=== PATIENT | female | born 1990 | race Caucasian/White ===

== ENCOUNTER 2024-05-21 13:49 | Emergency (ER) | payer BC, SELFPAY ==
--- OUTSIDE RECORDS SUMMARY | 2024-05-21 13:52 | XMS_ITS | Clinical Summary ---
Author Organization [facility] Address [place], [place] [address] Care Team Providers Care Business Analytics Faculty Member Name Role Phone Provider, Non-[facility] Primary Care Provider Un available Allergies Active Allergy Reactions Criticality Noted Date Comments Sulfa (Sulfonamide Antibiotics) Rash 03/12 Medications dextroamphetami ne-amphetamine (ADDERALL) 10 mg tablet Take 1 tablet by mouth once daily 0 7 Active traZODone (DESYREL) 100 mg tablet Take 1 tablet by mouth at bedtime. 0 7 Active citalopram (CELEXA) 20 mg tablet Take 1 tablet by mouth once daily. 0 7 Active desogestrel-eth inyl estradiol 0.15-30 mg-mcg (ENSKYCE) tablet Take 1 tablet by mouth once daily. 1 Package 7 Active albuterol (PROVENTIL) 0.083 % neb solutionIndicat ions:Shortness of breath Inhale 3 mL (2.5 mg) via a nebulizer every 4 hours if needed for Shortness Of Breath or Wheezing. 90 mL 2 Active Active Problems Estimated Date of Delivery Comme nts Yes 11/28/2021 No known active problems Social History Tobacco Use Types Packs/Day Years Used Date Smoking Tobacco: Every Day Cigarettes Smokeless Tobacco: Never Estimated Date of Delivery Comme nts Yes 11/28/2021 Sex and Gender Information Value Date Recorded Sex Assigned at Not on file Legal Sex Female 7:12 AM RN OFFICE Gender Identity Not on file Sexual Orientation Not on file Obstetrics History Para Term AB IAB SAB Ectopic Multiple Livin g Live Births 1 Date Outcome GA Total Labor Labor/2nd/3rd Weight Sex Type Anes PTL Sailaja A1 A5 Name Clin Current Last Filed Vital Signs Vital Sign Reading Time Taken Comments Blood Pressure 140/80 09/28/2021 12:29 PM CDT Pulse 97 09/28/2021 12:29 PM CDT Temperature 36.7 C (98 F) 09/28/2021 9:10 AM CDT Respiratory Rate 18 09/28/2021 12:29 PM CDT Oxygen Saturation 96% 09/28/2021 12:29 PM CDT Inhaled Oxygen Concentration - - Weight 88 kg (194 lb) 09/28/2021 9:10 AM CDT Height 162.6 cm (5' 4) 09/28/2021 9:10 AM CDT Body Mass Index 33.3 09/28/2021 9:10 AM CDT Plan of Treatment Health Maintenance Due Date Last Done Comments Tdap 07/03/1999 Depression screening for age 12+ 2000 HIV for age 15-65 07/03/2003 Hepatitis C screening for ag e 18-79 2006 Tetanus booster 2008 Pap test for age 21-65 2009 BMI (ht and wt on same day) for age 18+ 04/03/2018 04/03/2017 COVID-19 vaccine series (2023- season) 2023 Influenza for age 9-49 12/11/2023 RSV vaccine for adults or (1 - 1-dose 75+ series) 07/03/2063 Pneumococcal series for age 6-49 Aged Out No longer eligible based on patient's age to complete this topic Insurance BLUE CROSS OF NON-MI-ITS MEDICAID Care Teams Business Analytics Faculty Member Relationship Specialty Start Date End Date Provider, Non-[facility] . PCP - General 04/03/17
[2024-05-21 14:23] VITALS: BP 118/78; PULSE 115; RESP 20; TEMP 36.5; O2SAT 96; BMI 31.8
--- NOTE | 2024-05-21 15:23 | ED.CHESTPAIN ---
HPI - Chest Pain General Chief Complaint: Chest Pain Stated Complaint: Chest pain Time Seen by Provider: 05/21/24 14:13 History of Present Illness HPI narrative: This 33-year-old female comes in with her father reporting some left upper anterior chest pain that is occurring on and off over the past couple weeks. She states that it is not related to exertion or activity. She also states that it is not reproducible with deep breathing or pressing in this area. She denies having any nausea, vomiting, lightheadedness, shortness of breath, or associated diaphoresis. She does not report any exercise intolerance but states that she does feel tired most the time. She does not report any recent injury event. She states that she has 2 young children and she is very busy as a single mother along with her work and studies. Related Data Home Medications ?Medication ?Instructions ?Recorded ?Confirmed bupropion HCl 300 mg 24 hr tablet, 300 mg PO DAILY 05/21/24 05/21/24 extended release dextroamphetamine-amphetamine ER 1 cap PO DAILY 05/21/24 05/21/24 20 mg 24hr capsule,extend release lorazepam 0.5 mg tablet 0.5 - 1 mg PO Q6H PRN anxiety 05/21/24 05/21/24 losartan 100 mg tablet 100 mg PO DAILY 05/21/24 05/21/24 sumatriptan succinate 100 mg tablet mg PO 05/21/24 trazodone 50 mg tablet 50 - 100 mg PO QPM PRN 05/21/24 05/21/24 Previous Rx's ?Medication ?Instructions ?Recorded ketorolac 10 mg tablet 10 mg PO Q8H 5 days #15 tabs 05/21/24 Allergies Allergy/AdvReac Type Severity Reaction Status Date / Time Sulfa (Sulfonamide Allergy Unknown Verified 05/21/24 14:29 Antibiotics) Review of Systems Status of ROS Reports: 10 or more systems reviewed and unremarkable except as noted in History and below Narrative Constitutional: No fevers, no weight gain or loss. Eyes: No discharge. No vision changes. HENT: No congestion, no sore throat, no ear pain. Cardiovascular: No palpitations. Respiratory: No shortness of breath, no wheezes, no cough. Gastrointestinal: No abdominal pain, no vomiting, no diarrhea. Genitourinary: No dysuria, no hematuria. Musculoskeletal: Normal range of motion. Skin: No rashes, no pruritis. Neurological: No dizziness, weakness, sensory change, speech change. Endo/Heme/Allergies: No bruising or bleeding. No polydipsia. Pysch: no suicidality, no insomnia. All other systems reviewed and are negative. Exam Narrative Exam Narrative: Constitutional: Well-developed, well-nourished, no acute distress. HEENT: Normocephalic, atraumatic. Neck: Normal range of motion. Nontender. Supple. Heart: Regular. No murmurs. Normal rate. Intact distal pulses. Lungs: Clear to auscultation. No wheezes, rhonchi, or rales. Chest discomfort is in the left upper chest and is not reproducible with palpation, deep breath, or certain movements. She states that she feels like it it is in her chest wall. Abdomen: Normal bowel sounds. Nontender. No rebound tenderness. Genitalia: Deferred. Back: No midline tenderness. Normal range of motion. Extremities: Normal range of motion. No injury. Skin: Intact. No rash. Warm. No erythema or pallor. Neurologic: No altered sensation. No weakness. Alert and oriented. Psychiatric: No suicidality. No anxiety or depression. No insomnia. Nursing notes and vitals signs are reviewed. Const Vital Signs, click to edit/add: Vital Signs - 24 hr 05/21/24 14:23 Temperature 97.7 F Pulse Rate [Pulse Oximeter] 115 H Respiratory Rate 20 Blood Pressure [Right Upper Arm] 118/78 Pulse Oximetry 96 Oxygen Delivery Method Room Air Course Vital Signs Vital signs: Initial Vital Signs Temperature 97.7 F 05/21/24 14:23 Temperature Source Temporal Artery Scan 05/21/24 14:23 Pulse Rate 115 H 05/21/24 14:23 Respiratory Rate 20 05/21/24 14:23 Blood Pressure 118/78 05/21/24 14:23 Blood Pressure Mean 91 05/21/24 14:23 Blood Pressure Position Sitting 05/21/24 14:23 Pulse Oximetry 96 05/21/24 14:23 Oxygen Delivery Method Room Air 05/21/24 14:23 Vital Signs Temperature 97.7 F 05/21/24 14:23 Pulse Rate 115 H 05/21/24 14:23 Respiratory Rate 20 05/21/24 14:23 Blood Pressure 118/78 05/21/24 14:23 Pulse Oximetry 96 05/21/24 14:23 Oxygen Delivery Method Room Air 05/21/24 14:23 Temperature 97.7 F 05/21/24 14:23 Pulse Rate 115 H 05/21/24 14:23 Respiratory Rate 20 05/21/24 14:23 Blood Pressure 118/78 05/21/24 14:23 Pulse Oximetry 96 05/21/24 14:23 Oxygen Delivery Method Room Air 05/21/24 14:23 MDM - Chest Pain MDM Narrative Medical decision making narrative: This patient comes in with pain along the border of her left sternum. Sometimes the pain is reproducible when taking a deep breath and with certain movements. Bedside ultrasound done by me shows normal heart, lungs, and ribs. Additionally lab results and EKG are also reassuring. The patient received an oral dose of dexamethasone 10 mg and a prescription for Toradol. She is reassured with these negative results. Lab Data Labs: Lab Results 05/21/24 05/21/24 Range/Units 15:23 15:32 WBC 6.06 (4.50-11.00) K/uL RBC 4.07 (4.00-5.20) m/uL Hgb 13.5 (12.0-16.0) gm/dL Hct 41.1 (33.0-51.0) % MCV 101 H (80-100) fL MCH 33 (26-34) pg MCHC 33 (32-36) gm/dL RDW Coeff of Rosamaria 12.5 (11.5-15.5) % Plt Count 188 (140-440) K/uL Neut % (Auto) 59.8 (42.0-72.0) % Lymph % (Auto) 29.9 (20-44) % Jones % (Auto) 7.8 (0.0-11.0) % Eos % (Auto) 1.5 (0.0-7.0) % Baso % (Auto) 0.8 (0.0-3.0) % Neut # (Auto) 3.63 (1.7-7.0) K/uL Lymph # (Auto) 1.81 (0.90-2.90) K/uL Jones # (Auto) 0.50 (0.00-0.90) K/UL Eos # (Auto) 0.09 (0.00-0.50) K/uL Baso # (Auto) 0.05 (0.00-0.30) K/uL Abs Immat Gran (auto) 0.01 (0.00-0.30) K/uL Imm/Tot Granulo (auto) 0.2 % POC Troponin I 0.00 L (0.01-0.04) ng/ml ECG Data Attestation: I personally reviewed and interpreted this ECG as follows: Interpretation: Normal sinus rhythm. Rate is 103 beats per minute. There are no ST or T-wave abnormalities. Discharge Plan Discharge Clinical Impression: Chest wall pain Patient Disposition: Home, Self-Care Condition: Stable Additional Instructions: Take medication as needed and directed. Increase activity as tolerated. Follow up with MD return if worsening. Prescriptions: New ketorolac 10 mg tablet 10 mg PO Q8H 5 Days Qty: 15 0RF No Action trazodone 50 mg tablet 50 - 100 mg PO QPM PRN sumatriptan succinate 100 mg tablet PO Patient Comments: PLEASE SEE ATTACHED FOR DETAILED DIRECTIONS lorazepam 0.5 mg tablet 0.5 - 1 mg PO Q6H PRN (Reason: anxiety) dextroamphetamine-amphetamine 20 mg capsule,extended release 24hr 1 cap PO DAILY losartan 100 mg tablet 100 mg PO DAILY bupropion HCl 300 mg tablet extended release 24 hr 300 mg PO DAILY Follow Up/Referrals: Provider,Not a Local [Primary Care Provider] - Stand Alone Forms: [facility] Info Instructions Procedures Ultrasound Other exam #1: Anatomical areas examined: Heart, lungs, and ribs. Indications: Left chest pain along the sternal border. Description/findings: Normal heart, lungs, and musculoskeletal findings. Impression: Negative exam.
--- OUTSIDE RECORDS SUMMARY | 2024-05-21 15:34 | XMS_ITS | Encounter Summary ---
Author Organization [facility] Address [address] [place] [address] Care Team Providers Care Currency Exchange Specialist Name Role Phone Alexandru Ly MD Primary Car e Provider Paola Martell CRAFT CENTER DIRECTOR Primary Care Provider [phone] Paola Martell CRAFT CENTER DIRECTOR Primary Care Provider [phone] Janna Ball DO Primary Care Provider [phone] Davy Proctor PA-C Unavailable [phone] Paola Martell CRAFT CENTER DIRECTOR Unavailable [phone] Paola Martell CRAFT CENTER DIRECTOR Unavailable [phone] Paola Martell CRAFT CENTER DIRECTOR Unavailable [phone] Davy Proctor PA-C Unavailable [phone] Ana Herrera MD Unavailable Ana Herrera MD Primary Care Provider [phone] Lencho York MD Unavailable [phone] Ana Herrera MD Unavailable Tamara Ly Unavailable Unavailable Tamara Ly Unavailable Unavailable Vince Orourke MD Unavailable [phone] Jessica Goldberg MD Unavailable Jessica Goldberg MD Unavailable [phone] Vince Orourke MD Unavailable Hali Gabriel MD Unavailable [phone] Ana Herrera MD Unavailable Stephanie Porras PA-C Unavailable [phone] System, Provider Not In Primary Care Provider Un available Clinic - [facility] Unavail able Reason for Visit * Reason Onset Date Comments Pt. Information/instruction 10/22/2011 Encounter Details Date Type Department Care Team (Late st Contact Info) Description 10/22/2011 MyC Medical Advice [address], [address] [place] [address] Alexandru Ly MD [facility] [employer] [address] [place], [place] [id number] Pt. Information/instruc tion Social History Tobacco Use Types Packs/Day Years Used Date Smoking Tobacco: Every Day Cigarettes Smokeless Tobacco: Never Comments:1/2 ppd, tried quit ting Alcohol Use Standard Drinks/Week Comments Yes 0 (1 standard drink = 0.6 oz pur e alcohol) occ. Comments No Sex and Gender Information Value Date Recorded Sex Assigned at Female 01/03/2021 12:47 PM CDT Legal Sex Female 4:24 AM KAIAKO KOHANGA REO Gender Identity Female 01/03/2021 12:47 PM CDT Sexual Orientation Straight 01/03/2021 12 :47 PM CDT documented as of this encounter Plan of Treatment Not on file documented as of this encounter Visit Diagnoses Not on filedocumented in this encounter Additional Health Concerns Infection Onset Date Last Indicated Resolved Time Rule Out COVID-19 03/05/2020 03/05/2020 03/06/2020 5:31 PM KAIAKO KOHANGA REO Rule Out COVID-19 01/04/2021 01/04/2021 01/04/2021 4:13 AM CDT Rule Out COVID-19 09/28/2021 09/28/2021 09/28/2021 11:00 PM CDT Rule Out COVID-19 07/20/2023 07/20/2023 07/20/2023 12:33 PM CDT documented as of this encounter Care Teams Currency Exchange Specialist Relationship Specialty Start Date End Date Alexandru Ly MD PCP - General 08/09/02 11/22/16 Paola Martell, CRAFT CENTER DIRECTOR PCP - General Nurse Practitioner - Family 11/23/16 11/09/17 Paola Martell, CRAFT CENTER DIRECTOR PCP - General Nurse Practitioner - Family 11/14/17 02/08/18 Janna Ball DO PCP - General arborist climber 03/20/18 08/02/19 Davy Proctor PA-C [address] [place] [id number] PCP - Assigned PCP 03/12/18 04/08/18 Paola Martell, CRAFT CENTER DIRECTOR [address] [place] [address] PCP - Assigned PCP 11/28/16 03/11/18 Paola Martell, CRAFT CENTER DIRECTOR [address] [place] [address] PCP - Assigned PCP 04/09/18 06/13/18 [place] [address] [place], [place] [id number] PCP - General Family Practice 08/03/19 05/22/23 System, Provider Not In PCP - General Clinic 06/27/23 Paola Martell CRAFT CENTER DIRECTOR [address] [place] [address] Assigned PCP 04/09/18 06/24/18 Davy Proctor PA-C [address] [place] [address] Assigned PCP 02/26/18 02/17/19 [place] [address] [place] [address] Assigned PCP 02/18/19 08/02/20 [place] [address] [place] [address] Assigned PCP 08/03/20 09/13/20 [place] [address] [place], [place] [phone] Assigned PCP 09/14/20 05/07/22 Tamara Ly Personal Advocate & Liaison (PAL) Family Medicine 09/24/20 Tamara Ly Personal Advocate & Liaison (PAL) Family Medicine 12/04/20 Vince Orourke MD [address] [place], [place] [id number] Assigned OBGYN Provider 07/05/21 08/29/21 Jessica Goldberg MD [address] [place] [address] Assigned OBGYN Provider 08/30/21 10/30/21 Jessica Goldberg MD [address] [place] [address] Assigned OBGYN Provider 11/07/21 02/18/23 Vince Orourke MD [address] [place] [address] Assigned OBGYN Provider 10/31/21 11/06/21 [place] [address] [place] [address] Assigned PCP 05/08/22 06/04/22 [place] [address] [place] [address] Assigned PCP 06/05/22 07/09/22 Stephanie Porras PAWillC [address] [facility] [address] [place] [address] Assigned PCP 07/10/22 03/02/24 [facility] [address] [place] [address] Assigned PCP 03/03/24 documented as of this encounter
--- OUTSIDE RECORDS SUMMARY | 2024-05-21 15:34 | XMS_ITS | Encounter Summary ---
Author Organization [facility] Address [address] [place] [address] Care Team Providers Care Service Secretary Name Role Phone Alexandru Ly MD Primary Car e Provider Paola Martell FISHERIES INSPECTOR Primary Care Provider [phone] Paola Martell FISHERIES INSPECTOR Primary Care Provider [phone] Janna Ball DO Primary Care Provider [phone] Davy Proctor PA-C Unavailable [phone] Paola Martell FISHERIES INSPECTOR Unavailable [phone] Paola Martell FISHERIES INSPECTOR Unavailable [phone] Paola Martell FISHERIES INSPECTOR Unavailable [phone] Davy Proctor PA-C Unavailable [phone] Ana Herrera MD Unavailable Ana Herrera MD Primary Care Provider [phone] Lencho York MD Unavailable [phone] Ana Herrera MD Unavailable Tamara Ly Unavailable Unavailable Tamara Ly Unavailable Unavailable Vince Orourke MD Unavailable [phone] Jessica Goldberg MD Unavailable [phone] Jessica Goldberg MD Unavailable [phone] Vince Orourke MD Unavailable [phone] Hali Gabriel MD Unavailable [phone] Ana Herrera MD Unavailable Stephanie Porras PA-C Unavailable System, Provider Not In Primary Care Provider Un available Clinic - [facility] Unavail able Encounter Details Date Type Department Care Team (Late st Contact Info) Description 09/07/2012 MyC Medical Advice [facility] [address] [facility], [address] [place] [address] Alexandru Ly MD [facility] [employer] [facility] [address] [place] [address] Social History Tobacco Use Types Packs/Day Years Used Date Smoking Tobacco: Every Day Cigarettes Smokeless Tobacco: Never Comments:1/2 ppd, tried quit ting Alcohol Use Standard Drinks/Week Comments Yes 0 (1 standard drink = 0.6 oz pur e alcohol) occ. Comments No Sex and Gender Information Value Date Recorded Sex Assigned at Female 01/03/2021 12:47 PM CDT Legal Sex Female 4:24 AM DIRECTOR IT Gender Identity Female 01/03/2021 12:47 PM CDT Sexual Orientation Straight 01/03/2021 12 :47 PM CDT documented as of this encounter Plan of Treatment Not on file documented as of this encounter Visit Diagnoses Not on filedocumented in this encounter Additional Health Concerns Infection Onset Date Last Indicated Resolved Time Rule Out COVID-19 03/05/2020 03/05/2020 03/06/2020 5:31 PM DIRECTOR IT Rule Out COVID-19 01/04/2021 01/04/2021 01/04/2021 4:13 AM CDT Rule Out COVID-19 09/28/2021 09/28/2021 09/28/2021 11:00 PM CDT Rule Out COVID-19 07/20/2023 07/20/2023 07/20/2023 12:33 PM CDT documented as of this encounter Care Teams Service Secretary Relationship Specialty Start Date End Date Alexandru Ly MD PCP - General 08/09/02 11/22/16 Paola Martell, FISHERIES INSPECTOR PCP - General Nurse Practitioner - Family 11/23/16 11/09/17 Paola Martell, FISHERIES INSPECTOR PCP - General Nurse Practitioner - Family 11/14/17 02/08/18 Janna Ball DO PCP - General vmware engineer 03/20/18 08/02/19 Davy Proctor PA-C [address] [place] [address] PCP - Assigned PCP 03/12/18 04/08/18 Paola Martell, FISHERIES INSPECTOR [address] [place] [address] PCP - Assigned PCP 11/28/16 03/11/18 Paola Martell, FISHERIES INSPECTOR [address] [place] [address] PCP - Assigned PCP 04/09/18 06/13/18 [place] [address] [place] [address] PCP - General Family Practice 08/03/19 05/22/23 System, Provider Not In PCP - General Clinic 06/27/23 Paola Martell FISHERIES INSPECTOR [facility] & [address] [place] [address] Assigned PCP 04/09/18 06/24/18 Davy Proctor PA-C [address] [place] [id number] Assigned PCP 02/26/18 02/17/19 [place] [address] [place], [place] [id number] Assigned PCP 02/18/19 08/02/20 [place] [address] [place], [place] [id number] Assigned PCP 08/03/20 09/13/20 [place] [address] [place], [place] [phone] Assigned PCP 09/14/20 05/07/22 Tamara Ly Personal Advocate & Liaison (PAL) Family Medicine 09/24/20 Tamara Ly Personal Advocate & Liaison (PAL) Family Medicine 12/04/20 Vince Orourke MD [address] [place] [address] Assigned OBGYN Provider 07/05/21 08/29/21 Jessica Goldberg MD [address] [place] [address] Assigned OBGYN Provider 08/30/21 10/30/21 Jessica Goldberg MD [address] [place], [place] [address] Assigned OBGYN Provider 11/07/21 02/18/23 Vince Orourke MD [address] [place], [place] [address] Assigned OBGYN Provider 10/31/21 11/06/21 [place] [address] [place], [place] [id number] Assigned PCP 05/08/22 06/04/22 [place] [address] [place], [place] [id number] Assigned PCP 06/05/22 07/09/22 Stephanie Porras PA-C [address] [facility] [address] [place] [address] Assigned PCP 07/10/22 03/02/24 [facility] [address] [place], [place] [id number] Assigned PCP 03/03/24 documented as of this encounter
--- OUTSIDE RECORDS SUMMARY | 2024-05-21 15:34 | XMS_ITS | Encounter Summary ---
Author Organization [facility] Address [address] [place] [address] Care Team Providers Care Video Control Operator Name Role Phone Ana Herrera MD Primary Care Provider Ana Herrera MD Unavailable Tamara Ly Unavailable Unavailable Tamara Ly Unavailable Unavailable Vince Orourke MD Unavailable Jessica Goldberg MD Unavailable [phone] Jessica Goldberg MD Unavailable [phone] Vince Orourke MD Unavailable [phone] Coming Hali Theodore MD Unavailable [phone] Ana Herrera MD Unavailable Stephanie Porras PA-C Unavailable [phone] System, Provider Not In Primary Care Provider Un available Clinic - [facility] Unavail able Encounter Details Date Type Department Care Team (Late st Contact Info) Description 03/23/2021 MyC Medical Advice [address] [address] Lindsay Willis, INSURANCE LOSS CONTROL SURVEYOR Social History Tobacco Use Types Packs/Day Years Used Date Smoking Tobacco: Every Day Cigarettes Smokeless Tobacco: Never Comments:1/2 ppd, tried quit ting Alcohol Use Standard Drinks/Week Comments Yes 0 (1 standard drink = 0.6 oz pur e alcohol) 5-6x day PHQ-2 Answer Date Recorded PHQ-2 Score 4 01/06/2021 Comments No Sex and Gender Information Value Date Recorded Sex Assigned at Female 01/03/2021 12:47 PM CDT Legal Sex Female 4:24 AM STOCK BROKER SUPERVISOR Gender Identity Female 01/03/2021 12:47 PM CDT Sexual Orientation Straight 01/03/2021 12 :47 PM CDT documented as of this encounter Plan of Treatment Not on file documented as of this encounter Visit Diagnoses Not on filedocumented in this encounter Additional Health Concerns Infection Onset Date Last Indicated Resolved Time Rule Out COVID-19 09/28/2021 09/28/2021 09/28/2021 11:00 PM CDT Rule Out COVID-19 07/20/2023 07/20/2023 07/20/2023 12:33 PM CDT Assessment Noted Time PHQ-9 Depression Total Score: 8 01/08/20 21 7:01 AM CDT documented as of this encounter Care Teams Video Control Operator Relationship Specialty [place] [address] [place] [address] PCP - General Family Practice 08/03/19 05/22/23 System, Provider Not In PCP - General Clinic 06/27/23 [place] [address] [place] [address] Assigned PCP 09/14/20 05/07/22 Tamara Ly Personal Advocate & Liaison (PAL) Family Medicine 09/24/20 Tamara Ly Personal Advocate & Liaison (PAL) Family Medicine 12/04/20 Vince Orourke MD [address] [address] Assigned OBGYN Provider 07/05/21 Jessica Goldberg MD [address] [place] [address] Assigned OBGYN Provider 08/30/21 Jessica Goldberg MD [address] [place] [address] Assigned OBGYN Provider 11/07/2102/18 Vince Orourke MD [address] [place], [place] [address] Assigned OBGYN Provider 10/31/21 [place] [address] [place], [place] [id number] Assigned PCP 05/08/22 06/04/22 [place] [address] [place] [address] Assigned PCP 06/05/22 07/09/22 Stephanie Porras PA-C [address] [facility] [address] [place] [address] Assigned PCP 07/10/22 03/02/24 [facility] [address] [place], [place] [id number] Assigned PCP 03/03/24 documented as of this encounter
--- OUTSIDE RECORDS SUMMARY | 2024-05-21 15:34 | XMS_ITS | Encounter Summary ---
Author Organization [facility] Address [address] [place] [address] Care Team Providers Care Global Sourcing Manager Name Role Phone Alexandru Ly MD Primary Car e Provider Paola aMrtell TRANSPORTATION OPERATIONS MANAGER Primary Care Provider [phone] Paola Martell TRANSPORTATION OPERATIONS MANAGER Primary Care Provider [phone] Janna Ball DO Primary Care Provider [phone] Davy Proctor PA-C Unavailable [phone] Paola Martell TRANSPORTATION OPERATIONS MANAGER Unavailable [phone] Paola Martell TRANSPORTATION OPERATIONS MANAGER Unavailable Paola Martell TRANSPORTATION OPERATIONS MANAGER Unavailable [phone] Davy Proctor PA-C Unavailable [phone] Ana Herrera MD Unavailable Ana Herrera MD Primary Care Provider [phone] Lencho York MD Unavailable [phone] Ana Herrera MD Unavailable Tamara Ly Unavailable Unavailable Tamara Ly Unavailable Unavailable Vince Orourke MD Unavailable [phone] Jessica Goldberg MD Unavailable [phone] Jessica Goldberg MD Unavailable [phone] Vince Orourke MD Unavailable Hali Gabriel MD Unavailable [phone] Ana Herrera MD Unavailable Stephanie Porras PA-C Unavailable System, Provider Not In Primary Care Provider Un available Clinic - [facility] Unavail able Reason for Visit * Reason Onset Date Comments MyChart Communication 03/22/2012 MRSA Encounter Details Date Type Department Care Team (Late st Contact Info) Description 03/22/2012 MyC Medical Advice [address], [address] [place] [address] Alexandru Ly MD [facility] [employer] [address] [place], [place] [address] MyChart Communication (MRSA) Social History Tobacco Use Types Packs/Day Years Used Date Smoking Tobacco: Every Day Cigarettes Smokeless Tobacco: Never Comments:1/2 ppd, tried quit ting Alcohol Use Standard Drinks/Week Comments Yes 0 (1 standard drink = 0.6 oz pur e alcohol) occ. Comments No Sex and Gender Information Value Date Recorded Sex Assigned at Female 01/03/2021 12:47 PM CDT Legal Sex Female 4:24 AM PACKER INSULATION Gender Identity Female 01/03/2021 12:47 PM CDT Sexual Orientation Straight 01/03/2021 12 :47 PM CDT documented as of this encounter Plan of Treatment Not on file documented as of this encounter Visit Diagnoses Not on filedocumented in this encounter Additional Health Concerns Infection Onset Date Last Indicated Resolved Time Rule Out COVID-19 03/05/2020 03/05/2020 03/06/2020 5:31 PM PACKER INSULATION Rule Out COVID-19 01/04/2021 01/04/2021 01/04/2021 4:13 AM CDT Rule Out COVID-19 09/28/2021 09/28/2021 09/28/2021 11:00 PM CDT Rule Out COVID-19 07/20/2023 07/20/2023 07/20/2023 12:33 PM CDT documented as of this encounter Care Teams Global Sourcing Manager Relationship Specialty Start Date End Date Alexandru Ly MD PCP - General 08/09/02 11/22/16 Paola Martell, TRANSPORTATION OPERATIONS MANAGER PCP - General Nurse Practitioner - Family 11/23/16 11/09/17 Paola Martell, TRANSPORTATION OPERATIONS MANAGER PCP - General Nurse Practitioner - Family 11/14/17 02/08/18 Janna Ball DO PCP - General vascular technician 03/20/18 08/02/19 Davy Proctor PA-C [address] [place] [address] [id number] PCP - Assigned PCP 03/12/18 04/08/18 Paola Martell, TRANSPORTATION OPERATIONS MANAGER [address] [place] [address] PCP - Assigned PCP 11/28/16 03/11/18 Paola Martell, TRANSPORTATION OPERATIONS MANAGER [address] [place] [address] PCP - Assigned PCP 04/09/18 06/13/18 [place] [address] [place] [address] PCP - General Family Practice 08/03/19 05/22/23 System, Provider Not In PCP - General Clinic 06/27/23 Paola Martell TRANSPORTATION OPERATIONS MANAGER [address] [address] Assigned PCP 04/09/18 06/24/18 Davy Proctor PA-C [address] [place] [address] Assigned PCP 02/26/18 02/17/19 [place] [address] [place] [address] Assigned PCP 02/18/19 08/02/20 [place] [address] [place] [address] Assigned PCP 08/03/20 09/13/20 [place] [address] [place], [place] [id number] Assigned PCP 09/14/20 05/07/22 Tamara Ly Personal Advocate & Liaison (PAL) Family Medicine 09/24/20 Tamara Ly Personal Advocate & Liaison (PAL) Family Medicine 12/04/20 Vince Orourke MD [address] [place] [address] Assigned OBGYN Provider 07/05/21 08/29/21 Jessica Goldberg MD [address] [place] [address] Assigned OBGYN Provider 08/30/21 10/30/21 Jessica Goldberg MD [address] [place] [address] Assigned OBGYN Provider 11/07/21 02/18/23 Vince Orourke MD [address] [place] [address] Assigned OBGYN Provider 10/31/21 11/06/21 [place] [address] [place] [address] Assigned PCP 05/08/22 06/04/22 [place] [address] [place] [address] Assigned PCP 06/05/22 07/09/22 Stephanie Porras PAWillC [address] [facility] 200 [place] [address] Assigned PCP 07/10/22 03/02/24 [facility] [address] [place] [address] Assigned PCP 03/03/24 documented as of this encounter
--- OUTSIDE RECORDS SUMMARY | 2024-05-21 15:34 | XMS_ITS | Encounter Summary ---
Author Organization [place] Address [address] [place] [address] Care Team Providers Care Electric Razor Mechanic Name Role Phone Paola Martell NP Primary Care Provider Janna Ball DO Primary Care Provider [phone] Davy Proctor PA-C Unavailable [phone] Paola Martell NP Unavailable [phone] Paola Martell NP Unavailable [phone] Paola Martell NP Unavailable [phone] Davy Proctor PA-C Unavailable [phone] Ana Herrera MD Unavailable Ana Herrera MD Primary Care Provider Lencho York MD Unavailable Ana Herrera MD Unavailable Malachi Tamara L Unavailable Unavailable Arianna Lye Kole Unavailable Unavailable Vince Orourke MD Unavailable [phone] Jessica Goldberg MD Unavailable [phone] Jessica Goldberg MD Unavailable [phone] Vince Orourke MD Unavailable [phone] Hali Gabriel MD Unavailable [phone] Javier, Amer MD Unavailable Stephanie Porras PA-C Unavailable [phone] System, Provider Not In Primary Care Provider Un available Clinic - [facility] Unavail able Encounter Details Date Type Department Care Team (Late st Contact Info) Description 11/30/2017 MyC Medical Advice [facility] [place] [address] [place] [address] Janna Ball, DO [address] [place] [address] Social History Tobacco Use Types Packs/Day Years Used Date Smoking Tobacco: Every Day Cigarettes Smokeless Tobacco: Never Comments:1/2 ppd, tried quit ting Alcohol Use Standard Drinks/Week Comments Yes 0 (1 standard drink = 0.6 oz pure alcohol) every night about 2 glasses of wine Comments No Sex and Gender Information Value Date Recorded Sex Assigned at Female 01/03/2021 12:47 PM CDT Legal Sex Female 4:24 AM CAUSTIC PREPARER Gender Identity Female 01/03/2021 12:47 PM CDT Sexual Orientation Straight 01/03/2021 12 :47 PM CDT documented as of this encounter Miscellaneous Notes * Telephone Encounter - Shanti Toney RN - 12/13/2017 3:02 PM CDT See pt response. Shanti Coon R.N. [facility] * Telephone Encounter - Esther Greenfield RN - 11/30/2017 12:33 PM CDT Do you want her to leave a urine? Please advise. Esther Greenfield RN documented in this encounter Plan of Treatment Not on file documented as of this encounter Visit Diagnoses Not on filedocumented in this encounter Additional Health Concerns Infection Onset Date Last Indicated Resolved Time Rule Out COVID-19 03/05/2020 03/05/2020 03/06/2020 5:31 PM CAUSTIC PREPARER Rule Out COVID-19 01/04/2021 01/04/2021 01/04/2021 4:13 AM CDT Rule Out COVID-19 09/28/2021 09/28/2021 09/28/2021 11:00 PM CDT Rule Out COVID-19 07/20/2023 07/20/2023 07/20/2023 12:33 PM CDT documented as of this encounter Care Teams Electric Razor Mechanic Relationship Specialty Start Date End Date Paola Martell SITE MANAGER PCP - General Nurse Practitioner - Family 11/14/17 02/08/18 Janna Ball DO PCP - General collision center manager 03/20/18 08/02/19 Davy Proctor PA-C [address] [place] [address] PCP - Assigned PCP 03/12/18 04/08/18 Paola Martell SITE MANAGER [address] [place] [address] PCP - Assigned PCP 11/28/16 03/11/18 Paola Martell, SITE MANAGER [place] [address] [address] [address] PCP - Assigned PCP 04/09/18 06/13/18 [place] [address] [place] [address] PCP - General Family Practice 08/03/19 05/22/23 System, Provider Not In PCP - General Clinic 06/27/23 Paola Martell SITE MANAGER [address] [place] [address] Assigned PCP 04/09/18 06/24/18 Davy Proctor PA-C [address] [place] [address] Assigned PCP 02/26/18 02/17/19 [place] [address] [place], [place] [id number] Assigned PCP 02/18/19 08/02/20 [place] [address] [place] [address] Assigned PCP 08/03/20 09/13/20 [place] [address] [place], [place] [address] Assigned PCP 09/14/20 05/07/22 Tamara Ly Personal Advocate & Liaison (PAL) Family Medicine 09/24/20 Tamara Ly Personal Advocate & Liaison (PAL) Family Medicine 12/04/20 Vince Orourke MD [address] [place] [address] Assigned OBGYN Provider 07/05/21 Jessica Goldberg MD [address] [place] [address] Assigned OBGYN Provider 08/30/21 Jessica Goldberg MD [address] [facility] [address] [place] [address] Assigned OBGYN Provider 11/07/2102/18 Vince Orourke MD [address] [facility] [address] [place] [address] Assigned OBGYN Provider 10/31/21 [place] [address] [place] [address] Assigned PCP 05/08/22 06/04/22 [place] [address] [place] [address] Assigned PCP 06/05/22 07/09/22 Stephanie Porras PA-C [address] [facility] 200 [place] [address] Assigned PCP 07/10/22 03/02/24 [facility] [address] [place] [address] Assigned PCP 03/03/24 documented as of this encounter
--- OUTSIDE RECORDS SUMMARY | 2024-05-21 15:34 | XMS_ITS | Encounter Summary ---
Author Organization [facility] Address [address] [place] [address] Care Team Providers Care Carry Out Clerk Name Role Phone Paola Martell NURSERY WORKER Primary Care Provider [phone] Paola Martell NURSERY WORKER Primary Care Provider [phone] Janna Ball DO Primary Care Provider [phone] Davy Proctor PA-C Unavailable [phone] Paola Martell NURSERY WORKER Unavailable [phone] Paola Martell NURSERY WORKER Unavailable [phone] Paola Martell NURSERY WORKER Unavailable [phone] Davy Proctor PA-C Unavailable [phone] Ana Herrera MD Unavailable Ana Herrera MD Primary Care Provider Lencho York MD Unavailable [phone] Ana Herrera MD Unavailable Tamara Ly Unavailable Unavailable Tamara Ly Unavailable Unavailable Vince Orourke MD Unavailable + Jessica Goldberg MD Unavailable + [phone] Jessica Goldberg MD Unavailable + [phone] Vince Orourke MD Unavailable + Coming Hali Theodore MD Unavailable [phone] Ana Herrera MD Unavailable Stephanie Porras PA-C Unavailable System, Provider Not In Primary Care Provider Un available Clinic - [facility] Unavail able Encounter Details Date Type Department Care Team (Late st Contact Info) Description 11/09/2017 MyC Medical Advice [facility] [address] [place] [address] Brigette Erickson APRN COTTON ACREAGE MEASURER [address] [place], [place] [id number] Social History Tobacco Use Types Packs/Day Years [...] PM CDT Legal Sex Female 4:24 AM BRAKE OPERATOR HEAVY DUTY Gender Identity Female 01/03/2021 12:47 PM CDT Sexual Orientation Straight 01/03/2021 12 :47 PM CDT documented as of this encounter Plan of Treatment Not on file documented as of this encounter Visit Diagnoses Not on filedocumented in this encounter Additional Health Concerns Infection Onset Date Last Indicated Resolved Time Rule Out COVID-19 03/05/2020 03/05/2020 03/06/2020 5:31 PM BRAKE OPERATOR HEAVY DUTY Rule Out COVID-19 01/04/2021 01/04/2021 01/04/2021 4:13 AM CDT Rule Out COVID-19 09/28/2021 09/28/2021 09/28/2021 11:00 PM CDT Rule Out COVID-19 07/20/2023 07/20/2023 07/20/2023 12:33 PM CDT documented as of this encounter Care Teams Carry Out Clerk Relationship Specialty Start Date End Date Paola Martell, NURSERY WORKER PCP - General Nurse Practitioner - Family 11/23/16 11/09/17 Paola Martell, NURSERY WORKER PCP - General Nurse Practitioner - Family 11/14/17 02/08/18 Janna Ball DO PCP - General supervisor vat house 03/20/18 08/02/19 Davy Proctor PA-C [address] [place] [address] PCP - Assigned PCP 03/12/18 04/08/18 Paola Martell, NURSERY WORKER [address] [address] PCP - Assigned PCP 11/28/16 03/11/18 Paola Martell, NURSERY WORKER [address] [address] PCP - Assigned PCP 04/09/18 06/13/18 [place] [address] [place] [address] PCP - General Family Practice 08/03/19 05/22/23 System, Provider Not In PCP - General Clinic 06/27/23 Paola Martell, NURSERY WORKER [address] [place] [address] Assigned PCP 04/09/18 06/24/18 Davy Proctor PA-C [address] [place] [address] [id number] Assigned PCP 02/26/18 02/17/19 [place] [address] [place] [address] Assigned PCP 02/18/19 08/02/20 [place] [address] [place] [address] Assigned PCP 08/03/20 09/13/20 [place] [address] [place], [place] [id number] Assigned PCP 09/14/20 05/07/22 Tamara Ly Personal Advocate & Liaison (PAL) Family Medicine 09/24/20 Tamara Ly Personal Advocate & Liaison (PAL) Family Medicine 12/04/20 Vince Orourke MD [address] [place], [place] [address] Assigned OBGYN Provider 07/05/21 Jessica Goldberg MD [address] [place], [place] [address] Assigned OBGYN Provider 08/30/21 Jessica Goldberg MD [address] [place], [place] [address] Assigned OBGYN Provider 11/07/2102/18 Vince Orourke MD [address] [place], [place] [address] Assigned OBGYN Provider 10/31/21 [place] [address] [place] [address] Assigned PCP 05/08/22 06/04/22 [place] [address] [place] [address] Assigned PCP 06/05/22 07/09/22 Stephanie Porras PA-C [address] [facility] [address] [place] [address] Assigned PCP 07/10/22 03/02/24 [facility] [address] [place] [address] Assigned PCP 03/03/24 documented as of this encounter
--- OUTSIDE RECORDS SUMMARY | 2024-05-21 15:34 | XMS_ITS | Encounter Summary ---
Author Organization [place] Address [address] [place] [address] Care Team Providers Care Roll Edge Stitcher Hand Name Role Phone Paola Martell NP Primary Care Provider Janna Ball DO Primary Care Provider [phone] Davy Proctor PA-C Unavailable [phone] Paola Martell NP Unavailable [phone] Paola Martell NP Unavailable [phone] Paola Martell NP Unavailable [phone] Davy Proctor PA-C Unavailable [phone] Ana Herrera MD Unavailable Ana Herrera MD Primary Care Provider Lencho York MD Unavailable [phone] Ana Herrera MD Unavailable Malachi Tamara L Unavailable Unavailable Arianna Lye Kole Unavailable Unavailable Vince Orourke MD Unavailable [phone] Jessica Goldberg MD Unavailable +[phone] Jessica Goldberg MD Unavailable [phone] Vince Orourke MD Unavailable +[phone] Hali Gabriel MD Unavailable [phone] Javier, Amer MD Unavailable Stephanie Porras PA-C Unavailable System, Provider Not In Primary Care Provider Un available Clinic - [facility] Unavail able Encounter Details Date Type Department Care Team (Late st Contact Info) Description 11/11/2017 MyC Medical Advice [facility] [address] [place] [address] Brigette Erickson APRN PACKAGE REINSPECTOR [address] [place], [place] [address] Social History Tobacco Use Types Packs/Day Years [...] PM CDT Legal Sex Female 4:24 AM PAPER AND PULP MILL WORKER Gender Identity Female 01/03/2021 12:47 PM CDT Sexual Orientation Straight 01/03/2021 12 :47 PM CDT documented as of this encounter Plan of Treatment Not on file documented as of this encounter Visit Diagnoses Not on filedocumented in this encounter Additional Health Concerns Infection Onset Date Last Indicated Resolved Time Rule Out COVID-19 03/05/2020 03/05/2020 03/06/2020 5:31 PM PAPER AND PULP MILL WORKER Rule Out COVID-19 01/04/2021 01/04/2021 01/04/2021 4:13 AM CDT Rule Out COVID-19 09/28/2021 09/28/2021 09/28/2021 11:00 PM CDT Rule Out COVID-19 07/20/2023 07/20/2023 07/20/2023 12:33 PM CDT documented as of this encounter Care Teams Roll Edge Stitcher Hand Relationship Specialty Start Date End Date Paola Martell NP PCP - General Nurse Practitioner - Family 11/14/17 02/08/18 Janna Ball DO PCP - General diamond die polisher 03/20/18 08/02/19 Davy Proctor PA-C [address] [place] [address] PCP - Assigned PCP 03/12/18 04/08/18 Paola Martell, SR. LOGISTICS ANALYST [address] [place] [address] PCP - Assigned PCP 11/28/16 03/11/18 Paola Martell NP [address] [place] [address] PCP - Assigned PCP 04/09/18 06/13/18 [place] [address] [place] [address] PCP - General Family Practice 08/03/19 05/22/23 System, Provider Not In PCP - General Clinic 06/27/23 Paola Martell, SR. LOGISTICS ANALYST [address] [place] [address] Assigned PCP 04/09/18 06/24/18 Davy Proctor PA-C [address] [place] [address] Assigned PCP 02/26/18 02/17/19 [place] [address] [place] [address] Assigned PCP 02/18/19 08/02/20 [place] [address] [place] [address] Assigned PCP 08/03/20 09/13/20 [place] [address] [place] [address] Assigned PCP 09/14/20 05/07/22 Tamara Ly Personal Advocate & Liaison (PAL) Family Medicine 09/24/20 Tamara Ly Personal Advocate & Liaison (PAL) Family Medicine 12/04/20 Vince Orourke MD [address] [place], [place] [address] Assigned OBGYN Provider 07/05/21 Jessica Goldberg MD [address] [place], [place] [address] Assigned OBGYN Provider 08/30/21 Jessica Goldberg MD [address] [place], [place] [address] Assigned OBGYN Provider 11/07/2102/18 Vince Orourke MD [address] [place], [place] [address] Assigned OBGYN Provider 10/31/21 [place] [address] [place] [address] Assigned PCP 05/08/22 06/04/22 [place] [address] [place] [address] Assigned PCP 06/05/22 07/09/22 Stephanie Porras PAWillC [address] [facility] 200 [place] [address] Assigned PCP 07/10/22 03/02/24 [facility] [address] [place] [address] Assigned PCP 03/03/24 documented as of this encounter
--- OUTSIDE RECORDS SUMMARY | 2024-05-21 15:34 | XMS_ITS | Encounter Summary ---
Author Organization [facility] Address [address] [place] [address] Care Team Providers Care Supervisor Insecticide Name Role Phone Alexandru Ly MD Primary Car e Provider Paola Martell PREPARATION ROOM MANAGER Primary Care Provider [phone] Paola Martell PREPARATION ROOM MANAGER Primary Care Provider [phone] Janna Ball DO Primary Care Provider [phone] Davy Proctor PA-C Unavailable [phone] Paola Martell PREPARATION ROOM MANAGER Unavailable [phone] Paola Martell PREPARATION ROOM MANAGER Unavailable [phone] Paola Martell PREPARATION ROOM MANAGER Unavailable [phone] Davy Proctor PA-C Unavailable [phone] Ana Herrera MD Unavailable Ana Herrera MD Primary Care Provider [phone] Lencho York MD Unavailable [phone] Ana Herrera MD Unavailable Tamara Ly Unavailable Unavailable Tamara Ly Unavailable Unavailable Vince Orourke MD Unavailable [phone] Jessica Goldberg MD Unavailable Jessica Goldberg MD Unavailable [phone] Vince Orourke MD Unavailable [phone] Hali Gabriel MD Unavailable [phone] Ana Herrera MD Unavailable Stephanie Porras PA-C Unavailable [phone] System, Provider Not In Primary Care Provider Un available Clinic - [facility] Unavail able Encounter Details Date Type Department Care Team (Late st Contact Info) Description 08/29/2002 [facility] [address] [place] [address] Abdulaziz Swenson MD XXX HOSPITALIST/ED DOCTOR XXX ER Visit (Primary Dx) Social History Tobacco Use Types Packs/Day Years Used Date Smoking Tobacco: Every Day Cigarettes Smokeless Tobacco: Never Comments:1/2 ppd, tried quit ting Alcohol Use Standard Drinks/Week Comments Not Currently 0 (1 standard drink = 0.6 oz pur e alcohol) Comments No Sex and Gender Information Value Date Recorded Sex Assigned at Female 01/03/2021 12:47 PM CDT Legal Sex Female 4:24 AM NDT INSPECTOR Gender Identity Female 01/03/2021 12:47 PM CDT Sexual Orientation Straight 01/03/2021 12 :47 PM CDT documented as of this encounter Progress Notes * 08/29/2002 11:59 PM [id number] 00:00 Emergency Department Encounter-OLGA BHAKTA) [Entered: 2002 00:00 Coconut Cooker ([facility])] : 86 CHIEF COMPLAINT: Ingestion. HISTORY OF PRESENT IL LNESS: Ivana Langford is a 12-year-old female who chopped up and snorted six 50 mg tablets of Zoloft. She was told by a friend that she would get a good high if she did this. After she did this she wa s complaining to her parents of some respiratory distress which has since resolved somewhat. Mom gil d she appeared to be having difficulty getting air and was doing some coughing. She has not had comp laints of any headache, chest pain or weakness since this episode. [facility] had [facility], and they called me explaining that this would be an overdose-like dose of Zoloft and that their conc erns were for blood pressure and heart rate. Here the child has no complaints and is actually feelin g quite normal. REVIEW OF SYSTEMS: The patient has had no recent fevers, coughs, vomiting or diarrh ea. Her mood has been stable. She had taken Zoloft in 06/11 for depression. She does not feel like her depression is very severe right now. She has had no suicidal or homicidal ideations. Remainder of Review of Systems is negative. PAST MEDICAL HISTORY: Depression. MEDICATIONS: None. ALLERGIES : SEPTRA. SOCIAL HISTORY: The child is exposed to second-hand smoke, but does not use alcohol or a ny other drugs. FAMILY HISTORY: Noncontributory. PHYSICAL EXAMINATION: Vitals - Blood pressure 12 0/81, pulse 92, respiratory rate 16, temp 98.4. IN GENERAL the child is alert and oriented, very information technology coordinator perative. HEENT - Pupils are round, equal and reactive to light, and extraocular movements are full, sclerae white, conjunctivae pink. Oropharynx is clear. There is no swelling or redness of either t he mucosa or the posterior pharynx. NECK - There is no stridor on auscultation of the neck. Neck is supple, no nuchal rigidity. There is no anterior-posterior cervical adenopathy. LUNGS are clear to auscultation with equal breath sounds bilaterally and good air movement. CARDIAC - Regular rate and r hythm, no murmur, gallop, rub. ABDOMEN is soft, nontender, nondistended. Bowel sounds are present. T here are no masses noted, no hepatosplenomegaly. The child is moving all of her EXTREMITIES and has good strength throughout. There are no SKIN rashes, no evidence of trauma noted. The child's MENTAL STATUS is intact. MEDICAL DECISION-MAKING/EMERGENCY DEPARTMENT COURSE: The patient was placed on c ardiac monitor which showed a normal sinus rhythm with a rate of 92. She was also placed on oximetry , and her oxygen saturations were 96-98% on room air. Because this was a nasal ingestion, no charcoa l was given. I had a long talk with the patient about her depression to make sure this was not an at tempt to hurt herself. She said that she was doing it because a friend suggested that she would get high. I specifically asked the child if her mood had been low and was she looking for a quick fix of her mood. She said she thought she had actually been quite stable. She also denies using any stree t drugs. I also spoke with mom, asking her how she thinks the child's mood has been. She has not hensley d any concerns recently and thinks that the child has actually been quite stable. I suggested to Juliana ochoa that she not take any medications that are not prescribed for her and not take them in any way ot her than that prescribed. She can also take ibuprofen or Tylenol as directed by her parents, but not to try these things suggested by her friends. She seems to understand this. Her mood does seem fin e to me. She makes good eye contact, and her affect is appropriate. She has denied any other ingest ion and, since this was not an attempt to hurt herself, I did not pursue any other laboratory studies . Mom is comfortable taking the child home. I spoke again with the [facility], and they suggested about a four-hour monitoring of the child's status. She ingested this at about 1330 and, with her h eart rate within normal limits and her blood pressure appropriate to age, she was discharged about 6 p.m. IMPRESSION: 1. Zoloft overdose/ingestion by snorting. 2. Respiratory distress, resolved. DIS POSITION: Home. CONDITION: Stable. [id number]_ OLGA EMANUEL MD T: 08/10 04:41 MT: Document: [id number] [place], [place] Name: TALA OREILLY IVANA Sharif EMERGENCY ROOM ENCOUNTER Page 3 of 2 LCN: TERRIE DSC: 08/29/2002 [place], [place] Name: MR#: : Admit Date: IVANA LANGFORD -[id number] 08/29/2002 Doctor: OLGA EMANUEL MD EMERGENCY ROOM ENCOUNTER Page 1 of 2 Electronically f iled by Nicole Rowland 09/05/2002 3:46 PM documented in this encounter Plan of Treatment Not on file documented as of this encounter Visit Diagnoses Diagnosis ER Visit- Primary documented in this encounter Additional Health Concerns Infection Onset Date Last Indicated Resolved Time Rule Out COVID-19 03/05/2020 03/05/2020 03/06/2020 5:31 PM NDT INSPECTOR Rule Out COVID-19 01/04/2021 01/04/2021 01/04/2021 4:13 AM CDT Rule Out COVID-19 09/28/2021 09/28/2021 09/28/2021 11:00 PM CDT Rule Out COVID-19 07/20/2023 07/20/2023 07/20/2023 12:33 PM CDT documented as of this encounter Care Teams Supervisor Insecticide Relationship Specialty Start Date End Date Alexandru Ly MD PCP - General 08/09/02 11/22/16 Paola Martell, PREPARATION ROOM MANAGER PCP - General Nurse Practitioner - Family 11/23/16 11/09/17 Paola Martell, PREPARATION ROOM MANAGER PCP - General Nurse Practitioner - Family 11/14/17 02/08/18 Janna Ball DO PCP - General steelscope operator 03/20/18 08/02/19 Davy Proctor PA-C [address] [place] [address] PCP - Assigned PCP 03/12/18 04/08/18 Paola Martell, PREPARATION ROOM MANAGER [address] [place] [address] PCP - Assigned PCP 11/28/16 03/11/18 Paola Martell PREPARATION ROOM MANAGER [address] [place] [address] PCP - Assigned PCP 04/09/18 06/13/18 [place] [address] [place] [address] PCP - General Family Practice 08/03/19 05/22/23 System, Provider Not In PCP - General Clinic 06/27/23 Paola Martell NP [address] [place] [address] Assigned PCP 04/09/18 06/24/18 Davy Proctor PA-C [address] [place] [address] Assigned PCP 02/26/18 02/17/19 [place] [address] [place] [address] Assigned PCP 02/18/19 08/02/20 [place] [address] [place] [address] Assigned PCP 08/03/20 09/13/20 [place] [address] [place] [address] Assigned PCP 09/14/20 05/07/22 Tamara Ly Personal Advocate & Liaison (PAL) Family Medicine 09/24/20 Tamara Ly Personal Advocate & Liaison (PAL) Family Medicine 12/04/20 Vince Orourke MD [address] [place] [address] Assigned OBGYN Provider 07/05/21 08/29/21 Jessica Goldberg MD [address] [place] [address] Assigned OBGYN Provider 08/30/21 10/30/21 Jessica Goldberg MD [address] [place], [place] [address] Assigned OBGYN Provider 11/07/21 02/18/23 Vince Orourke MD [address] [place], [place] [address] Assigned OBGYN Provider 10/31/21 11/06/21 [place] [address] [place] [address] Assigned PCP 05/08/22 06/04/22 [place] [address] [place] [address] Assigned PCP 06/05/22 07/09/22 Stephanie Porras PA-C [address] [facility] [address] [facility] [address] [place] [address] Assigned PCP 07/10/22 03/02/24 [facility] [address] [place] [address] Assigned PCP 03/03/24 documented as of this encounter
--- OUTSIDE RECORDS SUMMARY | 2024-05-21 15:34 | XMS_ITS | Encounter Summary ---
Author Organization [facility] Address [address] [place] [address] Care Team Providers Care [employer] Art Teacher Name Role Phone Alexandru Ly MD Primary Car e Provider Paola Martell CAMERA STORAGE CLERK Primary Care Provider [phone] Paola Martell CAMERA STORAGE CLERK Primary Care Provider [phone] Janna Ball DO Primary Care Provider [phone] Davy Proctor PA-C Unavailable [phone] Paola Martell CAMERA STORAGE CLERK Unavailable [phone] Paola Martell CAMERA STORAGE CLERK Unavailable [phone] Paola Martell CAMERA STORAGE CLERK Unavailable [phone] Davy Proctor PA-C Unavailable [phone] Ana Herrera MD Unavailable Ana Herrera MD Primary Care Provider [phone] Lencho York MD Unavailable [phone] Ana Herrera MD Unavailable Tamara Ly Unavailable Unavailable Tamara Ly Unavailable Unavailable Vince Orourke MD Unavailable [phone] Jessica Goldberg MD Unavailable [phone] Jessica Goldberg MD Unavailable [phone] Vince Orourke MD Unavailable Hali Gabriel MD Unavailable [phone] Ana Herrera MD Unavailable Stephanie Porras PA-C Unavailable System, Provider Not In Primary Care Provider Un available Clinic - [facility] Unavail able Reason for Visit * Reason Onset Date Comments Derm Problem 08/30/2012 Shingles Encounter Details Date Type Department Care Team (Late st Contact Info) Description 08/30/2012 MyC Medical Advice [address], [address] [place] [address] Alexandru Ly MD [facility] [employer] [facility] [address] [place], [place] [address] Derm Problem (Shingles) Social History Tobacco Use Types Packs/Day Years Used Date Smoking Tobacco: Every Day Cigarettes Smokeless Tobacco: Never Comments:1/2 ppd, tried quit ting Alcohol Use Standard Drinks/Week Comments Yes 0 (1 standard drink = 0.6 oz pur e alcohol) occ. Comments No Sex and Gender Information Value Date Recorded Sex Assigned at Female 01/03/2021 12:47 PM CDT Legal Sex Female 4:24 AM ENTRY LEVEL ACCOUNT MANAGER Gender Identity Female 01/03/2021 12:47 PM CDT Sexual Orientation Straight 01/03/2021 12 :47 PM CDT documented as of this encounter Plan of Treatment Not on file documented as of this encounter Visit Diagnoses Not on filedocumented in this encounter Additional Health Concerns Infection Onset Date Last Indicated Resolved Time Rule Out COVID-19 03/05/2020 03/05/2020 03/06/2020 5:31 PM ENTRY LEVEL ACCOUNT MANAGER Rule Out COVID-19 01/04/2021 01/04/2021 01/04/2021 4:13 AM CDT Rule Out COVID-19 09/28/2021 09/28/2021 09/28/2021 11:00 PM CDT Rule Out COVID-19 07/20/2023 07/20/2023 07/20/2023 12:33 PM CDT documented as of this encounter Care Teams [employer] Art Teacher Relationship Specialty Start Date End Date Alexandru Ly MD PCP - General 08/09/02 11/22/16 Paola Martell, CAMERA STORAGE CLERK PCP - General Nurse Practitioner - Family 11/23/16 11/09/17 Paola Martell, CAMERA STORAGE CLERK PCP - General Nurse Practitioner - Family 11/14/17 02/08/18 Janna Ball DO PCP - General k 12 school principal 03/20/18 08/02/19 Davy Proctor PA-C [address] [place] [id number] PCP - Assigned PCP 03/12/18 04/08/18 Paola Martell, CAMERA STORAGE CLERK [address] [place] [address] PCP - Assigned PCP 11/28/16 03/11/18 Paola Martell, CAMERA STORAGE CLERK [address] [place] [address] PCP - Assigned PCP 04/09/18 06/13/18 [place] [address] [place] [address] PCP - General Family Practice 08/03/19 05/22/23 System, Provider Not In PCP - General Clinic 06/27/23 Paola Martell CAMERA STORAGE CLERK [address] [address] Assigned PCP 04/09/18 06/24/18 Davy Proctor PA-C [address] [place] [address] Assigned PCP 02/26/18 02/17/19 [place] [address] [place] [address] Assigned PCP 02/18/19 08/02/20 [place] [address] [place] [address] Assigned PCP 08/03/20 09/13/20 [place] [address] [place], [place] [address] Assigned PCP 09/14/20 05/07/22 Tamara Ly Personal Advocate & Liaison (PAL) Family Medicine 09/24/20 Tamara Ly Personal Advocate & Liaison (PAL) Family Medicine 12/04/20 Vince Orourke MD [address] [place] [address] Assigned OBGYN Provider 07/05/21 08/29/21 Jessica Goldberg MD [address] [place] [address] Assigned OBGYN Provider 08/30/21 10/30/21 Jessica Goldberg MD [address] [place] [address] Assigned OBGYN Provider 11/07/21 02/18/23 Vince Orourke MD [address] [place] [address] Assigned OBGYN Provider 10/31/21 11/06/21 [place] [address] [place] [address] Assigned PCP 05/08/22 06/04/22 [place] [address] [place] [address] Assigned PCP 06/05/22 07/09/22 Stephanie Porras PAWillC [address] [facility] [address] [place] [address] Assigned PCP 07/10/22 03/02/24 [facility] [address] [place] [address] Assigned PCP 03/03/24 documented as of this encounter
--- OUTSIDE RECORDS SUMMARY | 2024-05-21 15:34 | XMS_ITS | Encounter Summary ---
Author Organization [facility] Address [address] [place] [address] Care Team Providers Care Field Installation Technician Name Role Phone Paola Martell NP Primary Care Provider Janna Ball DO Primary Care Provider [phone] Davy Proctor PA-C Unavailable [phone] Paola Martell NP Unavailable [phone] Paola Martell NP Unavailable [phone] Paola Martell NP Unavailable [phone] Davy Proctor PA-C Unavailable [phone] Ana Herrera MD Unavailable Ana Herrera MD Primary Care Provider Lencho York MD Unavailable [phone] Ana Herrera MD Unavailable Malachi Tamara L Unavailable Unavailable Arianna Lye Kole Unavailable Unavailable Vince Orourke MD Unavailable [phone] Jessica Goldberg MD Unavailable [phone] Jessica Goldberg MD Unavailable [phone] Vince Orourke MD Unavailable [phone] Hali Gabriel MD Unavailable [phone] Javier, Amer MD Unavailable Stephanie Porras PA-C Unavailable System, Provider Not In Primary Care Provider Un available Clinic - [facility] Unavail able Reason for Visit * Reason Onset Date Comments Vaginal Bleeding 11/18/2017 Encounter Details Date Type Department Care Team (Late st Contact Info) Description 11/18/2017 MyC Medical Advice [facility] [place] [address] [place] [phone] Janna Ball DO [address] [place] [address] Vaginal Bleeding Social History Tobacco Use Types Packs/Day Years [...] PM CDT Legal Sex Female 4:24 AM TECHNICAL MGR Gender Identity Female 01/03/2021 12:47 PM CDT Sexual Orientation Straight 01/03/2021 12 :47 PM CDT documented as of this encounter Miscellaneous Notes * Telephone Encounter - Shanti Toney RN - 11/21/2017 10:47 AM CDT GAYATHRI charles. Shanti Coon R.N. [facility] * Telephone Encounter - Janna Ball DO - 11/21/2017 10:31 AM CDT Called patient and left message to call back for disucssion. Dr. Janna Ball DO RESIDENTIAL PEST CONTROL TECHNICIAN [facility] Doxycycline not covered, zithromax called in instead But then zithromax not recommended with citalopram Please start pa for doxycyline Ok to have bleeding, likely from the uterine device used for the surgery, call back if saturating athick pain in 1 hour * Telephone Encounter - Shanti Toney, RN - 11/21/2017 9:58 AM CDT Pt had robotic assisted laparoscopic endometriosis resection, chromotubation, endometrial biopsy on11/16/17. See mychart message Shanti Coon R.N. [facility] documented in this encounter Plan of Treatment Not on file documented as of this encounter Visit Diagnoses Diagnosis Chronic endometritis- Primary Chronic inflammatory disease of uterus, except cervix documented in this encounter Additional Health Concerns Infection Onset Date Last Indicated Resolved Time Rule Out COVID-19 03/05/2020 03/05/2020 03/06/2020 5:31 PM TECHNICAL MGR Rule Out COVID-19 01/04/2021 01/04/2021 01/04/2021 4:13 AM CDT Rule Out COVID-19 09/28/2021 09/28/2021 09/28/2021 11:00 PM CDT Rule Out COVID-19 07/20/2023 07/20/2023 07/20/2023 12:33 PM CDT documented as of this encounter Care Teams Field Installation Technician Relationship Specialty Start Date End Date Paola Martell NP PCP - General Nurse Practitioner - Family 11/14/17 02/08/18 Janna Ball DO PCP - General industrial psychologist 03/20/18 08/02/19 Davy Proctor PA-C [address] [place] [address] PCP - Assigned PCP 03/12/18 04/08/18 Paola Martell FURNACE TAPPER [address] [place] [address] PCP - Assigned PCP 11/28/16 03/11/18 Paola Martell FURNACE TAPPER [address] [place] [address] PCP - Assigned PCP 04/09/18 06/13/18 [place] [address] [place], [place] [id number] PCP - General Family Practice 08/03/19 05/22/23 System, Provider Not In PCP - General Clinic 06/27/23 Paola Martell NP [address] [place] [address] Assigned PCP 04/09/18 06/24/18 Davy Proctor PA-C [address] [place] [address] Assigned PCP 02/26/18 02/17/19 [place] [address] [place] [address] Assigned PCP 02/18/19 08/02/20 [place] [address] [place] [address] Assigned PCP 08/03/20 09/13/20 [place] [address] [place] [address] Assigned PCP 09/14/20 05/07/22 Tamara Ly Personal Advocate & Liaison (PAL) Family Medicine 09/24/20 Tamara Ly Personal Advocate & Liaison (PAL) Family Medicine 12/04/20 Vince Orourke MD [address] [place], [place] [address] Assigned OBGYN Provider 07/05/21 Jessica Goldberg MD [address] [place] [address] Assigned OBGYN Provider 08/30/21 Jessica Goldberg MD [address] [place], [place] [address] Assigned OBGYN Provider 11/07/2102/18 Vince Orourke MD [address] [place], [place] [address] Assigned OBGYN Provider 10/31/21 [place] [address] [place] [address] Assigned PCP 05/08/22 06/04/22 [place] [address] [place] [address] Assigned PCP 06/05/22 07/09/22 Stephanie Porras PAWillC [address] [place] [address] Assigned PCP 07/10/22 03/02/[address] [facility] [address] [place] [address] Assigned PCP 03/03/24 documented as of this encounter
--- OUTSIDE RECORDS SUMMARY | 2024-05-21 15:34 | XMS_ITS | Encounter Summary ---
Author Organization [facility] Address [address] [place] [address] Care Team Providers Care Assembler Watch Train Name Role Phone Alexandru Ly MD Primary Car e Provider Paola aMrtell PHYSICAL THERAPIST CLINIC DIRECTOR Primary Care Provider [phone] Paola Martell PHYSICAL THERAPIST CLINIC DIRECTOR Primary Care Provider [phone] Janna Ball DO Primary Care Provider [phone] Davy Proctor PA-C Unavailable [phone] Paola Martell PHYSICAL THERAPIST CLINIC DIRECTOR Unavailable Paola Martell PHYSICAL THERAPIST CLINIC DIRECTOR Unavailable [phone] Paola Martell PHYSICAL THERAPIST CLINIC DIRECTOR Unavailable [phone] Davy Proctor PA-C Unavailable [phone] Ana Herrera MD Unavailable Ana Herrera MD Primary Care Provider [phone] Lencho York MD Unavailable [phone] Ana Herrera MD Unavailable Tamara Ly Unavailable Unavailable Tamara Ly Unavailable Unavailable Vince Orourke MD Unavailable [phone] Jessica Goldberg MD Unavailable [phone] Jessica Goldberg MD Unavailable [phone] Vince Orourke MD Unavailable [phone] Hali Gabriel MD Unavailable [phone] Ana Herrera MD Unavailable Stephanie Porras PA-C Unavailable [phone] System, Provider Not In Primary Care Provider Un available Clinic - [facility] Unavail able Reason for Visit * Reason Onset Date Comments Refill Request 09/22/2011 topamax Symptoms 09/22/2011 continue Encounter Details Date Type Department Care Team (Late st Contact Info) Description 09/22/2011 MyC Medical Advice [facility], [address] [place] [address] Alexandru Ly MD [facility] [address] [place] [address] Refill Request (topamax); Symptoms (continue) Social History Tobacco Use Types Packs/Day Years Used Date Smoking Tobacco: Every Day Cigarettes Smokeless Tobacco: Never Comments:1/2 ppd, tried quit ting Alcohol Use Standard Drinks/Week Comments Yes 0 (1 standard drink = 0.6 oz pur e alcohol) occ. Comments No Sex and Gender Information Value Date Recorded Sex Assigned at Female 01/03/2021 12:47 PM CDT Legal Sex Female 4:24 AM ACTUARY MANAGER Gender Identity Female 01/03/2021 12:47 PM CDT Sexual Orientation Straight 01/03/2021 12 :47 PM CDT documented as of this encounter Miscellaneous Notes * Telephone Encounter - ChicaekaterinaMel - 09/23/2011 3:59 PM CDT Please advise. Copied from 09/23/11 [place] message: From Ivana Hwang To Alexandru Ly MD Sent 09/23/2011 8:38 AM For Delivery On09/23/2011 8:38 AM Subject Doctor visit/ or more meds? PCP Alexandru Ly MD Responsibility Pool - Cr Triage No one has taken responsibility for this message. Audit [place] Message Body Dr. Ly, I still feel very sick. Took my last pill of my z pack today. My jaw still hurts when I blow my nose, do you think I need to come back in or do I need to get more medicine? * Telephone Encounter - Mel Colvin - 09/23/2011 8:51 AM CDT Medication approved per standing order. Mel Colvin RN HEADACHE/MIGRAINE-TOPAMAX Last Office Visit R/T Diagnosis: 08/20/11 BP Readings from Last 3 Encounters: 08/20/11 114/80 06/12/10 114/86 06/04/10 122/74 Anticonvulsant: Topamax OV: 6 mths Max refills: 6 mths Annual creatinine Creatinine Date Value Range Status 06/04/2010 0.83 0.52-1.04 (mg/dL) Final New IDMS-traceable calibration beginning 08/10/07 ] documented in this encounter Plan of Treatment Not on file documented as of this encounter Visit Diagnoses Diagnosis Headaches, migraine- Primary Migraine, unspecified, without mention of intractable migraine without mention of status migrainosus documented in this encounter Additional Health Concerns Infection Onset Date Last Indicated Resolved Time Rule Out COVID-19 03/05/2020 03/05/2020 03/06/2020 5:31 PM ACTUARY MANAGER Rule Out COVID-19 01/04/2021 01/04/2021 01/04/2021 4:13 AM CDT Rule Out COVID-19 09/28/2021 09/28/2021 09/28/2021 11:00 PM CDT Rule Out COVID-19 07/20/2023 07/20/2023 07/20/2023 12:33 PM CDT documented as of this encounter Care Teams Assembler Watch Train Relationship Specialty Start Date End Date Alexandru Ly MD PCP - General 08/09/02 11/22/16 Paola Martell PHYSICAL THERAPIST CLINIC DIRECTOR PCP - General Nurse Practitioner - Family 11/23/16 11/09/17 Paola Martell NP PCP - General Nurse Practitioner - Family 11/14/17 02/08/18 Janna Ball DO PCP - General detective investigator 03/20/18 08/02/19 Davy Proctor PA-C [address] [place] [address] PCP - Assigned PCP 03/12/18 04/08/18 Paola Martell PHYSICAL THERAPIST CLINIC DIRECTOR [place] [address] [place] [address] PCP - Assigned PCP 11/28/16 03/11/18 Paola Martell PHYSICAL THERAPIST CLINIC DIRECTOR [place] [address] [place] [address] PCP - Assigned PCP 04/09/18 06/13/18 [place] [address] [place] [address] PCP - General Family Practice 08/03/19 05/22/23 System, Provider Not In PCP - General Clinic 06/27/23 Paola Martell, PHYSICAL THERAPIST CLINIC DIRECTOR [place] [address] [place] [address] Assigned PCP 04/09/18 06/24/18 Davy Proctor PA-C [address] [place] [address] Assigned PCP 02/26/18 02/17/19 [place] [address] [place] [address] Assigned PCP 02/18/19 08/02/20 [place] [address] [place] [address] Assigned PCP 08/03/20 09/13/20 [place] [address] [place] [address] Assigned PCP 09/14/20 05/07/22 Tamara Ly Personal Advocate & Liaison (PAL) Family Medicine 09/24/20 Tamara Ly Personal Advocate & Liaison (PAL) Family Medicine 12/04/20 Vince Orourke MD [address] [place] [address] Assigned OBGYN Provider 07/05/21 08/29/21 Jessica Goldberg MD [address] [place] [address] Assigned OBGYN Provider 08/30/21 10/30/21 Jessica Goldberg MD [address] [place] [address] Assigned OBGYN Provider 11/07/21 02/18/23 Vince Orourke MD [address] [place] [address] 400 [place], [place] 814274 Assigned OBGYN Provider 10/31/21 11/06/21 [place] [address] [place] [address] Assigned PCP 05/08/22 06/04/22 [place] [address] [place] [address] Assigned PCP 06/05/22 07/09/22 Stephanie Porras PA-C [address] [facility] 200 [place] [address] Assigned PCP 07/10/22 03/02/24 [facility] [address] [place], [place] [id number] Assigned PCP 03/03/24 documented as of this encounter
--- OUTSIDE RECORDS SUMMARY | 2024-05-21 15:35 | XMS_ITS | Encounter Summary ---
Author Organization [facility] Address [address] [place] [address] Care Team Providers Care Gate Technician Name Role Phone Alexandru Ly MD Primary Car e Provider Paola Martell AUTOMATIC BUFFER Primary Care Provider [phone] Paola Martell AUTOMATIC BUFFER Primary Care Provider [phone] Janna Ball DO Primary Care Provider [phone] Davy Proctor PA-C Unavailable [phone] Paola Martell AUTOMATIC BUFFER Unavailable [phone] Paola Martell AUTOMATIC BUFFER Unavailable [phone] Paola Martell AUTOMATIC BUFFER Unavailable [phone] Davy Proctor PA-C Unavailable [phone] Ana Herrera MD Unavailable Ana Herrera MD Primary Care Provider [phone] Lencho York MD Unavailable [phone] Ana Herrera MD Unavailable Tamara Ly Unavailable Unavailable Tamara Ly Unavailable Unavailable Vince Orourke MD Unavailable [phone] Jessica Goldberg MD Unavailable [phone] Jessica Goldberg MD Unavailable [phone] Vince Orourke MD Unavailable [phone] Hali Gabriel MD Unavailable [phone] Ana Herrera MD Unavailable Stephanie Porras PA-C Unavailable System, Provider Not In Primary Care Provider Un available Clinic - [facility] Unavail able Reason for Visit * Reason Onset Date Comments Headache 09/15/2011 headaches Encounter Details Date Type Department Care Team (Late st Contact Info) Description 09/15/2011 MyC Medical Advice [address], [address] [place] [address] Alexandru Ly MD [facility] [employer] WELLNESS [address] [place], [place] [id number] Headache (headaches) Social History Tobacco Use Types Packs/Day Years Used Date Smoking Tobacco: Every Day Cigarettes Smokeless Tobacco: Never Comments:1/2 ppd, tried quit ting Alcohol Use Standard Drinks/Week Comments Yes 0 (1 standard drink = 0.6 oz pur e alcohol) occ. 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 Gender Identity Female 01/03/2021 12:47 PM CDT Sexual Orientation Straight 01/03/2021 12 :47 PM CDT documented as of this encounter Plan of Treatment Not on file documented as of this encounter Visit Diagnoses Not on filedocumented in this encounter Additional Health Concerns Infection Onset Date Last Indicated Resolved Time Rule Out COVID-19 03/05/2020 03/05/2020 03/06/2020 5:31 PM WEED SCIENCE RESEARCH TECHNICIAN Rule Out COVID-19 01/04/2021 01/04/2021 01/04/2021 4:13 AM CDT Rule Out COVID-19 09/28/2021 09/28/2021 09/28/2021 11:00 PM CDT Rule Out COVID-19 07/20/2023 07/20/2023 07/20/2023 12:33 PM CDT documented as of this encounter Care Teams Gate Technician Relationship Specialty Start Date End Date Alexandru Ly MD PCP - General 08/09/02 11/22/16 Paola Martell, AUTOMATIC BUFFER PCP - General Nurse Practitioner - Family 11/23/16 11/09/17 Paola Martell, AUTOMATIC BUFFER PCP - General Nurse Practitioner - Family 11/14/17 02/08/18 Janna Ball DO PCP - General shoe dyer 03/20/18 08/02/19 Davy Proctor PA-C [address] [place] [address] PCP - Assigned PCP 03/12/18 04/08/18 Paola Martell, AUTOMATIC BUFFER [address] [place] [address] PCP - Assigned PCP 11/28/16 03/11/18 Paola Martell, AUTOMATIC BUFFER [address] [address] PCP - Assigned PCP 04/09/18 06/13/18 [place] [address] [place] [address] PCP - General Family Practice 08/03/19 05/22/23 System, Provider Not In PCP - General Clinic 06/27/23 Paola Martell AUTOMATIC BUFFER [address] [address] Assigned PCP 04/09/18 06/24/18 Davy Proctor PA-C [address] [place] [address] Assigned PCP 02/26/18 02/17/19 [place] [address] [place], [place] [id number] Assigned PCP 02/18/19 08/02/20 [place] [address] [place] [address] Assigned PCP 08/03/20 09/13/20 [place] [address] [place], [place] [address] Assigned PCP 09/14/20 05/07/22 Tamara Ly Personal Advocate & Liaison (PAL) Family Medicine 09/24/20 Tamara Ly Personal Advocate & Liaison (PAL) Family Medicine 12/04/20 Vince Orourke MD [address] [place] [address] Assigned OBGYN Provider 07/05/21 08/29/21 Jessica Goldberg MD [address] [place] [address] Assigned OBGYN Provider 08/30/21 10/30/21 Jessica Goldberg MD [address] [place] [address] 400 [place] [address] Assigned OBGYN Provider 11/07/21 02/18/23 Vince Orourke MD [address] [facility] [address] [place], [place] 0[address] Assigned OBGYN Provider 10/31/21 11/06/21 [place] [address] [place], [place] [address] Assigned PCP 05/08/22 06/04/22 [place] [address] [place] [address] Assigned PCP 06/05/22 07/09/22 Stephanie Porras PA-C [address] [facility] 200 [place] [address] Assigned PCP 07/10/22 03/02/24 [facility] [address] [place] [address] Assigned PCP 03/03/24 documented as of this encounter
--- OUTSIDE RECORDS SUMMARY | 2024-05-21 15:35 | XMS_ITS | Encounter Summary ---
Author Organization [facility] Address [address] [place] [address] Care Team Providers Care Customs Broker Name Role Phone Paola Martell HEAD WAITER/WAITRESS Primary Care Provider [phone] Paola Martell HEAD WAITER/WAITRESS Primary Care Provider [phone] Janna Ball DO Primary Care Provider [phone] Davy Proctor PA-C Unavailable [phone] Paola Martell HEAD WAITER/WAITRESS Unavailable [phone] Paola Martell HEAD WAITER/WAITRESS Unavailable [phone] Paola Martell HEAD WAITER/WAITRESS Unavailable [phone] Davy Proctor PA-C Unavailable [phone] Ana Herrera MD Unavailable Ana Herrera MD Primary Care Provider Lencho York MD Unavailable [phone] Ana Herrera MD Unavailable Tamara Ly Unavailable Unavailable Tamara Ly Unavailable Unavailable Vince Orourke MD Unavailable + Jessica Goldberg MD Unavailable + [phone] Jessica Goldberg MD Unavailable + [phone] Vince Orourke MD Unavailable + Coming Hali Theodore MD Unavailable [phone] Ana Herrera MD Unavailable Stephanie Porras PA-C Unavailable System, Provider Not In Primary Care Provider Un available Clinic - [facility] Unavail able Reason for Visit * Reason Onset Date Comments MyChart Communication 06/21/2017 Encounter Details Date Type Department Care Team (Late st Contact Info) Description 06/21/2017 MyC Medical Advice [address] [address] Paola Martell, [facility] & [address] [place] [address] MyChart Communication Social History Tobacco Use Types Packs/Day Years [...] PM CDT Legal Sex Female 4:24 AM 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 Gender Identity Female 01/03/2021 12:47 PM CDT Sexual Orientation Straight 01/03/2021 12 :47 PM CDT documented as of this encounter Plan of Treatment Not on file documented as of this encounter Visit Diagnoses Not on filedocumented in this encounter Additional Health Concerns Infection Onset Date Last Indicated Resolved Time Rule Out COVID-19 03/05/2020 03/05/2020 03/06/2020 5:31 PM TEXTILE DESIGNS 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 Rule Out COVID-19 01/04/2021 01/04/2021 01/04/2021 4:13 AM CDT Rule Out COVID-19 09/28/2021 09/28/2021 09/28/2021 11:00 PM CDT Rule Out COVID-19 07/20/2023 07/20/2023 07/20/2023 12:33 PM CDT documented as of this encounter Care Teams Customs Broker Relationship Specialty Start Date End Date Paola Martell, HEAD WAITER/WAITRESS PCP - General Nurse Practitioner - Family 11/23/16 11/09/17 Paola Martell, HEAD WAITER/WAITRESS PCP - General Nurse Practitioner - Family 11/14/17 02/08/18 Janna Ball DO PCP - General fruit packer face and fill 03/20/18 08/02/19 Davy Proctor PA-C [address] [place] [address] PCP - Assigned PCP 03/12/18 04/08/18 Paola Martell, HEAD WAITER/WAITRESS [address] [place] [address] PCP - Assigned PCP 11/28/16 03/11/18 Paola Martell, HEAD WAITER/WAITRESS [address] [place] [address] PCP - Assigned PCP 04/09/18 06/13/18 [place] [address] [place] [address] PCP - General Family Practice 08/03/19 05/22/23 System, Provider Not In PCP - General Clinic 06/27/23 Paola Martell, HEAD WAITER/WAITRESS [address] [place] [address] Assigned PCP 04/09/18 06/24/18 Davy Proctor PA-C [address] [place] [address] [id number] Assigned PCP 02/26/18 02/17/19 [place] [address] [place], [place] [id number] Assigned PCP 02/18/19 08/02/20 [place] [address] [place], [place] [address]65[address] Assigned PCP 08/03/20 09/13/20 [place] [address] [place], [place] [address]31[address] Assigned PCP 09/14/20 05/07/22 Tamara Ly Personal Advocate & Liaison (PAL) Family Medicine 09/24/20 Tamara Ly Personal Advocate & Liaison (PAL) Family Medicine 12/04/20 Vince Orourke MD [address] [place], [place] 490244 Assigned OBGYN Provider 07/05/21 Jessica Goldberg MD [address] [place], [place] [address] Assigned OBGYN Provider 08/30/21 Jessica Goldberg MD [address] [place], [place] [address] Assigned OBGYN Provider 11/07/2102/18 Vince Orourke MD [address] [place] [address] [address] [place], [place] 246474 Assigned OBGYN Provider 10/31/21 [place] [address] [place], [place] 71263124 Assigned PCP 05/08/22 06/04/22 [place] [address] [place], [place] 71159[address] Assigned PCP 06/05/22 07/09/22 Stephanie Porras PA-C [address] [facility] 200 [place], [place] [address] Assigned PCP 07/10/22 03/02/24 [facility] [address] [place], [place] [address] Assigned PCP 03/03/24 documented as of this encounter
--- OUTSIDE RECORDS SUMMARY | 2024-05-21 15:35 | XMS_ITS | Encounter Summary ---
Author Organization [facility] Address [address] [place] [address] Care Team Providers Care Clasp Machine Operator Name Role Phone Paola Martell CAN STRIPER Primary Care Provider [phone] Paola Martell CAN STRIPER Primary Care Provider [phone] Janna Ball DO Primary Care Provider [phone] Davy Proctor PA-C Unavailable [phone] Paola Martell CAN STRIPER Unavailable [phone] Paola Martell CAN STRIPER Unavailable [phone] Paola Martell CAN STRIPER Unavailable [phone] Davy Proctor PA-C Unavailable [phone] Ana Herrera MD Unavailable Ana Herrera MD Primary Care Provider Lencho York MD Unavailable [phone] Ana Herrera MD Unavailable Tamara Ly Unavailable Unavailable Tamara Ly Unavailable Unavailable Vince Orourke MD Unavailable + Jessica Goldberg MD Unavailable + 3 Jessica Goldberg MD Unavailable + 3 Vince Orourke MD Unavailable + Coming Hali Theodore MD Unavailable [phone] Ana Herrera MD Unavailable Stephanie Porras PA-C Unavailable System, Provider Not In Primary Care Provider Un available Clinic - [facility] Unavail able Reason for Visit * Reason Onset Date Comments MyChart Communication 11/01/2017 Encounter Details Date Type Department Care Team (Late st Contact Info) Description 11/01/2017 MyC Medical Advice [address] [address] Paola Martell, [facility] & [address] [place] [address] MyChart Communication Social History Tobacco [...] PM CDT Legal Sex Female 4:24 AM COUNTY TREASURER Gender Identity Female 01/03/2021 12:47 PM CDT Sexual Orientation Straight 01/03/2021 12 :47 PM CDT documented as of this encounter Plan of Treatment Not on file documented as of this encounter Visit Diagnoses Not on filedocumented in this encounter Additional Health Concerns Infection Onset Date Last Indicated Resolved Time Rule Out COVID-19 03/05/2020 03/05/2020 03/06/2020 5:31 PM COUNTY TREASURER Rule Out COVID-19 01/04/2021 01/04/2021 01/04/2021 4:13 AM CDT Rule Out COVID-19 09/28/2021 09/28/2021 09/28/2021 11:00 PM CDT Rule Out COVID-19 07/20/2023 07/20/2023 07/20/2023 12:33 PM CDT documented as of this encounter Care Teams Clasp Machine Operator Relationship Specialty Start Date End Date Paola Martell, CAN STRIPER PCP - General Nurse Practitioner - Family 11/23/16 11/09/17 Paola Martell, CAN STRIPER PCP - General Nurse Practitioner - Family 11/14/17 02/08/18 Janna Ball DO PCP - General director of operations home health 03/20/18 08/02/19 Davy Proctor PA-C [address] [place] [address] PCP - Assigned PCP 03/12/18 04/08/18 Paola Martell, CAN STRIPER [address] [facility] [place] [address] PCP - Assigned PCP 11/28/16 03/11/18 Paola Martell, CAN STRIPER [address] [place] [address] PCP - Assigned PCP 04/09/18 06/13/18 [place] [address] [place] [address] PCP - General Family Practice 08/03/19 05/22/23 System, Provider Not In PCP - General Clinic 06/27/23 Paola Martell, CAN STRIPER [address] [place] [address] Assigned PCP 04/09/18 06/24/18 Davy Proctor PA-C [address] [place] [address] [id number] Assigned PCP 02/26/18 02/17/19 [place] [address] [place], [place] [phone] Assigned PCP 02/18/19 08/02/20 [place] [address] [place], [place] 39246[address] Assigned PCP 08/03/20 09/13/20 [place] [address] [place], [place] 98222[address] Assigned PCP 09/14/20 05/07/22 Tamara Ly Personal Advocate & Liaison (PAL) Family Medicine 09/24/20 Tamara Ly Personal Advocate & Liaison (PAL) Family Medicine 12/04/20 Vince Orourke MD [address] [place], [place] 45[address] Assigned OBGYN Provider 07/05/21 Jessica Goldberg MD [address] [place], [place] [address] Assigned OBGYN Provider 08/30/21 Jessica Goldberg MD [address] [place], [place] [address] Assigned OBGYN Provider 11/07/2102/18 Vince Orourke MD [address] [place] [address] [address] [place], [place] 491304 Assigned OBGYN Provider 10/31/21 [place] [address] [place], [place] [address] Assigned PCP 05/08/22 06/04/22 [place] [address] [place], [place] 55836[address] Assigned PCP 06/05/22 07/09/22 Stephanie Porras PA-C 65[address] [facility] 200 [place], [place] 4100[address] Assigned PCP 07/10/22 03/02/24 [facility] [address] [place], [place] [address]4099[address] Assigned PCP 03/03/24 documented as of this encounter
--- OUTSIDE RECORDS SUMMARY | 2024-05-21 15:35 | XMS_ITS | Encounter Summary ---
Author Organization [facility] Address [address] [place] [address] Care Team Providers Care Lumber Carrier Name Role Phone Paola Martell TRAVELING MISSIONARY Primary Care Provider [phone] Paola Martell TRAVELING MISSIONARY Primary Care Provider [phone] Janna Ball DO Primary Care Provider [phone] Davy Proctor PA-C Unavailable [phone] Paola Martell TRAVELING MISSIONARY Unavailable [phone] Paola Martell TRAVELING MISSIONARY Unavailable [phone] Paola Martell TRAVELING MISSIONARY Unavailable [phone] Davy Proctor PA-C Unavailable [phone] Ana Herrera MD Unavailable Ana Herrera MD Primary Care Provider Lencho York MD Unavailable [phone] Ana Herrera MD Unavailable Tamara Ly Unavailable Unavailable Tamara Ly Unavailable Unavailable Vince Orourke MD Unavailable + Jessica Goldberg MD Unavailable + 3 Jessica Goldberg MD Unavailable + 3 Vince Orourke MD Unavailable + Coming Hali Theodore MD Unavailable [phone] Ana Herrera MD Unavailable Stephanie Porras PA-C Unavailable [phone] System, Provider Not In Primary Care Provider Un available Clinic - [facility] Unavail able Encounter Details Date Type Department Care Team (Late st Contact Info) Description 09/20/2017 MyC Medical Advice [facility] [address] [place] [address] Paola Martell, TRAVELING MISSIONARY [facility] & [address] [address] Social History Tobacco Use Types Packs/Day Years [...] PM CDT Legal Sex Female 4:24 AM STOPPER SETTER Gender Identity Female 01/03/2021 12:47 PM CDT Sexual Orientation Straight 01/03/2021 12 :47 PM CDT documented as of this encounter Miscellaneous Notes * Telephone Encounter - hSanti Franco RN - 09/20/2017 7:44 AM CDT See my chart Shanti Franco RN documented in this encounter Plan of Treatment Not on file documented as of this encounter Visit Diagnoses Not on filedocumented in this encounter Additional Health Concerns Infection Onset Date Last Indicated Resolved Time Rule Out COVID-19 03/05/2020 03/05/2020 03/06/2020 5:31 PM STOPPER SETTER Rule Out COVID-19 01/04/2021 01/04/2021 01/04/2021 4:13 AM CDT Rule Out COVID-19 09/28/2021 09/28/2021 09/28/2021 11:00 PM CDT Rule Out COVID-19 07/20/2023 07/20/2023 07/20/2023 12:33 PM CDT documented as of this encounter Care Teams Lumber Carrier Relationship Specialty Start Date End Date Paola Martell, TRAVELING MISSIONARY PCP - General Nurse Practitioner - Family 11/23/16 11/09/17 Paola Martell, TRAVELING MISSIONARY PCP - General Nurse Practitioner - Family 11/14/17 02/08/18 Janna Ball DO PCP - General club room attendant 03/20/18 08/02/19 Davy Proctor PA-C [address] [place] [address] PCP - Assigned PCP 03/12/18 04/08/18 Paola Martell, TRAVELING MISSIONARY [facility] [address] [place] [address] [place] [address] PCP - Assigned PCP 11/28/16 03/11/18 Paola Martell, TRAVELING MISSIONARY [facility] [address] [place] [address] [place] [address] PCP - Assigned PCP 04/09/18 06/13/18 [place] [address] [place] [address] PCP - General Family Practice 08/03/19 05/22/23 System, Provider Not In PCP - General Clinic 06/27/23 Paola Martell TRAVELING MISSIONARY [facility] & [address] [place] [address] Assigned PCP 04/09/18 06/24/18 Davy Proctor PA-C [address] [place] [address] [id number] Assigned PCP 02/26/18 02/17/19 [place] [address] [place], [place] [id number] Assigned PCP 02/18/19 08/02/20 [place] [address] [place], [place] [id number] Assigned PCP 08/03/20 09/13/20 [place] [address] [place], [place] [id number] Assigned PCP 09/14/20 05/07/22 Tamara Ly Personal Advocate & Liaison (PAL) Family Medicine 09/24/20 Tamara Ly Personal Advocate & Liaison (PAL) Family Medicine 12/04/20 Vince Orourke MD [address] [place], [place] [address]99[address] Assigned OBGYN Provider 07/05/21 Jessica Goldberg MD [address] [place], [place] [id number] Assigned OBGYN Provider 08/30/21 Jessica Goldberg MD [address] [place] [address] Assigned OBGYN Provider 11/07/2102/18 Vince Orourke MD [address] [place] [address] Assigned OBGYN Provider 10/31/21 [place] [address] [place], [place] [id number] Assigned PCP 05/08/22 06/04/22 [place] [address] [place] [address] Assigned PCP 06/05/22 07/09/22 Stephanie Porras PA-C [address] [place] [address] Assigned PCP 07/10/22 03/02/24 [facility] [address] [place] [address] Assigned PCP 03/03/24 documented as of this encounter
--- OUTSIDE RECORDS SUMMARY | 2024-05-21 15:35 | XMS_ITS | Encounter Summary ---
Author Organization [place] [facility] Address [address] [place] [address] Care Team Providers Care Offensive Coordinator Name Role Phone Paola Martell HYPERCIL CORE TRANSFORMER ASSEMBLER Primary Care Provider [phone] Paola Martell HYPERCIL CORE TRANSFORMER ASSEMBLER Primary Care Provider [phone] Janna Ball DO Primary Care Provider [phone] Davy Proctor PA-C Unavailable [phone] Paola Martell HYPERCIL CORE TRANSFORMER ASSEMBLER Unavailable [phone] Paola Martell HYPERCIL CORE TRANSFORMER ASSEMBLER Unavailable [phone] Paola Martell HYPERCIL CORE TRANSFORMER ASSEMBLER Unavailable [phone] Davy Proctor PA-C Unavailable [phone] Ana Herrera MD Unavailable Ana Herrera MD Primary Care Provider Lencho York MD Unavailable Ana Herrera MD Unavailable Tamara Ly Unavailable Unavailable Tamara Ly Unavailable Unavailable Vince Orourke MD Unavailable + Jessica Goldberg MD Unavailable + 3 Jessica Goldberg MD Unavailable + 3 Vince Orourke MD Unavailable + Coming Hali Theodore MD Unavailable [phone] Ana Herrera MD Unavailable Stephanie Porras PA-C Unavailable [phone] System, Provider Not In Primary Care Provider Un available Clinic - [facility] Unavail able Reason for Visit * Reason Onset Date Comments MyChart Communication 02/22/2017 Encounter Details Date Type Department Care Team (Late st Contact Info) Description 02/22/2017 MyC Medical Advice [address] [address] Paola Martell, [facility] & [address] [place] [address] MyChart Communication Social History Tobacco [...] PM CDT Legal Sex Female 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 Gender Identity Female 01/03/2021 12:47 PM CDT Sexual Orientation Straight 01/03/2021 12 :47 PM CDT documented as of this encounter Miscellaneous Notes * Telephone Encounter - Brigette Erickson RN - 02/22/2017 3:20 PM CST Please advise Brigette Erickson RN, BSN ER FIREMAN documented in this encounter Plan of Treatment Not on file documented as of this encounter Visit Diagnoses Not on filedocumented in this encounter Additional Health Concerns Infection Onset Date Last Indicated Resolved Time Rule Out COVID-19 03/05/2020 03/05/2020 03/06/2020 5:31 PM 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 Rule Out COVID-19 01/04/2021 01/04/2021 01/04/2021 4:13 AM CDT Rule Out COVID-19 09/28/2021 09/28/2021 09/28/2021 11:00 PM CDT Rule Out COVID-19 07/20/2023 07/20/2023 07/20/2023 12:33 PM CDT documented as of this encounter Care Teams Offensive Coordinator Relationship Specialty Start Date End Date Paola Martell, HYPERCIL CORE TRANSFORMER ASSEMBLER PCP - General Nurse Practitioner - Family 11/23/16 11/09/17 Paola Martell, HYPERCIL CORE TRANSFORMER ASSEMBLER PCP - General Nurse Practitioner - Family 11/14/17 02/08/18 Janna Ball DO PCP - General subway train driver 03/20/18 08/02/19 Davy Proctor PA-C [address] [place] [address] PCP - Assigned PCP 03/12/18 04/08/18 Paola Martell, HYPERCIL CORE TRANSFORMER ASSEMBLER [place] [address] [place] [address] PCP - Assigned PCP 11/28/16 03/11/18 Paola Martell, HYPERCIL CORE TRANSFORMER ASSEMBLER [place] [address] [place] [address] PCP - Assigned PCP 04/09/18 06/13/18 [place] [address] [place] [address] PCP - General Family Practice 08/03/19 05/22/23 System, Provider Not In PCP - General Clinic 06/27/23 Paola Martell HYPERCIL CORE TRANSFORMER ASSEMBLER [address] [place] [address] Assigned PCP 04/09/18 06/24/18 Davy Proctor PA-C [address] [place] [address] Assigned PCP 02/26/18 02/17/19 [place] [address] [place] [address] Assigned PCP 02/18/19 08/02/20 [place] [address] [place], [place] [id number] Assigned PCP 08/03/20 09/13/20 [place] [address] [place] [address] Assigned PCP 09/14/20 05/07/22 Tamara Ly Personal Advocate & Liaison (PAL) Family Medicine 09/24/20 Tamara Ly Personal Advocate & Liaison (PAL) Family Medicine 12/04/20 Vince Orourke MD [address] [place], [place] [address] Assigned OBGYN Provider 07/05/21 Jessica Goldberg MD [address] [place] [address] Assigned OBGYN Provider 08/30/21 Jessica Goldberg MD [address] [facility] [address] [place], [place] [address] Assigned OBGYN Provider 11/07/2102/18 Vince Orourke MD [address] [facility] [address] [place], [place] [address] Assigned OBGYN Provider 10/31/21 [place] [address] [place], [place] [phone] Assigned PCP 05/08/22 06/04/22 [place] [address] [place], [place] [address] Assigned PCP 06/05/22 07/09/22 Stephanie Porras PA-C [address] [facility] [address] [place] [address] Assigned PCP 07/10/22 03/02/24 [facility] [address] [place] [address] Assigned PCP 03/03/24 documented as of this encounter
--- OUTSIDE RECORDS SUMMARY | 2024-05-21 15:35 | XMS_ITS | Encounter Summary ---
Author Organization [facility] Address [address] [place] [address] Care Team Providers Care Audiovisual Librarian Name Role Phone Paola Martell CLIENT RETENTION SPECIALIST Primary Care Provider [phone] Paola Martell CLIENT RETENTION SPECIALIST Primary Care Provider [phone] Janna Ball DO Primary Care Provider [phone] Davy Proctor PA-C Unavailable [phone] Paola Martell CLIENT RETENTION SPECIALIST Unavailable [phone] Paola Martell CLIENT RETENTION SPECIALIST Unavailable [phone] Paola Martell CLIENT RETENTION SPECIALIST Unavailable [phone] Davy Proctor PA-C Unavailable [phone] Ana Herrera MD Unavailable Ana Herrera MD Primary Care Provider Lencho York MD Unavailable [phone] Ana Herrera MD Unavailable Tamara Ly Unavailable Unavailable Tamara Ly Unavailable Unavailable Vince Orourke MD Unavailable + Jessica Goldberg MD Unavailable + 3 Jessica Goldberg MD Unavailable + 3 Vince Orourke MD Unavailable + Coming Hali Theodore MD Unavailable [phone] Ana Herrera MD Unavailable Stephanie Porras PA-C Unavailable System, Provider Not In Primary Care Provider Un available Clinic - [facility] Unavail able Encounter Details Date Type Department Care Team (Late st Contact Info) Description 01/08/2017 MyC Medical Advice [facility] [address] [place] [address] Paola Martell, CLIENT RETENTION SPECIALIST [facility] & [address] [address] Social History Tobacco Use Types [...] PM CDT Legal Sex Female 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 Shanti Franco RN documented in this encounter Plan of Treatment Not on file documented as of this encounter Visit Diagnoses Not on filedocumented in this encounter Additional Health Concerns Infection Onset Date Last Indicated Resolved Time Rule Out COVID-19 03/05/2020 03/05/2020 03/06/2020 5:31 PM CIGAR PACKER AND PICKER Rule Out COVID-19 01/04/2021 01/04/2021 01/04/2021 4:13 AM CDT Rule Out COVID-19 09/28/2021 09/28/2021 09/28/2021 11:00 PM CDT Rule Out COVID-19 07/20/2023 07/20/2023 07/20/2023 12:33 PM CDT documented as of this encounter Care Teams Audiovisual Librarian Relationship Specialty Start Date End Date Paola Martell, CLIENT RETENTION SPECIALIST PCP - General Nurse Practitioner - Family 11/23/16 11/09/17 Paola Martell, CLIENT RETENTION SPECIALIST PCP - General Nurse Practitioner - Family 11/14/17 02/08/18 Janna Ball DO PCP - General quality eng 03/20/18 08/02/19 Davy Proctor PA-C [address] [place] [address] PCP - Assigned PCP 03/12/18 04/08/18 Paola Martell, CLIENT RETENTION SPECIALIST [facility] [address] [place] [address] [place] [address] PCP - Assigned PCP 11/28/16 03/11/18 Paola Martell, CLIENT RETENTION SPECIALIST [facility] [address] [place] [address] [place] [address] PCP - Assigned PCP 04/09/18 06/13/18 [place] [address] [place] [address] PCP - General Family Practice 08/03/19 05/22/23 System, Provider Not In PCP - General Clinic 06/27/23 Paola Martell, CLIENT RETENTION SPECIALIST [address] [place] [address] Assigned PCP 04/09/18 06/24/18 Davy Proctor PA-C [address] [place] [address] [id number] Assigned PCP 02/26/18 02/17/19 [place] [address] [place], [place] [id number] Assigned PCP 02/18/19 08/02/20 [place] [address] [place], [place] 82288124 Assigned PCP 08/03/20 09/13/20 [place] [address] [place], [place] 69856[address] Assigned PCP 09/14/20 05/07/22 Tamara Ly Personal Advocate & Liaison (PAL) Family Medicine 09/24/20 Tamara Ly Personal Advocate & Liaison (PAL) Family Medicine 12/04/20 Vince Orourke MD [address] [place], [place] [address] Assigned OBGYN Provider 07/05/21 Jessica Goldberg MD [address] [place], [place] [address] Assigned OBGYN Provider 08/30/21 Jessica Goldberg MD [address] [place] [address] Assigned OBGYN Provider 11/07/2102/18 Vince Orourke MD [address] [place] [address] Assigned OBGYN Provider 10/31/21 [place] [address] [place], [place] [address] Assigned PCP 05/08/22 06/04/22 [place] [address] [place] [address] Assigned PCP 06/05/22 07/09/22 Stephanie Porras PA-C [address] [facility] [place] [address] Assigned PCP 07/10/22 03/02/24 [facility] [address] [place] [address] Assigned PCP 03/03/24 documented as of this encounter
--- OUTSIDE RECORDS SUMMARY | 2024-05-21 15:35 | XMS_ITS | Encounter Summary ---
Author Organization [facility] Address [address] [place] [address] Care Team Providers Care Cv Rn Name Role Phone Paola Martell SYSTEMS SUPPORT SPECIALIST Primary Care Provider [phone] Paola Martell SYSTEMS SUPPORT SPECIALIST Primary Care Provider [phone] Janna Ball DO Primary Care Provider [phone] Davy Proctor PA-C Unavailable [phone] Paola Martell SYSTEMS SUPPORT SPECIALIST Unavailable [phone] Paola Martell SYSTEMS SUPPORT SPECIALIST Unavailable [phone] Paola Martell SYSTEMS SUPPORT SPECIALIST Unavailable [phone] Davy Proctor PA-C Unavailable [phone] Ana Herrera MD Unavailable Ana Herrera MD Primary Care Provider Lencho York MD Unavailable [phone] Ana Herrera MD Unavailable Tamara Ly Unavailable Unavailable Tamara Ly Unavailable Unavailable Vince Orourke MD Unavailable + Jessica Goldberg MD Unavailable + 3 Jessica Goldberg MD Unavailable + 3 Vince Orourke MD Unavailable + Coming Hali Theodore MD Unavailable [phone] Ana Herrera MD Unavailable Stephanie Porras PA-C Unavailable System, Provider Not In Primary Care Provider Un available Clinic - [facility] Unavail able Encounter Details Date Type Department Care Team (Late st Contact Info) Description 01/25/2017 MyC Medical Advice [facility] [address] [place] [address] Paola Martell, SYSTEMS SUPPORT SPECIALIST [facility] & [address] [address] Social History Tobacco Use Types [...] PM CDT Legal Sex Female 4:24 AM 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 Dayna Johnson RN -- [facility] documented in this encounter Plan of Treatment Not on file documented as of this encounter Visit Diagnoses Not on filedocumented in this encounter Additional Health Concerns Infection Onset Date Last Indicated Resolved Time Rule Out COVID-19 03/05/2020 03/05/2020 03/06/2020 5:31 PM CERTIFIED SUBSTANCE ABUSE COUNSELOR Rule Out COVID-19 01/04/2021 01/04/202101/0401/04/2021 4:13 AM CDT Rule Out COVID-19 09/28/2021 09/28/2021 09/28/2021 11:00 PM CDT Rule Out COVID-19 07/20/2023 07/20/2023 07/20/2023 12:33 PM CDT documented as of this encounter Care Teams Cv Rn Relationship Specialty Start Date End Date Paola Martell, SYSTEMS SUPPORT SPECIALIST PCP - General Nurse Practitioner - Family 11/23/16 11/09/17 Paola Martell, SYSTEMS SUPPORT SPECIALIST PCP - General Nurse Practitioner - Family 11/14/17 02/08/18 Janna Ball DO PCP - General business writer 03/20/18 08/02/19 Davy Proctor PA-C [address] [place] [address] PCP - Assigned PCP 03/12/18 04/08/18 Paola Martell, SYSTEMS SUPPORT SPECIALIST [place] [address] [place] [address] PCP - Assigned PCP 11/28/16 03/11/18 Paola Martell, SYSTEMS SUPPORT SPECIALIST [place] [address] [place] [address] PCP - Assigned PCP 04/09/18 06/13/18 [place] [address] [place] [address] PCP - General Family Practice 08/03/19 05/22/23 System, Provider Not In PCP - General Clinic 06/27/23 Paola Martell SYSTEMS SUPPORT SPECIALIST [address] [place] [address] Assigned PCP 04/09/18 06/24/18 Davy Proctor PA-C [address] [place] [address] [id number] Assigned PCP 02/26/18 02/17/19 [place] [address] [place], [place] 109701[address] Assigned PCP 02/18/19 08/02/20 [place] [address] [place], [place] [phone] Assigned PCP 08/03/20 09/13/20 [place] [address] [place], [place] [phone] Assigned PCP 09/14/20 05/07/22 Tamara Ly Personal Advocate & Liaison (PAL) Family Medicine 09/24/20 Tamara Ly Personal Advocate & Liaison (PAL) Family Medicine 12/04/20 Vince Orourke MD [address] [place], [place] [address] Assigned OBGYN Provider 07/05/21 Jessica Goldberg MD [address] [place] [address] Assigned OBGYN Provider 08/30/21 Jessica Goldberg MD [address] [place], [place] 2075[address] Assigned OBGYN Provider 11/07/2102/18 Vince Orourke MD [address] [facility] [address] [place], [place] [address]134 Assigned OBGYN Provider 10/31/21 [place] [address] [place], [place] [id number] Assigned PCP 05/08/22 06/04/22 [place] [address] [place], [place] [phone] Assigned PCP 06/05/22 07/09/22 Stephaine Porras PA-C [address] [facility] 200 [place] [address] Assigned PCP 07/10/22 03/02/24 [facility] [address] [place], [place] [phone] Assigned PCP 03/03/24 documented as of this encounter
--- OUTSIDE RECORDS SUMMARY | 2024-05-21 15:35 | XMS_ITS | Encounter Summary ---
Author Organization [facility] Address [address] [place] [address] Care Team Providers Care Healthcare Social Worker Name Role Phone Paola Martell LOCKSTITCH MACHINE OPERATOR Primary Care Provider [phone] Paola Martell LOCKSTITCH MACHINE OPERATOR Primary Care Provider [phone] Janna Ball DO Primary Care Provider [phone] Davy Proctor PA-C Unavailable [phone] Paola Martell LOCKSTITCH MACHINE OPERATOR Unavailable [phone] Paola Martell LOCKSTITCH MACHINE OPERATOR Unavailable [phone] Paola Martell LOCKSTITCH MACHINE OPERATOR Unavailable [phone] Davy Proctor PA-C Unavailable [phone] Ana Herrera MD Unavailable Ana Herrera MD Primary Care Provider Lencho York MD Unavailable [phone] Ana Herrera MD Unavailable Tamara Ly Unavailable Unavailable Tamara Ly Unavailable Unavailable Vince Orourke MD Unavailable + Jessica Goldberg MD Unavailable + 3 Jessica Goldberg MD Unavailable + 3 Vince Orourke MD Unavailable + Coming Hali Theodore MD Unavailable [phone] Ana Herrera MD Unavailable Stephanie Porras PA-C Unavailable System, Provider Not In Primary Care Provider Un available Clinic - [facility] Unavail able Reason for Visit * Reason Comments Medication Refill traZODone (DESYREL) 50 MG tablet Encounter Details Date Type Department Care Team (Late st Contact Info) Description 07/22/[address] [address] Paola Martell, [facility] & [address] [place] [address] Medication Refill (traZODone (DESYREL) 50 MG tablet ) Social History Tobacco Use Types Packs/Day Years [...] PM CDT Legal Sex Female 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 traZODone (DESYREL) 50 MG tablet [Pharmacy Med Name: TRAZODONE 50MG TABLETS] 30 tablet 0 Sig: TAKE 1 TO 2 TABLETS(50 TO 100 MG) BY MOUTH EVERY NIGHT NEEDED FOR SLEEP Serotonin Modulators Passed 07/22/2017 3:46 AM Passed - Recent (12 mo) or future (30 days) visit within the authorizing provider's specialty Patient had office visit in the last 12 months or has a visit in the next 30 days with authorizing provider or within the authorizing provider's specialty. See Patient Info tab in inbasket, or Choose Columns in Meds & Orders section of the refill encounter. Passed - Patient is age 18 or older Passed - No active on record Passed - No positive test in past 12 months documented in this encounter Plan of Treatment Not on file documented as of this encounter Visit Diagnoses Diagnosis Insomnia, unspecified type documented in this encounter Additional Health Concerns Infection Onset Date Last Indicated Resolved Time Rule Out COVID-19 03/05/2020 03/05/2020 03/06/2020 5:31 PM CHUCKING MACHINE SET UP OPERATOR Rule Out COVID-19 01/04/2021 01/04/2021 01/04/2021 4:13 AM CDT Rule Out COVID-19 09/28/2021 09/28/2021 09/28/2021 11:00 PM CDT Rule Out COVID-19 07/20/2023 07/20/2023 07/20/2023 12:33 PM CDT documented as of this encounter Care Teams Healthcare Social Worker Relationship Specialty Start Date End Date Paola Martell NP PCP - General Nurse Practitioner - Family 11/23/16 11/09/17 Paola Martell NP PCP - General Nurse Practitioner - Family 11/14/17 02/08/18 Janna Ball DO PCP - General overlock sleeve setter 03/20/18 08/02/19 Davy Proctor PA-C [address] [place] [address] PCP - Assigned PCP 03/12/18 04/08/18 Paola Martell, LOCKSTITCH MACHINE OPERATOR [address] [place] [address] PCP - Assigned PCP 11/28/16 03/11/18 Paola Martell, LOCKSTITCH MACHINE OPERATOR [address] [place] [address] PCP - Assigned PCP 04/09/18 06/13/18 [place] [address] [place] [address] PCP - General Family Practice 08/03/19 05/22/23 System, Provider Not In PCP - General Clinic 06/27/23 Paola Martell NP [address] [place] [address] Assigned PCP 04/09/18 06/24/18 Davy Proctor PA-C [address] [place] [address] Assigned PCP 02/26/18 02/17/19 [place] [address] [place] [address] Assigned PCP 02/18/19 08/02/20 [place] [address] [place] [address] Assigned PCP 08/03/20 09/13/20 [place] [address] [place] [address] Assigned PCP 09/14/20 05/07/22 Tamara Ly Personal Advocate & Liaison (PAL) Family Medicine 09/24/20 Tamara Ly Personal Advocate & Liaison (PAL) Family Medicine 12/04/20 Vince Orourke MD [address] [place], [place] [address] Assigned OBGYN Provider 07/05/21 Jessica Goldberg MD [address] [place] [address] Assigned OBGYN Provider 08/30/21 Jessica Goldberg MD [address] [place], [place] [address] Assigned OBGYN Provider 11/07/2102/18 Vince Orourke MD [address] [place] [address] Assigned OBGYN Provider 10/31/21 [place] [address] [place] [address] Assigned PCP 05/08/22 06/04/22 [place] [address] [place] [address] Assigned PCP 06/05/22 07/09/22 Stephanie Porras, CYNDIEC [address] [facility] [address] [place] [address] Assigned PCP 07/10/22 03/02/24 [facility] [address] [facility] [place] [address] Assigned PCP 03/03/24 documented as of this encounter
--- OUTSIDE RECORDS SUMMARY | 2024-05-21 15:35 | XMS_ITS | Encounter Summary ---
Author Organization [facility] Address [address] [place] [address] Care Team Providers Care Electric Shipyard Operator Name Role Phone Paola Martell PIPE WASHER Primary Care Provider [phone] Paola Martell PIPE WASHER Primary Care Provider [phone] Janna Ball DO Primary Care Provider [phone] Davy Proctor PA-C Unavailable [phone] Paola Martell PIPE WASHER Unavailable [phone] Paola Martell PIPE WASHER Unavailable [phone] Paola Martell PIPE WASHER Unavailable [phone] Davy Proctor PA-C Unavailable [phone] Ana Herrera MD Unavailable Ana Herrera MD Primary Care Provider Lencho York MD Unavailable [phone] Ana Herrera MD Unavailable Tamara Ly Unavailable Unavailable Tamara Ly Unavailable Unavailable Vince Orourke MD Unavailable + Jessica Goldberg MD Unavailable + 3 Jessica Goldberg MD Unavailable + 3 Vince Orourke MD Unavailable + Coming Hali Theodore MD Unavailable [phone] Ana Herrera MD Unavailable Stephanie Porras PA-C Unavailable System, Provider Not In Primary Care Provider Un available Clinic - [facility] Unavail able Encounter Details Date Type Department Care Team (Late st Contact Info) Description 01/17/2017 MyC Medical Advice [facility] [address] [place] [address] Paola Martell, PIPE WASHER [facility] & [address] [address] Social History Tobacco Use Types [...] PM CDT 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 Gender Identity Female 01/03/2021 12:47 PM CDT Sexual Orientation Straight 01/03/2021 12 :47 PM CDT documented as of this encounter Plan of Treatment Not on file documented as of this encounter Visit Diagnoses Not on filedocumented in this encounter Additional Health Concerns Infection Onset Date Last Indicated Resolved Time Rule Out COVID-19 03/05/2020 03/05/2020 03/06/2020 5:31 PM RESTAURANT ASSISTANT Rule Out COVID-19 01/04/2021 01/04/2021 01/04/2021 4:13 AM CDT Rule Out COVID-19 09/28/2021 09/28/2021 09/28/2021 11:00 PM CDT Rule Out COVID-19 07/20/2023 07/20/2023 07/20/2023 12:33 PM CDT documented as of this encounter Care Teams Electric Shipyard Operator Relationship Specialty Start Date End Date Paola Martell PIPE WASHER PCP - General Nurse Practitioner - Family 11/23/16 11/09/17 Paola Martell PIPE WASHER PCP - General Nurse Practitioner - Family 11/14/17 02/08/18 Janna Ball DO PCP - General records management coordinator 03/20/18 08/02/19 Davy Proctor PA-C [address] [place] [address] PCP - Assigned PCP 03/12/18 04/08/18 Paola Mratell PIPE WASHER [address] [address] PCP - Assigned PCP 11/28/16 03/11/18 Paola Martell NP [address] [address] PCP - Assigned PCP 04/09/18 06/13/18 [place] [address] [place] [address] PCP - General Family Practice 08/03/19 05/22/23 System, Provider Not In PCP - General Clinic 06/27/23 Paola Martell, PIPE WASHER [address] [place] [address] Assigned PCP 04/09/18 06/24/18 Davy Proctor PA-C [address] [place] [address] [id number] Assigned PCP 02/26/18 02/17/19 [place] [address] [place] [address] Assigned PCP 02/18/19 08/02/20 [place] [address] [place] [address] Assigned PCP 08/03/20 09/13/20 [place] [address] [place], [place] [address] Assigned PCP 09/14/20 05/07/22 Tamara Ly Personal Advocate & Liaison (PAL) Family Medicine 09/24/20 Tamara Ly Personal Advocate & Liaison (PAL) Family Medicine 12/04/20 Vince Orourke MD [address] [place], [place] [address] Assigned OBGYN Provider 07/05/21 Jessica Goldberg MD [address] [place], [place] [address]294 Assigned OBGYN Provider 08/30/21 Jessica Goldberg MD [address] [place], [place] [address] Assigned OBGYN Provider 11/07/2102/18 Vince Orourke MD [address] [place], [place] [address] Assigned OBGYN Provider 10/31/21 [place] [address] [place] [address] Assigned PCP 05/08/22 06/04/22 [place] [address] [place] [address] Assigned PCP 06/05/22 07/09/22 Stephanie Porras PA-C [address] [facility] 200 [place] [address] Assigned PCP 07/10/22 03/02/24 [facility] [address] [place] [address] Assigned PCP 03/03/24 documented as of this encounter
--- OUTSIDE RECORDS SUMMARY | 2024-05-21 15:35 | XMS_ITS | Encounter Summary ---
Author Organization [facility] Address [address] [place] [address] Care Team Providers Care Moving Worker Name Role Phone Ana Herrera MD Unavailable Ana Herrera MD Primary Care Provider [phone] Lencho York MD Unavailable [phone] Ana Herrera MD Unavailable Keplin, Tamara L Unavailable Unavailable Prafulplivan, Tamara L Unavailable Unavailable Vince Orourke MD Unavailable Jessica Goldberg MD Unavailable [phone] Jessica Goldberg MD Unavailable [phone] Vince Orourke MD Unavailable Hali Gabriel MD Unavailable [phone] Ana Herrera MD Unavailable Stephanie Porras PA-C Unavailable [phone] System, Provider Not In Primary Care Provider Un available Clinic - [facility] Unavail able Encounter Details Date Type Department Care Team (Late st Contact Info) Description 11/21/2019 MyC Medical Advice [address] [address] Mady Kam RN Social History Tobacco Use Types Packs/Day Years Used Date Smoking Tobacco: Every Day Cigarettes Smokeless Tobacco: Never Comments:1/2 ppd, tried quit ting Alcohol Use Standard Drinks/Week Comments Yes 0 (1 standard drink = 0.6 oz pure alcohol) every night about 2 glasses of wine PHQ-2 Answer Date Recorded PHQ-2 Score 1 08/01/2019 Comments No Sex and Gender Information Value Date Recorded Sex Assigned at Female 01/03/2021 12:47 PM CDT Legal 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 Gender Identity Female 01/03/2021 12:47 PM CDT Sexual Orientation Straight 01/03/2021 12 :47 PM CDT documented as of this encounter Plan of Treatment Not on file documented as of this encounter Visit Diagnoses Not on filedocumented in this encounter Additional Health Concerns Infection Onset Date Last Indicated Resolved Time Rule Out COVID-19 03/05/2020 03/05/2020 03/06/2020 5:31 PM ROUTE RIDER SUPERVISOR Rule Out COVID-19 01/04/2021 01/04/2021 01/04/2021 4:13 AM CDT Rule Out COVID-19 09/28/2021 09/28/2021 09/28/2021 11:00 PM CDT Rule Out COVID-19 07/20/2023 07/20/2023 07/20/2023 12:33 PM CDT Assessment Noted Time PHQ-9 Depression Total Score: 7 08/01/19 20 7:58 AM CDT documented as of this encounter Care Teams Moving Worker Relationship Specialty [place] [address] [place] [address] PCP - General Family Practice 08/03/19 05/22/23 System, Provider Not In PCP - General Clinic 06/27/23 [place] [address] [place] [address] Assigned PCP 02/18/19 08/02/20 [place] [address] [place] [address] Assigned PCP 08/03/20 09/13/20 [place] [address] [place] [address] Assigned PCP 09/14/20 05/07/22 Tamara Ly Personal Advocate & Liaison (PAL) Family Medicine 09/24/20 Tamara Ly Personal Advocate & Liaison (PAL) Family Medicine 12/04/20 Vince Orourke MD [address] [place] [address] Assigned OBGYN Provider 07/05/21 Jessica Goldberg MD [address] [place] [address] Assigned OBGYN Provider 08/30/21 Jessica Goldberg MD [address] [place], [place] [address] Assigned OBGYN Provider 11/07/2102/18 Vince Orourke MD [address] [place], [place] [address] Assigned OBGYN Provider 10/31/21 [place] [address] [facility] [place] [address] Assigned PCP 05/08/22 06/04/22 [place] [address] [place] [address] Assigned PCP 06/05/22 07/09/22 Stephanie Porras PA-C [address] [facility] [place] [address] [place] [address] Assigned PCP 07/10/22 03/02/24 [facility] [address] [place] [address] Assigned PCP 03/03/24 documented as of this encounter
--- OUTSIDE RECORDS SUMMARY | 2024-05-21 15:35 | XMS_ITS | Encounter Summary ---
Author Organization [facility] Address [address] [place] [address] Care Team Providers Care Sand Control Worker Name Role Phone Ana Herrera MD Unavailable Ana Herrera MD Primary Care Provider [phone] Lencho York MD Unavailable [phone] Ana Herrera MD Unavailable Keplin, Tamara L Unavailable Unavailable Prafulplivan, Tamara L Unavailable Unavailable Vince Orourke MD Unavailable Jessica Goldberg MD Unavailable [phone] Jessica Goldberg MD Unavailable [phone] Vince Orourke MD Unavailable Hali Gabriel MD Unavailable [phone] Ana Herrera MD Unavailable Stephanie Porras PA-C Unavailable [phone] System, Provider Not In Primary Care Provider Un available Clinic - [facility] Unavail able Encounter Details Date Type Department Care Team (Late st Contact Info) Description 11/21/2019 MyC Medical Advice [address] [address] Mady Kam RN Social History [...] PM CDT Legal 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 Gender Identity Female 01/03/2021 12:47 PM CDT Sexual Orientation Straight 01/03/2021 12 :47 PM CDT documented as of this encounter Plan of Treatment Not on file documented as of this encounter Visit Diagnoses Not on filedocumented in this encounter Additional Health Concerns Infection Onset Date Last Indicated Resolved Time Rule Out COVID-19 03/05/2020 03/05/2020 03/06/2020 5:31 PM PRESS ROOM SUPERVISOR Rule Out COVID-19 01/04/2021 01/04/2021 01/04/2021 4:13 AM CDT Rule Out COVID-19 09/28/2021 09/28/2021 09/28/2021 11:00 PM CDT Rule Out COVID-19 07/20/2023 07/20/2023 07/20/2023 12:33 PM CDT Assessment Noted Time PHQ-9 Depression Total Score: 7 08/01/19 20 7:58 AM CDT documented as of this encounter Care Teams Sand Control Worker Relationship Specialty [place] [address] [place] [address] PCP - General Family Practice 08/03/19 05/22/23 System, Provider Not In PCP - General Clinic 06/27/23 [place] [address] [place] [address] Assigned PCP 02/18/19 08/02/20 [place] [address] [place] [address] Assigned PCP 08/03/20 09/13/20 [place] [address] [place] [address] Assigned PCP 09/14/20 05/07/22 Tamara Ly Personal Advocate & Liaison (PAL) Family Medicine 09/24/20 Tamara Ly Personal Advocate & Liaison (PAL) Family Medicine 12/04/20 Vince Orourke MD [address] [place] [address] Assigned OBGYN Provider 07/05/21 Jessica Goldberg MD [address] [place] [address] Assigned OBGYN Provider 08/30/21 Jessica Goldberg MD [address] [place], [place] [address] Assigned OBGYN Provider 11/07/2102/18 Vince Orourke MD [address] [place], [place] [address] Assigned OBGYN Provider 10/31/21 [place] [address] [facility] [place] [address] Assigned PCP 05/08/22 06/04/22 [place] [address] [place] [address] Assigned PCP 06/05/22 07/09/22 Stephanie Porras PA-C 65[address] [facility] 200 [place] [address] Assigned PCP 07/10/22 03/02/24 [facility] [address] [place] [address] Assigned PCP 03/03/24 documented as of this encounter
--- OUTSIDE RECORDS SUMMARY | 2024-05-21 15:35 | XMS_ITS | Encounter Summary ---
Author Organization [facility] Address [address] [place] [address] Care Team Providers Care Litharge Mill Operator Name Role Phone Paola Martell GRANITE POLISHER Primary Care Provider [phone] Paola Martell GRANITE POLISHER Primary Care Provider [phone] Janna Ball DO Primary Care Provider [phone] Davy Proctor PA-C Unavailable [phone] Paola Martell GRANITE POLISHER Unavailable [phone] Paola Martell GRANITE POLISHER Unavailable [phone] Paola Martell GRANITE POLISHER Unavailable [phone] Davy Proctor PA-C Unavailable [phone] Ana Herrera MD Unavailable Ana Herrera MD Primary Care Provider Lencho York MD Unavailable [phone] Ana Herrera MD Unavailable Tamara Ly Unavailable Unavailable Tamara Ly Unavailable Unavailable Vince Orourke MD Unavailable + Jessica Goldberg MD Unavailable + 3 Jessica Goldberg MD Unavailable + 3 Vince Orourke MD Unavailable + Hali Gabriel MD Unavailable [phone] Ana Herrera MD Unavailable Stephanie Porras PA-C Unavailable System, Provider Not In Primary Care Provider Un available Clinic - [facility] Unavail able Encounter Details Date Type Department Care Team (Late st Contact Info) Description 10/05/2017 MyC Medical Advice [facility] [place] [address] [place] [address] Janna Ball DO [address] [place], [place] [address] Dysmenorrhea (Primary Dx) Social History Tobacco Use Types [...] PM CDT Legal Sex Female 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 Esther Greenfield RN documented in this encounter Plan of Treatment Not on file documented as of this encounter Visit Diagnoses Diagnosis Dysmenorrhea- Primary documented in this encounter Additional Health Concerns Infection Onset Date Last Indicated Resolved Time Rule Out COVID-19 03/05/2020 03/05/2020 03/06/2020 5:31 PM CLINICAL MEDICAL ASSISTANT Rule Out COVID-01/04/2021 01/04/2021 01/04/2021 4:13 AM CDT Rule Out COVID-19 09/28/2021 09/28/2021 09/28/2021 11:00 PM CDT Rule Out COVID-19 07/20/2023 07/20/2023 07/20/2023 12:33 PM CDT documented as of this encounter Care Teams Litharge Mill Operator Relationship Specialty Start Date End Date Paola Martell, GRANITE POLISHER PCP - General Nurse Practitioner - Family 11/23/16 11/09/17 Paola Martell, GRANITE POLISHER PCP - General Nurse Practitioner - Family 11/14/17 02/08/18 Janna Ball DO PCP - General clip and hanger attacher 03/20/18 08/02/19 Davy Proctor PA-C [address] [place] [address] PCP - Assigned PCP 03/12/18 04/08/18 Paola Martell, GRANITE POLISHER [address] [place] [address] PCP - Assigned PCP 11/28/16 03/11/18 Paola Martell, GRANITE POLISHER [place] [address] [place] [address] PCP - Assigned PCP 04/09/18 06/13/18 [place] [address] [place] [address] PCP - General Family Practice 08/03/19 05/22/23 System, Provider Not In PCP - General Clinic 06/27/23 Paola Martell GRANITE POLISHER [address] [place] [address] Assigned PCP 04/09/18 06/24/18 Davy Proctor PA-C [address] [place] [address] Assigned PCP 02/26/18 02/17/19 [place] [address] [place], [place] [address] Assigned PCP 02/18/19 08/02/20 [place] [address] [place], [place] [address] Assigned PCP 08/03/20 09/13/20 [place] [address] [place], [place] [address] Assigned PCP 09/14/20 05/07/22 Tamara Ly Personal Advocate & Liaison (PAL) Family Medicine 09/24/20 Tamara Ly Personal Advocate & Liaison (PAL) Family Medicine 12/04/20 Vince Orourke MD [address] [place] [address] Assigned OBGYN Provider 07/05/21 Jessica Goldberg MD [address] [place] [address] Assigned OBGYN Provider 08/30/21 Jessica Goldberg MD [address] [facility] [address] [place], [place] [address] Assigned OBGYN Provider 11/07/2102/18 Vince Orourke MD [address] [facility] [address] [place], [place] [address] Assigned OBGYN Provider 10/31/21 [place] [address] [place], [place] [address] Assigned PCP 05/08/22 06/04/22 [place] [address] [place], [place] [address] Assigned PCP 06/05/22 07/09/22 Stephanie Porras PA-C 6565 [facility] 200 [place] [address] Assigned PCP 07/10/22 03/02/24 [facility] [address] [place] [address] Assigned PCP 03/03/24 documented as of this encounter
--- OUTSIDE RECORDS SUMMARY | 2024-05-21 15:35 | XMS_ITS | Encounter Summary ---
Author Organization [facility] Address [address] [place] [address] Care Team Providers Care Budget Analyst Name Role Phone Paola Martell RESIDENCE LEASING AGENT Primary Care Provider [phone] Paola Martell RESIDENCE LEASING AGENT Primary Care Provider [phone] Janna Ball DO Primary Care Provider [phone] Davy Proctor PA-C Unavailable [phone] Paola Martell RESIDENCE LEASING AGENT Unavailable [phone] Paola Martell RESIDENCE LEASING AGENT Unavailable [phone] Paola Martell RESIDENCE LEASING AGENT Unavailable [phone] Davy Proctor PA-C Unavailable [phone] Ana Herrera MD Unavailable Ana Herrera MD Primary Care Provider Lenhco York MD Unavailable [phone] Ana Herrera MD Unavailable Tamara Ly Unavailable Unavailable Tamara Ly Unavailable Unavailable Vince Orourke MD Unavailable + Jessica Goldberg MD Unavailable + [phone] Jessica Goldberg MD Unavailable + [phone] Vince Orourke MD Unavailable + Hali Gabriel MD Unavailable [phone] Ana Herrera MD Unavailable Stephanie Porras PA-C Unavailable [phone] System, Provider Not In Primary Care Provider Un available Clinic - [facility] Unavail able Encounter Details Date Type Department Care Team (Late st Contact Info) Description 08/30/2017 MyC Medical Advice [facility] [address] [place] [address] Shanti Franco RN Social History Tobacco Use Types Packs/Day [...] PM CDT Legal 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 Female 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 Gender Identity Female 01/03/2021 12:47 PM CDT Sexual Orientation Straight 01/03/2021 12 :47 PM CDT documented as of this encounter Plan of Treatment Not on file documented as of this encounter Visit Diagnoses Not on filedocumented in this encounter Additional Health Concerns Infection Onset Date Last Indicated Resolved Time Rule Out COVID-19 03/05/2020 03/05/2020 03/06/2020 5:31 PM ORACLE WEBCENTER CONSULTANT Rule Out COVID-19 01/04/2021 01/04/2021 01/04/2021 4:13 AM CDT Rule Out COVID-19 09/28/2021 09/28/2021 09/28/2021 11:00 PM CDT Rule Out COVID-19 07/20/2023 07/20/2023 07/20/2023 12:33 PM CDT documented as of this encounter Care Teams Budget Analyst Relationship Specialty Start Date End Date Paola Martell NP PCP - General Nurse Practitioner - Family 11/23/16 11/09/17 Paola Martell, RESIDENCE LEASING AGENT PCP - General Nurse Practitioner - Family 11/14/17 02/08/18 Viflora Janna DurandDO PCP - General desk lieutenant 03/20/18 08/02/19 Davy Proctor PA-C [address] [place] [address] PCP - Assigned PCP 03/12/18 04/08/18 Paola Martell, RESIDENCE LEASING AGENT [address] [place] [address] PCP - Assigned PCP 11/28/16 03/11/18 Paola Martell, RESIDENCE LEASING AGENT [address] [place] [address] PCP - Assigned PCP 04/09/18 06/13/18 [place] [address] [place] [address] PCP - General Family Practice 08/03/19 05/22/23 System, Provider Not In PCP - General Clinic 06/27/23 Paola Martell, RESIDENCE LEASING AGENT [address] [place] [address] Assigned PCP 04/09/18 06/24/18 Davy Proctor PA-C [address] [place] [address] Assigned PCP 02/26/18 02/17/19 [place] [address] [place], [place] 92276[address] Assigned PCP 02/18/19 08/02/20 [place] [address] [place], [place] 27994[address] Assigned PCP 08/03/20 09/13/20 [place] [address] [place], [place] 13153124 Assigned PCP 09/14/20 05/07/22 Tamara Ly Personal Advocate & Liaison (PAL) Family Medicine 09/24/20 Tamara Ly Personal Advocate & Liaison (PAL) Family Medicine 12/04/20 iVnce Orourke MD [address] [place], [place] 372274 Assigned OBGYN Provider 07/05/21 Jessica Goldberg MD [address] [place], [place] 001474 Assigned OBGYN Provider 08/30/21 Jessica Goldberg MD [address] [place], [place] [address]894 Assigned OBGYN Provider 11/07/2102/18 Vince Orourke MD [address] [place], [place] 991364 Assigned OBGYN Provider 10/31/21 [place] [address] [place] [address] Assigned PCP 05/08/22 06/04/22 [place] [address] [place] [address] Assigned PCP 06/05/22 07/09/22 Stephanie Porras PA-C [address] [address] Assigned PCP 07/10/22 03/02/24 [facility] [id number] [place] [address] [id number] Assigned PCP 03/03/24 documented as of this encounter
--- OUTSIDE RECORDS SUMMARY | 2024-05-21 15:35 | XMS_ITS | Encounter Summary ---
Author Organization [facility] Address [address] [place] [address] Care Team Providers Care Regional Geodetic Advisor Name Role Phone Alexandru Ly MD Primary Car e Provider Paola Martell DEWER Primary Care Provider [phone] Paola Martell DEWER Primary Care Provider [phone] Janna Ball DO Primary Care Provider [phone] Davy Proctor PA-C Unavailable [phone] Paola Martell DEWER Unavailable [phone] Paola Martell DEWER Unavailable [phone] Paola Martell DEWER Unavailable [phone] Davy Proctor PA-C Unavailable [phone] Ana Herrera MD Unavailable Ana Herrera MD Primary Care Provider [phone] Lencho York MD Unavailable [phone] Ana Herrera MD Unavailable Tamara Ly Unavailable Unavailable Tamara Ly Unavailable Unavailable Vince Orourke MD Unavailable [phone] Jessica Goldberg MD Unavailable [phone] Jessica Goldberg MD Unavailable [phone] Vince Orourke MD Unavailable [phone] Hali Gabriel MD Unavailable [phone] Ana Herrera MD Unavailable Stephanie Porras PA-C Unavailable [phone] System, Provider Not In Primary Care Provider Un available Clinic - [facility] Unavail able Encounter Details Date Type Department Care Team (Late st Contact Info) Description 08/05/2010 MyC Medical Advice [address], [address] [place] [address] [place] [address] [place] [address] Social History Tobacco Use Types Packs/Day Years Used Date Smoking Tobacco: Every Day Cigarettes Smokeless Tobacco: Never Comments:1/2 ppd, tried quit ting Alcohol Use Standard Drinks/Week Comments No 0 (1 standard drink = 0.6 oz pur e alcohol) Comments No Sex and Gender Information Value Date Recorded Sex Assigned at Female 01/03/2021 12:47 PM CDT Legal Sex Female 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 Gender Identity Female 01/03/2021 12:47 PM CDT Sexual Orientation Straight 01/03/2021 12 :47 PM CDT documented as of this encounter Plan of Treatment Not on file documented as of this encounter Visit Diagnoses Not on filedocumented in this encounter Additional Health Concerns Infection Onset Date Last Indicated Resolved Time Rule Out COVID-19 03/05/2020 03/05/2020 03/06/2020 5:31 PM BACK 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 Rule Out COVID-19 01/04/2021 01/04/2021 01/04/2021 4:13 AM CDT Rule Out COVID-19 09/28/2021 09/28/2021 09/28/2021 11:00 PM CDT Rule Out COVID-19 07/20/2023 07/20/2023 07/20/2023 12:33 PM CDT documented as of this encounter Care Teams Regional Geodetic Advisor Relationship Specialty Start Date End Date Alexandru Ly MD PCP - General 08/09/02 11/22/16 Paola Martell, DEWER PCP - General Nurse Practitioner - Family 11/23/16 11/09/17 Paola Martell, DEWER PCP - General Nurse Practitioner - Family 11/14/17 02/08/18 Janna Ball DO PCP - General role player 03/20/18 08/02/19 Davy Proctor PA-C [address] [place] [address] PCP - Assigned PCP 03/12/18 04/08/18 Paola Martell, DEWER [facility] [address] [place] [address] [place] [address] PCP - Assigned PCP 11/28/16 03/11/18 Paola Martell, DEWER [facility] [address] [place] [address] [place] [address] PCP - Assigned PCP 04/09/18 06/13/18 [place] [address] [place] [address] PCP - General Family Practice 08/03/19 05/22/23 System, Provider Not In PCP - General Clinic 06/27/23 Paola Martell, DEWER [address] [place] [address] Assigned PCP 04/09/18 06/24/18 Davy Proctor PA-C [address] [place] [address] [id number] Assigned PCP 02/26/18 02/17/19 [place] [address] [place], [place] 35961[address] Assigned PCP 02/18/19 08/02/20 [place] [address] [place], [place] 21163[address] Assigned PCP 08/03/20 09/13/20 [place] [address] [place], [place] 36301[address] Assigned PCP 09/14/20 05/07/22 Tamara Ly Personal Advocate & Liaison (PAL) Family Medicine 09/24/20 Tamara Ly Personal Advocate & Liaison (PAL) Family Medicine 12/04/20 Vince Orourke MD [address] [place], [place] 671634 Assigned OBGYN Provider 07/05/21 08/29/21 Jessica Goldberg MD [address] [place], [place] [address] Assigned OBGYN Provider 08/30/21 10/30/21 Jessica Goldberg MD [address] [place] [address] Assigned OBGYN Provider 11/07/21 02/18/23 Vince Orourke MD [address] [place] [address] Assigned OBGYN Provider 10/31/21 11/06/21 [place] [address] [place], [place] 4265[address]24 Assigned PCP 05/08/22 06/04/22 [place] [address] [place] [address] Assigned PCP 06/05/22 07/09/22 Stephanie Porras PA-C [address] [facility] [address] [facility] [address] [place] [address] Assigned PCP 07/10/22 03/02/24 [facility] [address] [place] [address] Assigned PCP 03/03/24 documented as of this encounter
--- OUTSIDE RECORDS SUMMARY | 2024-05-21 15:35 | XMS_ITS | Encounter Summary ---
Author Organization [facility] Address [address] [place] [address] Care Team Providers Care Property Insurance Inspector Name Role Phone Alexandru Ly MD Primary Car e Provider Paola Martell SYSTEM SPECIALIST Primary Care Provider [phone] Paola Martell SYSTEM SPECIALIST Primary Care Provider [phone] Janna Ball DO Primary Care Provider [phone] Davy Proctor PA-C Unavailable [phone] Paola Martell SYSTEM SPECIALIST Unavailable [phone] Paola Martell SYSTEM SPECIALIST Unavailable Paola Martell SYSTEM SPECIALIST Unavailable [phone] Davy Proctor PA-C Unavailable [phone] Ana Herrera MD Unavailable Ana Herrera MD Primary Care Provider [phone] Lencho York MD Unavailable [phone] Ana Herrera MD Unavailable Tamara Ly Unavailable Unavailable Tamara Ly Unavailable Unavailable Vince Orourke MD Unavailable [phone] Jessica Goldberg MD Unavailable [phone] Jessica Goldberg MD Unavailable [phone] Vince Orourke MD Unavailable [phone] Hali Gabriel MD Unavailable + [phone] Ana Herrera MD Unavailable Stephanie Porras PA-C Unavailable [phone] System, Provider Not In Primary Care Provider Un available Clinic - [facility] Unavail able Reason for Referral * Office Workup No CT/MRI - Closed Specialty Diagnoses / Procedures Referred By Shireen bolaños Referred To Contact Diagnoses Headaches, migraine Alexandru Ly MD Phone: tel: fax: [facility] Referral ID Status Reason Start Date Expiration Date Visits Re quested Visits Authorized [id number] Closed 09/07/2011 03/05/2012 1 1 Comments Your provider has referred you to: [facility]: [facility] [phone] Please be aware that coverage of these services is subject to the terms and limitations of your health insurance plan. Call member services at your health plan with any benefit or coverage questions. Please bring the following to your appointment: >> Any x-rays, CTs or MRIs which have been performed. Contact the facility where they were done to arrange for pickle cutter prior to your scheduled appointment. Any new CT, MRI or other procedures ordered by your specialist must be performed at a [facility] facility or coordinated by your clinic's referral office. >> List of current medications >> This referral request >> Any documents/labs given to you for this referral Reason for Visit * Reason Onset Date Comments MyChart Communication 09/04/2011 headaches Anxiety 09/04/2011 Encounter Details Date Type Department Care Team (Late st Contact Info) Description 09/04/2011 MyC Medical Advice [facility] [address] [phone] Alexandru Ly MD [facility] [address] [place] [address] MyChart Communication (headaches); Anxiety Social History Tobacco Use Types Packs/Day Years Used Date Smoking Tobacco: Every Day Cigarettes Smokeless Tobacco: Never Comments:1/2 ppd, tried quit ting Alcohol Use Standard Drinks/Week Comments Yes 0 (1 standard drink = 0.6 oz pur e alcohol) occ. 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 Gender Identity Female 01/03/2021 12:47 PM CDT Sexual Orientation Straight 01/03/2021 12 :47 PM CDT documented as of this encounter Plan of Treatment Scheduled Referrals Name Type Priority Associated Diagnoses Orde r Schedule NEUROLOGY ADULT REFERRAL Referral Routine Headaches, migraine Ordered: 09/07/2011 documented as of this encounter Visit Diagnoses Diagnosis Headaches, migraine- Primary Migraine, unspecified, without mention of intractable migraine without mention of status migrainosus Adjustment disorder with anxiety documented in this encounter Additional Health Concerns Infection Onset Date Last Indicated Resolved Time Rule Out COVID-19 03/05/2020 03/05/2020 03/06/2020 5:31 PM LIME KILN AND RECAUSTICIZING OPERATOR Rule Out COVID-19 01/04/2021 01/04/2021 01/04/2021 4:13 AM CDT Rule Out COVID-19 09/28/2021 09/28/2021 09/28/2021 11:00 PM CDT Rule Out COVID-19 07/20/2023 07/20/2023 07/20/2023 12:33 PM CDT documented as of this encounter Care Teams Property Insurance Inspector Relationship Specialty Start Date End Date Alexandru Ly MD PCP - General 08/09/02 11/22/16 Paola Martell, SYSTEM SPECIALIST PCP - General Nurse Practitioner - Family 11/23/16 11/09/17 Paola Martell SYSTEM SPECIALIST PCP - General Nurse Practitioner - Family 11/14/17 02/08/18 Janna Ball DO PCP - General child nutrition manager 03/20/18 08/02/19 Davy Proctor PA-C [address] [place] [address] PCP - Assigned PCP 03/12/18 04/08/18 Paola Martell, SYSTEM SPECIALIST [address] [place] [address] PCP - Assigned PCP 11/28/16 03/11/18 Paola Martell, SYSTEM SPECIALIST [address] [place] [address] PCP - Assigned PCP 04/09/18 06/13/18 [place] [address] [place] [address] PCP - General Family Practice 08/03/19 05/22/23 System, Provider Not In PCP - General Clinic 06/27/23 Paola Martell, SYSTEM SPECIALIST [address] [place] [address] Assigned PCP 04/09/18 06/24/18 Davy Proctor PA-C [address] [place] [address] Assigned PCP 02/26/18 02/17/19 [place] [address] [place] [address] Assigned PCP 02/18/19 08/02/20 [place] [address] [place] [address] Assigned PCP 08/03/20 09/13/20 [place] [address] [place] [address] Assigned PCP 09/14/20 05/07/22 Tamara Ly Personal Advocate & Liaison (PAL) Family Medicine 09/24/20 Tamara Ly Personal Advocate & Liaison (PAL) Family Medicine 12/04/20 Vince Orourke MD [address] [place], [place] 1766[address] Assigned OBGYN Provider 07/05/21 08/29/21 Jessica Goldberg MD [address] [place], [place] 8[address] Assigned OBGYN Provider 08/30/21 10/30/21 Jessica Goldberg MD [address] [place], [place] [address] Assigned OBGYN Provider 11/07/21 02/18/23 Vince Orourke MD [address] [place], [place] 219684 Assigned OBGYN Provider 10/31/21 11/06/21 [place] [address] [place] [address] Assigned PCP 05/08/22 06/04/22 [place] [address] [place] [address] Assigned PCP 06/05/22 07/09/22 Stephanie Porras PAWillC [address] [facility] [place] [place] [address] [place] [address] Assigned PCP 07/10/22 03/02/24 [facility] [address] [place] [address] Assigned PCP 03/03/24 documented as of this encounter
--- OUTSIDE RECORDS SUMMARY | 2024-05-21 15:35 | XMS_ITS | Encounter Summary ---
Author Organization [facility] Address [address] [place] [address] Care Team Providers Care Christmas Tree Grower Name Role Phone Paola Martell MILK POWDER GRINDER Primary Care Provider [phone] Paola Martell MILK POWDER GRINDER Primary Care Provider [phone] Janna Ball DO Primary Care Provider [phone] Davy Proctor PA-C Unavailable [phone] Paola Martell MILK POWDER GRINDER Unavailable [phone] Paola Martell MILK POWDER GRINDER Unavailable [phone] Paola Martell MILK POWDER GRINDER Unavailable [phone] Davy Proctor PA-C Unavailable [phone] Ana Herrera MD Unavailable Ana Herrera MD Primary Care Provider Lencho York MD Unavailable [phone] Ana Herrera MD Unavailable Tamara Ly Unavailable Unavailable Tamara Ly Unavailable Unavailable Vince Orourke MD Unavailable + Jessica Goldberg MD Unavailable + [phone] Jessica Goldberg MD Unavailable + [phone] Vince Orourke MD Unavailable + Coming Hali Theodore MD Unavailable [phone] Ana Herrera MD Unavailable Stephanie Porras PA-C Unavailable System, Provider Not In Primary Care Provider Un available Clinic - [facility] Unavail able Reason for Visit * Reason Onset Date Comments MyChart Communication 01/19/2017 Encounter Details Date Type Department Care Team (Late st Contact Info) Description 01/19/2017 MyC Medical Advice [address] [address] Paola Martell, [facility] [address] [place] [address] MyChart Communication Social History Tobacco [...] PM CDT Legal 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 Gender Identity Female 01/03/2021 12:47 PM CDT Sexual Orientation Straight 01/03/2021 12 :47 PM CDT documented as of this encounter Miscellaneous Notes * Telephone Encounter - Brigette Erickson RN - 01/19/2017 1:21 PM CDT Please advise Brigette Erickson RN, BSN documented in this encounter Plan of Treatment Not on file documented as of this encounter Visit Diagnoses Not on filedocumented in this encounter Additional Health Concerns Infection Onset Date Last Indicated Resolved Time Rule Out COVID-19 03/05/2020 03/05/2020 03/06/2020 5:31 PM TABULATING MACHINE MECHANIC Rule Out COVID-19 01/04/2021 01/04/2021 01/04/2021 4:13 AM CDT Rule Out COVID-19 09/28/2021 09/28/2021 09/28/2021 11:00 PM CDT Rule Out COVID-19 07/20/2023 07/20/2023 07/20/2023 12:33 PM CDT documented as of this encounter Care Teams Christmas Tree Grower Relationship Specialty Start Date End Date Paola Martell, MILK POWDER GRINDER PCP - General Nurse Practitioner - Family 11/23/16 11/09/17 Paola Martell, MILK POWDER GRINDER PCP - General Nurse Practitioner - Family 11/14/17 02/08/18 Janna Ball DO PCP - General technology integration specialist 03/20/18 08/02/19 Davy Proctor PA-C [address] [place] [address] PCP - Assigned PCP 03/12/18 04/08/18 Paola Martell, MILK POWDER GRINDER [address] [place] [address] PCP - Assigned PCP 11/28/16 03/11/18 Paola Martell, MILK POWDER GRINDER [place] [address] [place] [address] PCP - Assigned PCP 04/09/18 06/13/18 [place] [address] [place] [address] PCP - General Family Practice 08/03/19 05/22/23 System, Provider Not In PCP - General Clinic 06/27/23 Paola Martell MILK POWDER GRINDER [address] [place] [address] Assigned PCP 04/09/18 06/24/18 Davy Proctor PA-C [address] [place] [address] Assigned PCP 02/26/18 02/17/19 [place] [address] [place], [place] 213[address] Assigned PCP 02/18/19 08/02/20 [place] [address] [place] [address] Assigned PCP 08/03/20 09/13/20 [place] [address] [place], [place] 37814[address] Assigned PCP 09/14/20 05/07/22 Tamara Ly Personal Advocate & Liaison (PAL) Family Medicine 09/24/20 Tamara Ly Personal Advocate & Liaison (PAL) Family Medicine 12/04/20 Vince Orourke MD [address] [place] [address] Assigned OBGYN Provider 07/05/21 Jessica Goldberg MD [address] [place] [address] Assigned OBGYN Provider 08/30/21 Jessica Goldberg MD [address] [facility] [address] [place] [address] Assigned OBGYN Provider 11/07/2102/18 Vince Orourke MD [address] [facility] [address] [place] [address] Assigned OBGYN Provider 10/31/21 [place] [address] [place] [address] Assigned PCP 05/08/22 06/04/22 [place] [address] [place] [address] Assigned PCP 06/05/22 07/09/22 Stephanie Porras PA-C [address] [facility] 200 [place] [address] Assigned PCP 07/10/22 03/02/24 [facility] [address] [place] [address] Assigned PCP 03/03/24 documented as of this encounter
--- OUTSIDE RECORDS SUMMARY | 2024-05-21 15:35 | XMS_ITS | Encounter Summary ---
Author Organization [facility] Address [address] [place] [address] Care Team Providers Care Spray Unit Feeder Name Role Phone Ana Hererra MD Unavailable Ana Herrera MD Primary Care Provider [phone] Lencho York MD Unavailable Ana Herrera MD Unavailable Keplin, Tamara L Unavailable Unavailable Prafulplivan, Tamara L Unavailable Unavailable Vince Orourke MD Unavailable [phone] Jessica Goldberg MD Unavailable [phone] Jessica Goldberg MD Unavailable [phone] Vince Orourke MD Unavailable [phone] Hali Gabriel MD Unavailable [phone] Ana Herrera MD Unavailable Stephanie Porras PA-C Unavailable [phone] System, Provider Not In Primary Care Provider Un available Clinic - [facility] Unavail able Encounter Details Date Type Department Care Team (Late st Contact Info) Description 11/19/2019 MyC Medical Advice [address] [address] Tammie Hein RN Social History Tobacco Use Types Packs/Day [...] PM CDT 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 Gender Identity Female 01/03/2021 12:47 PM CDT Sexual Orientation Straight 01/03/2021 12 :47 PM CDT documented as of this encounter Plan of Treatment Not on file documented as of this encounter Visit Diagnoses Not on filedocumented in this encounter Additional Health Concerns Infection Onset Date Last Indicated Resolved Time Rule Out COVID-19 03/05/2020 03/05/2020 03/06/2020 5:31 PM SACK SORTER Rule Out COVID-19 01/04/2021 01/04/2021 01/04/2021 4:13 AM CDT Rule Out COVID-19 09/28/2021 09/28/2021 09/28/2021 11:00 PM CDT Rule Out COVID-19 07/20/2023 07/20/2023 07/20/2023 12:33 PM CDT Assessment Noted Time PHQ-9 Depression Total Score: 7 08/01/19 20 7:58 AM CDT documented as of this encounter Care Teams Spray Unit Feeder Relationship Specialty [place] [address] [place] [address] PCP - General Family Practice 08/03/19 05/22/23 System, Provider Not In PCP - General Clinic 06/27/23 [place] [address] [place] [address] Assigned PCP 02/18/19 08/02/20 [place] [address] [place] [address] Assigned PCP 08/03/20 09/13/20 [place] [address] [place] [address] Assigned PCP 09/14/20 05/07/22 Tamara Ly Personal Advocate & Liaison (PAL) Family Medicine 09/24/20 Tamara Ly Personal Advocate & Liaison (PAL) Family Medicine 12/04/20 Vince Oruorke MD [address] [place] [address] Assigned OBGYN Provider 07/05/21 Jessica Goldberg MD [address] [place] [address] Assigned OBGYN Provider 08/30/21 Jessica Goldberg MD [address] [place] [address] Assigned OBGYN Provider 11/07/2102/18 Vince Orourke MD [address] [place] [address] Assigned OBGYN Provider 10/31/21 [place] [address] [place] [address] Assigned PCP 05/08/22 06/04/22 [place] [address] [place] [address] Assigned PCP 06/05/22 07/09/22 Stephanie Porras PA-C [address] [facility] [address] [place] [address] Assigned PCP 07/10/22 03/02/24 [facility] [address] [place] [address] Assigned PCP 03/03/24 documented as of this encounter
--- OUTSIDE RECORDS SUMMARY | 2024-05-21 15:35 | XMS_ITS | Encounter Summary ---
Author Organization [facility] Address [address] [place] [address] Care Team Providers Care Geological Drafter Name Role Phone Paola Martell FRONT OFFICE SPEC Primary Care Provider [phone] Paola Martell FRONT OFFICE SPEC Primary Care Provider [phone] Janna Ball DO Primary Care Provider [phone] Davy Proctor PA-C Unavailable [phone] Paola Martell FRONT OFFICE SPEC Unavailable [phone] Paola Martell FRONT OFFICE SPEC Unavailable [phone] Paola Martell FRONT OFFICE SPEC Unavailable [phone] Davy Proctor PA-C Unavailable [phone] Ana Herrera MD Unavailable Ana Herrera MD Primary Care Provider Lencho York MD Unavailable [phone] Ana Herrera MD Unavailable Tamara Ly Unavailable Unavailable Tamara Ly Unavailable Unavailable Vince Orourke MD Unavailable + Jessica Goldberg MD Unavailable + 3 Jessica Goldberg MD Unavailable + 3 Vince Orourke MD Unavailable + Coming Hali Theodore MD Unavailable [phone] Ana Herrera MD Unavailable Stephanie Porras PA-C Unavailable [phone] System, Provider Not In Primary Care Provider Un available Clinic - [facility] Unavail able Reason for Visit * Reason Onset Date Comments MyChart Communication 09/19/2017 Encounter Details Date Type Department Care Team (Late st Contact Info) Description 09/19/2017 MyC Medical Advice [address] [address] Paola Martell, [facility] & [address] [place] [address] MyChart Communication Social History Tobacco [...] PM CDT 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 Gender Identity Female 01/03/2021 12:47 PM CDT Sexual Orientation Straight 01/03/2021 12 :47 PM CDT documented as of this encounter Plan of Treatment Not on file documented as of this encounter Visit Diagnoses Not on filedocumented in this encounter Additional Health Concerns Infection Onset Date Last Indicated Resolved Time Rule Out COVID-19 03/05/2020 03/05/2020 03/06/2020 5:31 PM CUSTOM FRAMING SPECIALIST Rule Out COVID-19 01/04/2021 01/04/2021 01/04/2021 4:13 AM CDT Rule Out COVID-19 09/28/2021 09/28/2021 09/28/2021 11:00 PM CDT Rule Out COVID-19 07/20/2023 07/20/2023 07/20/2023 12:33 PM CDT documented as of this encounter Care Teams Geological Drafter Relationship Specialty Start Date End Date Paola Martell, FRONT OFFICE SPEC PCP - General Nurse Practitioner - Family 11/23/16 11/09/17 Paola Martell, FRONT OFFICE SPEC PCP - General Nurse Practitioner - Family 11/14/17 02/08/18 Janna Ball DO PCP - General technical applications scientist 03/20/18 08/02/19 Davy Proctor PA-C [address] [place] [address] PCP - Assigned PCP 03/12/18 04/08/18 Paola Martell, FRONT OFFICE SPEC [address] [facility] [place] [address] PCP - Assigned PCP 11/28/16 03/11/18 Paola Martell, FRONT OFFICE SPEC [address] [place] [address] PCP - Assigned PCP 04/09/18 06/13/18 [place] [address] [place] [address] PCP - General Family Practice 08/03/19 05/22/23 System, Provider Not In PCP - General Clinic 06/27/23 Paola Martell, FRONT OFFICE SPEC [address] [place] [address] Assigned PCP 04/09/18 06/24/18 Davy Proctor PA-C [address] [place] [address] [id number] Assigned PCP 02/26/18 02/17/19 [place] [address] [place], [place] [id number] Assigned PCP 02/18/19 08/02/20 [place] [address] [place], [place] [address] Assigned PCP 08/03/20 09/13/20 [place] [address] [place], [place] 85[address] Assigned PCP 09/14/20 05/07/22 Tamara Ly Personal Advocate & Liaison (PAL) Family Medicine 09/24/20 Tamara Ly Personal Advocate & Liaison (PAL) Family Medicine 12/04/20 Vince Orourke MD [address] [place], [place] 132[address] Assigned OBGYN Provider 07/05/21 Jessica Goldberg MD [address] [place], [place] [address] Assigned OBGYN Provider 08/30/21 Jessica Goldberg MD [address] [place], [place] [address] Assigned OBGYN Provider 11/07/2102/18 Vince Orourke MD [address] [place] [address] [address] [place], [place] 864964 Assigned OBGYN Provider 10/31/21 [place] [address] [place], [place] [id number] Assigned PCP 05/08/22 06/04/22 [place] [address] [place], [place] [id number] Assigned PCP 06/05/22 07/09/22 Stephanie Porras PA-C [address] [facility] [address] [place], [place] [address]32[address] Assigned PCP 07/10/22 03/02/24 [facility] [address] [place], [place] [id number] Assigned PCP 03/03/24 documented as of this encounter
--- OUTSIDE RECORDS SUMMARY | 2024-05-21 15:35 | XMS_ITS | Encounter Summary ---
Author Organization [facility] Address [address] [place] [address] Care Team Providers Care Bell Spinner Name Role Phone Paola Martell HOT TOP LINER HELPER Primary Care Provider [phone] Paola Martell HOT TOP LINER HELPER Primary Care Provider [phone] Janna Ball DO Primary Care Provider [phone] Davy Proctor PA-C Unavailable [phone] Paola Martell HOT TOP LINER HELPER Unavailable [phone] Paola Martell HOT TOP LINER HELPER Unavailable [phone] Paola Martell HOT TOP LINER HELPER Unavailable [phone] Davy Proctor PA-C Unavailable [phone] Ana Herrera MD Unavailable Ana Herrera MD Primary Care Provider Lencho York MD Unavailable [phone] Ana Herrera MD Unavailable Tamara Ly Unavailable Unavailable Tamara Ly Unavailable Unavailable Vnice Orourke MD Unavailable + Jessica Goldberg MD Unavailable + 3 Jessica Goldberg MD Unavailable + 3 Vince Orourke MD Unavailable + Coming Hali Theodore MD Unavailable [phone] Ana Herrera MD Unavailable Stephanie Porras PA-C Unavailable [phone] System, Provider Not In Primary Care Provider Un available Clinic - [facility] Unavail able Reason for Visit * Reason Onset Date Comments Refill Request 01/14/2017 Encounter Details Date Type Department Care Team (Late st Contact Info) Description 01/14/2017 MyC Refill [address] [address] Paola Martell NP [facility] & [address] [place] [address] Refill Request Social History Tobacco Use Types Packs/Day Years [...] PM CDT Legal 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 Female 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 Gender Identity Female 01/03/2021 12:47 PM CDT Sexual Orientation Straight 01/03/2021 12 :47 PM CDT documented as of this encounter Miscellaneous Notes * Telephone Encounter - Brigette Erickson RN - 01/14/2017 2:53 PM CDTMessage from [facility]: Original authorizing provider: VIRY Chowdary would like a refill of the following medications: phenazopyridine (PYRIDIUM) 200 MG tablet [Paola Martell NP] [facility] [address] [facility] [address] [facility] [address] Comment: Medication renewals requested in this message routed to other providers: traZODone (DESYREL) 50 MG tablet [Alexandru Ly MD] SUMAtriptan (IMITREX) 100 MG tablet [Alexandru Ly MD] documented in this encounter Plan of Treatment Not on file documented as of this encounter Visit Diagnoses Diagnosis Acute cystitis without hematuria Acute cystitis documented in this encounter Additional Health Concerns Infection Onset Date Last Indicated Resolved Time Rule Out COVID-19 03/05/2020 03/05/2020 03/06/2020 5:31 PM SHREDDED FILLER MACHINE WRAPPER LAYER Rule Out COVID-19 01/04/2021 01/04/2021 01/04/2021 4:13 AM CDT Rule Out COVID-19 09/28/2021 09/28/2021 09/28/2021 11:00 PM CDT Rule Out COVID-19 07/20/2023 07/20/2023 07/20/2023 12:33 PM CDT documented as of this encounter Care Teams Bell Spinner Relationship Specialty Start Date End Date Paola Martell HOT TOP LINER HELPER PCP - General Nurse Practitioner - Family 11/23/16 11/09/17 Paola Martell HOT TOP LINER HELPER PCP - General Nurse Practitioner - Family 11/14/17 02/08/18 Janna Ball DO PCP - General foundation relations director 03/20/18 08/02/19 Davy Proctor PA-C [address] [place] [address] PCP - Assigned PCP 03/12/18 04/08/18 Paola Martell, HOT TOP LINER HELPER [address] [place] [address] PCP - Assigned PCP 11/28/16 03/11/18 Paola Martell, HOT TOP LINER HELPER [address] [place] [address] PCP - Assigned PCP 04/09/18 06/13/18 [place] [address] [place] [address] PCP - General Family Practice 08/03/19 05/22/23 System, Provider Not In PCP - General Clinic 06/27/23 Paola Martell NP [address] [place] [address] Assigned PCP 04/09/18 06/24/18 Davy Proctor PA-C [address] [place] [address] Assigned PCP 02/26/18 02/17/19 [place] [address] [place] [address] Assigned PCP 02/18/19 08/02/20 [place] [address] [place] [address] Assigned PCP 08/03/20 09/13/20 [place] [address] [place] [address] Assigned PCP 09/14/20 05/07/22 Tamara Ly Personal Advocate & Liaison (PAL) Family Medicine 09/24/20 Tamara Ly Personal Advocate & Liaison (PAL) Family Medicine 12/04/20 Vince Orourke MD [address] [place] [address] Assigned OBGYN Provider 07/05/21 Jessica Goldberg MD [address] [place] [address] Assigned OBGYN Provider 08/30/21 Jessica Goldberg MD [address] [place], [place] [address]204 Assigned OBGYN Provider 11/07/2102/18 Vince Orourke MD [address] [place], [place] 276174 Assigned OBGYN Provider 10/31/21 [place] [address] [place] [address] Assigned PCP 05/08/22 06/04/22 [place] [address] [place] [address] Assigned PCP 06/05/22 07/09/22 Stephanie Porras PA-C [address] [address] Assigned PCP 07/10/22 03/02/[address] [facility] [address] [place] [address] Assigned PCP 03/03/24 documented as of this encounter
--- OUTSIDE RECORDS SUMMARY | 2024-05-21 15:35 | XMS_ITS | Encounter Summary ---
Author Organization [facility] Address [address] [place] [address] Care Team Providers Care Reserve Officer Name Role Phone Paola Martell LIBRARY CIRCULATION CLERK Primary Care Provider [phone] Paola Martell LIBRARY CIRCULATION CLERK Primary Care Provider [phone] Janna Ball DO Primary Care Provider [phone] Davy Proctor PA-C Unavailable [phone] Paola Martell LIBRARY CIRCULATION CLERK Unavailable Paola Martell LIBRARY CIRCULATION CLERK Unavailable [phone] Paola Martell LIBRARY CIRCULATION CLERK Unavailable [phone] Davy Proctor PA-C Unavailable [phone] Ana Herrera MD Unavailable Ana Herrera MD Primary Care Provider Lencho York MD Unavailable [phone] Ana Herrera MD Unavailable Tamara Ly Unavailable Unavailable Tamara Ly Unavailable Unavailable Vince Orourke MD Unavailable + Jessica Goldberg MD Unavailable + 3 Jessica Goldberg MD Unavailable + 3 Vince Orourke MD Unavailable + Coming Hali Theodore MD Unavailable [phone] Ana Herrera MD Unavailable Stephanie Porras PA-C Unavailable [phone] System, Provider Not In Primary Care Provider Un available Clinic - [facility] Unavail able Encounter Details Date Type Department Care Team (Late st Contact Info) Description 09/19/2017 MyC Medical Advice [facility] [address] [place] [address] Paola Martell, LIBRARY CIRCULATION CLERK [facility] & [address] [address] Social History Tobacco Use Types [...] PM CDT Legal Sex Female 4:24 AM HEALTH SERVICES ADMINISTRATOR Gender Identity Female 01/03/2021 12:47 PM CDT Sexual Orientation Straight 01/03/2021 12 :47 PM CDT documented as of this encounter Plan of Treatment Not on file documented as of this encounter Visit Diagnoses Not on filedocumented in this encounter Additional Health Concerns Infection Onset Date Last Indicated Resolved Time Rule Out COVID-19 03/05/2020 03/05/2020 03/06/2020 5:31 PM HEALTH SERVICES ADMINISTRATOR Rule Out COVID-19 01/04/2021 01/04/2021 01/04/2021 4:13 AM CDT Rule Out COVID-19 09/28/2021 09/28/2021 09/28/2021 11:00 PM CDT Rule Out COVID-19 07/20/2023 07/20/2023 07/20/2023 12:33 PM CDT documented as of this encounter Care Teams Reserve Officer Relationship Specialty Start Date End Date Paola Martell LIBRARY CIRCULATION CLERK PCP - General Nurse Practitioner - Family 11/23/16 11/09/17 Paola Martell LIBRARY CIRCULATION CLERK PCP - General Nurse Practitioner - Family 11/14/17 02/08/18 Janna Ball DO PCP - General transportation project manager 03/20/18 08/02/19 Davy Proctor PA-C [address] [place] [address] PCP - Assigned PCP 03/12/18 04/08/18 Paola Martell LIBRARY CIRCULATION CLERK [address] [address] PCP - Assigned PCP 11/28/16 03/11/18 Paola Martell NP [address] [address] PCP - Assigned PCP 04/09/18 06/13/18 [place] [address] [place] [address] PCP - General Family Practice 08/03/19 05/22/23 System, Provider Not In PCP - General Clinic 06/27/23 Paola Martell, LIBRARY CIRCULATION CLERK [address] [place] [address] Assigned PCP 04/09/18 06/24/18 Davy Proctor PA-C [address] [place] [address] [id number] Assigned PCP 02/26/18 02/17/19 [place] [address] [place] [address] Assigned PCP 02/18/19 08/02/20 [place] [address] [place] [address] Assigned PCP 08/03/20 09/13/20 [place] [address] [place], [place] 249[address] Assigned PCP 09/14/20 05/07/22 Tamara Ly Personal Advocate & Liaison (PAL) Family Medicine 09/24/20 Tamara Ly Personal Advocate & Liaison (PAL) Family Medicine 12/04/20 Vince Orourke MD [address] [place], [place] 79[address] Assigned OBGYN Provider 07/05/21 Jessica Goldberg MD [address] [place], [place] [address] Assigned OBGYN Provider 08/30/21 Jessica Goldberg MD [address] [place], [place] [address] Assigned OBGYN Provider 11/07/2102/18 Vince Orourke MD [address] [place], [place] [address] Assigned OBGYN Provider 10/31/21 [place] [address] [place] [address] Assigned PCP 05/08/22 06/04/22 [place] [address] [place] [address] Assigned PCP 06/05/22 07/09/22 Stephanie Porras PA-C [facility] [facility] 200 [place] [address] Assigned PCP 07/10/22 03/02/24 [facility] [address] [place] [address] Assigned PCP 03/03/24 documented as of this encounter
--- OUTSIDE RECORDS SUMMARY | 2024-05-21 15:36 | XMS_ITS | Encounter Summary ---
Author Organization [facility] Address [address] [place] [address] Care Team Providers Care Network Technical Analyst Name Role Phone Ana Herrera MD Unavailable Ana Herrera MD Primary Care Provider Lencho York MD Unavailable [phone] Ana Herrera MD Unavailable Keplin, Tamara L Unavailable Unavailable Prafulplivan, Tamara L Unavailable Unavailable Vince Orourke MD Unavailable [phone] Jessica Goldberg MD Unavailable [phone] Jessica Goldberg MD Unavailable Vince Orourke MD Unavailable Hali Gabriel MD Unavailable [phone] Ana Herrera MD Unavailable Stephanie Porras PA-C Unavailable [phone] System, Provider Not In Primary Care Provider Un available Clinic - [facility] Unavail able Reason for Visit * Reason Comments Medication Refill Encounter Details Date Type Department Care Team (Late st Contact Info) Description 04/24/[address] [address] [place] [address] [place] [address] Medication Refill Social History Tobacco Use Types Packs/Day Years [...] PM CDT Legal Sex Female 4:24 AM MICROSOFT INFRASTRUCTURE CONSULTANT Gender Identity Female 01/03/2021 12:47 PM CDT Sexual Orientation Straight 01/03/2021 12 :47 PM CDT documented as of this encounter Miscellaneous Notes * Telephone Encounter - Dayna Johnson RN - 05/02/2020 12:33 PM MICROSOFT INFRASTRUCTURE CONSULTANT Pres[place] [facility] Refill Protocol. Dayna Johnson RN [facility] -- Triage Nurse OSOFT INFRASTRUCTURE CONSULTANT * Telephone Encounter - Chelsi Barron MA - 05/02/2020 11:36 AM MICROSOFT INFRASTRUCTURE CONSULTANT Patient states average will take about 2 tabs per month. Will take half tab at times. Does not takemore than 8 per month. OSOFT INFRASTRUCTURE CONSULTANT * Telephone Encounter - Chelsi Barron MA - 05/01/2020 9:51 AM CST LM for patient to call back to clinic., OSOFT INFRASTRUCTURE CONSULTANT * Telephone Encounter - Darian Ibrahim - 04/25/2020 2:13 PM CST Called no answer,left vm to call back clinic. Darian Ibrahim on 04/25/2020 at 2:13 PM OSOFT INFRASTRUCTURE CONSULTANT * Telephone Encounter - Ana Herrera MD - 04/24/2020 3:34 PM CST II'm not sure why this was sent to me? OSOFT INFRASTRUCTURE CONSULTANT * Telephone Encounter - Lori Silveira RN - 04/24/2020 2:55 PM CST Please call patient and see how many doses of sumatriptan patient has used in the past month. Should be using 8 doses or fewer per month. 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 Persistent migraine aura without cerebral infarction, with intractable migraine, so stated, without mention of status migrainosus documented in this encounter Additional Health Concerns Infection Onset Date Last Indicated Resolved Time Rule Out COVID-19 01/04/2021 01/04/2021 01/04/2021 4:13 AM CDT Rule Out COVID-19 09/28/2021 09/28/2021 09/28/2021 11:00 PM CDT Rule Out COVID-19 07/20/2023 07/20/2023 07/20/2023 12:33 PM CDT Assessment Noted Time PHQ-9 Depression Total Score: 7 08/01/19 20 7:58 AM CDT documented as of this encounter Care Teams Network Technical Analyst Relationship Specialty [place] [address] [place] [address] PCP - General Family Practice 08/03/19 05/22/23 System, Provider Not In PCP - General Clinic 06/27/23 [place] [address] [place] [address] Assigned PCP 02/18/19 08/02/20 [place] [address] [place] [address] Assigned PCP 08/03/20 09/13/20 [place] [address] [place] [address] Assigned PCP 09/14/20 05/07/22 Tamara Ly Personal Advocate & Liaison (PAL) Family Medicine 09/24/20 Tamara Ly Personal Advocate & Liaison (PAL) Family Medicine 12/04/20 Vince Orourke MD [address] [place] [address] Assigned OBGYN Provider 07/05/21 Jessica Goldberg MD [address] [place] [address] Assigned OBGYN Provider 08/30/21 Jessica Goldberg MD [address] [place] [address] Assigned OBGYN Provider 11/07/2102/18 Vince Orourke MD [address] [place] [address] Assigned OBGYN Provider 10/31/21 [place] [address] [place] [address] Assigned PCP 05/08/22 06/04/22 [place] [address] [place] [address] Assigned PCP 06/05/22 07/09/22 Stephanie Porras PAWillC [address] [facility] 200 [place] [address] Assigned PCP 07/10/22 03/02/24 [facility] [address] [place] [address] Assigned PCP 03/03/24 documented as of this encounter
--- OUTSIDE RECORDS SUMMARY | 2024-05-21 15:36 | XMS_ITS | Encounter Summary ---
Author Organization [facility] Address [address] [place] [address] Care Team Providers Care Wire Mesh Gate Assembler Name Role Phone Ana Herrera MD Unavailable Ana Herrera MD Primary Care Provider Lencho York MD Unavailable [phone] Ana Herrera MD Unavailable Keplin, Tamara L Unavailable Unavailable Prafulplivan, Tamara L Unavailable Unavailable Vince Orourke MD Unavailable Jessica Goldberg MD Unavailable [phone] Jessica Goldberg MD Unavailable [phone] Vince Orourke MD Unavailable [phone] Hali Gabriel MD Unavailable [phone] Ana Herrera MD Unavailable Stephanie oPrras PA-C Unavailable [phone] System, Provider Not In Primary Care Provider Un available Clinic - [facility] Unavail able Reason for Visit * Reason Comments Medication Refill Encounter Details Date Type Department Care Team (Late st Contact Info) Description 08/04/[address] [address] [place] [address] [place] [address] Medication Refill Social History Tobacco Use Types [...] PM CDT Legal Sex Female 4:24 AM FEED CRUSHER OPERATOR Gender Identity Female 01/03/2021 12:47 PM CDT Sexual Orientation Straight 01/03/2021 12 :47 PM CDT COVID-19 Exposure Response Date Recorded In the last month, have you been in contact with someone who was confirmed or suspected to have Coronavirus / COVID-19? No / Unsure 08/01/2019 7:44 AM CDT documented as of this encounter Miscellaneous Notes * Telephone Encounter - Mel Alejandra, RN - 08/07/2019 11:24 AM CDT Routing refill request to provider for review/approval because: A break in medication documented in this encounter Plan of Treatment Not on file documented as of this encounter Visit Diagnoses Diagnosis Insomnia, unspecified type documented in this encounter Additional Health Concerns Infection Onset Date Last Indicated Resolved Time Rule Out COVID-19 03/05/2020 03/05/2020 03/06/2020 5:31 PM FEED CRUSHER OPERATOR Rule Out COVID-19 01/04/2021 01/04/2021 01/04/2021 4:13 AM CDT Rule Out COVID-19 09/28/2021 09/28/2021 09/28/2021 11:00 PM CDT Rule Out COVID-19 07/20/2023 07/20/2023 07/20/2023 12:33 PM CDT Assessment Noted Time PHQ-9 Depression Total Score: 7 08/01/19 20 7:58 AM CDT documented as of this encounter Care Teams Wire Mesh Gate Assembler Relationship Specialty [place] [address] [place], [place] [id number] PCP - General Family Practice 08/03/19 05/22/23 System, Provider Not In PCP - General Clinic 06/27/23 [place] [address] [place], [place] [address] Assigned PCP 02/18/19 08/02/20 [place] [address] [place], [place] [address] Assigned PCP 08/03/20 09/13/20 [place] [address] [place], [place] [address] Assigned PCP 09/14/20 05/07/22 Tamara Ly Personal Advocate & Liaison (PAL) Family Medicine 09/24/20 Tamara Ly Personal Advocate & Liaison (PAL) Family Medicine 12/04/20 Vince Orourke MD [address] [place] [address] Assigned OBGYN Provider 07/05/21 Jessica Goldberg MD [address] [place] [address] Assigned OBGYN Provider 08/30/21 Jessica Goldberg MD [address] [place] [address] Assigned OBGYN Provider 11/07/2102/18 Vince Orourke MD [address] [place] [address] 400 [place], [place] [address] Assigned OBGYN Provider 10/31/21 [place] [address] [place], [place] [address] Assigned PCP 05/08/22 06/04/22 [place] [address] [place], [place] [address] Assigned PCP 06/05/22 07/09/22 Stephanie Porras PAWillC 6565 [facility] 200 [place] [address] Assigned PCP 07/10/22 03/02/24 [facility] [address] [place], [place] [address] Assigned PCP 03/03/24 documented as of this encounter
--- OUTSIDE RECORDS SUMMARY | 2024-05-21 15:36 | XMS_ITS | Encounter Summary ---
Author Organization [facility] Address [address] [place] [address] Care Team Providers Care Men'S Garment Fitter Name Role Phone Alexandru Ly MD Primary Car e Provider Paola Martell AIRSET MOLDER Primary Care Provider [phone] Paola Martell AIRSET MOLDER Primary Care Provider [phone] Janna Ball DO Primary Care Provider [phone] Davy Proctor PA-C Unavailable [phone] Paola Martell AIRSET MOLDER Unavailable [phone] Paola Martell AIRSET MOLDER Unavailable [phone] Paola Martell AIRSET MOLDER Unavailable [phone] Davy Proctor PA-C Unavailable [phone] Ana Herrera MD Unavailable Ana Herrera MD Primary Care Provider [phone] Lencho York MD Unavailable [phone] Ana Herrera MD Unavailable Tamara Ly Unavailable Unavailable Tamara Ly Unavailable Unavailable Vince Orourke MD Unavailable [phone] Jessiac Goldberg MD Unavailable [phone] Jessica Goldberg MD Unavailable [phone] Vince Orourke MD Unavailable [phone] Hali Gabriel MD Unavailable +[phone] Ana Herrera MD Unavailable Stephanie Porras PA-C Unavailable [phone] System, Provider Not In Primary Care Provider Un available Clinic - [facility] Unavail able Reason for Visit * Reason Onset Date Comments Lab Result Notice 06/04/2010 Wet prep +clue cells Encounter Details Date Type Department Care Team (Late st Contact Info) Description 06/04/2010 MyC Medical Advice [address], [address] [place] [address] [place] [address] [place] [address] Lab Result Notice (Wet prep +clue cells) Social History Tobacco Use Types Packs/Day Years Used Date Smoking Tobacco: Every Day Cigarettes Smokeless Tobacco: Never Comments:1/2 ppd, tried quit ting Alcohol Use Standard Drinks/Week Comments No 0 (1 standard drink = 0.6 oz pur e alcohol) Comments No Sex and Gender Information Value Date Recorded Sex Assigned at Female 01/03/2021 12:47 PM CDT Legal Sex Female 4:24 AM COMPUTER CONSOLE OPERATOR Gender Identity Female 01/03/2021 12:47 PM CDT Sexual Orientation Straight 01/03/2021 12 :47 PM CDT documented as of this encounter Plan of Treatment Not on file documented as of this encounter Visit Diagnoses Not on filedocumented in this encounter Additional Health Concerns Infection Onset Date Last Indicated Resolved Time Rule Out COVID-19 03/05/2020 03/05/2020 03/06/2020 5:31 PM COMPUTER CONSOLE OPERATOR Rule Out COVID-19 01/04/2021 01/04/2021 01/04/2021 4:13 AM CDT Rule Out COVID-19 09/28/2021 09/28/2021 09/28/2021 11:00 PM CDT Rule Out COVID-19 07/20/2023 07/20/2023 07/20/2023 12:33 PM CDT documented as of this encounter Care Teams Men'S Garment Fitter Relationship Specialty Start Date End Date Alexandru Ly MD PCP - General 08/09/02 11/22/16 Paola Martell, AIRSET MOLDER PCP - General Nurse Practitioner - Family 11/23/16 11/09/17 Paola Martell, AIRSET MOLDER PCP - General Nurse Practitioner - Family 11/14/17 02/08/18 Janna Ball DO PCP - General qc manager 03/20/18 08/02/19 Davy Proctor PA-C [address] [place] [address] [id number] PCP - Assigned PCP 03/12/18 04/08/18 Paola Martell, AIRSET MOLDER [address] [place] [address] PCP - Assigned PCP 11/28/16 03/11/18 Paola Martell, AIRSET MOLDER [address] [place], [place] [id number] PCP - Assigned PCP 04/09/18 06/13/18 [place] [address] [place] [address] PCP - General Family Practice 08/03/19 05/22/23 System, Provider Not In PCP - General Clinic 06/27/23 Paola Martell AIRSET MOLDER [address] [address] Assigned PCP 04/09/18 06/24/18 Davy Proctor PA-C [address] [place] [address] Assigned PCP 02/26/18 02/17/19 [place] [address] [place], [place] [id number] Assigned PCP 02/18/19 08/02/20 [place] [address] [place], [place] [id number] Assigned PCP 08/03/20 09/13/20 [place] [address] [place], [place] [address] Assigned PCP 09/14/20 05/07/22 Tamara Ly Personal Advocate & Liaison (PAL) Family Medicine 09/24/20 Tamara Ly Personal Advocate & Liaison (PAL) Family Medicine 12/04/20 Vince Orourke MD [address] [place] [address] Assigned OBGYN Provider 07/05/21 08/29/21 Jessica Goldberg MD [address] [place] [address] Assigned OBGYN Provider 08/30/21 10/30/21 Jessica Goldberg MD [address] [place], [place] [address] Assigned OBGYN Provider 11/07/21 02/18/23 Vince Orourke MD [address] [place], [place] [address] Assigned OBGYN Provider 10/31/21 11/06/21 [place] [address] [place], [place] [id number] Assigned PCP 05/08/22 06/04/22 [place] [address] [place] [address] Assigned PCP 06/05/22 07/09/22 Stephanie Porras PA-C 6565 [facility] [address] [place] [address] Assigned PCP 07/10/22 03/02/24 [facility] [address] [place] [address] Assigned PCP 03/03/24 documented as of this encounter
--- OUTSIDE RECORDS SUMMARY | 2024-05-21 15:36 | XMS_ITS | Encounter Summary ---
Author Organization [facility] Address [address] [place] [address] Care Team Providers Care Copper Roller Handler Printing Name Role Phone Alexandru Ly MD Primary Car e Provider Paola Martell PRODUCT DEVELOPMENT ACTUARY Primary Care Provider [phone] Paola Martell PRODUCT DEVELOPMENT ACTUARY Primary Care Provider [phone] Janna Ball DO Primary Care Provider [phone] Davy Proctor PA-C Unavailable [phone] Paola Martell PRODUCT DEVELOPMENT ACTUARY Unavailable [phone] Paola Martell PRODUCT DEVELOPMENT ACTUARY Unavailable [phone] Paola Martell PRODUCT DEVELOPMENT ACTUARY Unavailable [phone] Davy Proctor PA-C Unavailable [phone] Ana Herrera MD Unavailable Ana Herrera MD Primary Care Provider [phone] Lencho York MD Unavailable [phone] Ana Herrera MD Unavailable Tamara Ly Unavailable Unavailable Tamara Ly Unavailable Unavailable Vince Orourke MD Unavailable [phone] Jessica Goldberg MD Unavailable [phone] Jessica Goldberg MD Unavailable [phone] Vince Orourke MD Unavailable [phone] Hali Gabriel MD Unavailable [phone] nAa Herrera MD Unavailable Stephanie Porras PA-C Unavailable [phone] System, Provider Not In Primary Care Provider Un available Clinic - [facility] Unavail able Reason for Visit * Reason Onset Date Comments Refill Request 10/29/2013 Encounter Details Date Type Department Care Team (Late st Contact Info) Description 10/29/2013 MyC Refill [facility] [id number] [place] [phone] Alexandru Ly MD [facility] [address] [place] [address] Refill Request Social History Tobacco Use Types [...] PM CDT Legal Sex Female 4:24 AM COUNTERINTELLIGENCE ANALYST Gender Identity Female 01/03/2021 12:47 PM CDT Sexual Orientation Straight 01/03/2021 12 :47 PM CDT documented as of this encounter Plan of Treatment Not on file documented as of this encounter Visit Diagnoses Not on filedocumented in this encounter Additional Health Concerns Infection Onset Date Last Indicated Resolved Time Rule Out COVID-19 03/05/2020 03/05/2020 03/06/2020 5:31 PM COUNTERINTELLIGENCE ANALYST Rule Out COVID-19 01/04/2021 01/04/2021 01/04/2021 4:13 AM CDT Rule Out COVID-19 09/28/2021 09/28/2021 09/28/2021 11:00 PM CDT Rule Out COVID-19 07/20/2023 07/20/2023 07/20/2023 12:33 PM CDT documented as of this encounter Care Teams Copper Roller Handler Printing Relationship Specialty Start Date End Date Alexandru Ly MD PCP - General 08/09/02 11/22/16 Paola Martell, PRODUCT DEVELOPMENT ACTUARY PCP - General Nurse Practitioner - Family 11/23/16 11/09/17 Paola Martell, PRODUCT DEVELOPMENT ACTUARY PCP - General Nurse Practitioner - Family 11/14/17 02/08/18 Janna Ball DO PCP - General suture gauger 03/20/18 08/02/19 Davy Proctor PA-C [address] [place] [address] PCP - Assigned PCP 03/12/18 04/08/18 Paola Martell, PRODUCT DEVELOPMENT ACTUARY [address] [place] [address] PCP - Assigned PCP 11/28/16 03/11/18 Paola Martell, PRODUCT DEVELOPMENT ACTUARY [address] [place] [address] PCP - Assigned PCP 04/09/18 06/13/18 [place] [address] [place] [address] PCP - General Family Practice 08/03/19 05/22/23 System, Provider Not In PCP - General Clinic 06/27/23 Paola Martell PRODUCT DEVELOPMENT ACTUARY [address] [address] Assigned PCP 04/09/18 06/24/18 Davy Proctor PA-C [address] [place] [address] Assigned PCP 02/26/18 02/17/19 [place] [address] [place], [place] [id number] Assigned PCP 02/18/19 08/02/20 [place] [address] [place] [address] Assigned PCP 08/03/20 09/13/20 [place] [address] [place], [place] [id number] Assigned PCP 09/14/20 05/07/22 Tamara Ly Personal Advocate & Liaison (PAL) Family Medicine 09/24/20 Tamara Ly Personal Advocate & Liaison (PAL) Family Medicine 12/04/20 Vince Orourke MD [address] [place] [address] Assigned OBGYN Provider 07/05/21 08/29/21 Jessica Goldberg MD [address] [place] [address] Assigned OBGYN Provider 08/30/21 10/30/21 Jessica Goldberg MD [address] [place] [address] 400 [place] [address] Assigned OBGYN Provider 11/07/21 02/18/23 Vince Orourke MD [address] [facility] [address] [facility] 400 [place], [place] [address] Assigned OBGYN Provider 10/31/21 11/06/21 [place] [address] [place], [place] [id number] Assigned PCP 05/08/22 06/04/22 [place] [address] [place] [address] Assigned PCP 06/05/22 07/09/22 Stephanie Porras PA-C 6565 [facility] 200 [place] [address] Assigned PCP 07/10/22 03/02/24 [facility] [address] [place] [address] Assigned PCP 03/03/24 documented as of this encounter
--- OUTSIDE RECORDS SUMMARY | 2024-05-21 15:36 | XMS_ITS | Encounter Summary ---
Author Organization [facility] Address [address] [place] [address] Care Team Providers Care Paper Bag Press Operator Name Role Phone Paola Martell COMMUNITY SERVICES COORDINATOR Primary Care Provider [phone] Paola Martell COMMUNITY SERVICES COORDINATOR Primary Care Provider [phone] Janna Ball DO Primary Care Provider [phone] Davy Proctor PA-C Unavailable [phone] Paola Martell COMMUNITY SERVICES COORDINATOR Unavailable [phone] Paola Martell COMMUNITY SERVICES COORDINATOR Unavailable [phone] Paola Martell COMMUNITY SERVICES COORDINATOR Unavailable [phone] Davy Proctor PA-C Unavailable [phone] Ana Herrera MD Unavailable Ana Herrera MD Primary Care Provider Lencho York MD Unavailable [phone] Ana Herrera MD Unavailable Tamara Ly Unavailable Unavailable Tamara Ly Unavailable Unavailable Vince Orourke MD Unavailable + Jessica Goldberg MD Unavailable + [phone] Jessica Goldberg MD Unavailable + [phone] Vince Orourke MD Unavailable + Coming Hali Theodore MD Unavailable [phone] Ana Herrera MD Unavailable Stephanie Porras PA-C Unavailable [phone] System, Provider Not In Primary Care Provider Un available Clinic - [facility] Unavail able Reason for Visit * Reason Onset Date Comments MyChart Communication 02/28/2017 Encounter Details Date Type Department Care Team (Late st Contact Info) Description 02/28/2017 MyC Medical Advice [address] [address] Paola Martell, [facility] & [address] [place] [address] MyChart Communication Social History Tobacco [...] PM CDT Legal Sex Female 4:24 AM AURIST Gender Identity Female 01/03/2021 12:47 PM CDT Sexual Orientation Straight 01/03/2021 12 :47 PM CDT documented as of this encounter Miscellaneous Notes * Telephone Encounter - Brigette Erickson RN - 02/28/2017 8:22 AM CST Pap smear results will come from the pap nurse. Please advise on ultrasound Brigette Erickson RN, BSN ST documented in this encounter Plan of Treatment Not on file documented as of this encounter Visit Diagnoses Diagnosis Excessive or frequent menstruation- Primary documented in this encounter Additional Health Concerns Infection Onset Date Last Indicated Resolved Time Rule Out COVID-19 03/05/2020 03/05/2020 03/06/2020 5:31 PM AURIST Rule Out COVID-19 01/04/2021 01/04/2021 01/04/2021 4:13 AM CDT Rule Out COVID-19 09/28/2021 09/28/2021 09/28/2021 11:00 PM CDT Rule Out COVID-19 07/20/2023 07/20/2023 07/20/2023 12:33 PM CDT documented as of this encounter Care Teams Paper Bag Press Operator Relationship Specialty Start Date End Date Paola Martell, COMMUNITY SERVICES COORDINATOR PCP - General Nurse Practitioner - Family 11/23/16 11/09/17 Paola Martell, COMMUNITY SERVICES COORDINATOR PCP - General Nurse Practitioner - Family 11/14/17 02/08/18 Janna Ball DO PCP - General railroad firer/fireman 03/20/18 08/02/19 Davy Proctor PA-C [address] [place] [address] PCP - Assigned PCP 03/12/18 04/08/18 Paola Martell COMMUNITY SERVICES COORDINATOR [address] [place] [address] PCP - Assigned PCP 11/28/16 03/11/18 Paola Martell, COMMUNITY SERVICES COORDINATOR [address] [place] [address] PCP - Assigned PCP 04/09/18 06/13/18 [place] [address] [place] [address] PCP - General Family Practice 08/03/19 05/22/23 System, Provider Not In PCP - General Clinic 06/27/23 Paola Martell COMMUNITY SERVICES COORDINATOR [address] [facility] [place] [address] Assigned PCP 04/09/18 06/24/18 Davy Proctor PA-C [address] [place] [address] Assigned PCP 02/26/18 02/17/19 [place] [address] [place], [place] [phone] Assigned PCP 02/18/19 08/02/20 [place] [address] [place], [place] [address] Assigned PCP 08/03/20 09/13/20 [place] [address] [place], [place] [address] Assigned PCP 09/14/20 05/07/22 Tamara Ly Personal Advocate & Liaison (PAL) Family Medicine 09/24/20 Tamara Ly Personal Advocate & Liaison (PAL) Family Medicine 12/04/20 Vince Orourke MD [address] [place], [place] [address] Assigned OBGYN Provider 07/05/21 Jessica Goldberg MD [address] [place] [address] Assigned OBGYN Provider 08/30/21 Jessica Goldberg MD [address] [place] [address] Assigned OBGYN Provider 11/07/2102/18 Vince Orourke MD [address] [place], [place] [address] Assigned OBGYN Provider 10/31/21 [place] [address] [place], [place] [address] Assigned PCP 05/08/22 06/04/22 [place] [address] [place], [place] [address] Assigned PCP 06/05/22 07/09/22 Stephanie Porras PA-C [address] [facility] [address] [facility] 200 [place] [address] Assigned PCP 07/10/22 03/02/24 [facility] [address] [place] [address] Assigned PCP 03/03/24 documented as of this encounter
--- OUTSIDE RECORDS SUMMARY | 2024-05-21 15:36 | XMS_ITS | Encounter Summary ---
Author Organization [facility] Address [address] [place] [address] Care Team Providers Care Tire Builder Name Role Phone Paola Martell REIMBURSEMENT SPEC Primary Care Provider [phone] Paola Martell REIMBURSEMENT SPEC Primary Care Provider [phone] Janna Ball DO Primary Care Provider [phone] Davy Proctor PA-C Unavailable [phone] Paola Martell REIMBURSEMENT SPEC Unavailable [phone] Paola Martell REIMBURSEMENT SPEC Unavailable [phone] Paola Martell REIMBURSEMENT SPEC Unavailable [phone] Davy Proctor PA-C Unavailable [phone] Ana Herrera MD Unavailable Ana Herrera MD Primary Care Provider Lencho York MD Unavailable [phone] Ana Herrera MD Unavailable Tamara Ly Unavailable Unavailable Tamara Ly Unavailable Unavailable Vince Orourke MD Unavailable + Jessica Goldberg MD Unavailable + 3 Jessica Goldberg MD Unavailable + 3 Vince Orourke MD Unavailable + Coming Hali Theodore MD Unavailable [phone] Ana Herrera MD Unavailable Stephanie Porras PA-C Unavailable [phone] System, Provider Not In Primary Care Provider Un available Clinic - [facility] Unavail able Reason for Visit * Reason Onset Date Comments MyChart Communication 12/03/2016 Encounter Details Date Type Department Care Team (Late st Contact Info) Description 12/03/2016 MyC Medical Advice [address] [address] Paola Martell, [facility] & [address] [place] [address] MyChart Communication Social History Tobacco [...] CDT 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 Gender Identity Female 01/03/2021 12:47 PM CDT Sexual Orientation Straight 01/03/2021 12 :47 PM CDT documented as of this encounter Plan of Treatment Not on file documented as of this encounter Visit Diagnoses Diagnosis Bacterial vaginosis- Primary Vaginitis and vulvovaginitis, unspecified documented in this encounter Additional Health Concerns Infection Onset Date Last Indicated Resolved Time Rule Out COVID-19 03/05/2020 03/05/2020 03/06/2020 5:31 PM DIRECTOR CRAFT CENTER Rule Out COVID-19 01/04/2021 01/04/2021 01/04/2021 4:13 AM CDT Rule Out COVID-19 09/28/2021 09/28/2021 09/28/2021 11:00 PM CDT Rule Out COVID-19 07/20/2023 07/20/2023 07/20/2023 12:33 PM CDT documented as of this encounter Care Teams Tire Builder Relationship Specialty Start Date End Date Paola Martell, REIMBURSEMENT SPEC PCP - General Nurse Practitioner - Family 11/23/16 11/09/17 Paola Martell, REIMBURSEMENT SPEC PCP - General Nurse Practitioner - Family 11/14/17 02/08/18 Janna Ball DO PCP - General flaking roll operator 03/20/18 08/02/19 Davy Proctor PA-C [address] [place] [address] PCP - Assigned PCP 03/12/18 04/08/18 Paola Martell, REIMBURSEMENT SPEC [place] [address] [place] [address] PCP - Assigned PCP 11/28/16 03/11/18 Paola Martell REIMBURSEMENT SPEC [place] [address] [place] [address] PCP - Assigned PCP 04/09/18 06/13/18 [place] [address] [place] [address] PCP - General Family Practice 08/03/19 05/22/23 System, Provider Not In PCP - General Clinic 06/27/23 Paola Martell, REIMBURSEMENT SPEC [place] [address] [place] [address] Assigned PCP 04/09/18 06/24/18 Davy Proctor PA-C [address] [place] [address] [id number] Assigned PCP 02/26/18 02/17/19 [place] [address] [place] [address] Assigned PCP 02/18/19 08/02/20 [place] [address] [place] [address] Assigned PCP 08/03/20 09/13/20 [place] [address] [place] [address] Assigned PCP 09/14/20 05/07/22 Tamara Ly Personal Advocate & Liaison (PAL) Family Medicine 09/24/20 Tamara Ly Personal Advocate & Liaison (PAL) Family Medicine 12/04/20 Vince Orourke MD [address] [place], [place] [address] Assigned OBGYN Provider 07/05/21 Jessica oGldberg MD [address] [place] [address] Assigned OBGYN Provider 08/30/21 Jessica Goldberg MD [address] [place] [address] Assigned OBGYN Provider 11/07/2102/18 Vince Orourke MD [address] [place] [address] 400 [place], [place] [address]484 Assigned OBGYN Provider 10/31/21 [place] [address] [place], [place] [address] Assigned PCP 05/08/22 06/04/22 [place] [address] [place] [address] Assigned PCP 06/05/22 07/09/22 Stephanie Porras PAWillC 6565 [facility] 200 [place] [address] Assigned PCP 07/10/22 03/02/24 [facility] [address] [place], [place] [address] Assigned PCP 03/03/24 documented as of this encounter
--- OUTSIDE RECORDS SUMMARY | 2024-05-21 15:36 | XMS_ITS | Encounter Summary ---
Author Organization [facility] Address [address] [place] [address] Care Team Providers Care Instrument Mechanic Weapons System Name Role Phone Alexandru Ly MD Primary Car e Provider Paola Martell FERTILIZING MACHINE OPERATOR Primary Care Provider [phone] Paola Martell FERTILIZING MACHINE OPERATOR Primary Care Provider [phone] Janna Ball DO Primary Care Provider [phone] Davy Proctor PA-C Unavailable [phone] Paola Martell FERTILIZING MACHINE OPERATOR Unavailable [phone] Paola Martell FERTILIZING MACHINE OPERATOR Unavailable [phone] Paola Martell FERTILIZING MACHINE OPERATOR Unavailable [phone] Davy Proctor PA-C Unavailable [phone] Ana Herrera MD Unavailable Ana Herrera MD Primary Care Provider [phone] Lencho York MD Unavailable [phone] Ana Herrera MD Unavailable Tamara Ly Unavailable Unavailable Tamara Ly Unavailable Unavailable Vince Orourke MD Unavailable [phone] Jessica Goldberg MD Unavailable [phone] Jessica Goldberg MD Unavailable [phone] Vince Orourke MD Unavailable [phone] Hali Gabriel MD Unavailable [phone] Ana Hrerera MD Unavailable Stephanie Porras PA-C Unavailable System, Provider Not In Primary Care Provider Un available Clinic - [facility] Unavail able Encounter Details Date Type Department Care Team (Late st Contact Info) Description 02/24/2010 MyC Medical Advice [facility] [address] [place] [address] Alexandru Ly MD [facility] [employer] [address] [place] [address] Social History Tobacco Use Types Packs/Day Years Used Date Smoking Tobacco: Every Day Cigarettes Comments:1/2 ppd, tried quit ting Alcohol Use Standard Drinks/Week Comments No 0 (1 standard drink = 0.6 oz pur e alcohol) Comments No Sex and Gender Information Value Date Recorded Sex Assigned at Female 01/03/2021 12:47 PM CDT Legal Sex Female 4:24 AM PROCESS CHEESE COOKER Gender Identity Female 01/03/2021 12:47 PM CDT Sexual Orientation Straight 01/03/2021 12 :47 PM CDT documented as of this encounter Miscellaneous Notes * Telephone Encounter - Carlota Veras - 02/25/2010 9:24 AM CST Pt with sx's of bronchitis again. Had Evisit with you for this reason in August 2009. Requesting treatment again, please see message. Thank you Carlota Veras RN ESS CHEESE COOKER documented in this encounter Plan of Treatment Not on file documented as of this encounter Visit Diagnoses Not on filedocumented in this encounter Additional Health Concerns Infection Onset Date Last Indicated Resolved Time Rule Out COVID-19 03/05/2020 03/05/2020 03/06/2020 5:31 PM PROCESS CHEESE COOKER Rule Out COVID-19 01/04/2021 01/04/2021 01/04/2021 4:13 AM CDT Rule Out COVID-19 09/28/2021 09/28/2021 09/28/2021 11:00 PM CDT Rule Out COVID-19 07/20/2023 07/20/2023 07/20/2023 12:33 PM CDT documented as of this encounter Care Teams Instrument Mechanic Weapons System Relationship Specialty Start Date End Date Alexandru Ly MD PCP - General 08/09/02 11/22/16 Paola Martell, FERTILIZING MACHINE OPERATOR PCP - General Nurse Practitioner - Family 11/23/16 11/09/17 Paola Martell, FERTILIZING MACHINE OPERATOR PCP - General Nurse Practitioner - Family 11/14/17 02/08/18 Janna Ball DO PCP - General dish stacker 03/20/18 08/02/19 Davy Proctor PA-C [address] [place] [address] PCP - Assigned PCP 03/12/18 04/08/18 Paola Martell, FERTILIZING MACHINE OPERATOR [place] [address] [place] [address] PCP - Assigned PCP 11/28/16 03/11/18 Paola Martell, FERTILIZING MACHINE OPERATOR [place] [address] [place] [address] PCP - Assigned PCP 04/09/18 06/13/18 [place] [address] [place], [place] [id number] PCP - General Family Practice 08/03/19 05/22/23 System, Provider Not In PCP - General Clinic 06/27/23 Paola Martell, FERTILIZING MACHINE OPERATOR [facility] [address] [place] [address] [place] [address] Assigned PCP 04/09/18 06/24/18 Davy Proctor PA-C [address] [place] [address] [id number] Assigned PCP 02/26/18 02/17/19 [place] [address] [place], [place] [id number] Assigned PCP 02/18/19 08/02/20 [place] [address] [place], [place] [id number] Assigned PCP 08/03/20 09/13/20 [place] [address] [place] [address] Assigned PCP 09/14/20 05/07/22 Tamara Ly Personal Advocate & Liaison (PAL) Family Medicine 09/24/20 Tamara Ly Personal Advocate & Liaison (PAL) Family Medicine 12/04/20 Vince Orourke MD [address] [address] Assigned OBGYN Provider 07/05/21 08/29/21 Jessica Goldberg MD [address] [place], [place] [address] Assigned OBGYN Provider 08/30/21 10/30/21 Jessica Goldberg MD [address] [place] [address] Assigned OBGYN Provider 11/07/21 02/18/23 Vince Orourke MD [address] [place] [address] Assigned OBGYN Provider 10/31/21 11/06/21 [place] [address] [place] [address] Assigned PCP 05/08/22 06/04/22 [place] [address] [place], [place] [address] Assigned PCP 06/05/22 07/09/22 Stephanie Porras PA-C [address] [facility] [address] [place] [address] Assigned PCP 07/10/22 03/02/24 [facility] [address] [place] [address] Assigned PCP 03/03/24 documented as of this encounter
--- OUTSIDE RECORDS SUMMARY | 2024-05-21 15:36 | XMS_ITS | Encounter Summary ---
Author Organization [facility] [place] Address [address] [place] [address] Care Team Providers Care Loop Machine Operator Name Role Phone Paola Martell SPRING MAKER Primary Care Provider [phone] Paola Martell SPRING MAKER Primary Care Provider [phone] Janna Ball DO Primary Care Provider [phone] Davy Proctor PA-C Unavailable [phone] Paola Martell SPRING MAKER Unavailable [phone] Paola Martell SPRING MAKER Unavailable [phone] Paola Martell SPRING MAKER Unavailable [phone] Davy Proctor PA-C Unavailable [phone] nAa Herrera MD Unavailable Ana Herrera MD Primary Care Provider Lencho York MD Unavailable [phone] Ana Herrera MD Unavailable Tamara Ly Unavailable Unavailable Tamara Ly Unavailable Unavailable Vince Orourke MD Unavailable + Jessica Goldberg MD Unavailable + 3 Jessica Goldberg MD Unavailable + 3 Vince Orourke MD Unavailable + Coming Hali Theodore MD Unavailable [phone] Ana Herrera MD Unavailable Stephanie Porras PA-C Unavailable System, Provider Not In Primary Care Provider Un available Clinic - [facility] Unavail able Encounter Details Date Type Department Care Team (Late st Contact Info) Description 02/21/2017 MyC Medical Advice [facility] [address] [place] [address] Paola Martell, SPRING MAKER [facility] & [address] [address] Social History Tobacco Use Types [...] PM CDT Legal Sex Female 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 REGULATOR REPAIRER Gender Identity Female 01/03/2021 12:47 PM CDT Sexual Orientation Straight 01/03/2021 12 :47 PM CDT documented as of this encounter Plan of Treatment Not on file documented as of this encounter Visit Diagnoses Not on filedocumented in this encounter Additional Health Concerns Infection Onset Date Last Indicated Resolved Time Rule Out COVID-19 03/05/2020 03/05/2020 03/06/2020 5:31 PM GAS REGULATOR REPAIRER Rule Out COVID-19 01/04/2021 01/04/2021 01/04/2021 4:13 AM CDT Rule Out COVID-19 09/28/2021 09/28/2021 09/28/2021 11:00 PM CDT Rule Out COVID-19 07/20/2023 07/20/2023 07/20/2023 12:33 PM CDT documented as of this encounter Care Teams Loop Machine Operator Relationship Specialty Start Date End Date Paola Martell SPRING MAKER PCP - General Nurse Practitioner - Family 11/23/16 11/09/17 Paola Martell SPRING MAKER PCP - General Nurse Practitioner - Family 11/14/17 02/08/18 Janna Ball DO PCP - General jackaroo 03/20/18 08/02/19 Davy Proctor PA-C [address] [place] [address] PCP - Assigned PCP 03/12/18 04/08/18 Paola Martell SPRING MAKER [address] [address] PCP - Assigned PCP 11/28/16 03/11/18 Paola Martell NP [address] [address] PCP - Assigned PCP 04/09/18 06/13/18 [place] [address] [place] [address] PCP - General Family Practice 08/03/19 05/22/23 System, Provider Not In PCP - General Clinic 06/27/23 Paola Martell, SPRING MAKER [address] [place] [address] Assigned PCP 04/09/18 06/24/18 Davy Proctor PA-C [address] [place] [address] [id number] Assigned PCP 02/26/18 02/17/19 [place] [address] [place] [address] Assigned PCP 02/18/19 08/02/20 [place] [address] [place] [address] Assigned PCP 08/03/20 09/13/20 [place] [address] [place], [place] [id number] Assigned PCP 09/14/20 05/07/22 Tamara Ly Personal Advocate & Liaison (PAL) Family Medicine 09/24/20 Tamara Ly Personal Advocate & Liaison (PAL) Family Medicine 12/04/20 Vince Orourke MD [address] [place], [place] 240964 Assigned OBGYN Provider 07/05/21 Jessica Goldberg MD [address] [place], [place] [address]244 Assigned OBGYN Provider 08/30/21 Jessica Goldberg MD [address] [place], [place] [address] Assigned OBGYN Provider 11/07/2102/18 Vince Orourke MD [address] [place], [place] [address]374 Assigned OBGYN Provider 10/31/21 [place] [address] [place] [address] Assigned PCP 05/08/22 06/04/22 [place] [address] [place] [address] Assigned PCP 06/05/22 07/09/22 Stephanie Porras PA-C [address] [facility] 200 [place] [address] Assigned PCP 07/10/22 03/02/24 [facility] [address] [place] [address] Assigned PCP 03/03/24 documented as of this encounter
--- OUTSIDE RECORDS SUMMARY | 2024-05-21 15:36 | XMS_ITS | Encounter Summary ---
Author Organization [place] Address [address] [place] [address] Care Team Providers Care Group Manager Name Role Phone Paola Martell MOTEL FRONT DESK CLERK Primary Care Provider [phone] Paola Martell MOTEL FRONT DESK CLERK Primary Care Provider [phone] Janna Ball DO Primary Care Provider [phone] Davy Proctor PA-C Unavailable [phone] Paola Martell MOTEL FRONT DESK CLERK Unavailable [phone] Paola Martell MOTEL FRONT DESK CLERK Unavailable [phone] Paola Martell MOTEL FRONT DESK CLERK Unavailable [phone] Davy Proctor PA-C Unavailable [phone] Ana Herrera MD Unavailable Ana Herrear MD Primary Care Provider Lencho York MD Unavailable [phone] Ana Herrera MD Unavailable Tamara Ly Unavailable Unavailable Tamara Ly Unavailable Unavailable Vince Orourke MD Unavailable + Jessica Goldberg MD Unavailable + 3 Jessica Goldberg MD Unavailable + 3 Vince Orourke MD Unavailable + Coming Hali Theodore MD Unavailable [phone] Ana Herrera MD Unavailable Stephanie Porras PA-C Unavailable [phone] System, Provider Not In Primary Care Provider Un available Clinic - [facility] Unavail able Encounter Details Date Type Department Care Team (Late st Contact Info) Description 02/15/2017 MyC Medical Advice [facility] [address] [place] [address] Paola Martell, MOTEL FRONT DESK CLERK [facility] & [address] [address] Social History Tobacco Use Types [...] PM CDT Legal Sex Female 4:24 AM DREDGE OPERATOR Gender Identity Female 01/03/2021 12:47 PM CDT Sexual Orientation Straight 01/03/2021 12 :47 PM CDT documented as of this encounter Plan of Treatment Not on file documented as of this encounter Visit Diagnoses Not on filedocumented in this encounter Additional Health Concerns Infection Onset Date Last Indicated Resolved Time Rule Out COVID-19 03/05/2020 03/05/2020 03/06/2020 5:31 PM DREDGE OPERATOR Rule Out COVID-19 01/04/2021 01/04/2021 01/04/2021 4:13 AM CDT Rule Out COVID-19 09/28/2021 09/28/2021 09/28/2021 11:00 PM CDT Rule Out COVID-19 07/20/2023 07/20/2023 07/20/2023 12:33 PM CDT documented as of this encounter Care Teams Group Manager Relationship Specialty Start Date End Date Paola Martell MOTEL FRONT DESK CLERK PCP - General Nurse Practitioner - Family 11/23/16 11/09/17 Paola Martell MOTEL FRONT DESK CLERK PCP - General Nurse Practitioner - Family 11/14/17 02/08/18 Janna Ball DO PCP - General pension consultant 03/20/18 08/02/19 Davy Proctor PA-C [address] [place] [address] PCP - Assigned PCP 03/12/18 04/08/18 Paola Martell MOTEL FRONT DESK CLERK [address] [place] [address] [address] PCP - Assigned PCP 11/28/16 03/11/18 Paola Martell NP [address] [address] PCP - Assigned PCP 04/09/18 06/13/18 [place] [address] [place] [address] PCP - General Family Practice 08/03/19 05/22/23 System, Provider Not In PCP - General Clinic 06/27/23 Paola Martell, MOTEL FRONT DESK CLERK [address] [place] [address] Assigned PCP 04/09/18 06/24/18 Davy Proctor PA-C [address] [place] [address] [id number] Assigned PCP 02/26/18 02/17/19 [place] [address] [place] [address] Assigned PCP 02/18/19 08/02/20 [place] [address] [place] [address] Assigned PCP 08/03/20 09/13/20 [place] [address] [place], [place] [id number] Assigned PCP 09/14/20 05/07/22 Tamara Ly Personal Advocate & Liaison (PAL) Family Medicine 09/24/20 Tamara Ly Personal Advocate & Liaison (PAL) Family Medicine 12/04/20 Vince Orourke MD [address] [place], [place] [address] Assigned OBGYN Provider 07/05/21 Jessica Goldberg MD [address] [place], [place] 76[address] Assigned OBGYN Provider 08/30/21 Jessica Goldberg MD [address] [place], [place] [address] Assigned OBGYN Provider 11/07/2102/18 Vince Orourke MD [address] [place], [place] [address] Assigned OBGYN Provider 10/31/21 [place] [address] [place] [address] Assigned PCP 05/08/22 06/04/22 [place] [address] [place] [address] Assigned PCP 06/05/22 07/09/22 Stephanie Porras PA-C [address] [facility] 200 [place] [address] Assigned PCP 07/10/22 03/02/24 [facility] [address] [place] [address] Assigned PCP 03/03/24 documented as of this encounter
--- OUTSIDE RECORDS SUMMARY | 2024-05-21 15:36 | XMS_ITS | Encounter Summary ---
Author Organization [facility] Address [address] [place] [address] Care Team Providers Care Clerk Typist Name Role Phone Paola Martell SHACKLER Primary Care Provider [phone] Paola Martell SHACKLER Primary Care Provider [phone] Janna Ball DO Primary Care Provider [phone] Davy Proctor PA-C Unavailable [phone] Paola Martell SHACKLER Unavailable [phone] Paola Martell SHACKLER Unavailable [phone] Paola Martell SHACKLER Unavailable [phone] Davy Proctor PA-C Unavailable [phone] Ana Herrera MD Unavailable Ana Herrera MD Primary Care Provider Lencho York MD Unavailable [phone] Ana Herrera MD Unavailable Tamara Ly Unavailable Unavailable Tamara Ly Unavailable Unavailable Vince Orourke MD Unavailable + Jessica Goldberg MD Unavailable + 3 Jessica Goldberg MD Unavailable + 3 Vince Orourke MD Unavailable [phone] Coming Hali Theodore MD Unavailable [phone] Ana Herrera MD Unavailable Stephanie Porras PA-C Unavailable System, Provider Not In Primary Care Provider Un available Clinic - [facility] Unavail able Reason for Visit * Reason Onset Date Comments MyChart Communication 03/04/2017 Encounter Details Date Type Department Care Team (Late st Contact Info) Description 03/04/2017 MyC Medical Advice [address] [address] Paola Martell, [facility] & [address] [place] [address] MyChart Communication Social History Tobacco [...] PM CDT Legal 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 Gender Identity Female 01/03/2021 12:47 PM CDT Sexual Orientation Straight 01/03/2021 12 :47 PM CDT documented as of this encounter Plan of Treatment Not on file documented as of this encounter Visit Diagnoses Not on filedocumented in this encounter Additional Health Concerns Infection Onset Date Last Indicated Resolved Time Rule Out COVID-19 03/05/2020 03/05/2020 03/06/2020 5:31 PM BOLT MAN Rule Out COVID-19 01/04/2021 01/04/2021 01/04/2021 4:13 AM CDT Rule Out COVID-19 09/28/2021 09/28/2021 09/28/2021 11:00 PM CDT Rule Out COVID-19 07/20/2023 07/20/2023 07/20/2023 12:33 PM CDT documented as of this encounter Care Teams Clerk Typist Relationship Specialty Start Date End Date Paola Martell, SHACKLER PCP - General Nurse Practitioner - Family 11/23/16 11/09/17 Paola Martell, SHACKLER PCP - General Nurse Practitioner - Family 11/14/17 02/08/18 Janna Ball DO PCP - General heating element winder 03/20/18 08/02/19 Davy Proctor PA-C [address] [place] [address] PCP - Assigned PCP 03/12/18 04/08/18 Paola Martell, SHACKLER [address] [facility] [place] [address] PCP - Assigned PCP 11/28/16 03/11/18 Paola Martell, SHACKLER [address] [place] [address] PCP - Assigned PCP 04/09/18 06/13/18 [place] [address] [place] [address] PCP - General Family Practice 08/03/19 05/22/23 System, Provider Not In PCP - General Clinic 06/27/23 Paola Martell, SHACKLER [address] [place] [address] Assigned PCP 04/09/18 06/24/18 Davy Proctor PA-C [address] [place] [address] [id number] Assigned PCP 02/26/18 02/17/19 [place] [address] [place], [place] 77929124 Assigned PCP 02/18/19 08/02/20 [place] [address] [place], [place] 11764124 Assigned PCP 08/03/20 09/13/20 [place] [address] [place], [place] 31239[address] Assigned PCP 09/14/20 05/07/22 Tamara Ly Personal Advocate & Liaison (PAL) Family Medicine 09/24/20 Tamara Ly Personal Advocate & Liaison (PAL) Family Medicine 12/04/20 Vince Orourke MD [address] [place], [place] 510[address] Assigned OBGYN Provider 07/05/21 Jessica Goldberg MD [address] [place], [place] [address] Assigned OBGYN Provider 08/30/21 Jessica Goldberg MD [address] [place], [place] 504924[address] Assigned OBGYN Provider 11/07/2102/18 Vince Orourke MD [address] [place] [address] [address] [place], [place] 6[address]264 Assigned OBGYN Provider 10/31/21 [place] [address] [place], [place] 512[address] Assigned PCP 05/08/22 06/04/22 [place] [address] [place], [place] 137[address] Assigned PCP 06/05/22 07/09/22 Stephanie Porras PA-C [address] [facility] 200 [place], [place] [address] Assigned PCP 07/10/22 03/02/24 [facility] [address] [place], [place] 01834[address] Assigned PCP 03/03/24 documented as of this encounter
--- OUTSIDE RECORDS SUMMARY | 2024-05-21 15:36 | XMS_ITS | Encounter Summary ---
Author Organization [place] [facility] Address [address] [place] [address] Care Team Providers Care Surgical Supervisor Name Role Phone Alexandru Ly MD Primary Car e Provider Paola Martell CONTENT DEVELOPER Primary Care Provider [phone] Paola Martell CONTENT DEVELOPER Primary Care Provider [phone] Janna Ball DO Primary Care Provider [phone] Davy Proctor PA-C Unavailable [phone] Paola Martell CONTENT DEVELOPER Unavailable [phone] Paola Martell CONTENT DEVELOPER Unavailable [phone] Paola Martell CONTENT DEVELOPER Unavailable [phone] Davy Proctor PA-C Unavailable [phone] Ana Herrera MD Unavailable Ana Herrera MD Primary Care Provider [phone] Lencho York MD Unavailable [phone] Ana Herrera MD Unavailable Tamara Ly Unavailable Unavailable Tamara Ly Unavailable Unavailable Vince Orourke MD Unavailable [phone] Jessica Goldberg MD Unavailable [phone] Jessica Goldberg MD Unavailable [phone] Vince Orourke MD Unavailable Hali Gabriel MD Unavailable [phone] Ana Herrera MD Unavailable Stephanie Porras PA-C Unavailable [phone] System, Provider Not In Primary Care Provider Un available Clinic - [facility] Unavail able Encounter Details Date Type Department Care Team (Late st Contact Info) Description 10/30/2013 MyC Medical Advice [facility] [address] [place] [address] Alexandru Ly MD [facility] WELLNESS [address] [place], [place] [id number] Social History Tobacco Use Types Packs/Day Years [...] PM CDT 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 Gender Identity Female 01/03/2021 12:47 PM CDT Sexual Orientation Straight 01/03/2021 12 :47 PM CDT documented as of this encounter Plan of Treatment Not on file documented as of this encounter Visit Diagnoses Not on filedocumented in this encounter Additional Health Concerns Infection Onset Date Last Indicated Resolved Time Rule Out COVID-19 03/05/2020 03/05/2020 03/06/2020 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 Rule Out COVID-19 01/04/2021 01/04/2021 01/04/2021 4:13 AM CDT Rule Out COVID-19 09/28/2021 09/28/2021 09/28/2021 11:00 PM CDT Rule Out COVID-19 07/20/2023 07/20/2023 07/20/2023 12:33 PM CDT documented as of this encounter Care Teams Surgical Supervisor Relationship Specialty Start Date End Date Alexandru Ly MD PCP - General 08/09/02 11/22/16 Paola Martell, CONTENT DEVELOPER PCP - General Nurse Practitioner - Family 11/23/16 11/09/17 Paola Martell, CONTENT DEVELOPER PCP - General Nurse Practitioner - Family 11/14/17 02/08/18 Janna Ball DO PCP - General learning coordinator 03/20/18 08/02/19 Davy Proctor PA-C [address] [place] [address] PCP - Assigned PCP 03/12/18 04/08/18 Paola Martell, CONTENT DEVELOPER [address] [place] [address] PCP - Assigned PCP 11/28/16 03/11/18 Paola Martell, CONTENT DEVELOPER [address] [place] [address] PCP - Assigned PCP 04/09/18 06/13/18 [place] [address] [place] [address] PCP - General Family Practice 08/03/19 05/22/23 System, Provider Not In PCP - General Clinic 06/27/23 Paola Martell CONTENT DEVELOPER [facility] [address] [place] [address] Assigned PCP 04/09/18 06/24/18 Davy Proctor PA-C [address] [place] [address] [id number] Assigned PCP 02/26/18 02/17/19 [place] [address] [place], [place] 32782[address] Assigned PCP 02/18/19 08/02/20 [place] [address] [place], [place] 92696[address] Assigned PCP 08/03/20 09/13/20 [place] [address] [place], [place] 44968[address] Assigned PCP 09/14/20 05/07/22 Tamara Ly Personal Advocate & Liaison (PAL) Family Medicine 09/24/20 Tamara Ly Personal Advocate & Liaison (PAL) Family Medicine 12/04/20 Vince Orourke MD [address] [place] [address] Assigned OBGYN Provider 07/05/21 08/29/21 Jessica Goldberg MD [address] [place] [address] Assigned OBGYN Provider 08/30/21 10/30/21 Jessica Goldberg MD [address] [place], [place] [address] Assigned OBGYN Provider 11/07/21 02/18/23 Vince Orourke MD [address] [place], [place] [address] Assigned OBGYN Provider 10/31/21 11/06/21 [place] [address] [place], [place] [address] Assigned PCP 05/08/22 06/04/22 [place] [address] [place], [place] [address] Assigned PCP 06/05/22 07/09/22 Stephanie Porras PA-C [address] [facility] [address] [place] [address] Assigned PCP 07/10/22 03/02/24 [facility] [address] [place], [place] [phone] Assigned PCP 03/03/24 documented as of this encounter
--- OUTSIDE RECORDS SUMMARY | 2024-05-21 15:36 | XMS_ITS | Clinical Summary ---
Author Organization [facility] Address [address] [place] [address] Care Team Providers Care Intelligence Consultant Name Role Phone Tamara Ly Unavailable Unavailable Tamara Ly Unavailable Unavailable System, Provider Not In Primary Care Provider Un available Clinic - [facility] Unavail able Allergies Active Allergy Reactions Criticality Noted Date Comments Sulfamethoxazole-Trimethoprim 2002 Septra hives Medications acetaminophen (TYLENOL) 325 MG tabletIndication s:Post-operative state Take 2 tablets (650 mg) by mouth every 4 hours as needed for other (multimodal surgical pain management along with NSAIDS and opioid medication as indicated based on pain control and physical function) 60 tablet 2 Active sertraline (ZOLOFT) 100 MG tablet Take 200 mg by mouth every evening 3 Active hydrOXYzine (ATARAX) 25 MG tablet TAKE 1/2 TO 1 TABLET BY MOUTH THREE TIMES DAILY NEEDED FOR ANXIETY 3 Active albuterol (PROAIR HFA/PROVENTIL HFA/VENTOLIN HFA) 108 (90 Base) MCG/ACT inhalerIndicatio ns:Mild intermittent asthma without complication INHALE 1 TO 2 PUFFS BY MOUTH EVERY 4 HRS NEEDED FOR SHORTNESS OF BREATH/PAIN BREATHING/WHEEZI NG Strength: 108 (90 Base) MCG/ACT 18 g 1 3 Active ipratropium - albuterol 0.5 mg/2.5 mg/3 mL (DUONEB) 0.5-2.5 (3) MG/3ML neb solutionIndicati ons:Mild intermittent asthma without complication Take 1 vial (3 mLs) by nebulization every 6 hours as needed for shortness of breath or wheezing 90 mL 1 3 Active buPROPion (WELLBUTRIN XL) 150 MG 24 hr tablet Take 150 mg by mouth daily Active LORazepam (ATIVAN) 0.5 MG tablet Take 0.5 mg by mouth every 6 hours as needed for anxiety 4 Active losartan (COZAAR) 100 MG tablet Take 100 mg by mouth daily 3 Active propranolol (INDERAL) 10 MG tablet Take 10 mg by mouth 2 times daily as needed (anxiety) 4 Active traZODone (DESYREL) 50 MG tablet Take 50-100 mg by mouth nightly as needed for sleep Active amphetamine-dext roamphetamine (ADDERALL XR) 20 MG 24 hr capsule Take 20 mg by mouth daily Active amphetamine-dext roamphetamine (ADDERALL) 20 MG tablet Take 20 mg by mouth every 24 hours 4 Active ibuprofen (ADVIL/MOTRIN) 200 MG tablet Take 800 mg by mouth every 6 hours as needed for pain Active benzonatate (TESSALON) 100 MG capsuleIndicatio ns:Exacerbation of asthma, unspecified asthma severity, unspecified whether persistent Take 1 capsule (100 mg) by mouth 3 times daily as needed for cough 15 capsule 4 Active guaiFENesin-dext romethorphan (ROBITUSSIN DM) 100-10 MG/5ML syrupIndications :Acute URI Take 10 mLs by mouth every 4 hours as needed for cough 354 mL 4 Active Active Problems Problem Noted Date Diagnosed Date Acute URI 06/27/2023 Tobacco use 06/27/2023 Exacerbation of asthma, unsp ecified asthma severity, unspecified whether persistent 06/27/2023 Post-operative state 10/24/2021 Pre-eclampsia 09/30/2021 Indication for care in labor or delivery 022 Pneumonia due to infectious organism, unspecified laterality, unspecified part of lung 01/04/2021 Severe asthma with exacerbation 01/04/2021 Alcoholic intoxication without complication 12/11 Acute respiratory failure with hypoxia Anxiety 01/04/2021 Severe sepsis 01/04/2021 Exacerbation of intermittent asthma, unspecified asthma severity 01/04/2021 HSV (herpes simplex virus) infection 09/14/2019 Assessment & Plan (09/14/2019 2:07 PM CDT): Typical, oral. Pt practices universal condom avoidance. Recommend safe sex, additional STD screen Discussed at length. Migraine headache 11/08/2012 Adjustment disorder with anxiety 02/15/2012 Insomnia 04/14/2011 Elevated liver enzymes 06/12/2010 High triglycerides 06/12/2010 Obesity 06/12/2010 Intermittent asthma 06/04/2010 CARDIOVASCULAR SCREENING; LDL GOAL LESS THAN 160 02/08/2010 Back pain without radiation 01/16/2008 Tobacco use disorder 01/29/2006 Bipolar I disorder, most rec ent episode (or current) manic, mild 08/25/2004 Overview (08/25/2004): feels depress but not suicidal Attention deficit disorder 06/06/2004 Overview (01/09/2015): Problem list name updated by automated process. Provider to review Immunizations Name Administration Dates Next Due COVID-19 Vaccine (Carla) 10/20/2020 HIB (PRP-T) 07/20/1990,01/20/1990 HPV 06/04/2010 HPV Quadrivalent 07/17/2014 HPV9 12/25/2014 HepB 07/19/2000,02/29/2000,11/17/1999 Historical DTP/aP 07/27/1993, 0,01/03/1989,11/10,1988 Influenza,INJ,MDCK,PF,Quad >6mo(Flucelvax) 04/09/2021 MMR 02/29/2000,10/13/1989 Meningococcal ACWY (Menactra ) 11/30/2006 OPV, trivalent, live 07/27/1993,01/20/19 90,1988,09/02 Pneumococcal 23 valent 11/03/2020 TD,PF 7+ (Tenivac) 02/29/2000 TDAP (Adacel,Boostrix) 09/15/2021,11/03/2020 TDAP Vaccine (Adacel) 06/04/2010 Family History Medical History Relation Comments Family History Negative Brother Family History Negative Father Breast Cancer Maternal Aunt Dx in her early 50's C.A.D. Maternal Grandfather valve repai r Lipids Maternal Grandfather Thyroid Disease Mother Cancer Sister ovarian cancer Family History Negative Sister Relation Status Comments Brother Alive Father Alive Maternal Aunt Maternal Grandfather Alive Maternal Grandmother Alive Mother Alive Paternal Grandfather Alive Paternal Grandmother Alive Sister Alive Social History Tobacco Use Types Packs/Day Years Used Date Smoking Tobacco: Every Day Cigarettes Smokeless Tobacco: Never Comments:1/2 ppd, tried quit ting Alcohol Use Standard Drinks/Week Comments Not Currently 0 (1 standard drink = 0.6 oz pur e alcohol) PHQ-2 Answer Date Recorded PHQ-2 Score 2 05/12/2022 [place] Depression Scale Answer Date Recorded Last EPDS Total Score Not on file 10/26/2021 The thought of harming myself has occurred to me . Never 10/26/2021 Adolescent Education Answer Date Record ed Getting School Help Needed Not on file 12/31 Comments No Sex and Gender Information Value Date Recorded Sex Assigned at Female 01/03/2021 12:47 PM CDT Legal Sex Female 4:24 AM BABY STROLLER RENTAL CLERK Gender Identity Female 01/03/2021 12:47 PM CDT Sexual Orientation Straight 01/03/2021 12 :47 PM CDT Last Filed Vital Signs Vital Sign Reading Time Taken Comments Blood Pressure 120/85 07/20/2023 1:10 PM CDT Pulse 98 07/20/2023 1:10 PM CDT Temperature 36.5 C (97.7 F) 07/20/2023 10:33 AM CDT Respiratory Rate 20 07/20/2023 10:33 AM CDT Oxygen Saturation 100% 07/20/2023 1:10 PM CDT Inhaled Oxygen Concentration - - Weight 77 kg (169 lb 12.1 oz) 07/20/2023 10:33 A M CDT Height 162.6 cm (5' 4) 06/27/2023 8:00 AM CDT Body Mass Index 29.14 06/27/2023 8:00 AM CDT Plan of Treatment Health Maintenance Due Date Last Done Comments ADVANCE CARE PLANNING 1988 ANNUAL REVIEW OF HM ORDERS 1988 LIPID 06/04/2011 06/04/2010 YEARLY PREVENTIVE VISIT 06/04/2011 06/04/19 11, 07/27/2005, 11/23/2004, Additional history exists ASTHMA ACTION PLAN 07/31/2020 08/01/2019, 1 05/21/2012, 03/23/2012, Additional history exists Pneumococcal Vaccine: Pediat rics (0 to 5 Years) and At-Risk Patients (6 to 49 Years) (2 of 2 - PCV) 11/03/2021 11/03/2020 ASTHMA CONTROL TEST 11/09/2022 05/12/2022, 11/03/2020, 02/16/2019, Additional history exists COVID-19 Vaccine (2 - 2023-2 5 season) 2023 10/20/2020 INFLUENZA VACCINE (#1) 2023 04/09/2021 HPV TEST 04/09/2024 04/09/2021 PAP 04/09/2024 04/09/2021, 03/13, 02/22/2017, Additional history exists PHQ-2 (once per calendar year) 2024 0 05/12/2022, 05/12/2022, 01/06/2021, Additional history exists GLUCOSE 07/19/2026 07/20/2023, 06/09, 05/12/2022, Additional history exists DTAP/TDAP/TD IMMUNIZATION (9 - Td or Tdap) 09/16/2031 09/15/2021, 11/03/2020, 06/04/2010, Additional history exists ZOSTER IMMUNIZATION (1 of 2) 2038 HEPATITIS B IMMUNIZATION Completed 001, 07/19/2000, 02/29/2000, Additional history exists MENINGITIS IMMUNIZATION Completed 11/30/2006 MIGRAINE ACTION PLAN Completed 03/20/2013, 08/20/19 12 HPV IMMUNIZATION Completed 12/25/2014, 11/2014, 06/04/2010 HEPATITIS C SCREENING Completed 12/25/2022 , 04/09/2021, 11/23/2016 HIV SCREENING Completed 12/25/2022, 03/13, 11/23/2016, Additional history exists Procedures Procedure Name Priority Date/Time Associated Diagnosis Comments COMPREHENSIVE METABOLIC PANEL STAT 07/20/2023 11:29 AM CDT ABSTRACT HPV (HIM EXTERNAL RESULT) Routine 04/09/2021 12:00 PM BABY STROLLER RENTAL CLERK HIV 1&2 ANTIBODY (EXTERNAL RESULT) Routine 04/09/2021 10:00 AM BABY STROLLER RENTAL CLERK HEPATITIS C ANTIBODY (EXTERNAL RESULT) Routine 04/09/2021 10:00 AM BABY STROLLER RENTAL CLERK PAP SMEAR - HIM PATIENT REPORTED Routine 04/09/2021 ASTHMA ACTION PLAN Routine 08/01/2019 8: 05 AM CDT LIPID REFLEX TO DIRECT LDL PANEL Routine 06/04/2010 3:10 PM BABY STROLLER RENTAL CLERK Routine general medical examination at a health care facility from Last 3 Months or Most Recently Relevant to Health Maintenance Results * (ABNORMAL) Comprehensive metabolic panel (07/20/2023 11:29 AM CDT) Sodium 134(L) 135 - 145 mmol/L 07/20/2023 11:55 AM CDT [facility] Comment:Reference intervals for this test were updated on 01/04/2023 to more accurately reflect our healthy population. There may be differences in the flagging of prior results with similar values performed with this method. Interpretation of those prior results can be made in the context of the updated reference intervals. Potassium 3.7 3.4 - 5.3 mmol/L 07/20/2023 11:55 AM CDT [facility] Carbon Dioxide (CO2) 25 22 - 29 mmol/L 07/20/2023 11:55 AM CDT [facility] Anion Gap 12 7 - 15 mmol/L 07/20/2023 11:55 AM CDT [facility] Urea Nitrogen 12.1 6.0 - 20.0 mg/dL 07/20/2023 11:55 AM CDT [facility] Creatinine 0.57 0.51 - 0.95 mg/dL 07/20/2023 11:55 AM CDT [facility] GFR Estimate >90 >60 mL/min/1. 73m2 07/20/2023 11:55 AM CDT [facility] Calcium 9.8 8.6 - 10.0 mg/dL 07/20/2023 11:55 AM CDT [facility] Chloride 97(L) 98 - 107 mmol/L 07/20/2023 11:55 AM CDT [facility] Glucose 88 70 - 99 mg/dL 07/20/2023 11:55 AM CDT [facility] Alkaline Phosphatase 75 40 - 150 U/L 07/20/2023 11:55 AM CDT [facility] Comment:Reference intervals for this test were updated on 02/22/2023 to more accurately reflect our healthy population. There may be differences in the flagging of prior results with similar values performed with this method. Interpretation of those prior results can be made in the context of the updated reference intervals. AST 23 0 - 45 U/L 07/20/2023 11:55 AM CDT [facility] Comment:Reference intervals for this test were updated on 09/20/2022 to more accurately reflect our healthy population. There may be differences in the flagging of prior results with similar values performed with this method. Interpretation of those prior results can be made in the context of the updated reference intervals. ALT 20 0 - 50 U/L 07/20/2023 11:55 AM CDT [facility] Comment:Reference intervals for this test were updated on 09/20/2022 to more accurately reflect our healthy population. There may be differences in the flagging of prior results with similar values performed with this method. Interpretation of those prior results can be made in the context of the updated reference intervals. Protein Total 7.3 6.4 - 8.3 g/dL 07/20/2023 11:55 AM CDT [facility] Albumin 4.6 3.5 - 5.2 g/dL 07/20/2023 11:55 AM CDT [facility] Bilirubin Total 0.4 <=1.2 mg/dL 07/20/2023 11:55 AM CDT [facility] Blood BLOOD SPECIMEN / Unknown Venipuncture / Unknown 07/20/2023 11:29 AM CDT 07/20/2023 11:36 AM CDT us Juno Wong MD LAB - BLOOD ORDERABLES Final Result LABORATORY [facility] [address] [facility] (1st floor, no room number) [place] [address], [facility] * Abstract HPV (HIM External Result) (04/09/2021 12:00 PM BABY STROLLER RENTAL CLERK) [facility] HPV Abstract See Scanned Document EXTERNAL LAB 04/09/2021 12:0 0 PM BABY STROLLER RENTAL CLERK Narrative EXTERNAL LAB - 04/09/2021 12:00 PM BABY STROLLER RENTAL CLERK LAB RESULTS OUTSIDE RECORDS Provider Outside LAB - HIM EXTERNAL RESULT Final Result EXTERNAL LAB External Lab * Hepatitis C Antibody (External Result) (04/09/2021 10:00 AM BABY STROLLER RENTAL CLERK) [facility] Hepatitis C Antibody (External) <0.1 0.0 - 0.9 ratio NON-INTERFACED (ONBASE SCANS) 04/09/2021 10:0 0 AM BABY STROLLER RENTAL CLERK Narrative BREEZE PFT - 05/21/2021 11:16 AM BABY STROLLER RENTAL CLERK Verified by Calvin Thurman on 05/21/2021. Verified by Calvin Thurman on 05/21/2021. Provider Outside LAB - HIM EXTERNAL RESULT Edite d Result - Final Performing Organization Address [facility]/ZIP Co de Phone Number BREEZE PFT NON-INTERFACED (ONBASE SCANS) * HIV-1 Antibody (External Result) (04/09/2021 10:00 AM BABY STROLLER RENTAL CLERK) [facility] HIV 1&2 Antibody (External) Non Reactive NON REACTIVE NON-INTERFAC ED (ONBASE SCANS) 04/09/2021 10:0 0 AM BABY STROLLER RENTAL CLERK Narrative BREEZE PFT - 05/21/2021 11:18 AM BABY STROLLER RENTAL CLERK Verified by Danya Orourke on 05/21/2021. Monik Melendez APRN CNM LAB - HIM EXTERNA L RESULT Edited Result - Final BREEZE PFT NON-INTERFACED (ONBASE SCANS) * PAP Smear - HIM Patient Reported (04/09/2021) PAP Smear - HIM Patient Reported Negative EXTERNAL LAB 04/09/2021 Narrative EXTERNAL LAB - 04/09/2021 LAB RESULTS OUTSIDE RECORDS Provider Outside LABORATORY Final Result EXTERNAL LAB External Lab * (ABNORMAL) LIPID REFLEX TO DIRECT LDL PANEL (06/04/2010 3:10 PM BABY STROLLER RENTAL CLERK) Cholesterol 233(H) 0 - 200 mg/dL [facility] Comment: LDL Cholesterol is the primary guide to therapy. The NCEP recommends further evaluation of: patients with cholesterol <200 mg/dL if additional risk factors are present, cholesterol >240 mg/dL, triglycerides >150 mg/dL, or HDL <40 mg/dL. Triglycerides 207(H) 0 - 150 mg/dL [facility] HDL Cholesterol 51 50 - 110 mg/dL [facility] LDL Cholesterol Calculated 140(H) 0 - 129 mg/dL [facility] Comment: LDL Cholesterol is the primary guide to therapy: LDL-cholesterol goal in high risk patients is <100 mg/dL and in very high risk patients is <70 mg/dL. VLDL-Cholesterol 41(H) 0 - 30 mg/dL [facility] Cholesterol/HDL Ratio 4.6 0.0 - 5.0 [facility] Blood specimen (specimen) 06/04/2010 3:10 PM BABY STROLLER RENTAL CLERK 06/04/2010 3:12 PM BABY STROLLER RENTAL CLERK Desi Wallace MD LAB - BLOOD ORDERABLES Final Result [facility] [address] [place] [address] from Last 3 Months or Most Recently Relevant to Health Maintenance Insurance BCBS OUT OF STATE [place]ICAID [place] BCBS OUT OF FOR[facility]LY [facility] MEDICAID [place] Advance Directives For more information, please contact: [phone] * Full Code (Latest Code Status on File) Date Activated Date Inactivated Comments 06/28/2023 11:45 AM 07/20/2023 10:27 AM Question Answer Comments Code status determined by: Discussion with patie nt/ legal decision maker * Full Code Date Activated Date Inactivated Comments 06/27/2023 6:32 AM 06/28/2023 11:45 AM All basic a nd advanced life-sustaining interventions are performed as appropriate Question Answer Comments Code status determined by: Discussion with patie nt/ legal decision maker * Full Code Date Activated Date Inactivated Comments 10/24/2021 12:30 PM 10/27/2021 1:36 PM All basic a nd advanced life-sustaining interventions are performed as appropriate Question Answer Comments Code status determined by: Discussion with patie nt/ legal decision maker * Full Code Date Activated Date Inactivated Comments 01/04/2021 10:56 AM 01/04/2021 5:16 PM All basic a nd advanced life-sustaining interventions are performed as appropriate Question Answer Comments Code status determined by: Discussion with patie nt/ legal decision maker Care Teams Intelligence Consultant Relationship Specialty Start Date End Date System, Provider Not In PCP - General Clinic 06/27/23 Tamara Ly Personal Advocate & Liaison (PAL) Family Medicine 09/24/20 Tamara Ly Personal Advocate & Liaison (PAL) Family Medicine 12/04/[address] [address] Assigned PCP 03/03/24
--- OUTSIDE RECORDS SUMMARY | 2024-05-21 15:36 | XMS_ITS | Encounter Summary ---
Author Organization [facility] Address [address] [place] [address] Care Team Providers Care Hedge Fund Accountant Name Role Phone Paola Martell VETERINARY RADIOLOGIST Primary Care Provider [phone] Paola Martell VETERINARY RADIOLOGIST Primary Care Provider [phone] Janna Ball DO Primary Care Provider [phone] Davy Proctor PA-C Unavailable [phone] Paola Martell VETERINARY RADIOLOGIST Unavailable [phone] Paola Martell VETERINARY RADIOLOGIST Unavailable [phone] Paola Martell VETERINARY RADIOLOGIST Unavailable [phone] Davy Proctor PA-C Unavailable [phone] Ana Herrera MD Unavailable Ana Herrera MD Primary Care Provider Lencho York MD Unavailable [phone] Ana Herrera MD Unavailable Tamara Ly Unavailable Unavailable Tamara Ly Unavailable Unavailable Vince Orourke MD Unavailable + Jessica Goldberg MD Unavailable + [phone] Jessica Goldberg MD Unavailable + [phone] Vince Orourke MD Unavailable + Coming Hali Theodore MD Unavailable [phone] Ana Herrera MD Unavailable Stephanie Porras PA-C Unavailable System, Provider Not In Primary Care Provider Un available Clinic - [facility] Unavail able Reason for Visit * Reason Onset Date Comments MyChart Communication 02/16/2017 Encounter Details Date Type Department Care Team (Late st Contact Info) Description 02/16/2017 MyC Medical Advice [address] [address] Paola Martell, [facility] [address] [place] [address] MyChart Communication Social History Tobacco [...] PM CDT Legal Sex Female 4:24 AM NEURORADIOLOGIST Gender Identity Female 01/03/2021 12:47 PM CDT Sexual Orientation Straight 01/03/2021 12 :47 PM CDT documented as of this encounter Plan of Treatment Not on file documented as of this encounter Visit Diagnoses Not on filedocumented in this encounter Additional Health Concerns Infection Onset Date Last Indicated Resolved Time Rule Out COVID-19 03/05/2020 03/05/2020 03/06/2020 5:31 PM NEURORADIOLOGIST Rule Out COVID-19 01/04/2021 01/04/2021 01/04/2021 4:13 AM CDT Rule Out COVID-19 09/28/2021 09/28/2021 09/28/2021 11:00 PM CDT Rule Out COVID-19 07/20/2023 07/20/2023 07/20/2023 12:33 PM CDT documented as of this encounter Care Teams Hedge Fund Accountant Relationship Specialty Start Date End Date Paola Martell, VETERINARY RADIOLOGIST PCP - General Nurse Practitioner - Family 11/23/16 11/09/17 Paola Martell, VETERINARY RADIOLOGIST PCP - General Nurse Practitioner - Family 11/14/17 02/08/18 Janna Ball DO PCP - General belt tender 03/20/18 08/02/19 Davy Proctor PA-C [address] [place] [id number] PCP - Assigned PCP 03/12/18 04/08/18 Paola Martell, VETERINARY RADIOLOGIST [address] [facility] [place] [address] PCP - Assigned PCP 11/28/16 03/11/18 Paola Martell, VETERINARY RADIOLOGIST [address] [place] [address] PCP - Assigned PCP 04/09/18 06/13/18 [place] [address] [place] [address] PCP - General Family Practice 08/03/19 05/22/23 System, Provider Not In PCP - General Clinic 06/27/23 Paola Martell, VETERINARY RADIOLOGIST [address] [place] [address] Assigned PCP 04/09/18 06/24/18 Davy Proctor PA-C [address] [place] [address] [id number] Assigned PCP 02/26/18 02/17/19 [place] [address] [place], [place] [id number] Assigned PCP 02/18/19 08/02/20 [place] [address] [place], [place] [id number] Assigned PCP 08/03/20 09/13/20 [place] [address] [place], [place] [id number] Assigned PCP 09/14/20 05/07/22 Tamara Ly Personal Advocate & Liaison (PAL) Family Medicine 09/24/20 Tamara Ly Personal Advocate & Liaison (PAL) Family Medicine 12/04/20 Vince Orourke MD [address] [place], [place] [address] Assigned OBGYN Provider 07/05/21 Jessica Goldberg MD [address] [place], [place] [id number] Assigned OBGYN Provider 08/30/21 Jessica Goldberg MD [address] [place], [place] [id number] Assigned OBGYN Provider 11/07/2102/18 Vince Orourke MD [address] [place] [address] [address] [place], [place] [address] Assigned OBGYN Provider 10/31/21 [place] [address] [place], [place] [id number] Assigned PCP 05/08/22 06/04/22 [place] [address] [place], [place] [id number] Assigned PCP 06/05/22 07/09/22 Stephanie Porras PA-C [address] [facility] [address] [place], [place] [address] Assigned PCP 07/10/22 03/02/24 [facility] [address] [place], [place] [phone] Assigned PCP 03/03/24 documented as of this encounter
--- OUTSIDE RECORDS SUMMARY | 2024-05-21 15:36 | XMS_ITS | Encounter Summary ---
Author Organization [place] Address [address] [place] [address] Care Team Providers Care Applications Trainer Name Role Phone Paola Martell SQL TECH Primary Care Provider [phone] Paola Martell SQL TECH Primary Care Provider [phone] Janna Ball DO Primary Care Provider [phone] Davy Proctor PA-C Unavailable [phone] Paola Martell SQL TECH Unavailable [phone] Paola Martell SQL TECH Unavailable [phone] Paola Martell SQL TECH Unavailable [phone] Davy Proctor PA-C Unavailable [phone] Ana Herrera MD Unavailable Ana Herrera MD Primary Care Provider Lencho York MD Unavailable [phone] Ana Herrera MD Unavailable Tamara Ly Unavailable Unavailable Tamara Ly Unavailable Unavailable Vince Orourke MD Unavailable + Jessica Goldberg MD Unavailable + [phone] Jessica Goldberg MD Unavailable + [phone] Vince Orourke MD Unavailable + Coming Hali Theodore MD Unavailable [phone] Ana Herrera MD Unavailable Stephanie Porras PA-C Unavailable [phone] System, Provider Not In Primary Care Provider Un available Clinic - [facility] Unavail able Encounter Details Date Type Department Care Team (Late st Contact Info) Description 02/17/[address] 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 Gender Identity Female 01/03/2021 12:47 PM CDT Sexual Orientation Straight 01/03/2021 12 :47 PM CDT documented as of this encounter Plan of Treatment Not on file documented as of this encounter Visit Diagnoses Not on filedocumented in this encounter Additional Health Concerns Infection Onset Date Last Indicated Resolved Time Rule Out COVID-19 03/05/2020 03/05/2020 03/06/2020 5:31 PM LONG TERM CARE PHARMACIST Rule Out COVID-19 01/04/2021 01/04/2021 01/04/2021 4:13 AM CDT Rule Out COVID-19 09/28/2021 09/28/2021 09/28/2021 11:00 PM CDT Rule Out COVID-19 07/20/2023 07/20/2023 07/20/2023 12:33 PM CDT documented as of this encounter Care Teams Applications Trainer Relationship Specialty Start Date End Date Paola Martell SQL TECH PCP - General Nurse Practitioner - Family 11/23/16 11/09/17 Paola Martell SQL TECH PCP - General Nurse Practitioner - Family 11/14/17 02/08/18 Janna Ball DO PCP - General glaze carrier 03/20/18 08/02/19 Davy Proctor PA-C [address] [place] [address] PCP - Assigned PCP 03/12/18 04/08/18 Paola Martell SQL TECH [address] [address] PCP - Assigned PCP 11/28/16 03/11/18 Paola Martell NP [address] [address] PCP - Assigned PCP 04/09/18 06/13/18 [place] [address] [place] [address] PCP - General Family Practice 08/03/19 05/22/23 System, Provider Not In PCP - General Clinic 06/27/23 Paola Martell, SQL TECH [address] [place] [address] Assigned PCP 04/09/18 06/24/18 Davy Proctor PA-C [address] [place] [address] [id number] Assigned PCP 02/26/18 02/17/19 [place] [address] [place] [address] Assigned PCP 02/18/19 08/02/20 [place] [address] [place] [address] Assigned PCP 08/03/20 09/13/20 [place] [address] [place], [place] [id number] Assigned PCP 09/14/20 05/07/22 Tamara Ly Personal Advocate & Liaison (PAL) Family Medicine 09/24/20 Tamara Ly Personal Advocate & Liaison (PAL) Family Medicine 12/04/20 Vince Orourke MD [address] [place], [place] [address] Assigned OBGYN Provider 07/05/21 Jessica Goldberg MD [address] [place], [place] 514744 Assigned OBGYN Provider 08/30/21 Jessica Goldberg MD [address] [place], [place] [address] Assigned OBGYN Provider 11/07/2102/18 Vince Orourke MD [address] [place], [place] [address] Assigned OBGYN Provider 10/31/21 [place] [address] [place] [address] Assigned PCP 05/08/22 06/04/22 [place] [address] [place] [address] Assigned PCP 06/05/22 07/09/22 Stephanie Porras PA-C [address] [facility] [address] [place] [address] Assigned PCP 07/10/22 03/02/24 [facility] [address] [place] [address] Assigned PCP 03/03/24 documented as of this encounter
--- OUTSIDE RECORDS SUMMARY | 2024-05-21 15:36 | XMS_ITS | Encounter Summary ---
Author Organization [place] Address [address] [place] [address] Care Team Providers Care Administrative Support Assoc Name Role Phone Alexandru Ly MD Primary Car e Provider Paola Martell ADDING MACHINE SERVICER Primary Care Provider [phone] Paola Martell ADDING MACHINE SERVICER Primary Care Provider [phone] Janna Ball DO Primary Care Provider [phone] Davy Proctor PA-C Unavailable [phone] Paola Martell ADDING MACHINE SERVICER Unavailable [phone] Paola Martell ADDING MACHINE SERVICER Unavailable [phone] Paola Martell ADDING MACHINE SERVICER Unavailable [phone] Davy Proctor PA-C Unavailable [phone] Ana Herrera MD Unavailable Ana Herrera MD Primary Care Provider [phone] Lencho York MD Unavailable [phone] Ana Herrera MD Unavailable Tamara Ly Unavailable Unavailable Tamara Ly Unavailable Unavailable Vince Orourke MD Unavailable [phone] Jessica Goldberg MD Unavailable [phone] Jessica Goldberg MD Unavailable [phone] Vince Orourke MD Unavailable [phone] Hali Gabriel MD Unavailable [phone] Ana Herrera MD Unavailable Stephanie Porras PA-C Unavailable [phone] System, Provider Not In Primary Care Provider Un available Clinic - [facility] Unavail able Encounter Details Date Type Department Care Team (Late st Contact Info) Description 08/04/2010 MyC Medical Advice [address], [address] [place] [address] [place] [address] [place] [address] Social History Tobacco Use Types Packs/Day Years Used Date Smoking Tobacco: Every Day Cigarettes Smokeless Tobacco: Never Comments:1/2 ppd, tried quit ting Alcohol Use Standard Drinks/Week Comments No 0 (1 standard drink = 0.6 oz pur e alcohol) Comments No Sex and Gender Information Value Date Recorded Sex Assigned at Female 01/03/2021 12:47 PM CDT 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 Gender Identity Female 01/03/2021 12:47 PM CDT Sexual Orientation Straight 01/03/2021 12 :47 PM CDT documented as of this encounter Plan of Treatment Not on file documented as of this encounter Visit Diagnoses Not on filedocumented in this encounter Additional Health Concerns Infection Onset Date Last Indicated Resolved Time Rule Out COVID-19 03/05/2020 03/05/2020 03/06/2020 5:31 PM AIRPORT MAINTENANCE CHIEF Rule Out COVID-19 01/04/2021 01/04/2021 01/04/2021 4:13 AM CDT Rule Out COVID-19 09/28/2021 09/28/2021 09/28/2021 11:00 PM CDT Rule Out COVID-19 07/20/2023 07/20/2023 07/20/2023 12:33 PM CDT documented as of this encounter Care Teams Administrative Support Assoc Relationship Specialty Start Date End Date Alexandru Ly MD PCP - General 08/09/02 11/22/16 Paola Martell, ADDING MACHINE SERVICER PCP - General Nurse Practitioner - Family 11/23/16 11/09/17 Paola Martell, ADDING MACHINE SERVICER PCP - General Nurse Practitioner - Family 11/14/17 02/08/18 Janna Ball DO PCP - General marriage and family social worker 03/20/18 08/02/19 Davy Proctor PA-C [address] [place] [address] PCP - Assigned PCP 03/12/18 04/08/18 Paola Martell, ADDING MACHINE SERVICER [facility] [address] [place] [address] [place] [address] PCP - Assigned PCP 11/28/16 03/11/18 Paola Martell, ADDING MACHINE SERVICER [facility] [address] [place] [address] [place] [address] PCP - Assigned PCP 04/09/18 06/13/18 [place] [address] [place] [address] PCP - General Family Practice 08/03/19 05/22/23 System, Provider Not In PCP - General Clinic 06/27/23 Paola Martell, ADDING MACHINE SERVICER [address] [place] [address] Assigned PCP 04/09/18 06/24/18 Davy Proctor PA-C [address] [place] [address] [id number] Assigned PCP 02/26/18 02/17/19 [place] [address] [place], [place] [address] Assigned PCP 02/18/19 08/02/20 [place] [address] [place], [place] [id number] Assigned PCP 08/03/20 09/13/20 [place] [address] [place], [place] [id number] Assigned PCP 09/14/20 05/07/22 Tamara Ly Personal Advocate & Liaison (PAL) Family Medicine 09/24/20 Tamara Ly Personal Advocate & Liaison (PAL) Family Medicine 12/04/20 Vince Orourke MD [address] [place], [place] [address] Assigned OBGYN Provider 07/05/21 08/29/21 Jessica Goldberg MD [address] [place], [place] [address] Assigned OBGYN Provider 08/30/21 10/30/21 Jessica Goldberg MD [address] [place] [address] Assigned OBGYN Provider 11/07/21 02/18/23 Vince Orourke MD [address] [place] [address] Assigned OBGYN Provider 10/31/21 11/06/21 [place] [address] [place], [place] [id number] Assigned PCP 05/08/22 06/04/22 [place] [address] [place] [address] Assigned PCP 06/05/22 07/09/22 Stephanie Porras PA-C [address] [facility] [address] [place] [address] Assigned PCP 07/10/22 03/02/24 [facility] [address] [place] [address] Assigned PCP 03/03/24 documented as of this encounter
--- OUTSIDE RECORDS SUMMARY | 2024-05-21 15:36 | XMS_ITS | Encounter Summary ---
Author Organization [place] Address [address] [place] [address]. [place] [address] Care Team Providers Care Engineering Specialist Technician Name Role Phone Ana Herrera MD Primary Care Provider [phone] Tamara Ly Unavailable Unavailable Tamara Ly Unavailable Unavailable Jessica Goldberg MD Unavailable [phone] Hali Theodore MD Unavailable [phone] Ana Herrera MD Unavailable Stephanie Porras PAWillC Unavailable [phone] System, Provider Not In Primary Care Provider Un available Clinic - [facility] Unavail able Encounter Details Date Type Department Care Team (Late st Contact Info) Description 05/14/2022 MyC Medical Advice [facility] [address] [place] [address] Stephanie Porras PA-C [address] [facility] [address] [place] [address] Social History Tobacco Use Types Packs/Day Years Used Date Smoking Tobacco: Every Day Cigarettes Smokeless Tobacco: Never Comments:1/2 ppd, tried quit ting Alcohol Use Standard Drinks/Week Comments Not Currently 0 (1 standard drink = 0.6 oz pur e alcohol) PHQ-2 Answer Date Recorded PHQ-2 Score 2 05/12/2022 Caroleen Depression Scale Answer Date Recorded Last EPDS Total Score Not on file 10/26/2021 The thought of harming myself has occurred to me . 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 No / Unsure 05/12/2022 2:49 PM AUTOMOBILE CONTRACT CLERK documented as of this encounter Plan of Treatment Not on file documented as of this encounter Visit Diagnoses Not on filedocumented in this encounter Additional Health Concerns Infection Onset Date Last Indicated Resolved Time Rule Out COVID-19 07/20/2023 07/20/2023 07/20/2023 12:33 PM CDT Assessment Noted Time PHQ-9 Depression Total Score: 9 05/12/19 23 2:51 PM AUTOMOBILE CONTRACT CLERK documented as of this encounter Care Teams Engineering Specialist Technician Relationship Specialty [place] [address] [place] [address] PCP - General Family Practice 08/03/19 05/22/23 System, Provider Not In PCP - General Clinic 06/27/23 Tamara Ly Personal Advocate & Liaison (PAL) Family Medicine 09/24/20 Tamara Ly Personal Advocate & Liaison (PAL) Family Medicine 12/04/20 Jessica Goldberg MD [address] [address] Assigned OBGYN Provider 11/07/2102/18 [place] [address] [place] [address] Assigned PCP 05/08/22 06/04/22 [place] [address] [place] [address] Assigned PCP 06/05/22 07/09/22 Stephanie Porras PA-C [address] [facility] 200 [place] [address] Assigned PCP 07/10/22 03/02/24 [facility] [address] [place] [address] Assigned PCP 03/03/24 documented as of this encounter
--- OUTSIDE RECORDS SUMMARY | 2024-05-21 15:36 | XMS_ITS | Encounter Summary ---
Author Organization [place] Address [address] [place] [address] Care Team Providers Care Production Posting Clerk Name Role Phone Ana Herrera MD Unavailable Ana Herrera MD Primary Care Provider Lencho York MD Unavailable [phone] Ana Herrera MD Unavailable Keplin, Tamara L Unavailable Unavailable Prafulplivan, Tamara L Unavailable Unavailable Vince Orourke MD Unavailable Jessica Goldberg MD Unavailable [phone] Jessica Goldberg MD Unavailable [phone] Vince Orourke MD Unavailable Hali Gabriel MD Unavailable [phone] Ana Herrera MD Unavailable Stephanie Porras PA-C Unavailable [phone] System, Provider Not In Primary Care Provider Un available Clinic - [facility] Unavail able Reason for Visit * Reason Comments Medication Refill Encounter Details Date Type Department Care Team (Late st Contact Info) Description 06/26/[address] [address] [place] [address] [place] [address] Medication Refill Social History Tobacco Use Types [...] PM CDT 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 Dayna Johnson RN [facility] -- Triage Nurse * Telephone Encounter - Aranza Chaudhary MA - 06/27/2020 1:32 PM CDT Called pt, pt states to have had about 4 dose of medication. Aranza Chaudhary MA * Telephone Encounter - Lori Silveira RN - 06/26/2020 9:29 AM CDT Please call patient and see how many doses of sumatriptan patient has used in the past month. Patient should be using 8 doses or fewer per month. Lori Silveira RN on 06/26/2020 at 9:29 AM documented in this encounter Plan of Treatment [...] Time PHQ-9 Depression Total Score: 7 08/01/19 7:58 AM CDT documented as of this encounter Care Teams Production Posting Clerk Relationship Specialty [place] [address] [place] [address] PCP - General Family Practice 08/03/19 05/22/23 System, Provider Not In PCP - General Clinic 06/27/23 [place] [address] [place], [place] [address] Assigned PCP 02/18/19 08/02/20 [place] [address] [place] [address] Assigned PCP 08/03/20 09/13/20 [place] [address] [place] [address] Assigned PCP 09/14/20 05/07/22 Tamara Ly Personal Advocate & Liaison (PAL) Family Medicine 09/24/20 Tamara Ly Personal Advocate & Liaison (PAL) Family Medicine 12/04/20 Vince Orourke MD [address] [place] [address] Assigned OBGYN Provider 07/05/21 Jessica Goldberg MD [address] [place] [address] Assigned OBGYN Provider 08/30/21 Jessica Goldberg MD [address] [place] [address] Assigned OBGYN Provider 11/07/2102/18 Vince Orourke MD [address] [place] [address] Assigned OBGYN Provider 10/31/21 [place] [address] [place] [address] Assigned PCP 05/08/22 06/04/22 [place] [address] [place] [address] Assigned PCP 06/05/22 07/09/22 Stephanie Porras PA-C [address] [facility] [address] [facility] [place] [address] Assigned PCP 07/10/22 03/02/24 [facility] [address] [place] [address] Assigned PCP 03/03/24 documented as of this encounter
--- OUTSIDE RECORDS SUMMARY | 2024-05-21 15:36 | XMS_ITS | Encounter Summary ---
Author Organization [place] Address [address] [place] [address] Care Team Providers Care Departmental Secretary Name Role Phone Alexandru Ly MD Primary Car e Provider Paola Martell APPLIED STATISTICIAN Primary Care Provider [phone] Paola Martell APPLIED STATISTICIAN Primary Care Provider [phone] Janna Ball DO Primary Care Provider [phone] Davy Proctor PA-C Unavailable [phone] Paola Martell APPLIED STATISTICIAN Unavailable [phone] Paola Martell APPLIED STATISTICIAN Unavailable [phone] Paola Martell APPLIED STATISTICIAN Unavailable [phone] Davy Proctor PA-C Unavailable [phone] Ana Herrera MD Unavailable Ana Herrera MD Primary Care Provider [phone] Lencho York MD Unavailable [phone] Ana Herrera MD Unavailable Tamara Ly Unavailable Unavailable Tamara Ly Unavailable Unavailable Vince Orourke MD Unavailable [phone] Jessica Goldberg MD Unavailable [phone] Jessica Goldberg MD Unavailable Vince Orourke MD Unavailable Hali Gabriel MD Unavailable [phone] Ana Herrera MD Unavailable Stephanie Porras PA-C Unavailable [phone] System, Provider Not In Primary Care Provider Un available [facility] Unavail able Reason for Visit * Reason Onset Date Comments Patient/info Update 10/30/2013 Encounter Details Date Type Department Care Team (Late st Contact Info) Description 10/30/2013 MyC Medical Advice [address] [address] Alexandru Ly MD [facility] [address] [place] [address] Patient/info Update Social History Tobacco Use Types Packs/Day Years [...] PM CDT 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 Sommer Eric RN * Telephone Encounter - Sommer Eric RN - 10/30/2013 12:04 PM CDT See patient's My Chart message. Sommer Eric RN documented in this encounter Plan of Treatment Not on file documented as of this encounter Visit Diagnoses Not on filedocumented in this encounter Additional Health Concerns Infection Onset Date Last Indicated Resolved Time Rule Out COVID-19 03/05/2020 03/05/2020 03/06/2020 5:31 PM POLE PEELING MACHINE OPERATOR HELPER Rule Out COVID-19 01/04/2021 01/04/2021 01/04/2021 4:13 AM CDT Rule Out COVID-19 09/28/2021 09/28/2021 09/28/2021 11:00 PM CDT Rule Out COVID-19 07/20/2023 07/20/2023 07/20/2023 12:33 PM CDT documented as of this encounter Care Teams Departmental Secretary Relationship Specialty Start Date End Date Alexandru Ly MD PCP - General 08/09/02 11/22/16 Paola Martell, APPLIED STATISTICIAN PCP - General Nurse Practitioner - Family 11/23/16 11/09/17 Paola Martell, APPLIED STATISTICIAN PCP - General Nurse Practitioner - Family 11/14/17 02/08/18 Janna Ball DO PCP - General evs manager 03/20/18 08/02/19 Davy Proctor PA-C [address] [place] [address] PCP - Assigned PCP 03/12/18 04/08/18 Paola Martell APPLIED STATISTICIAN [address] [place] [address] PCP - Assigned PCP 11/28/16 03/11/18 Paola Martell APPLIED STATISTICIAN [address] [place] [address] PCP - Assigned PCP 04/09/18 06/13/18 [place] [address] [place] [address] PCP - General Family Practice 08/03/19 05/22/23 System, Provider Not In PCP - General Clinic 06/27/23 Paola Martell NP [address] [place] [address] Assigned PCP 04/09/18 06/24/18 Davy Proctor PA-C [address] [place] [address] Assigned PCP 02/26/18 02/17/19 [place] [address] [place] [address] Assigned PCP 02/18/19 08/02/20 [place] [address] [place] [address] Assigned PCP 08/03/20 09/13/20 [place] [address] [place] [address] Assigned PCP 09/14/20 05/07/22 Tamara Ly Personal Advocate & Liaison (PAL) Family Medicine 09/24/20 Tamara Ly Personal Advocate & Liaison (PAL) Family Medicine 12/04/20 Vince Orourke MD [address] [place] [address] Assigned OBGYN Provider 07/05/21 08/29/21 Jessica Goldberg MD [address] [place] [address] Assigned OBGYN Provider 08/30/21 10/30/21 Jessica Goldberg MD [address] [place] [address] Assigned OBGYN Provider 11/07/21 02/18/23 Vince Orourke MD [address] [place], [place] [address] Assigned OBGYN Provider 10/31/21 11/06/21 [place] [address] [facility] [place] [address] Assigned PCP 05/08/22 06/04/22 [place] [address] [place] [address] Assigned PCP 06/05/22 07/09/22 Stephanie Porras PA-C [address] [facility] [address] [place] [address] Assigned PCP 07/10/22 03/02/24 [facility] - [facility] [address] [place] [address] Assigned PCP 03/03/24 documented as of this encounter
--- OUTSIDE RECORDS SUMMARY | 2024-05-21 15:36 | XMS_ITS | Encounter Summary ---
Author Organization [facility] Address [address] [place] [address] Care Team Providers Care Ingot Supervisor Name Role Phone Ana Herrera MD Unavailable Ana Herrera MD Primary Care Provider [phone] Lencho [place] MD Unavailable [phone] Ana Herrera MD Unavailable Keplin, Tamara L Unavailable Unavailable Prafulplivan, Tamara L Unavailable Unavailable Vince Orourke MD Unavailable Jessica Goldberg MD Unavailable [phone] Jessica Goldberg MD Unavailable [phone] Vince Orourke MD Unavailable Hali Gabriel MD Unavailable [phone] Ana Herrera MD Unavailable Stephanie Porras PA-C Unavailable [phone] System, Provider Not In Primary Care Provider Un available Clinic - [facility] Unavail able Encounter Details Date Type Department Care Team (Late st Contact Info) Description 09/06/2019 MyC Medical Advice [facility] [address] [phone] Maximiliano Mccrary MD [address] [place] [address] Social History Tobacco Use Types Packs/Day Years [...] PM CDT 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 Gender Identity Female 01/03/2021 12:47 PM CDT Sexual Orientation Straight 01/03/2021 12 :47 PM CDT documented as of this encounter Plan of Treatment Not on file documented as of this encounter Visit Diagnoses Not on filedocumented in this encounter Additional Health Concerns Infection Onset Date Last Indicated Resolved Time Rule Out COVID-19 03/05/2020 03/05/2020 03/06/2020 5:31 PM STRATEGIC PLANNING ANALYST Rule Out COVID-19 01/04/2021 01/04/2021 01/04/2021 4:13 AM CDT Rule Out COVID-19 09/28/2021 09/28/2021 09/28/2021 11:00 PM CDT Rule Out COVID-19 07/20/2023 07/20/2023 07/20/2023 12:33 PM CDT Assessment Noted Time PHQ-9 Depression Total Score: 7 08/01/19 20 7:58 AM CDT documented as of this encounter Care Teams Ingot Supervisor Relationship Specialty [place] [address] [place] [address] PCP - General Family Practice 08/03/19 05/22/23 System, Provider Not In PCP - General Clinic 06/27/23 [place] [address] [place] [address] Assigned PCP 02/18/19 08/02/20 [place] [address] [place] [address] Assigned PCP 08/03/20 09/13/20 [place] [address] [place] [address] Assigned PCP 09/14/20 05/07/22 Tamara Ly Personal Advocate & Liaison (PAL) Family Medicine 09/24/20 Tamara Ly Personal Advocate & Liaison (PAL) Family Medicine 12/04/20 Vince Orourke MD [address] [place] [address] Assigned OBGYN Provider 07/05/21 Jessica Goldberg MD [address] [place], [place] [address] Assigned OBGYN Provider 08/30/21 Jessica Goldberg MD [address] [place], [place] [address] Assigned OBGYN Provider 11/07/2102/18 Vince Orourke MD [address] [place], [place] [address] Assigned OBGYN Provider 10/31/21 [place] [address] [place] [address] Assigned PCP 05/08/22 06/04/22 [place] [address] [place] [address] Assigned PCP 06/05/22 07/09/22 Stephanie Porras PA-C [address] [place] [address] Assigned PCP 07/10/22 03/02/24 [facility] [address] [place] [address] Assigned PCP 03/03/24 documented as of this encounter
--- OUTSIDE RECORDS SUMMARY | 2024-05-21 15:36 | XMS_ITS | Encounter Summary ---
Author Organization [facility] Address [address] [place] [address] Care Team Providers Care Director Volunteer Services Name Role Phone Alexandru Ly MD Primary Car e Provider Paola Martell EMBROIDERER Primary Care Provider [phone] Paola Martell EMBROIDERER Primary Care Provider [phone] Janna Ball DO Primary Care Provider [phone] Davy Proctor PA-C Unavailable [phone] Paola Martell EMBROIDERER Unavailable [phone] Paola Martell EMBROIDERER Unavailable [phone] Paola Martell EMBROIDERER Unavailable [phone] Davy Proctor PA-C Unavailable [phone] Ana Herrera MD Unavailable Ana Herrera MD Primary Care Provider [phone] Lencho York MD Unavailable [phone] Ana Herrera MD Unavailable Tamara Ly Unavailable Unavailable Tamara Ly Unavailable Unavailable iVnce Orourke MD Unavailable [phone] Jessica Goldberg MD Unavailable [phone] Jessica Goldberg MD Unavailable [phone] Vince Orourke MD Unavailable Hali Gabriel MD Unavailable [phone] Ana Herrera MD Unavailable Stephanie Porras PA-C Unavailable System, Provider Not In Primary Care Provider Un available Clinic - [facility] Unavail able Reason for Visit * Reason Onset Date Comments Refill Request 11/27/2013 Encounter Details Date Type Department Care Team (Late st Contact Info) Description 11/27/[address] 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 Gender Identity Female 01/03/2021 12:47 PM CDT Sexual Orientation Straight 01/03/2021 12 :47 PM CDT documented as of this encounter Plan of Treatment Not on file documented as of this encounter Visit Diagnoses Not on filedocumented in this encounter Additional Health Concerns Infection Onset Date Last Indicated Resolved Time Rule Out COVID-19 03/05/2020 03/05/2020 03/06/2020 5:31 PM CAP SIZER Rule Out COVID-19 01/04/2021 01/04/2021 01/04/2021 4:13 AM CDT Rule Out COVID-19 09/28/2021 09/28/2021 09/28/2021 11:00 PM CDT Rule Out COVID-19 07/20/2023 07/20/2023 07/20/2023 12:33 PM CDT documented as of this encounter Care Teams Director Volunteer Services Relationship Specialty Start Date End Date Alexandru Ly MD PCP - General 08/09/02 11/22/16 Paola Martell, EMBROIDERER PCP - General Nurse Practitioner - Family 11/23/16 11/09/17 Paola Martell, EMBROIDERER PCP - General Nurse Practitioner - Family 11/14/17 02/08/18 Janna Ball DO PCP - General tear down matcher 03/20/18 08/02/19 Davy Proctor PA-C [address] [place] [address] PCP - Assigned PCP 03/12/18 04/08/18 Paola Martell, EMBROIDERER [address] [place] [address] PCP - Assigned PCP 11/28/16 03/11/18 Paola Martell, EMBROIDERER [address] [place] [address] PCP - Assigned PCP 04/09/18 06/13/18 [place] [address] [place] [address] PCP - General Family Practice 08/03/19 05/22/23 System, Provider Not In PCP - General Clinic 06/27/23 Paola Martell EMBROIDERER [address] [address] Assigned PCP 04/09/18 06/24/18 Davy Proctor PA-C [address] [place] [address] Assigned PCP 02/26/18 02/17/19 [place] [address] [place], [place] [id number] Assigned PCP 02/18/19 08/02/20 [place] [address] [place] [address] Assigned PCP 08/03/20 09/13/20 [place] [address] [place], [place] [id number] Assigned PCP 09/14/20 05/07/22 Tamara Ly Personal Advocate & Liaison (PAL) Family Medicine 09/24/20 Tamara Ly Personal Advocate & Liaison (PAL) Family Medicine 12/04/20 Vince Orourke MD [address] [place] [address] Assigned OBGYN Provider 07/05/21 08/29/21 Jessica Goldberg MD [address] [place] [address] Assigned OBGYN Provider 08/30/21 10/30/21 Jessica Goldberg MD [address] [place] [address] [address] [place] [address] Assigned OBGYN Provider 11/07/21 02/18/23 Vince Orourke MD [address] [facility] [address] [facility] [address] [place], [place] [address] Assigned OBGYN Provider 10/31/21 11/06/21 [place] [address] [place], [place] [id number] Assigned PCP 05/08/22 06/04/22 [place] [address] [place] [address] Assigned PCP 06/05/22 07/09/22 Stephanie Porras PA-C [address] [facility] 200 [place] [address] Assigned PCP 07/10/22 03/02/24 [facility] [address] [place] [address] Assigned PCP 03/03/24 documented as of this encounter
--- OUTSIDE RECORDS SUMMARY | 2024-05-21 15:37 | XMS_ITS | Encounter Summary ---
Author Organization [facility] Address [address], [place] [address] Care Team Providers Care Strap Stitcher Name Role Phone Catalina Ferris APRN, CNP Primary Care Provid er Encounter Details Date Type Department Care Team (Late Contact Info) Description 05/04/2024 E-Visit [address] [id number] [place] [address] Social History Tobacco Use Types Packs/Day Years Used Date Smoking Tobacco: Every Day Cigarettes Smokeless Tobacco: Never Alcohol Use Standard Drinks/Week Comments Not Currently 0 (1 standard drink = 0.6 oz pur e alcohol) occ PHQ-2 Answer Date Recorded PHQ-2 Score 2 11/30/2023 Sex and Gender Information Value Date Recorded Sex Assigned at Not on file Gender Identity Not on file Sexual Orientation Not on file documented as of this encounter Plan of Treatment Upcoming Encounters Date Type Department Care Team (Late st Contact Info) Description 06/08/2024 4:00 PM SENIOR STORAGE ENGINEER Telemedicine [address] [address] Catalina Ferris APRN INSOLE AND OUTSOLE SPLITTER [facility] [place] [address] documented as of this encounter Visit Diagnoses Not on filedocumented in this encounter Care Teams Strap Stitcher Relationship Specialty Start Date End Date Catalina Ferris, SONIA, INSOLE AND OUTSOLE SPLITTER [address] [facility] [place] [address] PCP - General Nurse Practitioner 06/01/23 documented as of this encounter
--- OUTSIDE RECORDS SUMMARY | 2024-05-21 15:37 | XMS_ITS | Encounter Summary ---
Author Organization [place] Address [address] [place] [address] Care Team Providers Care Marketing Communications Leader Name Role Phone Alexandru Ly MD Primary Car e Provider Paola Martell SWITCH REPAIRER Primary Care Provider [phone] Paola Martell SWITCH REPAIRER Primary Care Provider [phone] Janna Ball DO Primary Care Provider [phone] Davy Proctor PA-C Unavailable [phone] Paola Martell SWITCH REPAIRER Unavailable [phone] Paola Martell SWITCH REPAIRER Unavailable [phone] Paola Martell SWITCH REPAIRER Unavailable [phone] Davy Proctor PA-C Unavailable [phone] Ana Herrera MD Unavailable Ana Herrera MD Primary Care Provider [phone] Lencho York MD Unavailable Ana Herrera MD Unavailable Tamara Ly Unavailable Unavailable Tamara Ly Unavailable Unavailable Vince Orourke MD Unavailable [phone] Jessica Goldberg MD Unavailable [phone] Jessica Goldberg MD Unavailable [phone] Vince Orourke MD Unavailable [phone] Hali Gabriel MD Unavailable [phone] Ana Herrera MD Unavailable Stephanie Porras PA-C Unavailable [phone] System, Provider Not In Primary Care Provider Un available Clinic - [facility] Unavail able Encounter Details Date Type Department Care Team (Late st Contact Info) Description 01/05/2005 [facility] [id number] [place] [phone] Teo Swenson MD XXX HOSPITALIST/ED DOCTOR XXX CONSULTATION (Primary Dx) Social History Tobacco Use Types Packs/Day Years Used Date Smoking Tobacco: Every Day Cigarettes Smokeless Tobacco: Never Comments:1/2 ppd, tried quit ting Alcohol Use Standard Drinks/Week Comments Not Currently 0 (1 standard drink = 0.6 oz pur e alcohol) Comments No Sex and Gender Information Value Date Recorded Sex Assigned at Female 01/03/2021 12:47 PM CDT Legal Sex Female 4:24 AM [facility] Gender Identity Female 01/03/2021 12:47 PM CDT Sexual Orientation Straight 01/03/2021 12 :47 PM CDT documented as of this encounter Progress Notes * Sherlyn Alvarez - 01/25/2005 10:35 AM CDT 00:00 Consultation-Tuan Blake (PhD) [Signed: 07:46] [Entered: interfaces, interfaces (FV Interface) 07:46] DEMOGRAPHIC AND BACKGROUND INFORMATION: This is a 14-year-old female who was admitted to the Subacute Diagnostic Unit at the [facility] due to significant concerns related to increasing sensitivity of depressive symptoms, suicidal threats, and mood instability. She has also had a history of bipolar disorder diagnosis, and she had not been taking her medication. She was referred for a psychological evaluation by Jorge Luis Fernandez MD, to aid with diagnostic impressions and treatment recommendations. This patient noted that she told her mother and father she was feeling suicidal. In fact, the first time she experienced suicidal ideation was in the 8th grade. She also started engaging in self-injurious behaviors at that time. More specifically, she was using a razor blade every 6 months and cutting on her wrists. She stated that she has a lot of anger, and the cutting helps to calm her down. The last time she cut was 1-1/2 to 2 weeks ago. This patient does believe that at times she has too much energy. She also has been known to be somewhat impulsive. Adversely, she cannot go without sleep for an extended period of time, and does not have goal-directed behavior indicative of bipolar disorder. She does become easily distracted and can go from one task to another without finishing them. She makes careless mistakes, and has a history of procrastination. She also has been known to talk out of turn, but does not believe that she has organizational problems. This patient also feels that she worries about little things. In addition, she struggles with initial insomnia. She denied any history of eating disorder behaviors, panic symptoms, or obsessive compulsive symptoms. This patient has tried alcohol for the first time in the 6th grade, and has been intoxicated 6 or 7 times. MENTAL STATUS: This patient came to the evaluation dressed with her boxers on and a blanket over her. She was asked to put some long pants on and leave the blanket behind. She agreed to do this, and her attire was then appropriate. Her affect was superficially bright, and her mood was consistent with her affect. She was cooperative and responded appropriately to this clinician's questions. There was no evidence of obsession, compulsion, suicidal ideation, or homicidal ideation. There was no evidence of hallucination, delusion, paranoid ideation, grossly inappropriate affect, or other jon manifestation of psychotic disorder. She was oriented to person, placed and time. TESTS ADMINISTERED AND TASKS COMPLETED: Diagnostic interview, review of medical record, Ramona Adult Intelligence Scale - 3rd Addition (WAIS-3), [place] Multiphasic Personality Inventory - Adolescent (MMPI-A), Rorschach ink blot test, Children's Depression Inventory (CDI), Revised Children Manifest Anxiety Scale (RCMAS). TEST RESULTS: The WAIS-3 was administered to estimate verbal and nonverbal intellectual functioning levels. Verbal scale IQ score was 90 (range equals 87-94) which is in the 25th percent, and in the low average to average range. Her verbal IQ score was 81 (range equals 77-86) which is in the 10th percent and the low average range. More specifically, her verbal comprehension index score was 80 (range equals 76-86) which is the 9th percentile in the borderline to low average range. The prorated performance IQ score, a measure of nonverbal intellectual functioning was 104 (range equals 98-109), which is in the 61st percentile and in the average range. More specifically, her perceptual organization index score was 97 (range equals 91-103) which is in the 42nd percentile and in the average range. Her processing speed index score was 122 (range equals 112-127), which is in the 93rd percentile, and in the superior range. There was a clinically significant difference between her verbal and performance IQ score suggesting that the full scale IQ score was not a good estimate of overall intellectual functioning. In order to computer her IQ and index scores, this patient was administered 11 subtests (6 verbal and 5 performance) using a mean of 10 and knowing that a range of 8-12 constitutes and average score. When compared to other individuals within her age group, the following are subtest results: Verbal Sub-Tests Vocabulary 6 Similarities 8 Arithmetic 6 Digit Span 8 Information 5 Comprehension 8 PERFORMANCE SUB-TEST: Picture completion 8-digit symbol - coding 13, fluoxetine 10, matrix reasoning 11, symbol search (15). It is evident that this patient had this considerable strain in her visual spacial/psychomotor processing speed. In fact, this patient noted that she loves tasks like this. Conversely, she had significant difficulty with tasks requiring her to define vocabulary words, answer arithmetic-type questions and respond to school-based questions. It is also quite evident that her overall verbal ability is significantly weaker than that of her non- verbal intellectual functioning. This may suggest the possible reading, arithmetic, and written language disorder, although this diagnosis cannot be made without achievement testing, as well as observation within her academic environment. The MMPI-A was responded to in an open and honest manner, and the profile is valid and interpretable. Individuals with profiles similar to hers tend to be distress and are likely not coping well with the various stressors in their lives. They are also not performing at their optimal level of performance. These individuals tend to be in conflict with others and, more specifically, with family members. They tend to have difficulty responding appropriately to authority figures. They also likely are not performing well in an academic setting. These individuals may be somewhat oppositional and have some conduct problems. They tend to be seen as having low self-concepts, and may even feel that they are alienated from others. At times, these individuals tend to manifest depressive and anxiety symptoms. They are also seen as impulsive and are much more prone to addictive type behaviors. These individuals also tend to have a number of physical complaints, and may feel physically slowed. They are usually fatigued. These individuals also may avoid certain social situations because of feeling self-conscious or wanting to avoid criticism. They also tend to take a somewhat passive aggressive approach to relating to others. It is also not uncommon for these individuals to be somewhat distrustful of others and keep people at arm's length. The Rorschach ink blot test resulted in 16 responses, which is a valid and interpretable protocol. Individuals with protocols similar to hers tend to have some difficulty coping and are usually harboring immature defense mechanisms. They tend to have poor emotional control, and are seen as somewhat impulsive. These individuals also tend to have superficial relationships with others, although they may feel that their relationships are more secure than they really are. The CDI resulted in clinically significant level for ineffectiveness. Items of interest include I think about killing myself but I would not do it, I am tired many days and I feel alone at many times. The RCMAS resulted in clinically significant level for total anxiety, physiological anxiety, and worried/oversensitivity. Items of interest including: I get nervous when things do not go the right way for medication I worry a lot of the time, and I am nervous. SUMMARY OF CURRENT FINDINGS: This is a 14-year-old female who was admitted to the Sub-Acute Diagnostic Unit at the [facility] due to an increase in intensity of depressive symptoms, mood instability, suicidal threats, and self-injurious behaviors. As stated earlier, she has had a bipolar disorder diagnosis, although, based on diagnostic interview and psychological testing, it does not appear evident that she meets full criteria for this diagnosis. It is evident, though, that she can be seen as garza and respond impulsively to others. She also can be seen as having poor emotional control. She noted that she gets angry very easily and has a history of self-injurious behaviors to help her feel calmer. Psychological testing suggests overt emotional distress. These individuals tend to manifest depressive and anxiety symptoms. There is also concern that she is in conflict with many individuals in her life. In fact, she likely responds inappropriately to authority figures. She tends to be somewhat distrustful of others, but tends to feel that her relationships are more secure than they truly are. She does feel that her mood has improved since being in the hospital, although she is ready to leave. 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 DIAGNOSTIC IMPRESSION: Beason I: 311, Depressive disorder not otherwise specified. 314.01, attention deficit hyperactivity disorder, combined type. Beason II: Passive aggressive personality features. Beason III: Review medical record, stress and adjustment associated with family, social, and academic functioning exercise. Beason V: Global assessment of functioning equals 39 (current). TREATMENT RECOMMENDATIONS: 1. This patient linda benefit from ongoing individual psychotherapy to focus on improved coping mechanisms. 2. Family therapy is often warranted to focus on improved communication pattern as well as setting better limits within the family dynamic. 3. This patient would likely benefit from further academic and cognitive testing within her academic environment to conclusively rule out a learning disorder of some sort. Either way, this patient would likely benefit from an Individualized Education Program (IEP) or 504 plan for accommodations. 4. The patient would benefit from having an organizational digital sales planner so that she would not be forgetful concerning her homework assignments and when to study for quizes and exams. 5. The patient also would benefit from sitting in front of the class so that she would not be as distracted. 6. This patient may benefit from extended time on exams that require an extensive amount of reading, writing, or mathematics. 7. She also should be given an accommodation for taking her exams outside of the testing room to decrease the likelihood of distraction. 8. Medication management may be necessary to promote mood stability and decrease the intensity of her attention/impulsive symptoms. 9. This clinician will continue to consult with this patient, this patient's family, and Dr. Jorge Luis Fernandez if necessary. TUAN FAROOQ, PHD Dictated by: TUAN FAROOQ, PHD 141:2 MT: [email or web address] Document: [id number] CC: TUAN FAROOQ, PHD MD TEO CRUZ MD LCN: [id number] DSC: 01/11/2005 [facility] [place], [place] CONSULTATION Page 4 of 5 Electronically filed by Sherlyn Alvarez 01/25/2005 10:34 AM documented in this encounter Plan of Treatment Not on file documented as of this encounter Visit Diagnoses Diagnosis CONSULTATION- Primary documented in this encounter Additional Health Concerns Infection Onset Date Last Indicated Resolved Time Rule Out COVID-19 03/05/2020 03/05/2020 03/06/2020 5:31 PM [facility] Rule Out COVID-19 01/04/2021 01/04/2021 01/04/2021 4:13 AM CDT Rule Out COVID-19 09/28/2021 09/28/2021 09/28/2021 11:00 PM CDT Rule Out COVID-19 07/20/2023 07/20/2023 07/20/2023 12:33 PM CDT documented as of this encounter Care Teams Marketing Communications Leader Relationship Specialty Start Date End Date Alexandru Ly MD PCP - General 08/09/02 11/22/16 Paola Martell SWITCH REPAIRER PCP - General Nurse Practitioner - Family 11/23/16 11/09/17 Paola Martell SWITCH REPAIRER PCP - General Nurse Practitioner - Family 11/14/17 02/08/18 Janna Ball DO PCP - General air brake tester 03/20/18 08/02/19 Davy Proctor PA-C [address] [place] [id number] PCP - Assigned PCP 03/12/18 04/08/18 Paola Martell, SWITCH REPAIRER [address] [place] [address] PCP - Assigned PCP 11/28/16 03/11/18 Paola Martell, SWITCH REPAIRER [address] [place] [address] PCP - Assigned PCP 04/09/18 06/13/18 [place] [address] [place] [address] PCP - General Family Practice 08/03/19 05/22/23 System, Provider Not In PCP - General Clinic 06/27/23 Paola Martell, VIRY [address] [place] [address] Assigned PCP 04/09/18 06/24/18 Davy Proctor PA-C [address] [place] [address] Assigned PCP 02/26/18 02/17/19 [place] [address] [place] [address] Assigned PCP 02/18/19 08/02/20 [place] [address] [place] [address] Assigned PCP 08/03/20 09/13/20 [place] [address] [place] [address] Assigned PCP 09/14/20 05/07/22 Tamara Ly Personal Advocate & Liaison (PAL) Family Medicine 09/24/20 Tamara Ly Personal Advocate & Liaison (PAL) Family Medicine 12/04/20 Vince Orourke MD [address] [place] [address] Assigned OBGYN Provider 07/05/21 08/29/21 Jessica Goldberg MD [address] [place] [address] Assigned OBGYN Provider 08/30/21 10/30/21 Jessica Goldberg MD [address] [place] [address] Assigned OBGYN Provider 11/07/21 02/18/23 Vince Orourke MD [address] [place] [address] Assigned OBGYN Provider 10/31/21 11/06/21 [place] [address] [place] [address] Assigned PCP 05/08/22 06/04/22 [place] [address] [place] [address] Assigned PCP 06/05/22 07/09/22 Stephanie Porras PA-C [address] [facility] [address] [place] [address] Assigned PCP 07/10/22 03/02/24 [facility] [id number] [place] [address] Assigned PCP 03/03/24 documented as of this encounter
--- OUTSIDE RECORDS SUMMARY | 2024-05-21 15:37 | XMS_ITS | Encounter Summary ---
Author Organization [place] Address [address] [place] [address] Care Team Providers Care Patrol Mother Name Role Phone Alexandru Ly MD Primary Car e Provider Paola Martell CUSHION BUILDER Primary Care Provider [phone] Paola Martell CUSHION BUILDER Primary Care Provider [phone] Janna Ball DO Primary Care Provider [phone] Davy Proctor PA-C Unavailable [phone] Paola Martell CUSHION BUILDER Unavailable [phone] Paola Martell CUSHION BUILDER Unavailable [phone] Paola Martell CUSHION BUILDER Unavailable [phone] Davy Proctor PA-C Unavailable [phone] Ana Herrera MD Unavailable Ana Herrera MD Primary Care Provider [phone] Lencho York MD Unavailable [phone] Ana Herrera MD Unavailable Tamara Ly Unavailable Unavailable Tamara Ly Unavailable Unavailable Vince Orourke MD Unavailable [phone] Jessica Goldberg MD Unavailable [phone] Jessica Goldberg MD Unavailable [phone] Vince Orourke MD Unavailable Hali Gabriel MD Unavailable [phone] Ana Herrera MD Unavailable Stephanie Porras PA-C Unavailable System, Provider Not In Primary Care Provider Un available Clinic - [facility] Unavail able Reason for Visit * Reason Onset Date Comments Pt. Information/instruction 10/27/2012 Head aches Encounter Details Date Type Department Care Team (Late st Contact Info) Description 10/27/2012 MyC Medical Advice [facility] [place] [facility] [address] [facility], [address] [place] [address] Alexandru Ly MD [facility] [address] [place] [address] Pt. 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 Rule Out COVID-19 01/04/2021 01/04/2021 01/04/2021 4:13 AM CDT Rule Out COVID-19 09/28/2021 09/28/2021 09/28/2021 11:00 PM CDT Rule Out COVID-19 07/20/2023 07/20/2023 07/20/2023 12:33 PM CDT documented as of this encounter Care Teams Patrol Mother Relationship Specialty Start Date End Date Alexandru Ly MD PCP - General 08/09/02 11/22/16 Paola Martell, CUSHION BUILDER PCP - General Nurse Practitioner - Family 11/23/16 11/09/17 Paola Martell, CUSHION BUILDER PCP - General Nurse Practitioner - Family 11/14/17 02/08/18 Janna Ball DO PCP - General frame wirer 03/20/18 08/02/19 Davy Proctor PA-C [address] [place] [address] PCP - Assigned PCP 03/12/18 04/08/18 Paola Martell CUSHION BUILDER [address] [place] [address] PCP - Assigned PCP 11/28/16 03/11/18 Paola Martell, CUSHION BUILDER [place] [address] [place] [address] PCP - Assigned PCP 04/09/18 06/13/18 [place] [address] [place], [place] [id number] PCP - General Family Practice 08/03/19 05/22/23 System, Provider Not In PCP - General Clinic 06/27/23 Paola Martell CUSHION BUILDER [address] [place] [address] Assigned PCP 04/09/18 06/24/18 Davy Proctor PA-C [address] [place] [id number] Assigned PCP 02/26/18 02/17/19 [place] [address] [place], [place] [id number] Assigned PCP 02/18/19 08/02/20 [place] [address] [place], [place] [id number] Assigned PCP 08/03/20 09/13/20 [place] [address] [place] [address] Assigned PCP 09/14/20 05/07/22 Tamara Ly Personal Advocate & Liaison (PAL) Family Medicine 09/24/20 Tamara Ly Personal Advocate & Liaison (PAL) Family Medicine 12/04/20 Vince Orourke MD [address] [place] [address] Assigned OBGYN Provider 07/05/21 08/29/21 Jessica Goldberg MD [address] [place] [address] Assigned OBGYN Provider 08/30/21 10/30/21 Jessica Goldberg MD [address] [place] [address] Assigned OBGYN Provider 11/07/21 02/18/23 Vince Orourke MD [address] [place] [address] Assigned OBGYN Provider 10/31/21 11/06/21 [place] [address] [place], [place] [id number] Assigned PCP 05/08/22 06/04/22 [place] [address] [place], [place] [id number] Assigned PCP 06/05/22 07/09/22 Stephanie Porras PA-C [address] [facility] [address] [place] [address] Assigned PCP 07/10/22 03/02/24 [facility] [address] [place] [address] Assigned PCP 03/03/24 documented as of this encounter
--- OUTSIDE RECORDS SUMMARY | 2024-05-21 15:37 | XMS_ITS | Encounter Summary ---
Author Organization [employer] Address [address], [place] [address] Care Team Providers Care Tap Builder Name Role Phone Catalina Ferris APRN, SEPIDEH Primary Care Provid er Reason for Visit * Reason Comments DEPRESSION Encounter Details Date Type Department Care Team (Late st Contact Info) Description 05/03/2024 Nurse Triage [facility] Medicine [address] [facility] [place], [place] [id number] Catalina Ferris APRN, CARRIER BLOWER [address] [place] [address] DEPRESSION Social History Tobacco Use Types Packs/Day Years [...] on file documented as of this encounter Nursing Notes * Suzie Nguyen RN - 05/08/2024 5:07 PM CST No return call after 2 attempts. Ok to close encounter at this time. Will address any concern or questions if patient should call back. Y SHOP TESTER * Suzie Nguyen RN - 05/08/2024 11:34 AM CST Left third message for patient to call back [phone]. Y SHOP TESTER * Remigio Mathur RN - 05/07/2024 11:42 AM CST Call placed to patient, left message to call back, call back number provided. ON * Staci Kelly RN - 05/04/2024 12:04 PM CST Call placed back to patient, left VM that PCP was out and will address upon her return, advised pt to call [phone] with any questions. Y SHOP TESTER * Amber Borrero PA-C - 05/03/2024 4:26 PM CST Please let patient know that their PCP is out today. They will review and address the request when they returned. If they are worsening and can not be worked in tomorrow by PCP, patient should see any other provider and discuss her concerns. Thank you, Amber Borrero PA-C 05/03/2024 ON * Staci Kelly RN - 05/03/2024 1:33 PM CST Clinician: Review and advise and Route to Frontline Patient/career counselor request: Appointment Work In: Depression Specific Request: Work in Thursday 05/04, video visit anytime Situation/Background (brief explanation of current symptoms/situation): Pt transferred from [facility], she has been sad nearly every day for several months, has been worsening d/t upcoming courtproceedings. Says she doesn't feel happy. 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 Has a lot of financial stress. Depression is causing her to sleep poorly, waked up between [phone] every night, she couldn't make it to job interview. Pt denies SI or thought of self harm. Pt is hoping to talk with PCP regarding med changes or new medication. Care advice given per protocol Reviewed pertinent medical history (as relates to the call): Yes Reviewed pertinent medications (as relates to the call): Yes Reason for Disposition Depression is getting worse (e.g.,sleeping poorly, less able to do activities of daily living) Symptoms interfere with work or school Protocols used: [id number] Y SHOP TESTER documented in this encounter Plan of Treatment Upcoming Encounters Date Type Department Care Team (Late st Contact Info) Description 06/08/2024 4:00 PM RELAY SHOP TESTER Telemedicine [facility] [address] [facility] [place] [address] Catalina Ferris APRN, CARRIER BLOWER [address] [place] [address] documented as of this encounter Visit Diagnoses Not on filedocumented in this encounter Care Teams Tap Builder Relationship Specialty Start Date End Date Catalina Ferris APRN, CARRIER BLOWER [address] [place] [id number] PCP - General Nurse Practitioner 06/01/23 documented as of this encounter
--- OUTSIDE RECORDS SUMMARY | 2024-05-21 15:37 | XMS_ITS | Encounter Summary ---
Author Organization [employer] Address [address], [place] [address] Care Team Providers Care Intelligence Agent Name Role Phone Catalina Ferris APRN, SEPIDEH Primary Care Provid er Reason for Visit * Reason Onset Date Comments Refill 05/03/2024 Encounter Details Date Type Department Care Team (Late st Contact Info) Description 05/03/2024 Refill [facility] [address] [facility] [place], [place] [phone] Catalina Ferris APRN, PARAMEDIC SUPERVISOR [address] [place] [address] Refill Social History Tobacco Use Types Packs/Day [...] as of this encounter Nursing Notes * Asuncion Perdue - 05/04/2024 7:54 AM CST SiOxt message was sent about Rx. Told to schedule med check appointment in- clinic or phone/video with PCP. Gave #[phone] and encouraged to schedule online. DENT ASSISTANT * Maxine Van APRN, CNP - 05/03/2024 7:23 PM CST PDMP reviewed. No concerns. Rx refilled on behalf of pcp. Patient needs an appointment with primaryprovider for further refills. Thank you. Maxine Van APRN, CNP DENT ASSISTANT * Jordin Dunaway RN - 05/03/2024 1:48 PM CST Further Assistance Needed on Refill from Clinician RN reviewed. Signed order needed. Medication not on RN refill list Last visit with PCP was 12/13/23 Review pended order for accuracy. Sign if appropriate. Document if appointment is needed for further refills. Route to care team to notify patient if needed. Requested Prescriptions Pending Prescriptions Disp Refills LORazepam (ATIVAN) 0.5 MG tablet 20 Tablet 0 Sig: Take 1-2 Tablets (0.5-1 mg) by mouth every 6 hours as needed for Anxiety. DENT ASSISTANT * Yelena Cintron - 05/03/2024 1:19 PM CST Medications - Refill Request Name of prescribing clinician: Catalina Ferris APRN, SEPIDEH Additional comments (related to the above concern): Patient is ruuning low -2 pills left Pt has court on 05/09/24 and would like before then For this refill, patient would like it filled at the pharmacy listed in Medication Management. If there are questions regarding your request, what is your preferred method of communication? Phone Call. Is it okay to leave a detailed message on your voicemail? Yes Is there anything else I can help you with today? No DENT ASSISTANT documented in this encounter Plan of Treatment Upcoming Encounters Date Type Department Care Team (Late st Contact Info) Description 06/08/2024 4:00 PM RESIDENT ASSISTANT Telemedicine [facility] [address] [facility] [place] [address] Catalina Ferris APRN, SEPIDEH [address] [place] [address] documented as of this encounter Visit Diagnoses Diagnosis Attention deficit hyperactivity disorder (ADHD), predominantly inattentive type (HRC) Anxiety (HRC) Anxiety state, unspecified documented in this encounter Care Teams Intelligence Agent Relationship Specialty Start Date End Date Catalina Ferris APRN, SEPIDEH [address] [place] [address] PCP - General Nurse Practitioner 06/01/23 documented as of this encounter
--- OUTSIDE RECORDS SUMMARY | 2024-05-21 15:37 | XMS_ITS | Clinical Summary ---
Author Organization [facility] Address [address] [place] [address] Care Team Providers Care User Experience Lead Name Role Phone JosyCatalina APRN, SEPIDEH Primary Care Provid er Source Comments You are receiving this document as you are listed as the primary care provider,follow-up provider, or the patient has been referred to you for consultation.This is in compliance with the Medicare and[facility] Hospital[facility] EHR Incentive Program,which states Providers who transition their patient to another setting of careor provider of care or refers their patient to another provider of care shouldprovide summary care record for each transition of care or referral. [employer] Allergies Active Allergy Reactions Criticality Noted Date Comments Sulfa Antibiotics 01/17/2007 HIVES: Hives Sulfamethoxazole-Trimethop rim 06/02/2003 PN: LW Reaction: Rash, Generalized Medications Medication Sig Dispensed Refills Start Date End Date Status albuterol 2.5 mg/3 mL, 0.083%, (PROVENTIL) nebulizer solution 1 Each (2.5 mg) by Nebulization route every 6 hours as needed for Wheezing. 90 mL 1 08/20/19 23 Active ALBUterol sulfate HFA 108 (90 Base) MCG/ACT inhaler Inhale 1-2 Puffs every 4 hours as needed for Wheezing. 1 Each 09/03/19 23 Active hydrOXYzine HCl (ATARAX) 25 MG tablet Take 1-2 Tablets (25-50 mg) by mouth every 8 hours as needed. 30 Tablet 10 01/27/20 23 Active sertraline (ZOLOFT) 100 MG tabletIndications :Anxiety (HRC),Current moderate episode of major depressive disorder, unspecified whether recurrent (HRC) TAKE 2 TABLETS BY MOUTH EVERY DAY 180 Tablet 3 05/23/19 24 Active ipratropium-albut brynn (DUONEB) 0.5-2.5 (3) mg/3ml nebulizer solutionIndicatio ns:Moderate persistent asthma with acute exacerbation (HRC) Inhale 3 mL every 4 hours as needed for Wheezing. 120 mL 11 06/30/19 24 Active losartan (COZAAR) 100 MG tabletIndications :Essential hypertension (HRC) Take 1 Tablet (100 mg) by mouth daily. 90 Tablet 1 07/11/19 24 025 Active propranolol (INDERAL) 10 MG tabletIndications :Anxiety (HRC) TAKE 1-2 TABLETS (10-20 MG) BY MOUTH TWO TIMES DAILY NEEDED. 90 Tablet 3 09/12/19 24 Active buPROPion (WELLBUTRIN XL) 300 MG 24 hour release tabletIndications :Adjustment disorder with anxious mood (HRC),Anxiety (HRC),Current moderate episode of major depressive disorder, unspecified whether recurrent (HRC) Take 1 Tablet (300 mg) by mouth daily. 90 Tablet 3 09/20/19 24 025 Active triamcinolone acetonide (KENALOG) 0.1 % cream Apply topically two times daily as needed for Other. 30 g 09/21/19 24 Active norethindrone, contraceptive, (MICRONOR) 0.35 MG tablet Take 1 Tablet (0.35 mg) by mouth daily. 84 Tablet 3 10/11/19 24 025 Active traZODone (DESYREL) 50 MG tabletIndications :Insomnia, unspecified type TAKE 1 TO 2 TABLETS BY MOUTH AT BEDTIME NEEDED 180 Tablet 3 11/10/19 24 Active SUMAtriptan (IMITREX) 6 MG/0.5ML injection syringeIndication s:Episodic cluster headache, not intractable Inject 0.5 mL (6 mg) subcutaneously daily as needed for up to 12 doses. 3 mL 1 11/30/19 24 Active verapamil (CALAN SR) 120 MG controlled release tabletIndications :Intractable episodic cluster headache Take 1 Tablet (120 mg) by mouth two times a day. 180 Tablet 3 12/14/19 24 025 Active nitrofurantoin monohydrate macrocrystal (MACROBID) 100 MG capsuleIndication s:Urinary tract infection symptoms,Dysuria Take 1 Capsule (100 mg) by mouth two times a day. 14 Capsule 01/16/20 24 Active SUMAtriptan (IMITREX) 100 MG tabletIndications :Episodic cluster headache, not intractable TAKE 1 TABLET (100 MG) BY MOUTH NEEDED FOR MIGRAINE. MAY REPEAT ONE TABLET AFTER 2 HOURS IF NEEDED. MAXIMUM 2 TABS/24 HOURS AND 9 DAYS/MONTH 9 Tablet 3 02/28/20 24 Active amphetamine-dextr oamphetamine XR (ADDERALL XR) 20 MG 24 hour release capsule Take 1 Capsule (20 mg) by mouth daily for 30 days. 3 of 3 Do not start before April 28, 2024. 30 Capsule 04/28/19 25 025 Active amphetamine-dextr oamphetamine (ADDERALL) 20 MG tablet Take 1 Tablet (20 mg) by mouth daily for 30 days. 1 of 3 30 Tablet 02/28/20 24 Active amphetamine-dextr oamphetamine (ADDERALL) 20 MG tablet Take 1 Tablet (20 mg) by mouth daily for 30 days. 2 of 3 Do not start before March 29, 2024. 30 Tablet 03/29/20 24 Active amphetamine-dextr oamphetamine (ADDERALL) 20 MG tablet Take 1 Tablet (20 mg) by mouth daily for 30 days. 3 of 3 Do not start before April 28, 2024. 30 Tablet 04/28/19 25 025 Active LORazepam (ATIVAN) 0.5 MG tabletIndications :Attention deficit hyperactivity disorder (ADHD), predominantly inattentive type (HRC),Anxiety (HRC) Take 1-2 Tablets (0.5-1 mg) by mouth every 6 hours as needed for Anxiety. 20 Tablet 05/03/19 25 Active amphetamine-dextr oamphetamine (ADDERALL) 20 MG tabletIndications :Attention deficit hyperactivity disorder (ADHD), predominantly inattentive type (HRC) Take 1 Tablet (20 mg) by mouth daily for 30 days. 1 of 3 30 Tablet 12/14/19 24 025 Discontinued amphetamine-dextr oamphetamine (ADDERALL) 20 MG tabletIndications :Attention deficit hyperactivity disorder (ADHD), predominantly inattentive type (HRC) Take 1 Tablet (20 mg) by mouth daily for 30 days. 2 of 3 Do not start before January 12, 2024. 30 Tablet 01/12/20 24 025 Discontinued amphetamine-dextr oamphetamine (ADDERALL) 20 MG tabletIndications :Attention deficit hyperactivity disorder (ADHD), predominantly inattentive type (HRC) Take 1 Tablet (20 mg) by mouth daily for 30 days. 3 of 3 Do not start before February 11, 2024. 30 Tablet 02/11/20 24 025 Discontinued amphetamine-dextr oamphetamine XR (ADDERALL XR) 20 MG 24 hour release capsuleIndication s:Attention deficit hyperactivity disorder (ADHD), predominantly inattentive type (HRC) Take 1 Capsule (20 mg) by mouth daily for 30 days. 1 of 3 30 Capsule 12/14/19 24 025 Discontinued amphetamine-dextr oamphetamine XR (ADDERALL XR) 20 MG 24 hour release capsuleIndication s:Attention deficit hyperactivity disorder (ADHD), predominantly inattentive type (HRC) Take 1 Capsule (20 mg) by mouth daily for 30 days. 2 of 3 Do not start before January 12, 2024. 30 Capsule 01/12/20 24 025 Discontinued amphetamine-dextr oamphetamine XR (ADDERALL XR) 20 MG 24 hour release capsuleIndication s:Attention deficit hyperactivity disorder (ADHD), predominantly inattentive type (HRC) Take 1 Capsule (20 mg) by mouth daily for 30 days. 3 of 3 Do not start before February 11, 2024. 30 Capsule 02/11/20 24 025 Discontinued LORazepam (ATIVAN) 0.5 MG tabletIndications :Attention deficit hyperactivity disorder (ADHD), predominantly inattentive type (HRC),Anxiety (HRC) Take 1-2 Tablets (0.5-1 mg) by mouth every 6 hours as needed for Anxiety. 20 Tablet 02/28/20 24 025 Discontinued(*M ed change OR same med OR reorder, new dose/directions ) amphetamine-dextr oamphetamine XR (ADDERALL XR) 20 MG 24 hour release capsule Take 1 Capsule (20 mg) by mouth daily for 30 days. 1 of 3 30 Capsule 02/28/20 24 025 Discontinued amphetamine-dextr oamphetamine XR (ADDERALL XR) 20 MG 24 hour release capsule Take 1 Capsule (20 mg) by mouth daily for 30 days. 2 of 3 Do not start before March 29, 2024. 30 Capsule 03/29/20 24 025 Discontinued amoxicillin-clavu lanate (AUGMENTIN) 875-125 mg per tabletIndications :Sinusitis, unspecified chronicity, unspecified location Take 1 Tablet by mouth two times a day for 7 days. 14 Tablet 05/02/19 25 025 Active Problems Problem Noted Date Diagnosed Date Smoker 06/01/2023 Overview (06/01/2023): 1/2 pack per day. Planning to quit. Essential hypertension 10/27/2022 Pancreatitis, acute 04/06/2022 Mixed anxiety and depressive disorder 12/15/2021 Pre-eclampsia 09/30/2021 Overview (10/26/2022): Without severe features, dx at 31.4, s/p BMZ 09/29 & 09/30. - Twice weekly BPPs - Weekly labs - Deliver 37 weeks, sooner if severe HSV (herpes simplex virus) infection 09/14/2019 Overview (11/05/2022): Last Assessment & Plan: Typical, oral. Pt practices universal condom avoidance. Recommend safe sex, additional STD screen Discussed at length. Tobacco dependence syndrome 08/02/2014 Overview (10/26/2022): Tobacco use disorder Episodic cluster headache 08/02/2014 Migraine headache 11/08/2012 Adjustment disorder with anxious mood 02/15/2012 Overview (10/26/2022): Adjustment disorder with anxiety Insomnia 04/14/2011 High triglycerides 06/12/2010 Mild intermittent asthma 06/04/2010 Wheezing 01/17/2007 Allergic rhinitis 01/17/2007 Overview (01/09/2015): Epic Bipolar I disorder, most rec ent episode (or current) manic, mild 08/25/2004 Overview (10/26/2022): feels depress but not suicidal Attention deficit hyperactiv ity disorder (ADHD), predominantly inattentive type 06/06/2004 Overview (10/26/2022): Attention deficit disorder without mention of hyperactivity Problem list name updated by automated process. Provider to review Resolved Problems Problem Noted Date Diagnosed Date Resolved Date Anxiety 01/04/2021 04/25/2024 Pneumonia due to infectious organism 01/04/2021 05/06/2023 Severe sepsis 01/04/2021 04/25/2024 Severe asthma with exacerbation 01/04/2021 04/25/2024 Acute pharyngitis 01/17/2007 04/25/2024 Current moderate episode of major depressive disorder 09/27/2023 Overview (09/27/2023): This problem was marked as resolved by a user in a SmartForm. Pure hyperglyceridemia 05/02 Overview (05/02/2024): This problem was marked as resolved by a user in a SmartForm. Obesity 05/02/2024 Overview (05/02/2024): This problem was marked as resolved by a user in a SmartForm. Encounters Date Type Department Care Team Description 05/19/2024 Refill [facility] [address] [facility]. [place] [address] Catalina Ferris, TEACHER THEATER ARTS, BUILDING CONSTRUCTION ESTIMATOR Refill (sertraline (ZOLOFT) 100 MG tablet [Pharmacy Med Name: SERTRALINE HCL 100 MG TABLET]) 05/04/2024 E-Visit [address] [place] [address] Mychart, Generic Provider 05/03/2024 Nurse Triage [address] [place] [address] Catalina Ferris, TEACHER THEATER ARTS, BUILDING CONSTRUCTION ESTIMATOR DEPRESSION 05/03/[address] [place] [address] Catalina Ferris, TEACHER THEATER ARTS, BUILDING CONSTRUCTION ESTIMATOR Letter 05/03/[address] [place] [address] Catalina Ferris, TEACHER THEATER ARTS, BUILDING CONSTRUCTION ESTIMATOR Refill 05/02/2024 10:00 AM FOREST LOGISTICS MANAGER Telemedicine [facility] [address] [facility] [address] [place] [address] Maximiliano Helms, PAWillC Sinusitis, unspecified chronicity, unspecified location (Primary Dx); Mild intermittent asthma without complication (HRC); High triglycerides (HRC); Essential hypertension (HRC); Insomnia, unspecified type; Mixed anxiety and depressive disorder (HRC); Smoker (HRC) 04/25/2024 8:30 AM FOREST LOGISTICS MANAGER Telemedicine [place] [address] [place] [address] [place] [phone] Janusz Yao MD Encounters for administrative purposes (Primary Dx) 02/22/[address] [place] [address] Catalina Ferris, TEACHER THEATER ARTS, BUILDING CONSTRUCTION ESTIMATOR Refill (LORazepam (ATIVAN) 0.5 MG tablet; amphetamine-dextroamphe tamine XR (ADDERALL XR) 20 MG 24 hour release capsule; amphetamine-dextroamphe tamine (ADDERALL) 20 MG tablet) 02/22/2024 Refill [facility] [address] [place] [address] Daniel Bhagat, CYNDIEC Refill (SUMAtriptan (IMITREX) 100 MG tablet [Pharmacy Med Name: SUMATRIPTAN SUCC 100 MG TABLET]) from Last 3 Months Immunizations Name Administration Dates Next Due 4vHPV (Gardasil) 12/25/2014,07/17/2014, 1 9vHPV (Gardasil 9) 12/25/2014,06/04/2010 DTP 07/27/1993, 0,01/03/1989,1988,1988 HepB Adult (Engerix-B, 20+ y rs, 3 dose series) 07/19/2000,02/29/2000,11/17/1999 HepB Ped/Adol (0-18 yrs) 07/19/2000,02/29/2000,0 11/17/1999 HepB, Unspecified Formulation 07/19/2000, 000,11/17/1999 Hib (ActHIB) 07/20/1990,01/20/1990 Hib (PedvaxHIB) 07/20/1990,01/20/1990 Hib, Unspecified Formulation 07/20/1990,01/20/19 90 Influenza (Flucelvax), Prese rv Free QIV 04/09/2021 Influenza IIV4 (Quadrivalent ) 0.5mL (79367) 03/29/2017,05/04/2016 Influenza, Unspecified Formulation 05/04/2016 Carla COVID-19 Vaccine 10/20/2020 MCV4 (Menactra) 11/30/2006 MMR 02/29/2000,10/13/1989 OPV, Trivalent (Orimune or tOPV) 994,01/20/1990,1988,1988 PPSV23 (Pneumovax) 11/03/2020 Td 02/29/2000 Td, Preservative Free 02/29/2000 Tdap 09/15/2021,11/03/2020,06/04/2010 Social History Tobacco Use Types Packs/Day Years Used Date Smoking Tobacco: Every Day Cigarettes Smokeless Tobacco: Never Tobacco Cessation:Ready to Q uit: Not Asked; Counseling Given: Not Answered Alcohol Use Standard Drinks/Week Comments Not Currently 0 (1 standard drink = 0.6 oz pur e alcohol) occ PHQ-2 Answer Date Recorded PHQ-2 Score 2 11/30/2023 Sex and Gender Information Value Date Recorded Sex Assigned at Not on file Gender Identity Not on file Sexual Orientation Not on file Last Filed Vital Signs Vital Sign Reading Time Taken Comments Blood Pressure 138/85 09/21/2023 1:43 PM CDT Pulse 92 09/21/2023 1:43 PM CDT Temperature 36.7 C (98 F) 09/21/2023 1:43 PM CDT Respiratory Rate 14 09/21/2023 1:43 PM CDT Oxygen Saturation 100% 09/21/2023 1:4 3 PM CDT Inhaled Oxygen Concentration - - Weight 74.8 kg (165 lb) 11/30/2023 12:2 4 PM CDT patient reported Height 167 cm (5' 5.75) 06/30/2023 10: 23 AM CDT Body Mass Index 26.84 06/30/2023 10:23 AM CDT Plan of Treatment Upcoming Encounters Date Type Department Care Team (Late st Contact Info) Description 06/08/2024 4:00 PM FOREST LOGISTICS MANAGER Telemedicine [facility] [address] [facility]. [place], [place] [address] Catalina Ferris, TEACHER THEATER ARTS, BUILDING CONSTRUCTION ESTIMATOR [address] [place] [address] Health Maintenance Due Date Last Done Comments Cervical Cancer Screening Due 1988 Adult Preventive Visit 2006 HepA (1 of 2 - Risk 2-dose series) 07/03/2007 Pneumococcal (2 - PCV) 11/03/2021 11/03/2020 COVID-19 Vaccine (2 - 2023-2 5 season) 2023 10/20/2020 Influenza (#1) 2023 04/09/2021, 03/11, 05/04/2016, Additional history exists Asthma ACT (score of 20 or higher) 09/19/20242023, 10/27/2022 Diabetes Screening- (based o n age and BMI) 10/27/2025 10/27/2022 DTaP/Tdap/Td (9 - Tdap) 09/16/2031 09/16/19, 11/03/2020, 06/04/2010, Additional history exists Zoster/Shingles (1 of 2) 2038 Hib Completed 07/20/1990, 07/10, 07/20/1990, Additional history exists IPV (Polio) Completed 07/27/1993, 01/09, 1988, Additional history exists HepB Completed 07/19/2000, 07/10, 07/19/2000, Additional history exists MCV4 Completed 11/30/2006 HPV Vaccine Completed 12/25/2014, 12/10, 07/17/2014, Additional history exists HIV Screening (Preventive Services) Completed 12/25/2022 Hep C Screening (Preventive Services) Completed 12/25/2022 Procedures Procedure Name Priority Date/Time Associated Diagnosis Comments HIV 1/2 AG/AB 4TH GEN Routine 12/25/2022 12:20 PM CDT Screening for HIV (human immunodeficiency virus) HEPATITIS C ANTIBODY, WITH REFLEX Routine 12/25/2022 12:20 PM CDT Need for hepatitis C screening test from Last 3 Months or Most Recently Relevant to Health Maintenance Results * HIV 1/2 Ag/Ab 4th Generation (12/25/2022 12:20 PM CDT) HIV 1/2 Antigen/Antib diane (4th generation) Negative (Non Reactive) Negative (Non Reactive) 12/25/2022 4:48 PM CDT [facility] Comment:HIV-1 p24 Antigen an d HIV-1/HIV-2 Antibody not detected Blood Venipuncture / Unknown 12/25/2022 12:20 PM CDT 12/25/2022 12:20 PM CDT Catalina Ferris TEACHER THEATER ARTS, BUILDING CONSTRUCTION ESTIMATOR LAB_1 [facility] [address] [place], [place] [id number] [place] [address] * Hepatitis C Antibody, with Reflex (12/25/2022 12:20 PM CDT) Hepatitis C Antibody Negative (Non Reactive) Negative (Non Reactive) 12/25/2022 4:48 PM CDT [facility] Comment:Antibodies to HCV no t detected. Does not exclude the possiblity of exposure to HCV. Blood Venipuncture / Unknown 12/25/2022 12:20 PM CDT 12/25/2022 12:20 PM CDT Catalina Kole Ferris TEACHER THEATER ARTS, SEPIDEH LAB_1 [facility] [address] from Last 3 Months or Most Recently Relevant to Health Maintenance Care Teams User Experience Lead Relationship Specialty Start Date End Date Catalina Ferris, TEACHER THEATER ARTS, BUILDING CONSTRUCTION ESTIMATOR [address] [place] [address] PCP - General Nurse Practitioner 06/01/23
--- OUTSIDE RECORDS SUMMARY | 2024-05-21 15:37 | XMS_ITS | Encounter Summary ---
Author Organization [place] Address [address] [place] [address] Care Team Providers Care Kiln Tender Name Role Phone Alexandru Ly MD Primary Car e Provider Paola Martell ECOLOGICAL ECONOMIST Primary Care Provider [phone] Paola Martell ECOLOGICAL ECONOMIST Primary Care Provider [phone] Janna Ball DO Primary Care Provider [phone] Davy Proctor PA-C Unavailable [phone] Paola Martell ECOLOGICAL ECONOMIST Unavailable [phone] Paola Martell ECOLOGICAL ECONOMIST Unavailable [phone] Paola Martell ECOLOGICAL ECONOMIST Unavailable [phone] Davy Proctor PA-C Unavailable [phone] Ana Herrera MD Unavailable Ana Herrera MD Primary Care Provider [phone] Lencho York MD Unavailable [phone] Ana Herrera MD Unavailable Tamara Ly Unavailable Unavailable Tamara Ly Unavailable Unavailable Vince Orourke MD Unavailable [phone] Jessica Goldberg MD Unavailable [phone] Jessica Goldberg MD Unavailable [phone] Vince Orourke MD Unavailable [phone] Hali Gabriel MD Unavailable +[phone] Ana Herrera MD Unavailable Stephanie Porras PA-C Unavailable [phone] System, Provider Not In Primary Care Provider Un available Clinic - [facility] Unavail able Reason for Visit * Reason Onset Date Comments Refill Request 10/26/2012 Encounter Details Date Type Department Care Team (Late st Contact Info) Description 10/26/2012 MyC Refill [address], [address] [place] [address] Alexandru Ly MD [facility] [address] [facility] [address] [place], [place] [id number] Refill Request Social History Tobacco Use Types [...] PM CDT Legal Sex Female 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 documented in this encounter Plan of Treatment Not on file documented as of this encounter Visit Diagnoses Diagnosis Migraine, unspecified, without mention of intractable migraine without mention of status migrainosus- Primary documented in this encounter Additional Health Concerns Infection Onset Date Last Indicated Resolved Time Rule Out COVID-19 03/05/2020 03/05/2020 03/06/2020 5:31 PM HOUSECLEANER Rule Out COVID-19 01/04/2021 01/04/2021 01/04/2021 4:13 AM CDT Rule Out COVID-19 09/28/2021 09/28/2021 09/28/2021 11:00 PM CDT Rule Out COVID-19 07/20/2023 07/20/2023 07/20/2023 12:33 PM CDT documented as of this encounter Care Teams Kiln Tender Relationship Specialty Start Date End Date Alexandru Ly MD PCP - General 08/09/02 11/22/16 Paola Martell ECOLOGICAL ECONOMIST PCP - General Nurse Practitioner - Family 11/23/16 11/09/17 Paola Martell ECOLOGICAL ECONOMIST PCP - General Nurse Practitioner - Family 11/14/17 02/08/18 Janna Ball DO PCP - General shuttle fixer 03/20/18 08/02/19 Davy Proctor PA-C [address] [place] [address] PCP - Assigned PCP 03/12/18 04/08/18 Paola Martell, ECOLOGICAL ECONOMIST [address] [place] [address] PCP - Assigned PCP 11/28/16 03/11/18 Paola Martell ECOLOGICAL ECONOMIST [address] [place] [address] PCP - Assigned PCP 04/09/18 06/13/18 [place] [address] [place], [place] [id number] PCP - General Family Practice 08/03/19 05/22/23 System, Provider Not In PCP - General Clinic 06/27/23 Paola Martell, VIRY [address] [place] [address] Assigned PCP 04/09/18 06/24/18 Davy Proctor PA-C [address] [place] [address] Assigned PCP 02/26/18 02/17/19 [place] [address] [place] [address] Assigned PCP 02/18/19 08/02/20 [place] [address] [place], [place] [id number] Assigned PCP 08/03/20 09/13/20 [place] [address] [place] [address] Assigned PCP 09/14/20 05/07/22 Tamara Ly Personal Advocate & Liaison (PAL) Family Medicine 09/24/20 Tamara Ly Personal Advocate & Liaison (PAL) Family Medicine 12/04/20 Vince Orourke MD [address] [place], [place] [address] Assigned OBGYN Provider 07/05/21 08/29/21 Jessica Goldberg MD [address] [place], [place] 320784 Assigned OBGYN Provider 08/30/21 10/30/21 Jessica Goldberg MD [address] [place], [place] 9[address] Assigned OBGYN Provider 11/07/21 02/18/23 Vince Orourke MD [address] [place], [place] [address] Assigned OBGYN Provider 10/31/21 11/06/21 [place] [address] [place], [place] [address] Assigned PCP 05/08/22 06/04/22 [place] [address] [place], [place] [address] Assigned PCP 06/05/22 07/09/22 Stephanie Porras PA-C [address] [place], [place] [address] Assigned PCP 07/10/22 03/02/24 [facility] - [address] [address] Assigned PCP 03/03/24 documented as of this encounter
--- OUTSIDE RECORDS SUMMARY | 2024-05-21 15:37 | XMS_ITS | Encounter Summary ---
Author Organization [place] Address [address] [place] [address] Care Team Providers Care Proprietary Trader Name Role Phone Alexandru Ly MD Primary Car e Provider Paola Martell POWER CUTTING MACHINE OPERATOR Primary Care Provider [phone] Paola Martell POWER CUTTING MACHINE OPERATOR Primary Care Provider [phone] Janna Ball DO Primary Care Provider [phone] Davy Proctor PA-C Unavailable [phone] Paola Martell POWER CUTTING MACHINE OPERATOR Unavailable [phone] Paola Martell POWER CUTTING MACHINE OPERATOR Unavailable [phone] Paola Martell POWER CUTTING MACHINE OPERATOR Unavailable [phone] Davy Proctor PA-C Unavailable [phone] Ana Herrera MD Unavailable Ana Herrera MD Primary Care Provider [phone] Lencho York MD Unavailable [phone] Ana Herrera MD Unavailable Tamara Ly Unavailable Unavailable Tamara Ly Unavailable Unavailable Vince Orourke MD Unavailable [phone] Jessica Goldberg MD Unavailable [phone] Jessica Goldberg MD Unavailable [phone] Vince Orourke MD Unavailable [phone] Hali Gabriel MD Unavailable [phone] Ana Herrera MD Unavailable Stephanie Porras PA-C Unavailable System, Provider Not In Primary Care Provider Un available Clinic - [facility] Unavail able Reason for Visit * Reason Onset Date Comments Medication Question 10/30/2013 Encounter Details Date Type Department Care Team (Late st Contact Info) Description 10/30/2013 MyC Medical Advice [facility] [address] [place] [address] Alexandru Ly MD [facility] [employer] [facility] [address] [place] [address] Medication Question Social History Tobacco Use Types Packs/Day Years [...] PM CDT Legal Sex Female 4:24 AM ADMISSIONS SPECIALIST Gender Identity Female 01/03/2021 12:47 PM [...] Out COVID-19 03/05/2020 03/05/2020 03/06/2020 5:31 PM ADMISSIONS SPECIALIST Rule Out COVID-19 01/04/2021 01/04/2021 01/04/2021 4:13 AM CDT Rule Out COVID-19 09/28/2021 09/28/2021 09/28/2021 11:00 PM CDT Rule Out COVID-19 07/20/2023 07/20/2023 07/20/2023 12:33 PM CDT documented as of this encounter Care Teams Proprietary Trader Relationship Specialty Start Date End Date Alexandru Ly MD PCP - General 08/09/02 11/22/16 Paola Martell, POWER CUTTING MACHINE OPERATOR PCP - General Nurse Practitioner - Family 11/23/16 11/09/17 Paola Martell, POWER CUTTING MACHINE OPERATOR PCP - General Nurse Practitioner - Family 11/14/17 02/08/18 Janna Ball DO PCP - General taxicab coordinator 03/20/18 08/02/19 Davy Proctor PA-C [address] [place] [address] PCP - Assigned PCP 03/12/18 04/08/18 Paola Martell, POWER CUTTING MACHINE OPERATOR [place] [address] [place] [address] PCP - Assigned PCP 11/28/16 03/11/18 Paola Martell, POWER CUTTING MACHINE OPERATOR [place] [address] [place] [id number] PCP - Assigned PCP 04/09/18 06/13/18 [place] [address] [place], [place] [id number] PCP - General Family Practice 08/03/19 05/22/23 System, Provider Not In PCP - General Clinic 06/27/23 Paola Martell, POWER CUTTING MACHINE OPERATOR [address] [place] [address] Assigned PCP 04/09/18 06/24/18 Davy Proctor PA-C [address] [place] [id number] Assigned PCP 02/26/18 02/17/19 [place] [address] [place], [place] [phone] Assigned PCP 02/18/19 08/02/20 [place] [address] [place], [place] [address] Assigned PCP 08/03/20 09/13/20 [place] [address] [place] [address] Assigned PCP 09/14/20 05/07/22 Tamara Ly Personal Advocate & Liaison (PAL) Family Medicine 09/24/20 Tamara Ly Personal Advocate & Liaison (PAL) Family Medicine 12/04/20 Vince Orourke MD [address] [place] [address] Assigned OBGYN Provider 07/05/21 08/29/21 Jessica Goldberg MD [address] [place] [address] Assigned OBGYN Provider 08/30/21 10/30/21 Jessica Goldberg MD [address] [place] [address] Assigned OBGYN Provider 11/07/21 02/18/23 Vince Orourke MD [address] [place] [address] Assigned OBGYN Provider 10/31/21 11/06/21 [place] [address] [place], [place] [address] Assigned PCP 05/08/22 06/04/22 [place] [address] [place], [place] [address] Assigned PCP 06/05/22 07/09/22 Stephanie Porras PA-C [address] [place] [address] Assigned PCP 07/10/22 03/02/24 [facility] [address] [facility] [address] Assigned PCP 03/03/24 documented as of this encounter
--- OUTSIDE RECORDS SUMMARY | 2024-05-21 15:37 | XMS_ITS | Encounter Summary ---
Author Organization [place] Address [address] [place] [address] Care Team Providers Care Contact And Service Clerks Supervisor Name Role Phone Alexandru Ly MD Primary Car e Provider Paola Martell MANAGER VEHICLE Primary Care Provider [phone] Paola Martell MANAGER VEHICLE Primary Care Provider [phone] Janna Ball DO Primary Care Provider [phone] Davy Proctor PA-C Unavailable [phone] Paola Martell MANAGER VEHICLE Unavailable [phone] Paola Martell MANAGER VEHICLE Unavailable [phone] Paola Martell MANAGER VEHICLE Unavailable [phone] Davy Proctor PA-C Unavailable [phone] Ana Herrera MD Unavailable Ana Herrera MD Primary Care Provider [phone] Lencho York MD Unavailable [phone] Ana Herrera MD Unavailable Tamara Ly Unavailable Unavailable Tamara Ly Unavailable Unavailable Vince Orourke MD Unavailable [phone] Jessica Goldberg MD Unavailable [phone] Jessica Goldberg MD Unavailable [phone] Vince Orourke MD Unavailable [phone] Hali Gabriel MD Unavailable [phone] Ana Herrera MD Unavailable Stephanie Porras PA-C Unavailable System, Provider Not In Primary Care Provider Un available Clinic - [facility] Unavail able Reason for Visit * Reason Onset Date Comments Headache 12/27/2012 Encounter Details Date Type Department Care Team (Late st Contact Info) Description 12/27/2012 MyC Medical Advice [address], [address] [place] [address] Alexandru Ly MD [facility] [address] [place] [address] Headache Social History Tobacco Use Types Packs/Day Years [...] PM CDT Legal Sex Female 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 Gender Identity Female 01/03/2021 12:47 PM CDT Sexual Orientation Straight 01/03/2021 12 :47 PM CDT documented as of this encounter Plan of Treatment Not on file documented as of this encounter Visit Diagnoses Not on filedocumented in this encounter Additional Health Concerns Infection Onset Date Last Indicated Resolved Time Rule Out COVID-19 03/05/2020 03/05/2020 03/06/2020 5:31 PM POWDER LINE REPAIRER Rule Out COVID-19 01/04/2021 01/04/2021 01/04/2021 4:13 AM CDT Rule Out COVID-19 09/28/2021 09/28/2021 09/28/2021 11:00 PM CDT Rule Out COVID-19 07/20/2023 07/20/2023 07/20/2023 12:33 PM CDT documented as of this encounter Care Teams Contact And Service Clerks Supervisor Relationship Specialty Start Date End Date Alexandru Ly MD PCP - General 08/09/02 11/22/16 Paola Martell, MANAGER VEHICLE PCP - General Nurse Practitioner - Family 11/23/16 11/09/17 Paola Martell, MANAGER VEHICLE PCP - General Nurse Practitioner - Family 11/14/17 02/08/18 Janna Ball DO PCP - General administrative sales assistant 03/20/18 08/02/19 Davy Proctor PA-C [address] [place] [address] PCP - Assigned PCP 03/12/18 04/08/18 Paola Martell, MANAGER VEHICLE [address] [place] [address] PCP - Assigned PCP 11/28/16 03/11/18 Paola Martell, MANAGER VEHICLE [address] [address] PCP - Assigned PCP 04/09/18 06/13/18 [place] [address] [place] [address] PCP - General Family Practice 08/03/19 05/22/23 System, Provider Not In PCP - General Clinic 06/27/23 Paola Martell MANAGER VEHICLE [address] [address] Assigned PCP 04/09/18 06/24/18 Davy Proctor PA-C [address] [place] [address] Assigned PCP 02/26/18 02/17/19 [place] [address] [place], [place] [address] Assigned PCP 02/18/19 08/02/20 [place] [address] [place] [address] Assigned PCP 08/03/20 09/13/20 [place] [address] [place], [place] [id number] Assigned PCP 09/14/20 05/07/22 Tamara Ly Personal Advocate & Liaison (PAL) Family Medicine 09/24/20 Tamara Ly Personal Advocate & Liaison (PAL) Family Medicine 12/04/20 Vince Orourke MD [address] [place] [address] Assigned OBGYN Provider 07/05/21 08/29/21 Jessica Goldberg MD [address] [place] [address] Assigned OBGYN Provider 08/30/21 10/30/21 Jessica Goldberg MD [address] [place] [address] 400 [place] [address] Assigned OBGYN Provider 11/07/21 02/18/23 Vince Orourke MD [address] [facility] [facility] 400 [place], [place] [address] Assigned OBGYN Provider 10/31/21 11/06/21 [place] [address] [place], [place] [id number] Assigned PCP 05/08/22 06/04/22 [place] [address] [place] [address] Assigned PCP 06/05/22 07/09/22 Stephanie Porras PA-C [address] [facility] 200 [place] [address] Assigned PCP 07/10/22 03/02/24 [facility] [address] [place] [address] Assigned PCP 03/03/24 documented as of this encounter
--- OUTSIDE RECORDS SUMMARY | 2024-05-21 15:37 | XMS_ITS | Encounter Summary ---
Author Organization [place] Address [address] [place] [address] Care Team Providers Care Therapist Rrt Name Role Phone Ana Herrera MD Primary Care Provider [phone] Ana Herrera MD Unavailable Tamara Ly Unavailable Unavailable Tamara Ly Unavailable Unavailable Jessica Goldberg MD Unavailable [phone] Jessica Goldberg MD Unavailable [phone] Vince Orourke MD Unavailable Coming Hali Theodore MD Unavailable [phone] Ana Herrera MD Unavailable Stephanie Porras PA-C Unavailable System, Provider Not In Primary Care Provider Un available Clinic - [facility] Unavail able Encounter Details Date Type Department Care Team (Late st Contact Info) Description 10/21/2021 Orders Only [facility] [address] [address] Tita Hernandez MD [address] [place] [address] [address] [place] [address] Pre-operative examination (Primary Dx) Social History Tobacco Use Types Packs/Day Years Used Date Smoking Tobacco: Every Day Cigarettes Smokeless Tobacco: Never Comments:1/2 ppd, tried quit ting Alcohol Use Standard Drinks/Week Comments Yes 0 (1 standard drink = 0.6 oz pur e alcohol) 5-6x day PHQ-2 Answer Date Recorded PHQ-2 Score 4 01/06/2021 Comments Yes Sex and Gender Information Value Date Recorded Sex Assigned at Female 01/03/2021 12:47 PM CDT 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 No / Unsure 10/24/2021 8:37 AM CDT documented as of this encounter Plan of Treatment Not on file documented as of this encounter Visit Diagnoses Diagnosis Pre-operative examination- Primary Preoperative examination, unspecified documented in this encounter Additional Health Concerns Infection Onset Date Last Indicated Resolved Time Rule Out COVID-19 07/20/2023 07/20/2023 07/20/2023 12:33 PM CDT Assessment Noted Time PHQ-9 Depression Total Score: 8 01/08/20 21 7:01 AM CDT documented as of this encounter Care Teams Therapist Rrt Relationship Specialty [place] [address] [place] [address] PCP - General Family Practice 08/03/19 05/22/23 System, Provider Not In PCP - General Clinic 06/27/23 [place] [address] [place] [address] Assigned PCP 09/14/20 05/07/22 Tamara Ly Personal Advocate & Liaison (PAL) Family Medicine 09/24/20 Tamara Ly Personal Advocate & Liaison (PAL) Family Medicine 12/04/20 Jessica Goldberg MD [address] [place] [address] Assigned OBGYN Provider 08/30/21 Jessica Goldberg MD [address] [place] [address] Assigned OBGYN Provider 11/07/2102/18 Vince Orourke MD [address] [place], [place] [address]494 Assigned OBGYN Provider 10/31/21 [place] [address] [place], [place] [address] Assigned PCP 05/08/22 06/04/22 [place] [address] [place] [address] Assigned PCP 06/05/22 07/09/22 Stephanie Porras PA-C [address] [facility] [address] [address] [place] [address] Assigned PCP 07/10/22 03/02/24 [facility] [address] [place] [address] Assigned PCP 03/03/24 documented as of this encounter
--- OUTSIDE RECORDS SUMMARY | 2024-05-21 15:37 | XMS_ITS | Encounter Summary ---
Author Organization [place] Address [address] [place] [address] Care Team Providers Care Spray Ii Painter Name Role Phone Paola Martell FRONT END ARCHITECT Primary Care Provider [phone] Paola Martell FRONT END ARCHITECT Primary Care Provider [phone] Janna Ball DO Primary Care Provider [phone] Davy Proctor PA-C Unavailable [phone] Paola Martell FRONT END ARCHITECT Unavailable [phone] Paola Martell FRONT END ARCHITECT Unavailable Paola Martell FRONT END ARCHITECT Unavailable [phone] Davy Proctor PA-C Unavailable [phone] Ana Herrera MD Unavailable Ana Herrera MD Primary Care Provider Lencho York MD Unavailable [phone] Ana Herrera MD Unavailable Tamara Ly Unavailable Unavailable Tamara Ly Unavailable Unavailable Vince Orourke MD Unavailable + Jessica Goldberg MD Unavailable + [phone] Jessica Goldberg MD Unavailable + [phone] Vince Orourke MD Unavailable [phone] Hali Theodore MD Unavailable [phone] Ana Herrera MD Unavailable Stephanie Porras PA-C Unavailable System, Provider Not In Primary Care Provider Un available Clinic - [facility] Unavail able Reason for Visit * Reason Onset Date Comments MyChart Communication 12/28/2016 Encounter Details Date Type Department Care Team (Late st Contact Info) Description 12/28/2016 MyC Medical Advice [address] [address] Paola Martell, V[facility] & [address] [place] [address] MyChart Communication Social History Tobacco [...] PM CDT Legal Sex Female 4:24 AM SERVICE DESK DIRECTOR Gender Identity Female 01/03/2021 12:47 PM CDT Sexual Orientation Straight 01/03/2021 12 :47 PM CDT documented as of this encounter Plan of Treatment Not on file documented as of this encounter Visit Diagnoses Not on filedocumented in this encounter Additional Health Concerns Infection Onset Date Last Indicated Resolved Time Rule Out COVID-19 03/05/2020 03/05/2020 03/06/2020 5:31 PM SERVICE DESK DIRECTOR Rule Out COVID-19 01/04/2021 01/04/2021 01/04/2021 4:13 AM CDT Rule Out COVID-19 09/28/2021 09/28/2021 09/28/2021 11:00 PM CDT Rule Out COVID-19 07/20/2023 07/20/2023 07/20/2023 12:33 PM CDT documented as of this encounter Care Teams Spray Ii Painter Relationship Specialty Start Date End Date Paola Martell, FRONT END ARCHITECT PCP - General Nurse Practitioner - Family 11/23/16 11/09/17 Paola Martell, FRONT END ARCHITECT PCP - General Nurse Practitioner - Family 11/14/17 02/08/18 Janna Ball DO PCP - General tool and die maker/designer 03/20/18 08/02/19 Davy Proctor PA-C [address] [place] [address] PCP - Assigned PCP 03/12/18 04/08/18 Paola Martell, FRONT END ARCHITECT [address] [facility] [address] PCP - Assigned PCP 11/28/16 03/11/18 Paola Martell, FRONT END ARCHITECT [address] [place] [address] PCP - Assigned PCP 04/09/18 06/13/18 [place] [address] [place] [address] PCP - General Family Practice 08/03/19 05/22/23 System, Provider Not In PCP - General Clinic 06/27/23 Paola Martell, FRONT END ARCHITECT [address] [place] [address] Assigned PCP 04/09/18 06/24/18 Davy Proctor PA-C [address] [place] [address] [id number] Assigned PCP 02/26/18 02/17/19 [place] [address] [place], [place] [id number] Assigned PCP 02/18/19 08/02/20 [place] [address] [place], [place] [id number] Assigned PCP 08/03/20 09/13/20 [place] [address] [place], [place] 86224124 Assigned PCP 09/14/20 05/07/22 Tamara Ly Personal Advocate & Liaison (PAL) Family Medicine 09/24/20 Tamara Ly Personal Advocate & Liaison (PAL) Family Medicine 12/04/20 Vince Orourke MD [address] [place], [place] [address]144 Assigned OBGYN Provider 07/05/21 Jessica Goldberg MD [address] [place], [place] [address] Assigned OBGYN Provider 08/30/21 Jessica Goldberg MD [address] [place], [place] [address] Assigned OBGYN Provider 11/07/2102/18 Vince Orourke MD [address] [place] [address] [address] [place], [place] 224884 Assigned OBGYN Provider 10/31/21 [place] [address] [place], [place] [address] Assigned PCP 05/08/22 06/04/22 [place] [address] [place], [place] [id number] Assigned PCP 06/05/22 07/09/22 Stephanie Porras PA-C [address] [facility] 200 [place], [place] 029855 Assigned PCP 07/10/22 03/02/24 [facility] [address] [place], [place] [phone] Assigned PCP 03/03/24 documented as of this encounter
--- OUTSIDE RECORDS SUMMARY | 2024-05-21 15:37 | XMS_ITS | Encounter Summary ---
Author Organization [facility] Address [address] [place] [address] Care Team Providers Care Supervisor Carbon Paper Coating Name Role Phone Alexandru Ly MD Primary Car e Provider Paola Martell WOMEN'S HEALTH CARE NURSE PRACTITIONER Primary Care Provider [phone] Paola Martell WOMEN'S HEALTH CARE NURSE PRACTITIONER Primary Care Provider [phone] Janna Ball DO Primary Care Provider [phone] Davy Proctor PA-C Unavailable [phone] Paola Martell WOMEN'S HEALTH CARE NURSE PRACTITIONER Unavailable [phone] Paola Martell WOMEN'S HEALTH CARE NURSE PRACTITIONER Unavailable [phone] Paola Martell WOMEN'S HEALTH CARE NURSE PRACTITIONER Unavailable [phone] Davy Proctor PA-C Unavailable [phone] Ana Herrera MD Unavailable Ana Herrera MD Primary Care Provider [phone] Lencho York MD Unavailable [phone] Ana Herrera MD Unavailable Tamara Ly Unavailable Unavailable Tamara Ly Unavailable Unavailable Vince Orourke MD Unavailable [phone] Jessica Goldberg MD Unavailable [phone] Jessica Goldberg MD Unavailable [phone] Vince Orourke MD Unavailable [phone] Hali Gabriel MD Unavailable [phone] Ana Herrera MD Unavailable Stephanie Porras PA-C Unavailable System, Provider Not In Primary Care Provider Un available Clinic - [facility] Unavail able Reason for Visit * Reason Onset Date Comments MyChart Communication 10/24/2012 Results 10/24/2012 U/S Encounter Details Date Type Department Care Team (Late st Contact Info) Description 10/24/2012 MyC Medical Advice [facility] Women's [address] [place] [address] Lencho Billingsley MD NO INFO AVAILABLE 11/02/22 MyChart Communication; Results (U/S) Social History Tobacco Use Types Packs/Day Years [...] PM CDT Legal Sex Female 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 Pt was advised MD out of office today and will return tomorrow. Minnie Aguilar RN documented in this encounter Plan of Treatment Not on file documented as of this encounter Visit Diagnoses Not on filedocumented in this encounter Additional Health Concerns Infection Onset Date Last Indicated Resolved Time Rule Out COVID-19 03/05/2020 03/05/2020 03/06/2020 5:31 PM SALESPERSON MEN'S AND BOYS' CLOTHING Rule Out COVID-19 01/04/2021 01/04/2021 01/04/2021 4:13 AM CDT Rule Out COVID-19 09/28/2021 09/28/2021 09/28/2021 11:00 PM CDT Rule Out COVID-19 07/20/2023 07/20/2023 07/20/2023 12:33 PM CDT documented as of this encounter Care Teams Supervisor Carbon Paper Coating Relationship Specialty Start Date End Date Alexandru Ly MD PCP - General 08/09/02 11/22/16 Paola Martell, WOMEN'S HEALTH CARE NURSE PRACTITIONER PCP - General Nurse Practitioner - Family 11/23/16 11/09/17 Paola Martell, WOMEN'S HEALTH CARE NURSE PRACTITIONER PCP - General Nurse Practitioner - Family 11/14/17 02/08/18 Janna Ball DO PCP - General pediatric surgeon 03/20/18 08/02/19 Davy Proctor PA-C [address] [place] [address] PCP - Assigned PCP 03/12/18 04/08/18 Paola Martell, WOMEN'S HEALTH CARE NURSE PRACTITIONER [address] [place] [address] PCP - Assigned PCP 11/28/16 03/11/18 Paola Martell, WOMEN'S HEALTH CARE NURSE PRACTITIONER [address] [place] [address] PCP - Assigned PCP 04/09/18 06/13/18 [place] [address] [place] [address] PCP - General Family Practice 08/03/19 05/22/23 System, Provider Not In PCP - General Clinic 06/27/23 Paola Martell WOMEN'S HEALTH CARE NURSE PRACTITIONER [address] [place] [address] Assigned PCP 04/09/18 06/24/18 Davy Proctor PA-C [address] [place] [address] [id number] Assigned PCP 02/26/18 02/17/19 [place] [address] [place], [place] [id number] Assigned PCP 02/18/19 08/02/20 [place] [address] [place] [address] Assigned PCP 08/03/20 09/13/20 [place] [address] [place] [address] Assigned PCP 09/14/20 05/07/22 Tamara Ly Personal Advocate & Liaison (PAL) Family Medicine 09/24/20 Tamara Ly Personal Advocate & Liaison (PAL) Family Medicine 12/04/20 Vince Orourke MD [address] [place] [address] Assigned OBGYN Provider 07/05/21 08/29/21 Jessica Goldberg MD [address] [place] [address] Assigned OBGYN Provider 08/30/21 10/30/21 Jessica Goldberg MD [address] [place] [address] Assigned OBGYN Provider 11/07/21 02/18/23 Vince Orourke MD [address] [place] [address] Assigned OBGYN Provider 10/31/21 11/06/21 [facility] [place] [address] [place] [address] Assigned PCP 05/08/22 06/04/22 [place] [address] [place] [address] Assigned PCP 06/05/22 07/09/22 Stephanie Porras PA-C [address] [place] [address] Assigned PCP 07/10/22 03/02/24 [facility] [address] [place] [address] Assigned PCP 03/03/24 documented as of this encounter
--- OUTSIDE RECORDS SUMMARY | 2024-05-21 15:37 | XMS_ITS | Encounter Summary ---
Author Organization [email or web address] Address [address], [place] [address] Care Team Providers Care Job Site Supervisor Name Role Phone Catalina Ferris APRN, SEPIDEH Primary Care Provid er Reason for Visit * Reason Comments Refill sertraline (ZOLOFT) 100 MG tablet [Pharmacy Med Name: SERTRALINE HCL 100 MG TABLET] Encounter Details Date Type Department Care Team (Late Contact Info) Description 05/19/2024 Refill [facility] [address] [facility] [place], [place] [id number] Catalina Ferris APRN, COLLECTION SYSTEMS TECHNICIAN [address] [place], [place] [address] Refill (sertraline (ZOLOFT) 100 MG tablet [Pharmacy Med Name: SERTRALINE HCL 100 MG TABLET]) Social History Tobacco Use Types Packs/Day Years [...] st Contact Info) Description 06/08/2024 4:00 PM PIPE LINER Telemedicine [facility] [address] [facility] [address] Catalina Ferris APRN, SEPIDEH [address] [place] [address] documented as of this encounter Visit Diagnoses Diagnosis Anxiety (HRC) Anxiety state, unspecified Current moderate episode of major depressive disorder, unspecified whether recurrent (HRC) documented in this encounter Care Teams Job Site Supervisor Relationship Specialty Start Date End Date Catalina Ferris APRN, SEPIDEH [address] [place] [address] [place] [address] PCP - General Nurse Practitioner 06/01/23 documented as of this encounter
--- OUTSIDE RECORDS SUMMARY | 2024-05-21 15:37 | XMS_ITS | Encounter Summary ---
Author Organization [facility] Address [address] [place] [address] Care Team Providers Care Warehouse Distribution Manager Name Role Phone Alexandru Ly MD Primary Car e Provider Paola Martell BLACK TOP ROLLER Primary Care Provider [phone] Paola Martell BLACK TOP ROLLER Primary Care Provider [phone] Janna Ball DO Primary Care Provider [phone] Davy Proctor PA-C Unavailable [phone] Paola Martell BLACK TOP ROLLER Unavailable [phone] Paola Mratell BLACK TOP ROLLER Unavailable [phone] Paola Martell BLACK TOP ROLLER Unavailable [phone] Davy Proctor PA-C Unavailable [phone] Ana Herrera MD Unavailable Ana Herrera MD Primary Care Provider [phone] Lencho York MD Unavailable [phone] Ana Herrera MD Unavailable Tamara Ly Unavailable Unavailable Tamara Ly Unavailable Unavailable Vince Orourke MD Unavailable [phone] Jessica Goldberg MD Unavailable [phone] Jessica Goldberg MD Unavailable [phone] Vince Orourke MD Unavailable [phone] Hali Gabriel MD Unavailable [phone] Ana Herrera MD Unavailable Stephanie Porras PA-C Unavailable [phone] System, Provider Not In Primary Care Provider Un available Clinic - [facility] Unavail able Reason for Visit * Reason Onset Date Comments Lab Result Notice 10/05/2012 Lab results Encounter Details Date Type Department Care Team (Late st Contact Info) Description 10/05/2012 MyC Medical Advice [address], [address] [place] [address] [place] [address] [place] [address] Lab Result Notice (Lab results) Social History Tobacco Use Types Packs/Day Years [...] PM CDT Legal 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 Gender Identity Female 01/03/2021 12:47 PM CDT Sexual Orientation Straight 01/03/2021 12 :47 PM CDT documented as of this encounter Plan of Treatment Not on file documented as of this encounter Visit Diagnoses Not on filedocumented in this encounter Additional Health Concerns Infection Onset Date Last Indicated Resolved Time Rule Out COVID-19 03/05/2020 03/05/2020 03/06/2020 5:31 PM FIRE CONTROL TECHNICIAN Rule Out COVID-19 01/04/2021 01/04/2021 01/04/2021 4:13 AM CDT Rule Out COVID-19 09/28/2021 09/28/2021 09/28/2021 11:00 PM CDT Rule Out COVID-19 07/20/2023 07/20/2023 07/20/2023 12:33 PM CDT documented as of this encounter Care Teams Warehouse Distribution Manager Relationship Specialty Start Date End Date Alexandru Ly MD PCP - General 08/09/02 11/22/16 Paola Martell, BLACK TOP ROLLER PCP - General Nurse Practitioner - Family 11/23/16 11/09/17 Paola Martell, BLACK TOP ROLLER PCP - General Nurse Practitioner - Family 11/14/17 02/08/18 Janna Ball DO PCP - General healthcare consulting manager 03/20/18 08/02/19 Davy Proctor PA-C [address] [place] [address] [id number] PCP - Assigned PCP 03/12/18 04/08/18 Paola Martell, BLACK TOP ROLLER [address] [place] [address] PCP - Assigned PCP 11/28/16 03/11/18 Paola Martell, BLACK TOP ROLLER [address] [place] [address] PCP - Assigned PCP 04/09/18 06/13/18 [place] [address] [place] [address] PCP - General Family Practice 08/03/19 05/22/23 System, Provider Not In PCP - General Clinic 06/27/23 aPola Martell BLACK TOP ROLLER [address] [address] Assigned PCP 04/09/18 06/24/18 Davy Proctor PA-C [address] [place] [address] Assigned PCP 02/26/18 02/17/19 [place] [address] [place], [place] [id number] Assigned PCP 02/18/19 08/02/20 [place] [address] [place], [place] [id number] Assigned PCP 08/03/20 09/13/20 [place] [address] [place], [place] [id number] Assigned PCP 09/14/20 05/07/22 Tamara Ly Personal Advocate & Liaison (PAL) Family Medicine 09/24/20 Tamara Ly Personal Advocate & Liaison (PAL) Family Medicine 12/04/20 Vince Orourke MD [address] [place] [address] Assigned OBGYN Provider 07/05/21 08/29/21 Jessica Goldberg MD [address] [place] [address] Assigned OBGYN Provider 08/30/21 10/30/21 Jessica Goldberg MD [address] [place], [place] [address] Assigned OBGYN Provider 11/07/21 02/18/23 Vince Orourke MD [address] [place], [place] [address] Assigned OBGYN Provider 10/31/21 11/06/21 [place] [address] [place], [place] 360[address] Assigned PCP 05/08/22 06/04/22 [place] [address] [place] [address] Assigned PCP 06/05/22 07/09/22 Stephanie Porras PA-C [address] [facility] [address] [place] [address] Assigned PCP 07/10/22 03/02/24 [facility] [address] [place] [address] Assigned PCP 03/03/24 documented as of this encounter
--- OUTSIDE RECORDS SUMMARY | 2024-05-21 15:37 | XMS_ITS | Encounter Summary ---
Author Organization [facility] Address [address] [place] [address] Care Team Providers Care Business Applications Analyst Name Role Phone Josy Catalina Kole SCOTT, SEPIDEH Primary Care Provid er Reason for Visit * Reason Onset Date Comments No Show 04/25/2024 Encounter Details Date Type Department Care Team (Latest Contact Info) Description 04/25/2024 8:30 AM QUALITY ASSURANCE Telemedicine [facility] [address] [facility] [id number] [place] [address] [place] [address] [place], [place] [phone] Encounters for administrative purposes (Primary Dx) Social History Tobacco Use Types [...] on file documented as of this encounter Progress Notes * Janusz Yao MD - 04/25/2024 8:30 AM CST Patient was called/texted 3 times and was unable to be reached to complete their video/phone visit. ITY ASSURANCE documented in this encounter Plan of Treatment Upcoming Encounters Date Type Department Care Team (Late st Contact Info) Description 06/08/2024 4:00 PM QUALITY ASSURANCE Telemedicine [facility] [address] [facility] [place] [address] Catalina Ferris APRN, CNP [address] [place] [address] documented as of this encounter Visit Diagnoses Diagnosis Encounters for administrative purposes- Primary Encounters for unspecified administrative purpose documented in this encounter Care Teams Business Applications Analyst Relationship Specialty Start Date End Date Catalina Ferris APRN, SEPIDEH [address] [place] [address] PCP - General Nurse Practitioner 06/01/23 documented as of this encounter
--- OUTSIDE RECORDS SUMMARY | 2024-05-21 15:37 | XMS_ITS | Encounter Summary ---
Author Organization [facility] Address [address] [place] [address] Care Team Providers Care Fur Buyer Name Role Phone Alexandru Ly MD Primary Car e Provider Paola Martell PLASTER DIE MAKER Primary Care Provider [phone] Paola Martell PLASTER DIE MAKER Primary Care Provider [phone] Janna Ball DO Primary Care Provider [phone] Davy Proctor PA-C Unavailable [phone] Paola Martell PLASTER DIE MAKER Unavailable [phone] Paola Martell PLASTER DIE MAKER Unavailable [phone] Paola Martell PLASTER DIE MAKER Unavailable Davy Proctor PA-C Unavailable [phone] Ana Herrera MD Unavailable Ana Herrera MD Primary Care Provider [phone] Lencho York MD Unavailable [phone] Ana Herrera MD Unavailable Tamara Ly Unavailable Unavailable Tamara Ly Unavailable Unavailable Vince Orourke MD Unavailable [phone] Jessica Goldberg MD Unavailable [phone] Jessica Goldberg MD Unavailable [phone] Vince Orourke MD Unavailable [phone] Hali Gabriel MD Unavailable [phone] Ana Herrera MD Unavailable Stephanie Porras PA-C Unavailable [phone] System, Provider Not In Primary Care Provider Un available Clinic - [facility] Unavail able Reason for Visit * Reason Onset Date Comments Lab Result Notice 10/03/2012 Lab results Encounter Details Date Type Department Care Team (Late st Contact Info) Description 10/03/2012 MyC Medical Advice [address], [address] [place] [address] [place] [address] [place] [address] Lab Result Notice (Lab results) [...] PM CDT Legal 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 Female 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 Gender Identity Female 01/03/2021 12:47 PM CDT Sexual Orientation Straight 01/03/2021 12 :47 PM CDT documented as of this encounter Miscellaneous Notes * Telephone Encounter - Desi Wallace MD - 10/05/2012 7:37 AM CDT Lets start with the ultrasound, then the TORPEDO WORKER referral if needed documented in this encounter Plan of Treatment Not on file documented as of this encounter Visit Diagnoses Diagnosis Female pelvic pain- Primary Unspecified symptom associated with female genital organs documented in this encounter Additional Health Concerns Infection Onset Date Last Indicated Resolved Time Rule Out COVID-19 03/05/2020 03/05/2020 03/06/2020 5:31 PM STITCHING DEPARTMENT SUPERVISOR Rule Out COVID-19 01/04/2021 01/04/2021 01/04/2021 4:13 AM CDT Rule Out COVID-19 09/28/2021 09/28/2021 09/28/2021 11:00 PM CDT Rule Out COVID-19 07/20/2023 07/20/2023 07/20/2023 12:33 PM CDT documented as of this encounter Care Teams Fur Buyer Relationship Specialty Start Date End Date Alexandru Ly MD PCP - General 08/09/02 11/22/16 Paola Martell, PLASTER DIE MAKER PCP - General Nurse Practitioner - Family 11/23/16 11/09/17 Paola Martell, PLASTER DIE MAKER PCP - General Nurse Practitioner - Family 11/14/17 02/08/18 Janna Ball DO PCP - General patent prosecution paralegal 03/20/18 08/02/19 Davy Proctor PA-C [address] [place] [address] PCP - Assigned PCP 03/12/18 04/08/18 Paola Martell, PLASTER DIE MAKER [address] [address] PCP - Assigned PCP 11/28/16 03/11/18 Paola Martell, PLASTER DIE MAKER [address] [place] [address] PCP - Assigned PCP 04/09/18 06/13/18 [place] [address] [place] [address] PCP - General Family Practice 08/03/19 05/22/23 System, Provider Not In PCP - General Clinic 06/27/23 Paola Martell, PLASTER DIE MAKER [address] [place] [address] Assigned PCP 04/09/18 06/24/18 Davy Proctor PA-C [address] [place] [address] [id number] Assigned PCP 02/26/18 02/17/19 [place] [address] [place], [place] [address] Assigned PCP 02/18/19 08/02/20 [place] [address] [place] [address] Assigned PCP 08/03/20 09/13/20 [place] [address] [place] [address] Assigned PCP 09/14/20 05/07/22 Tamara Ly Personal Advocate & Liaison (PAL) Family Medicine 09/24/20 Tamara Ly Personal Advocate & Liaison (PAL) Family Medicine 12/04/20 Vince Orourke MD [address] [place] [address] Assigned OBGYN Provider 07/05/21 08/29/21 Jessica Goldberg MD [address] [place] [address] Assigned OBGYN Provider 08/30/21 10/30/21 Jessica Goldberg MD [address] [place] [address] Assigned OBGYN Provider 11/07/21 02/18/23 Vince Orourke MD [address] [place] [address] Assigned OBGYN Provider 10/31/21 11/06/21 [place] [address] [place] [address] Assigned PCP 05/08/22 06/04/22 [place] [address] [place] [address] Assigned PCP 06/05/22 07/09/22 Stephanie Porras PA-C [address] [facility] [address] [place] [address] Assigned PCP 07/10/22 03/02/24 [facility] [address] [place] [address] Assigned PCP 03/03/24 documented as of this encounter
--- OUTSIDE RECORDS SUMMARY | 2024-05-21 15:37 | XMS_ITS | Encounter Summary ---
Author Organization [facility] Address [address] [place] [address] Care Team Providers Care Private Investigator Surveillance Name Role Phone Alexandru Ly MD Primary Car e Provider Paola Martell CLASSIFICATION CONTROL CLERK Primary Care Provider [phone] Paola Martell CLASSIFICATION CONTROL CLERK Primary Care Provider [phone] Janna Ball DO Primary Care Provider [phone] Davy Proctor PA-C Unavailable [phone] Paola Martell CLASSIFICATION CONTROL CLERK Unavailable [phone] Paola Martell CLASSIFICATION CONTROL CLERK Unavailable [phone] Paola Martell CLASSIFICATION CONTROL CLERK Unavailable [phone] Davy Proctor PA-C Unavailable [phone] Ana Herrera MD Unavailable Ana Herrera MD Primary Care Provider [phone] Lencho York MD Unavailable [phone] Ana Herrera MD Unavailable Tamara Ly Unavailable Unavailable Tamara Ly Unavailable Unavailable Vince Orourke MD Unavailable [phone] Jessica Goldberg MD Unavailable [phone] Jessica Goldberg MD Unavailable [phone] Vince Orourke MD Unavailable [phone] Hali Gabriel MD Unavailable [phone] Ana Herrera MD Unavailable Stephanie Porras PA-C Unavailable [phone] System, Provider Not In Primary Care Provider Un available Clinic - [facility] Unavail able Encounter Details Date Type Department Care Team (Late st Contact Info) Description 10/26/2012 MyC Medical Advice [address] [address] Lencho Billingsley MD NO INFO AVAILABLE 11/02/22 Social History Tobacco Use Types Packs/Day Years [...] PM CDT Legal Sex Female 4:24 AM CLOTH TRIMMER 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 Oliva Gutierrez RN * Telephone Encounter - Lencho Billingsley - 10/26/2012 4:01 PM CDT See Mychart message * Telephone Encounter - Tyra Gutierrez - 10/26/2012 11:28 AM CDT Please address the my chart message. Also my chart message from 10/24/12. Oliva Gutierrez RN documented in this encounter Plan of Treatment Not on file documented as of this encounter Visit Diagnoses Not on filedocumented in this encounter Additional Health Concerns Infection Onset Date Last Indicated Resolved Time Rule Out COVID-19 03/05/2020 03/05/2020 03/06/2020 5:31 PM CLOTH TRIMMER HAND Rule Out COVID-19 01/04/2021 01/04/2021 01/04/2021 4:13 AM CDT Rule Out COVID-19 09/28/2021 09/28/2021 09/28/2021 11:00 PM CDT Rule Out COVID-19 07/20/2023 07/20/2023 07/20/2023 12:33 PM CDT documented as of this encounter Care Teams Private Investigator Surveillance Relationship Specialty Start Date End Date Alexandru Ly MD PCP - General 08/09/02 11/22/16 Paola Martell CLASSIFICATION CONTROL CLERK PCP - General Nurse Practitioner - Family 11/23/16 11/09/17 Paola Martell CLASSIFICATION CONTROL CLERK PCP - General Nurse Practitioner - Family 11/14/17 02/08/18 Janna Ball DO PCP - General drafting detailer 03/20/18 08/02/19 Davy Proctor PA-C [address] [place] [address] PCP - Assigned PCP 03/12/18 04/08/18 Paola Martell, CLASSIFICATION CONTROL CLERK [address] [address] PCP - Assigned PCP 11/28/16 03/11/18 Paola Martell, CLASSIFICATION CONTROL CLERK [address] [address] PCP - Assigned PCP 04/09/18 06/13/18 [place] [address] [place] [address] PCP - General Family Practice 08/03/19 05/22/23 System, Provider Not In PCP - General Clinic 06/27/23 Paola Martell, CLASSIFICATION CONTROL CLERK [address] [address] Assigned PCP 04/09/18 06/24/18 Davy Proctor PA-C [address] [place] [address] Assigned PCP 02/26/18 02/17/19 [place] [address] [place], [place] [id number] Assigned PCP 02/18/19 08/02/20 [place] [address] [place] [address] Assigned PCP 08/03/20 09/13/20 [place] [address] [place] [address] Assigned PCP 09/14/20 05/07/22 Tamara Ly Personal Advocate & Liaison (PAL) Family Medicine 09/24/20 Tamara Ly Personal Advocate & Liaison (PAL) Family Medicine 12/04/20 Vince Orourke MD [address] [place], [place] [address] Assigned OBGYN Provider 07/05/21 08/29/21 Jessica Goldberg MD [address] [place], [place] [address] Assigned OBGYN Provider 08/30/21 10/30/21 Jessica Goldberg MD [address] [place], [place] [address] Assigned OBGYN Provider 11/07/21 02/18/23 Vince Orourke MD [address] [place], [place] [address] Assigned OBGYN Provider 10/31/21 11/06/21 [place] [address] [place] [address] Assigned PCP 05/08/22 06/04/22 [place] [address] [place] [address] Assigned PCP 06/05/22 07/09/22 Stephanie Porras PA-C [address] [address] Assigned PCP 07/10/22 03/02/24 [facility] [address] [place] [address] Assigned PCP 03/03/24 documented as of this encounter
--- OUTSIDE RECORDS SUMMARY | 2024-05-21 15:37 | XMS_ITS | Encounter Summary ---
Author Organization [facility] Address [address] [place] [address] Care Team Providers Care Final Rail Cutter Name Role Phone Alexandru Ly MD Primary Car e Provider Paola Martell COUNTERINTELLIGENCE ANALYST Primary Care Provider [phone] Paola Martell COUNTERINTELLIGENCE ANALYST Primary Care Provider [phone] Janna Ball DO Primary Care Provider [phone] Davy Proctor PA-C Unavailable [phone] Paola Martell COUNTERINTELLIGENCE ANALYST Unavailable Paola Martell COUNTERINTELLIGENCE ANALYST Unavailable [phone] Paola Martell COUNTERINTELLIGENCE ANALYST Unavailable [phone] Davy Proctor PA-C Unavailable [phone] Ana Herrera MD Unavailable Ana Herrera MD Primary Care Provider [phone] Lencho York MD Unavailable Ana Herrera MD Unavailable Tamara Ly Unavailable Unavailable Tamara Ly Unavailable Unavailable Vince Orourke MD Unavailable [phone] Jessica Goldberg MD Unavailable [phone] Jessica Goldberg MD Unavailable [phone] Vince Orourke MD Unavailable [phone] Hali Gabriel MD Unavailable [phone] Ana Herrera MD Unavailable Stephanie Porras PA-C Unavailable [phone] System, Provider Not In Primary Care Provider Un available Clinic - [facility] Unavail able Reason for Visit * Reason Onset Date Comments Results 10/27/2012 Ultrasound resul ts Encounter Details Date Type Department Care Team (Late st Contact Info) Description 10/27/2012 MyC Medical Advice [address], [address] [place] [address] [place] [address] [place] [address] Results (Ultrasound results) Social History Tobacco Use Types Packs/Day [...] PM CDT Legal Sex Female 4:24 AM SUPPLY CHAIN PROGRAM MANAGER Gender Identity Female 01/03/2021 12:47 PM CDT Sexual Orientation Straight 01/03/2021 12 :47 PM CDT documented as of this encounter Miscellaneous Notes * Telephone Encounter - Jaleesa Pena - 10/27/2012 10:21 AM CDT See results of Ultrasound in Imaging tab. Jaleesa Pena RN documented in this encounter Plan of Treatment Not on file documented as of this encounter Visit Diagnoses Not on filedocumented in this encounter Additional Health Concerns Infection Onset Date Last Indicated Resolved Time Rule Out COVID-19 03/05/2020 03/05/202003/06/2020 5:31 PM SUPPLY CHAIN PROGRAM MANAGER Rule Out COVID-19 01/04/2021 01/04/2021 01/04/2021 4:13 AM CDT Rule Out COVID-19 09/28/2021 09/28/2021 09/28/2021 11:00 PM CDT Rule Out COVID-19 07/20/2023 07/20/2023 07/20/2023 12:33 PM CDT documented as of this encounter Care Teams Final Rail Cutter Relationship Specialty Start Date End Date Alexandru Ly MD PCP - General 08/09/02 11/22/16 Paola Martell, COUNTERINTELLIGENCE ANALYST PCP - General Nurse Practitioner - Family 11/23/16 11/09/17 Paola Martell, COUNTERINTELLIGENCE ANALYST PCP - General Nurse Practitioner - Family 11/14/17 02/08/18 Janna Ball DO PCP - General risk advisor 03/20/18 08/02/19 Davy Proctor PA-C [address] [place] [address] PCP - Assigned PCP 03/12/18 04/08/18 Paola Martell, COUNTERINTELLIGENCE ANALYST [place] [address] [address] [facility] [place] [id number] PCP - Assigned PCP 11/28/16 03/11/18 Paola Martell, COUNTERINTELLIGENCE ANALYST [address] [place] [id number] PCP - Assigned PCP 04/09/18 06/13/18 [place] [address] [place], [place] [id number] PCP - General Family Practice 08/03/19 05/22/23 System, Provider Not In PCP - General Clinic 06/27/23 Paola Martell, COUNTERINTELLIGENCE ANALYST [facility] [address] [place] [address] [place] [address] Assigned PCP 04/09/18 06/24/18 Davy Proctor PA-C [address] [place] [address] [id number] Assigned PCP 02/26/18 02/17/19 [place] [address] [place], [place] [id number] Assigned PCP 02/18/19 08/02/20 [place] [address] [place], [place] [id number] Assigned PCP 08/03/20 09/13/20 [place] [address] [place] [address] Assigned PCP 09/14/20 05/07/22 Tamara Ly Personal Advocate & Liaison (PAL) Family Medicine 09/24/20 Tamara Ly Personal Advocate & Liaison (PAL) Family Medicine 12/04/20 Vince Orourke MD [address] [address] Assigned OBGYN Provider 07/05/21 08/29/21 Jessica Goldberg MD [address] [place] [address] Assigned OBGYN Provider 08/30/21 10/30/21 Jessica Goldberg MD [address] [place] [address] Assigned OBGYN Provider 11/07/21 02/18/23 Vince Orourke MD [address] [place] [address] Assigned OBGYN Provider 10/31/21 11/06/21 [place] [address] [place] [address] Assigned PCP 05/08/22 06/04/22 [place] [address] [place] [address] Assigned PCP 06/05/22 07/09/22 Stephanie Porras PA-C [address] [place] [address] Assigned PCP 07/10/22 03/02/24 [facility] [address] [place] [address] Assigned PCP 03/03/24 documented as of this encounter
--- OUTSIDE RECORDS SUMMARY | 2024-05-21 15:37 | XMS_ITS | Encounter Summary ---
Author Organization [facility] Address [address], [place] [address] Care Team Providers Care Hydrogen Braze Furnace Operator Name Role Phone JosyCatalina APRN, FISH WARDEN Primary Care Provid er Reason for Visit * Reason Comments INFECTION, SINUS Been going on for a week and a half. sore throat, fever on and off, concerns of sinus infection. Running nose, can't breathe through nose. Back teeth hurt (has gotten better). Niece haa sore throat and influenza A, has seen niece in the last 2 weeks. Encounter Details Date Type Department Care Team (Latest Contact Info) Description 05/02/2024 10:00 AM FINISHING OPERATOR Telemedicine [facility] [address] [facility], [facility] [address] [place], [place] [id number] Maximiliano Helms PA-C [address] [place] [phone] Sinusitis, unspecified chronicity, unspecified location (Primary Dx); Mild intermittent asthma without complication (HRC); High triglycerides (HRC); Essential hypertension (HRC); Insomnia, unspecified type; Mixed anxiety and depressive disorder (HRC); Smoker (HRC) Social History Tobacco Use Types Packs/Day Years [...] as of this encounter Progress Notes * Maximiliano Helms PA-C - 05/02/2024 10:00 AM CST VIDEO VISIT Location of clinician: clinic Location of patient: home Chief Complaint Patient presents with INFECTION, SINUS Been going on for a week and a half. sore throat, fever on and off, concerns of sinus infection. Running nose, can't breathe through nose. Back teeth hurt (has gotten better). Niece haa sore throat and influenza A, has seen niece in the last 2 weeks. SUBJECTIVE : Ivana Hwang is a 33 y.o. female presents to clinic via telehealth for evaluation of sinus congestion. Has been sick for the last two weeks. Initially noted to be pretty fatigued and toothache. Has been blowing out mucus for the last weeks. Nephew had influenza A, last had contact aweek and a half ago. Coworkers have been sick as well. Has been trying dayquil, advil cold and sinus, antihistamine, tylenol, and advil. Has been using humidifier. Did at home COVID and Influenza testing last week and negative. See ROS for additional symptoms. Hx of Asthma. Controlled with Albuterol inhaler. States that symptoms are controlled at this time. No new symptoms or concerns. Hx of high triglycerides. Unsure of when last lipid panel was done, but not done in the last two years. Patient is not on medication for this. Hx of HTN. Currently on Losartan 100 mg. States that BP's have been within range. No new symptoms regarding this. Hx of insomnia. This has been stable with no new symptoms. Hx of anxiety and depression. Symptoms stable. Hx of tobacco use. Continuing to smoke. MEDICATIONS : Reviewed. ALLERGIES: Allergies Allergen Reactions Sulfa Antibiotics HIVES: Hives Sulfamethoxazole-Trimethoprim PN: LW Reaction: Rash, Generalized Health Maintenance Summary Never done Cervical Cancer Screening Due Never done Adult Preventive Visit Never done HepA (1 of 2 - Risk 2-dose series) 11/03/2021 Pneumococcal (2 - PCV) 12/11/2023 COVID-19 Vaccine (2 - season) 2023 Influenza (1) 09/19/2024 Asthma ACT 10/27/2025 Diabetes Screening- (based on age and BMI) 09/16/2031 DTaP/Tdap/Td (9 - Tdap) 2038 Zoster/Shingles (1 of 2) Review of Systems Constitutional: Positive for chills and fever (Temp has been over 100 F last week). HENT: Positive for congestion, postnasal drip, sinus pressure, sinus pain and sore throat. Negativefor ear pain and rhinorrhea. Respiratory: Negative for cough, shortness of breath and wheezing. Cardiovascular: Negative for chest pain and palpitations. Gastrointestinal: Positive for abdominal pain, nausea and vomiting. Negative for constipation and diarrhea. Musculoskeletal: Negative for arthralgias and myalgias. Skin: Negative for rash. Neurological: Positive for headaches. Patient's medications, allergies, past medical, surgical, social and family histories were reviewedand updated as appropriate. OBJECTIVE : Last Set of vital signs: BP Readings from Last 1 Encounters: 09/21/23 138/85 , 11/30/23 : 74.8 kg (165 lb) General: 33 y.o. female in no acute distress. Head: Normocephalic, atraumatic. Eyes: External exam normal. Psych: Appropriately groomed and dressed. Good eye contact. Answers questions appropriately. \ ASSESSMENT/PLAN : Ivana was seen today for infection, sinus. Diagnoses and all orders for this visit: Sinusitis, unspecified chronicity, unspecified location Patients symptoms are consistent with Sinusitis. Patient has failed conservative management at homeand symptoms have been ongoing for more than a week, so will treat with Augmentin for 7 days. Advised to continue with supportive measures such as increased fluid intake and rest. Can alternate between taking NSAID???s and Tylenol for pain and/or fever. Can try Oxymetazoline nasal spray or pseudoephedrine. Warned that if they were to continue with nasal decongestant, to not continue with this formore than three days. Recommended trial of Flonase and nasal ipratropium. If symptoms persist or worsen advised to call or RTC. Patient verbalized understanding and agreement with plan today. - amoxicillin-clavulanate (AUGMENTIN) 875-125 mg per tablet; Take 1 Tablet by mouth two times a dayfor 7 days. Mild intermittent asthma without complication (HRC) Stable based upon today's assessment. Continue current treatment plan and follow up at least yearly. High triglycerides (HRC) Stable based upon today's assessment. Continue current treatment plan and follow up at least yearly. Essential hypertension (HRC) Stable based upon today's assessment. Continue current treatment plan and follow up at least yearly. Insomnia, unspecified type Stable based upon today's assessment. Continue current treatment plan and follow up at least yearly. Mixed anxiety and depressive disorder (HRC) Stable based upon today's assessment. Continue current treatment plan and follow up at least yearly. Smoker (HRC) Stable based upon today's assessment. Continue current treatment plan and follow up at least yearly. Total time spent today was 34 minutes, 100% of the time in chart review, video consultation, coordination of care, and post-visit documentation. If you have questions after the visit is complete, please contact your clinic. Do not reply to the Video message as that phone number is unmonitored. SHING OPERATOR documented in this encounter Plan of Treatment Upcoming Encounters Date Type Department Care Team (Late st Contact Info) Description 06/08/2024 4:00 PM FINISHING OPERATOR Telemedicine [address] [place] [address] Catalina Ferris, SONIA, FISH WARDEN [address] [place] [address] documented as of this encounter Visit Diagnoses Diagnosis Sinusitis, unspecified chronicity, unspecified location- Primary Mild intermittent asthma without complication (HRC) Unspecified asthma High triglycerides (HRC) Pure hyperglyceridemia Essential hypertension (HRC) Unspecified essential hypertension Insomnia, unspecified type Mixed anxiety and depressive disorder (HRC) Dysthymic disorder Smoker (HRC) Tobacco use disorder documented in this encounter Care Teams Hydrogen Braze Furnace Operator Relationship Specialty Start Date End Date Catalina Ferris, SONIA, FISH WARDEN [address] [facility] [place] [id number] PCP - General Nurse Practitioner 06/01/23 documented as of this encounter
--- OUTSIDE RECORDS SUMMARY | 2024-05-21 15:37 | XMS_ITS | Encounter Summary ---
Author Organization [facility] Address [address] [place] [address] Care Team Providers Care Spinner Hand Name Role Phone Alexandru Ly MD Primary Car e Provider Paola Martell MANAGER DEMAND Primary Care Provider [phone] Paola Martell MANAGER DEMAND Primary Care Provider [phone] Janna Ball DO Primary Care Provider [phone] Davy Proctor PA-C Unavailable [phone] Paola Martell MANAGER DEMAND Unavailable [phone] Paola Martell MANAGER DEMAND Unavailable [phone] Paola Martell MANAGER DEMAND Unavailable [phone] Davy Proctor PA-C Unavailable [phone] Ana Herrera MD Unavailable Ana Herrera MD Primary Care Provider [phone] Lencho York MD Unavailable [phone] Ana Herrera MD Unavailable Tamara Ly Unavailable Unavailable Tamara Ly Unavailable Unavailable Vince Orourke MD Unavailable [phone] Jessica Goldberg MD Unavailable [phone] Jessica Goldberg MD Unavailable [phone] Vince Orourke MD Unavailable [phone] Hali Gabriel MD Unavailable [phone] Ana Herrera MD Unavailable Stephanie Porras PA-C Unavailable [phone] System, Provider Not In Primary Care Provider Un available Clinic - [facility] Unavail able Encounter Details Date Type Department Care Team (Late st Contact Info) Description 10/03/2012 MyC Medical Advice [address], [address] [place] [address] [place] [address] [facility] [place] [address] Social History Tobacco Use Types [...] PM CDT Legal Sex Female 4:24 AM DIAL PRINTER Gender Identity Female 01/03/2021 12:47 PM CDT Sexual Orientation Straight 01/03/2021 12 :47 PM CDT documented as of this encounter Plan of Treatment Not on file documented as of this encounter Visit Diagnoses Not on filedocumented in this encounter Additional Health Concerns Infection Onset Date Last Indicated Resolved Time Rule Out COVID-19 03/05/2020 03/05/2020 03/06/2020 5:31 PM DIAL PRINTER Rule Out COVID-19 01/04/2021 01/04/2021 01/04/2021 4:13 AM CDT Rule Out COVID-19 09/28/2021 09/28/2021 09/28/2021 11:00 PM CDT Rule Out COVID-19 07/20/2023 07/20/2023 07/20/2023 12:33 PM CDT documented as of this encounter Care Teams Spinner Hand Relationship Specialty Start Date End Date Alexandru Ly MD PCP - General 08/09/02 11/22/16 Paola Martell, MANAGER DEMAND PCP - General Nurse Practitioner - Family 11/23/16 11/09/17 Paola Martell, MANAGER DEMAND PCP - General Nurse Practitioner - Family 11/14/17 02/08/18 Janna Ball DO PCP - General biosecurity officer 03/20/18 08/02/19 Davy Proctor PA-C [address] [place] [address] PCP - Assigned PCP 03/12/18 04/08/18 Paola Martell, MANAGER DEMAND [facility] [address] [place] [address] [place], [place] [phone] PCP - Assigned PCP 11/28/16 03/11/18 Paola Martell, MANAGER DEMAND [facility] [address] [place] [address] [place] [address] PCP - Assigned PCP 04/09/18 06/13/18 [place] [address] [place] [address] PCP - General Family Practice 08/03/19 05/22/23 System, Provider Not In PCP - General Clinic 06/27/23 Paola Martell MANAGER DEMAND [facility] & [address] [place] [address] Assigned PCP 04/09/18 06/24/18 Davy Proctor PA-C [address] [place] [address] [id number] Assigned PCP 02/26/18 02/17/19 [place] [address] [place], [place] [id number] Assigned PCP 02/18/19 08/02/20 [place] [address] [place], [place] [id number] Assigned PCP 08/03/20 09/13/20 [place] [address] [place], [place] [id number] Assigned PCP 09/14/20 05/07/22 Tamara Ly Personal Advocate & Liaison (PAL) Family Medicine 09/24/20 Tamara Ly Personal Advocate & Liaison (PAL) Family Medicine 12/04/20 Vince Orourke MD [address] [place] [address] Assigned OBGYN Provider 07/05/21 08/29/21 Jessica Goldberg MD [address] [place] [address] Assigned OBGYN Provider 08/30/21 10/30/21 Jessica Goldberg MD [address] [place] [address] Assigned OBGYN Provider 11/07/21 02/18/23 Vince Orourke MD [address] [place], [place] [address] Assigned OBGYN Provider 10/31/21 11/06/21 [place] [address] [place], [place] [id number] Assigned PCP 05/08/22 06/04/22 [place] [address] [place], [place] [id number] Assigned PCP 06/05/22 07/09/22 Stephanie Porras PA-C [address] [facility] [address] [address] [place], [place] [address] Assigned PCP 07/10/22 03/02/24 [facility] [address] [place], [place] [id number] Assigned PCP 03/03/24 documented as of this encounter
--- OUTSIDE RECORDS SUMMARY | 2024-05-21 15:37 | XMS_ITS | Encounter Summary ---
Author Organization [facility] Address [address], [place] [address] Care Team Providers Care Bit Sander Name Role Phone Catalina Ferris APRN, SEPIDEH Primary Care Provid er Reason for Visit * Reason Comments Letter Encounter Details Date Type Department Care Team (Late st Contact Info) Description 05/03/2024 Telephone [facility] Medicine [address] [facility] [place], [place] [phone] Catalina Ferris APRN, SEPIDEH [address] [place], [place] [phone] Letter Social History Tobacco Use Types Packs/Day Years [...] as of this encounter Nursing Notes * Danya Santana LPN - 05/04/2024 9:10 AM CST Called pt. She wants the letter to include her symptoms and she said the congestion is now in her chest, she's not sure if that's good or not. She also wants the dates to be back dated from the of this month. ON PAPER COATING SUPERVISOR * Maximiliano Helms PA-C - 05/04/2024 7:27 AM CST Can you call patient back with the following: I see that you need a work excuse letter. It appears that your regular provider is out and the request came to me since I last saw you. What will you need the letter to say? What are the dates that you will be missing? ON PAPER COATING SUPERVISOR * Amber Borrero PA-C - 05/03/2024 4:01 PM CST PCP is out today. Can the letter be obtained from the provider that saw the patient on 05/02/2024? Amber Borrero PA-C 05/03/2024, 4:01 PM ON PAPER COATING SUPERVISOR * Danya Alarcon - 05/03/2024 3:18 PM CST Clinician: Patient is expecting a MyCPoptipt message from [employer] Patient/primary care physician request: Form/Letter completion Specific Request: Pt is requesting an excuse note for work. During triage encounter today requested a work in appt for tomorrow 05/04/24 to discuss ongoing depression and potential medication changes. ON PAPER COATING SUPERVISOR * Yelena Cintron - 05/03/2024 1:21 PM CST Forms & Letters What form/letter are you requesting? Letter/Other What form/letter are you requesting? Would like letter that can give to employer regarding illness, She has a lot going on and has had nice missed work and may miss a promotion because of this. Date of last appointment with PCP: 05/02/24 -kruzie This form/letter is needed from: Catalina Ferris APRN, CNP How will you be submitting this form/letter to us? Requesting letter from clinician/clinic Return to: Patient Return method: MyChart/Online Patient Services (OPS) Additional comments (related to the above concern): Please feel free to reach out to pt. Preferred communication method: Phone Call. Is it okay to leave a detailed message on your voicemail? Yes ON PAPER COATING SUPERVISOR documented in this encounter Plan of Treatment Upcoming Encounters Date Type Department Care Team (Late st Contact Info) Description 06/08/2024 4:00 PM CARBON PAPER COATING SUPERVISOR Telemedicine [facility] [address] [place] [address] Catalina Ferris APRN, CNP [address] [place] [address] documented as of this encounter Visit Diagnoses Not on filedocumented in this encounter Care Teams Bit Sander Relationship Specialty Start Date End Date Catalina Ferris APRN, CNP [address] [place], [place] [phone] PCP - General Nurse Practitioner 06/01/23 documented as of this encounter
--- OUTSIDE RECORDS SUMMARY | 2024-05-21 15:38 | XMS_ITS | Encounter Summary ---
Author Organization [place] Address [address] [place] [address] Care Team Providers Care Resident Programs Assistant Name Role Phone Viflora Janna Kizzy Primary Care Provider [phone] Ana Herrera MD Unavailable Ana Herrera MD Primary Care Provider Lencho York MD Unavailable [phone] Ana Herrera MD Unavailable Arianna Lye Kole Unavailable Unavailable Arianna Lye Kole Unavailable Unavailable Vince Orourke MD Unavailable Jessica Goldberg MD Unavailable [phone] Jessica Goldberg MD Unavailable [phone] Vince Orourke MD Unavailable [phone] Hali Gabriel MD Unavailable [phone] Ana Herrera MD Unavailable Stephanie Porras PA-C Unavailable [phone] System, Provider Not In Primary Care Provider Un available [facility] Unavail able Encounter Details Date Type Department Care Team (Late st Contact Info) Description 07/09/2019 MyC Medical Advice [address] [address] Mady Kam, CARLYLE Social History Tobacco Use Types Packs/Day Years Used Date Smoking Tobacco: Every Day Cigarettes Smokeless Tobacco: Never Comments:1/2 ppd, tried quit ting Alcohol Use Standard Drinks/Week Comments Yes 0 (1 standard drink = 0.6 oz pure alcohol) every night about 2 glasses of wine PHQ-2 Answer Date Recorded PHQ-2 Score 0 04/19/2018 Comments No Sex and Gender Information Value Date Recorded Sex Assigned at Female 01/03/2021 12:47 PM CDT Legal Sex Female 4:24 AM EAR SPECIALIST Gender Identity Female 01/03/2021 12:47 PM CDT Sexual Orientation Straight 01/03/2021 12 :47 PM CDT COVID-19 Exposure Response Date Recorded In the last month, have you been in contact with someone who was confirmed or suspected to have Coronavirus / COVID-19? Yes 07/11/2019 5:26 PM CDT documented as of this encounter Plan of Treatment Not on file documented as of this encounter Visit Diagnoses Not on filedocumented in this encounter Additional Health Concerns Infection Onset Date Last Indicated Resolved Time Rule Out COVID-19 03/05/2020 03/05/2020 03/06/2020 5:31 PM EAR SPECIALIST Rule Out COVID-19 01/04/2021 01/04/2021 01/04/2021 4:13 AM CDT Rule Out COVID-19 09/28/2021 09/28/2021 09/28/2021 11:00 PM CDT Rule Out COVID-19 07/20/2023 07/20/2023 07/20/2023 12:33 PM CDT documented as of this encounter Care Teams Resident Programs Assistant Relationship Specialty Start Date End Date Janna Ball DO PCP - General furnace and wash equipment operator 03/20/18 08/02/19 [place] [address] [place] [address] PCP - General Family Practice 08/03/19 05/22/23 System, Provider Not In PCP - General Clinic 06/27/23 [place] [address] [place] [address] Assigned PCP 02/18/19 08/02/20 [place] [address] [place] [address] Assigned PCP 08/03/20 09/13/20 [place] [address] [place] [address] Assigned PCP 09/14/20 05/07/22 Tamara Ly Personal Advocate & Liaison (PAL) Family Medicine 09/24/20 Tamara Ly Personal Advocate & Liaison (PAL) Family Medicine 12/04/20 Vince Orourke MD [address] [place], [place] [address] Assigned OBGYN Provider 07/05/21 Jessica Goldberg MD [address] [place] [address] Assigned OBGYN Provider 08/30/21 Jessica Goldberg MD [address] [place] [address] Assigned OBGYN Provider 11/07/2102/18 Vince Orourke MD [address] [place] [address] Assigned OBGYN Provider 10/31/21 [place] [address] [place] [address] Assigned PCP 05/08/22 06/04/22 [place] [address] [place] [address] Assigned PCP 06/05/22 07/09/22 Stephanie Porras PAWillC [address] [address] Assigned PCP 07/10/22 03/02/24 [facility] [id number] [place] [address] Assigned PCP 03/03/24 documented as of this encounter
--- OUTSIDE RECORDS SUMMARY | 2024-05-21 15:38 | XMS_ITS | Encounter Summary ---
Author Organization [place] Address [address] [place] [address] Care Team Providers Care Qm Consultant Name Role Phone Ana Herrera MD Primary Care Provider Ana Herrera MD Unavailable Tamara Ly Unavailable Unavailable Tamara Ly Unavailable Unavailable Jessica Goldberg MD Unavailable [phone] Hali Theodore MD Unavailable [phone] Ana Herrera MD Unavailable Stephanie Porras PA-C Unavailable [phone] System, Provider Not In Primary Care Provider Un available Clinic - [facility] Unavail able Encounter Details Date Type Department Care Team (Late st Contact Info) Description 04/09/2022 External Order Results [facility] [address] [place] [address] Outside, Provider Social History Tobacco Use Types Packs/Day Years Used Date Smoking Tobacco: Every Day Cigarettes Smokeless Tobacco: Never Comments:1/2 ppd, tried quit ting Alcohol Use Standard Drinks/Week Comments Not Currently 0 (1 standard drink = 0.6 oz pur e alcohol) PHQ-2 Answer Date Recorded PHQ-2 Score 4 01/06/2021 Hoople Depression Scale Answer Date Recorded Last EPDS Total Score Not on file 10/26/2021 The thought of harming myself has occurred to me . Never 10/26/2021 Comments No Sex and Gender Information Value Date Recorded Sex Assigned at Female 01/03/2021 12:47 PM CDT Legal Sex Female 4:24 AM SENIOR TREASURY CONSULTANT Gender Identity Female 01/03/2021 12:47 PM CDT Sexual Orientation Straight 01/03/2021 12 :47 PM CDT documented as of this encounter Plan of Treatment Not on file documented as of this encounter Procedures Procedure Name Priority Date/Time Associated Diagnosis Comments HEPATITIS C ANTIBODY (EXTERNAL RESULT) Routine 04/09/2021 10:00 AM SENIOR TREASURY CONSULTANT URINE CULTURE (OB EXTERNAL RESULT) Routine 04/09/2021 10:00 AM SENIOR TREASURY CONSULTANT documented in this encounter Results * Urine Culture (OB External Result) (04/09/2021 10:00 AM SENIOR TREASURY CONSULTANT) Urine Culture OB Nurse Interpretation (External Result) No growth NON-INTERF AC ED (ONBASE SCANS) 04/09/2021 10:0 0 AM SENIOR TREASURY CONSULTANT Narrative [facility] - 05/21/2021 11:15 AM SENIOR TREASURY CONSULTANT Verified by Calvin Thurman on 05/21/2021. us Provider Outside LAB - HIM EXTERNAL RESULT Edite d Result - Final Performing Organization Address [facility] de Phone Number [facility] NON-INTERFACED (ONBASE SCANS) * Hepatitis C Antibody (External Result) (04/09/2021 10:00 AM SENIOR TREASURY CONSULTANT) Hepatitis C Antibody (External) <0.1 0.0 - 0.9 ratio NON-INTERFACED (ONBASE SCANS) 04/09/2021 10:0 0 AM SENIOR TREASURY CONSULTANT Narrative [facility] - 05/21/2021 11:16 AM SENIOR TREASURY CONSULTANT Verified by Calvin Thurman on 05/21/2021. Verified by Calvin Thurman on 05/21/2021. us Provider Outside LAB - HIM EXTERNAL RESULT Edite d Result - Final Performing Organization Address City/[facility] Co de Phone Number [facility] NON-INTERFACED (ONBASE SCANS) documented in this encounter Visit Diagnoses Not on filedocumented in this encounter Additional Health Concerns Infection Onset Date Last Indicated Resolved Time Rule Out COVID-19 07/20/2023 07/20/2023 07/20/2023 12:33 PM CDT Assessment Noted Time PHQ-9 Depression Total Score: 8 01/08/20 21 7:01 AM CDT documented as of this encounter Care Teams Qm Consultant Relationship Specialty [place] [address] [place] [address] PCP - General Family Practice 08/03/19 05/22/23 System, Provider Not In PCP - General Clinic 06/27/23 [place] [address] [place] [address] Assigned PCP 09/14/20 05/07/22 Tamara Ly Personal Advocate & Liaison (PAL) Family Medicine 09/24/20 Tamara Ly Personal Advocate & Liaison (PAL) Family Medicine 12/04/20 Jessica Goldberg MD [address] [facility] [address] [place] [address] Assigned OBGYN Provider 11/07/2102/18 [place] [address] [place] [address] Assigned PCP 05/08/22 06/04/22 [place] [address] [place] [address] Assigned PCP 06/05/22 07/09/22 Stephanie Porras PA-C [address] [place] [address] Assigned PCP 07/10/22 03/02/24 [facility] [address] [place] [address] Assigned PCP 03/03/24 documented as of this encounter
--- OUTSIDE RECORDS SUMMARY | 2024-05-21 15:38 | XMS_ITS | Encounter Summary ---
Author Organization [place] Address [address] [place] [address] Care Team Providers Care Community Arts Centre Manager Name Role Phone VifloraJannae Primary Care Provider [phone] Ana Herrera MD Unavailable Ana Herrera MD Primary Care Provider [phone] Lencho York MD Unavailable [phone] Ana Herrera MD Unavailable Arianna Lye Kole Unavailable Unavailable Arianna Lye Kole Unavailable Unavailable Vince Orourke MD Unavailable Jessica Goldberg MD Unavailable [phone] Jessica Goldberg MD Unavailable [phone] Vince Orourke MD Unavailable [phone] Hali Gabriel MD Unavailable [phone] Ana Herrera MD Unavailable Stephanie Porras PA-C Unavailable [phone] System, Provider Not In Primary Care Provider Un available Clinic - [facility] Unavail able Encounter Details Date Type Department Care Team (Late st Contact Info) Description 07/11/2019 Telephone [facility] [address] [phone] Michelle Palencia, CORE JAVA ENGINEER [address] [facility] Primary Care Clinic 4th [place] [address] Social History Tobacco Use Types Packs/Day Years [...] PM CDT Legal Sex Female 4:24 AM OIL WELL CABLE TOOL DRILLER Gender Identity Female 01/03/2021 12:47 PM CDT Sexual Orientation Straight 01/03/2021 12 :47 PM CDT COVID-19 Exposure Response Date Recorded In the last month, have you been in contact with someone who was confirmed or suspected to have Coronavirus / COVID-19? Yes 07/11/2019 5:26 PM CDT documented as of this encounter Miscellaneous Notes * Telephone Encounter - Sandee Short CMA - 07/11/2019 5:22 PM CDT Images from the original note were not included. Pt's dad called clinic wanting to schedule pt. FD started to ask protocol question but dad started yelling. FD transferred call to me. Dad stated he wants to file a complain because clinic is refusing to see her daughter. Told him that we are not refusing to see his daughter and they can come and be seen. Dad refused to give the phone to daughter so we can document Sx pt has. Told dad to just come to clinic and will see pt. Sandee Short CMA (AAMA) * Telephone Encounter - Apple Mcfarland - 07/11/2019 4:45 PM CDT Ivana Hwang is being monitored on the [facility] GetWell Loop for patients with symptomsof COVID-19. I have referred this patient to an [facility] Urgent [facility] for evaluation of chest heaviness. When the patient calls, please allow them to schedule at urgent care. Ivana has a history of intermittent asthma currently on albuterol and a prednisone burst (day 3), and an unclear history of anxiety on citalopram who has been ill with COVID-like symptoms for the past 11 days and reached out to the GetWell Loop this afternoon requesting a phone call and reporting new onset of severe chest heaviness since this morning. On further history, she is clarifies that the heaviness is reproducible with pressure placed between the ribs. It does not worsen with lying supine or exertion. She has tried taking Tylenol and ibuprofen without improvement. She clarifies that her breathing feels well-controlled at this time and her cough is improving. She has been using albuterol as needed, not often per her report, but is unable to describe when she last used it or how much she took. Throughout our discussion, she was frequently tearful. She endorses feeling anxious butdoes not feel anxiety is her primary concern. During her discussions with Dr. Sanchez and Shelia Palencia, her father intermittently interjected, repeatedly becoming verbally abusive and raising inappropriate concern that her coworkers exposed her to coronavirus. After discussing her history and symptoms extensively (for over an hour) with both myself, Dr. Stacey Nguyen and Michelle Palencia CORE JAVA ENGINEER, we recommended she be seen in Urgent Care for evaluation of potential pulmonary disease, musculoskeletal chest pain and anxiety. PRIETO Cortes 07/11/2019 4:45 PM * Telephone Encounter - Apple Mcfarland - 07/11/2019 4:43 PM CDT Ivana Hwang is being monitored on the [facility] GetWell Loop for patients with symptomsof COVID-19. I have referred this patient to an [facility] Urgent Care for evaluation. When the patient calls, please allow them to schedule at urgent care. Reason for referral: Chest heaviness PRIETO Love 07/11/2019 4:43 PM documented in this encounter Plan of Treatment Not on file documented as of this encounter Visit Diagnoses Not on filedocumented in this encounter Additional Health Concerns Infection Onset Date Last Indicated Resolved Time Rule Out COVID-19 03/05/2020 03/05/2020 03/06/2020 5:31 PM OIL WELL CABLE TOOL DRILLER Rule Out COVID-19 01/04/2021 01/04/2021 01/04/2021 4:13 AM CDT Rule Out COVID-19 09/28/2021 09/28/2021 09/28/2021 11:00 PM CDT Rule Out COVID-19 07/20/2023 07/20/2023 07/20/2023 12:33 PM CDT documented as of this encounter Care Teams Community Arts Centre Manager Relationship Specialty Start Date End Date Janna Ball DO PCP - General sugar refiner 03/20/18 08/02/19 [place] [address] [place] [address] PCP - General Family Practice 08/03/19 05/22/23 System, Provider Not In PCP - General Clinic 06/27/23 [place] [address] [place] [address] Assigned PCP 02/18/19 08/02/20 [place] [address] [place] [address] Assigned PCP 08/03/20 09/13/20 [place] [address] [place] [address] Assigned PCP 09/14/20 05/07/22 Tamara Ly Personal Advocate & Liaison (PAL) Family Medicine 09/24/20 Tamara Ly Personal Advocate & Liaison (PAL) Family Medicine 12/04/20 Vince Orourke MD [address] [place] [address] Assigned OBGYN Provider 07/05/21 Jessica Goldberg MD [address] [place] [address] Assigned OBGYN Provider 08/30/21 Jessiac Goldberg MD [address] [place] [address] Assigned OBGYN Provider 11/07/2102/18 Vince Orourke MD [address] [place] [address] Assigned OBGYN Provider 10/31/21 [place] [address] [place] [address] Assigned PCP 05/08/22 06/04/22 [place] [address] [place] [address] Assigned PCP 06/05/22 07/09/22 Stephanie Porras PA-C [address] [address] Assigned PCP 07/10/22 03/02/24 [facility] [address] [place] [address] Assigned PCP 03/03/24 documented as of this encounter
--- OUTSIDE RECORDS SUMMARY | 2024-05-21 15:38 | XMS_ITS | Encounter Summary ---
Author Organization [place] Address [address] [place] [address] Care Team Providers Care Granite Chip Terrazzo Finisher Name Role Phone Ana Herrera MD Primary Care Provider Ana Herrera MD Unavailable Tamara Ly Unavailable Unavailable Tamara Ly Unavailable Unavailable Vince Orourke MD Unavailable Jessica Goldberg MD Unavailable [phone] Jessica Goldberg MD Unavailable [phone] Vince Orourke MD Unavailable [phone] Coming Hali Theodore MD Unavailable Ana Herrera MD Unavailable Stephanie Porras PA-C Unavailable [phone] System, Provider Not In Primary Care Provider Un available Clinic - [facility] Unavail able Encounter Details Date Type Department Care Team (Late st Contact Info) Description 05/06/2021 External Order Results [facility] [address] [place] [address] Outside, Provider Social History Tobacco Use Types [...] PM CDT Legal Sex Female 4:[address] RAILWAY LINE INSTALLER Gender Identity Female 01/03/2021 12:47 PM CDT Sexual Orientation Straight 01/03/2021 12 :47 PM CDT documented as of this encounter Plan of Treatment Not on file documented as of this encounter Procedures Procedure Name Priority Date/Time Associated Diagnosis Comments GONORRHEA (EXTERNAL RESULT) Routine 05/06/2021 4:[address] RAILWAY LINE INSTALLER CHLAMYDIA TRACHOMATIS PCR (EXTERNAL RESULT) Routine 05/06/2021 4:[address] RAILWAY LINE INSTALLER CBC WITH PLATELETS & DIFFERENTIAL Routine 05/06/2021 4:[address] RAILWAY LINE INSTALLER HEPATITIS B SURFACE ANTIGEN (EXTERNAL RESULT) Routine 04/09/2021 10:[address] RAILWAY LINE INSTALLER TREPONEMA PALLIDUM ANTIBODY (RPR) (EXTERNAL RESULT) Routine 04/09/2021 10:[address] RAILWAY LINE INSTALLER HIV 1&2 ANTIBODY (EXTERNAL RESULT) Routine 04/09/2021 10:[address] RAILWAY LINE INSTALLER RUBELLA ANTIBODY IGG (EXTERNAL RESULT) Routine 04/09/2021 10:[address] RAILWAY LINE INSTALLER ABO & RH (EXTERNAL RESULT) Routine 04/09/2021 10:[address] RAILWAY LINE INSTALLER documented in this encounter Results * (ABNORMAL) CBC with Platelets & Differential (05/06/2021 4:[address] RAILWAY LINE INSTALLER) WBC Count (External) 14.1(H) 3.4 - 10.8 x10e3/uL NON-INTERFACE D (ONBASE SCANS) RBC Count (External) 4.04 3.77 - 5.28 x10E6/uL NON-INTERFACE D (ONBASE SCANS) Hemoglobin (External) 12.7 11.1 - 15.9 g/dL NON-INTERFACE D (ONBASE SCANS) Hematocrit (External) 37.4 34.0 - 46.6 % NON-INTERFACE D (ONBASE SCANS) MCV (External) 93 79 - 97 fL NON- INTERFACE D (ONBASE SCANS) MCH (External) 31.4 26.6 - 33.0 Pg NON-INTERFACE D (ONBASE SCANS) MCHC (External) 34.0 31.5 - 35.7 g/dL NON-INTERFACE D (ONBASE SCANS) RDW (External) 11.1(L) 11.7 - 15.4 % NON-INTERFACE D (ONBASE SCANS) Platelet Count (External) 228 150 - 450 x10E3/uL NON-INTERFACE D (ONBASE SCANS) % Neutrophils (External) 73 % NON-INTERFACE D (ONBASE SCANS) % Lymphocytes (External) 19 % NON-INTERFACE D (ONBASE SCANS) % Monocytes (External) 6 % NON-INTERFACE D (ONBASE SCANS) % Eosinophils (External) 2 % NON-INTERFACE D (ONBASE SCANS) % Basophils (External) 0 % NON-INTERFACE D (ONBASE SCANS) Absolute Neutrophils (External) 10.2(H) 1.4 - 7.0 x10e3/uL NON-INTERFACE D (ONBASE SCANS) Absolute Lymphocytes (External) 2.7 0.7 - 3.1 x10e3/uL NON-INTERFACE D (ONBASE SCANS) Absolute Monocytes (External) 0.8 0.1 - 0.9 x10e3/uL NON-INTERFACE D (ONBASE SCANS) Absolute Eosinophils (External) 0.2 0.0 - 0.4 x10E3/uL NON-INTERFACE D (ONBASE SCANS) Absolute Basophils (External) 0.1 0.0 - 0.2 x10E3/uL NON-INTERFACE D (ONBASE SCANS) % Immature Granulocytes (External) 0 % NON-INTERFACE D (ONBASE SCANS) Absolute Immature Granulocytes (External) 0.0 0.0 - 0.1 x10E3/uL NON-INTERFACE D (ONBASE SCANS) Blood 05/06/2021 4:[address] RAILWAY LINE INSTALLER Narrative TAINA PFT - 05/21/2021 11:[address] RAILWAY LINE INSTALLER Verified by Danya Orourke on 05/21/2021. us Richelle Fontana MD LAB - BLOOD ORDERABLES Edited Result - Final Performing Organization Address [facility] de Phone Number BREEZE PFT NON-INTERFACED (ONBASE SCANS) * Gonorrhea (External Result) (05/06/2021 4:[address] RAILWAY LINE INSTALLER) N Gonorrhea PCR Negative NEGATIVE NON-INTERFACE D (ONBASE SCANS) 05/06/2021 4:[address] RAILWAY LINE INSTALLER Narrative BREEZE PFT - 05/21/2021 11:[address] RAILWAY LINE INSTALLER Verified by Danya Orourke on 05/21/2021. Richelle Fontana MD LAB - HIM EXTERNAL RESULT Edit ed Result - Final Performing Organization Address [facility] de Phone Number BREEZE PFT NON-INTERFACED (ONBASE SCANS) * Chlamydia Trachomatis PCR (External Result) (05/06/2021 4:[address] RAILWAY LINE INSTALLER) Chlamydia Trachomatis PCR Negative NEGATIVE NON-INTERFAC E D (ONBASE SCANS) 05/06/2021 4:[address] RAILWAY LINE INSTALLER Narrative BREEZE PFT - 05/21/2021 11:[address] RAILWAY LINE INSTALLER Verified by Danya Orourke on 05/21/2021. Richelle Fontana MD LAB - HIM EXTERNAL RESULT Edit ed Result - Final Performing Organization Address [facility] de Phone Number BREEZE PFT NON-INTERFACED (ONBASE SCANS) * HIV-1 Antibody (External Result) (04/09/2021 10:[address] RAILWAY LINE INSTALLER) HIV 1&2 Antibody (External) Non Reactive NON REACTIVE NON-INTERFAC ED (ONBASE SCANS) 04/09/2021 10:[address] RAILWAY LINE INSTALLER Narrative BREEZE PFT - 05/21/2021 11:[address] RAILWAY LINE INSTALLER Verified by Danya Orourke on 05/21/2021. Monik Melendez APRN, CNM LAB - HIM EXTERNA L RESULT Edited Result - Final Performing Organization Address [facility]/ZIP Co de Phone Number BREEZE PFT NON-INTERFACED (ONBASE SCANS) * ABO & RH (External Result) (04/09/2021 10:[address] RAILWAY LINE INSTALLER) ABO (External) O NON-I NTERFACE D (ONBASE SCANS) Comment:ANTIBODY SCREEN Nega tive Rh (External) Positive NON-IN TERFACE D (ONBASE SCANS) 04/09/2021 10:[address] RAILWAY LINE INSTALLER Narrative BREEZE PFT - 05/21/2021 11:[address] RAILWAY LINE INSTALLER Verified by Danya Orourke on 05/21/2021. Monik Melendez APRN [facility] LAB - HIM EXTERNA L RESULT Edited Result - Final Performing Organization Address [facility] de Phone Number BREEZE PFT NON-INTERFACED (ONBASE SCANS) * Rubella Antibody IgG (External Result) (04/09/2021 10:[address] RAILWAY LINE INSTALLER) Rubella Antibody IgG (External) 9.38 IMMUNE>0.9 9 NON-INTERFACED (ONBASE SCANS) 04/09/2021 10:[address] RAILWAY LINE INSTALLER Narrative BREEZE PFT - 05/21/2021 11:[address] RAILWAY LINE INSTALLER Verified by Danya Orourke on 05/21/2021. Monik Melendez APRN [facility] LAB - HIM EXTERNA L RESULT Edited Result - Final Performing Organization Address [facility]/ZIP Co de Phone Number BREEZE PFT NON-INTERFACED (ONBASE SCANS) * Treponema Pallidum Antibody (RPR) (External Result) (04/09/2021 10:[address] RAILWAY LINE INSTALLER) Treponema Palldum Antibody (External) Non Reactive NON REACTIVE NON-INTERFAC ED (ONBASE SCANS) 04/09/2021 10:[address] RAILWAY LINE INSTALLER Narrative BREEZE PFT - 05/21/2021 11:[address] RAILWAY LINE INSTALLER Verified by Danya Orourke on 05/21/2021. Monik Melendez APRN, CNM LAB - HIM EXTERNA L RESULT Edited Result - Final Performing Organization Address [facility]/ZIP Co de Phone Number BREEZE PFT NON-INTERFACED (ONBASE SCANS) * Hepatitis B Surface Antigen (External Result) (04/09/2021 10:[address] RAILWAY LINE INSTALLER) Hepatitis B Surface Antigen (External) NEG NEGATIVE NON-INTERFACED (ONBASE SCANS) 04/09/2021 10:[address] RAILWAY LINE INSTALLER Narrative BREEZE PFT - 05/21/2021 11:[address] RAILWAY LINE INSTALLER Verified by Danya Orourke on 05/21/2021. Monik Melendez APRN, CNM LAB - HIM EXTERNA L RESULT Edited Result - Final Performing Organization Address [facility] Co de Phone Number TAINA PFT NON-INTERFACED (ONBASE SCANS) documented in this [...] documented as of this encounter Care Teams Granite Chip Terrazzo Finisher Relationship Specialty [place] [address] [place] [address] PCP - General Family Practice 08/03/19 05/22/23 System, Provider Not In PCP - General Clinic 06/27/23 [place] [address] [place] [address] Assigned PCP 09/14/20 05/07/22 Tamara Ly Personal Advocate & Liaison (PAL) Family Medicine 09/24/20 Tamara Ly Personal Advocate & Liaison (PAL) Family Medicine 12/04/20 Vince Orourke MD [address] [place], [place] [address] Assigned OBGYN Provider 07/05/21 Jessica Goldberg MD [address] [place], [place] [address] Assigned OBGYN Provider 08/30/21 Jessica Goldberg MD [address] [place], [place] [address] Assigned OBGYN Provider 11/07/2102/18 Vince Orourke MD [address] [place], [place] [address] Assigned OBGYN Provider 10/31/21 [place] [address] [place] [address] Assigned PCP 05/08/22 06/04/22 [place] [address] [place] [address] Assigned PCP 06/05/22 07/09/22 Stephanie Porras PA-C [address] [place] [address] Assigned PCP 07/10/22 03/02/24 [facility] [address] [facility] [place] [address] Assigned PCP 03/03/24 documented as of this encounter
--- OUTSIDE RECORDS SUMMARY | 2024-05-21 15:38 | XMS_ITS | Clinical Summary ---
Author Organization [facility] Address [place], [place] [address] Care Team Providers Care Exceptional Student Education Aide Name Role Phone Provider, Non-Excellian Primary Care [...] on file Legal Sex Female 7:12 AM FREIGHT LOADER Gender Identity Not on file Sexual Orientation [...] complete this topic Insurance [place] [place] Care Teams Exceptional Student Education Aide Relationship Specialty Start Date End Date Provider, Non-Excellian . PCP - General 04/03/17
--- OUTSIDE RECORDS SUMMARY | 2024-05-21 15:38 | XMS_ITS | Encounter Summary ---
Author Organization [facility] Address [address] [place] [address] Care Team Providers Care Associate Property Manager Name Role Phone Ana Herrera MD Primary Care Provider Ana Herrera MD Unavailable Arianna Lye Kole Unavailable Unavailable Tamara Ly Unavailable Unavailable Vince Orourke MD Unavailable [phone] Jessica Goldberg MD Unavailable [phone] Jessica Goldberg MD Unavailable [phone] Vince Orourke MD Unavailable Coming Hali Theodore MD Unavailable [phone] Ana Herrera MD Unavailable Stephanie Porras PA-C Unavailable System, Provider Not In Primary Care Provider Un available Clinic - [facility] Unavail able Encounter Details Date Type Department Care Team (Late st Contact Info) Description 08/29/2021 Orders Only [facility] [address] [place] [id number] Katia Navarro MD [address] [place] [id number] Preop testing (Primary Dx) Social History Tobacco Use Types [...] PM CDT Legal Sex Female 4:24 AM ENGINEERING CLERK Gender Identity Female 01/03/2021 12:47 PM CDT Sexual Orientation Straight 01/03/2021 12 :47 PM CDT COVID-19 Exposure Response Date Recorded In the last 10 days, have yo u been in contact with someone who was confirmed or suspected to have Coronavirus/COVID-19? No / Unsure 08/19/2021 11:36 AM CDT documented as of this encounter Plan of Treatment Not on file documented as of this encounter Visit Diagnoses Diagnosis Preop testing- Primary Preoperative examination, unspecified documented in this encounter Additional Health Concerns Infection Onset Date Last Indicated Resolved Time Rule Out COVID-19 09/28/2021 09/28/2021 09/28/2021 11:00 PM CDT Rule Out COVID-19 07/20/2023 07/20/2023 07/20/2023 12:33 PM CDT Assessment Noted Time PHQ-9 Depression Total Score: 8 01/08/20 21 7:01 AM CDT documented as of this encounter Care Teams Associate Property Manager Relationship Specialty [place] [address] [place] [address] PCP - General Family Practice 08/03/19 05/22/23 System, Provider Not In PCP - General Clinic 06/27/23 [place] [address] [place] [address] Assigned PCP 09/14/20 05/07/22 Tamara Ly Personal Advocate & Liaison (PAL) Family Medicine 09/24/20 MilyivanTamara Personal Advocate & Liaison (PAL) Family Medicine 12/04/20 Vince Orourke MD [address] [place] [address] Assigned OBGYN Provider 07/05/21 Jessica Goldberg MD [address] [place] [address] Assigned OBGYN Provider 08/30/21 Jessica Goldberg MD [address] [place] [address] Assigned OBGYN Provider 11/07/2102/18 Vince Orourke MD [address] [place], [place] [address] Assigned OBGYN Provider 10/31/21 [place] [address] [place] [address] Assigned PCP 05/08/22 06/04/22 [place] [address] [place] [address] Assigned PCP 06/05/22 07/09/22 Stephanie Porras PA-C [address] [facility] [facility] [address] [place] [address] Assigned PCP 07/10/22 03/02/24 [facility] [address] [place] [address] Assigned PCP 03/03/24 documented as of this encounter
--- OUTSIDE RECORDS SUMMARY | 2024-05-21 15:38 | XMS_ITS | Encounter Summary ---
Author Organization [facility] Address [address] [place] [address] Care Team Providers Care Submarine Element Coordinator Name Role Phone Viflora Janna Lime Primary Care Provider [phone] Ana Herrera MD Unavailable Ana Herrera MD Primary Care Provider Lencho York MD Unavailable [phone] Ana Herrera MD Unavailable Arianna Lye Kole Unavailable Unavailable Arianna Lye Kole Unavailable Unavailable Vince Orourke MD Unavailable Jessica Goldberg MD Unavailable [phone] Jessica Goldberg MD Unavailable [phone] Vince Orourke MD Unavailable [phone] Hali Gabriel MD Unavailable [phone] Ana Herrera MD Unavailable Stephanie Porras PA-C Unavailable System, Provider Not In Primary Care Provider Un available [facility] Unavail able Reason for Visit * Reason Onset Date Comments Results 03/06/2019 Encounter Details Date Type Department Care Team (Late st Contact Info) Description 03/06/2019 MyC Medical Advice [facility] [id number] [place] [phone] [place] [id number] [place] [address] Results Social History Tobacco Use Types Packs/Day Years [...] PM CDT Legal 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 Gender Identity Female 01/03/2021 12:47 PM CDT Sexual Orientation Straight 01/03/2021 12 :47 PM CDT documented as of this encounter Plan of Treatment Not on file documented as of this encounter Visit Diagnoses Not on filedocumented in this encounter Additional Health Concerns Infection Onset Date Last Indicated Resolved Time Rule Out COVID-19 03/05/2020 03/05/2020 03/06/2020 5:31 PM CRATE MAKER Rule Out COVID-19 01/04/2021 01/04/2021 01/04/2021 4:13 AM CDT Rule Out COVID-19 09/28/2021 09/28/2021 09/28/2021 11:00 PM CDT Rule Out COVID-19 07/20/2023 07/20/2023 07/20/2023 12:33 PM CDT documented as of this encounter Care Teams Submarine Element Coordinator Relationship Specialty Start Date End Date Janna Ball DO PCP - General rn bariatric 03/20/18 08/02/19 [place] [address] [place] [address] PCP - General Family Practice 08/03/19 05/22/23 System, Provider Not In PCP - General Clinic 06/27/23 [place] [address] [place] [address] Assigned PCP 02/18/19 08/02/20 [place] [address] [place] [address] Assigned PCP 08/03/20 09/13/20 [place] [address] [place] [address] Assigned PCP 09/14/20 05/07/22 Tamara Ly Personal Advocate & Liaison (PAL) Family Medicine 09/24/20 Tamara Ly Personal Advocate & Liaison (PAL) Family Medicine 12/04/20 Vince Orourke MD [address] [place], [place] [address] Assigned OBGYN Provider 07/05/21 Jessica Goldberg MD [address] [place], [place] [address] Assigned OBGYN Provider 08/30/21 Jessica Goldberg MD [address] [place], [place] [address] Assigned OBGYN Provider 11/07/2102/18 Vince Orourke MD [address] [place], [place] [address] Assigned OBGYN Provider 10/31/21 [place] [address] [place] [address] Assigned PCP 05/08/22 06/04/22 [place] [address] [place] [address] Assigned PCP 06/05/22 07/09/22 Stephanie Porras PA-C [address] [facility] [address] [address] Assigned PCP 07/10/22 03/02/24 [facility] [address] [place] [address] Assigned PCP 03/03/24 documented as of this encounter
--- OUTSIDE RECORDS SUMMARY | 2024-05-21 15:38 | XMS_ITS | Encounter Summary ---
Author Organization [facility] Address [address] [place] [address] Care Team Providers Care Food Concession Manager Name Role Phone Ana Herrera MD Primary Care Provider Ana Herrera MD Unavailable Arianna Lye Kole Unavailable Unavailable Tamara Ly Unavailable Unavailable Vince Orourke MD Unavailable Jessica Goldberg MD Unavailable [phone] Jessica Goldberg MD Unavailable [phone] Vince Orourke MD Unavailable [phone] Coming Hali Theodore MD Unavailable [phone] Ana Herrera MD Unavailable Stephanie Porras PA-C Unavailable System, Provider Not In Primary Care Provider Un available Clinic - [facility] Unavail able Reason for Visit * Reason Comments Medication Refill Encounter Details Date Type Department Care Team (Late st Contact Info) Description 04/06/2021 Refill [facility] [address] [place] [phone] [place] [id number] [place] [id number] Medication Refill Social History Tobacco Use Types [...] PM CDT Legal 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 Varsha Rivera - Registered Nurse [facility] DING CONSTRUCTION ENGINEER documented in this encounter Plan of Treatment Not on file documented as of this encounter Visit Diagnoses Diagnosis Cough SOB (shortness of breath) Shortness of breath Mild intermittent asthma with acute exacerbation Unspecified asthma, with exacerbation documented in this encounter Additional Health Concerns Infection Onset Date Last Indicated Resolved Time Rule Out COVID-19 09/28/2021 09/28/2021 09/28/2021 11:00 PM CDT Rule Out COVID-19 07/20/2023 07/20/2023 07/20/2023 12:33 PM CDT Assessment Noted Time PHQ-9 Depression Total Score: 8 01/08/20 21 7:01 AM CDT documented as of this encounter Care Teams Food Concession Manager Relationship Specialty [place] [address] [place] [address] PCP - General Family Practice 08/03/19 05/22/23 System, Provider Not In PCP - General Clinic 06/27/23 [place] [address] [place] [address] Assigned PCP 09/14/20 05/07/22 Tamara Ly Personal Advocate & Liaison (PAL) Family Medicine 09/24/20 Tamara Ly Personal Advocate & Liaison (PAL) Family Medicine 12/04/20 Vince Orourke MD [address] [place] [address] Assigned OBGYN Provider 07/05/21 Jessica Goldberg MD [address] [place] [address] Assigned OBGYN Provider 08/30/21 Jessica Goldberg MD [address] [place], [place] [address] Assigned OBGYN Provider 11/07/2102/18 Vince Orourke MD [address] [place] [address] Assigned OBGYN Provider 10/31/21 [place] [address] [place] [address] Assigned PCP 05/08/22 06/04/22 [place] [address] [place] [address] Assigned PCP 06/05/22 07/09/22 Stephanie Porras PA-C [address] [place] [address] Assigned PCP 07/10/22 03/02/24 [facility] [address] [place] [place] [address] Assigned PCP 03/03/24 documented as of this encounter
--- OUTSIDE RECORDS SUMMARY | 2024-05-21 15:38 | XMS_ITS | Encounter Summary ---
Author Organization [facility] Address [address] [place] [address] Care Team Providers Care Receptionist/Telephone Operator Name Role Phone Alexandru Ly MD Primary Car e Provider Paola Martell SENIOR FUND ACCOUNTANT Primary Care Provider [phone] Paola Martell SENIOR FUND ACCOUNTANT Primary Care Provider [phone] Janna Ball DO Primary Care Provider [phone] Davy Proctor PA-C Unavailable [phone] Paola Martell SENIOR FUND ACCOUNTANT Unavailable [phone] Paola Martell SENIOR FUND ACCOUNTANT Unavailable [phone] Paola Martell SENIOR FUND ACCOUNTANT Unavailable [phone] Davy Proctor PA-C Unavailable [phone] Ana Herrera MD Unavailable Ana Herrera MD Primary Care Provider [phone] Lencho York MD Unavailable [phone] Ana Herrera MD Unavailable Tamara Ly Unavailable Unavailable Tamara Ly Unavailable Unavailable Vince Orourke MD Unavailable [phone] Jessica Goldberg MD Unavailable [phone] Jessica Goldberg MD Unavailable [phone] Vince Orourke MD Unavailable [phone] Hali Gabriel MD Unavailable [phone] Ana Herrera MD Unavailable Stephanie Porras PA-C Unavailable [phone] System, Provider Not In Primary Care Provider Un available Clinic - [facility] Unavail able Reason for Visit * Reason Onset Date Comments Shoulder Pain 03/21/2013 Encounter Details Date Type Department Care Team (Late st Contact Info) Description 03/21/2013 MyC Medical Advice [address], [address] [place] [address] [place] [address] [place] [address] Shoulder Pain Social History Tobacco Use Types Packs/Day Years [...] PM CDT Legal 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 Female 4:24 AM 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 Gender Identity Female 01/03/2021 12:47 PM CDT Sexual Orientation Straight 01/03/2021 12 :47 PM CDT documented as of this encounter Plan of Treatment Not on file documented as of this encounter Visit Diagnoses Not on filedocumented in this encounter Additional Health Concerns Infection Onset Date Last Indicated Resolved Time Rule Out COVID-19 03/05/2020 03/05/2020 03/06/2020 5:31 PM WRITER Rule Out COVID-19 01/04/2021 01/04/2021 01/04/2021 4:13 AM CDT Rule Out COVID-19 09/28/2021 09/28/2021 09/28/2021 11:00 PM CDT Rule Out COVID-19 07/20/2023 07/20/2023 07/20/2023 12:33 PM CDT documented as of this encounter Care Teams Receptionist/Telephone Operator Relationship Specialty Start Date End Date Alexandru Ly MD PCP - General 08/09/02 11/22/16 Paola Martell, SENIOR FUND ACCOUNTANT PCP - General Nurse Practitioner - Family 11/23/16 11/09/17 Paola Martell, SENIOR FUND ACCOUNTANT PCP - General Nurse Practitioner - Family 11/14/17 02/08/18 Janna Ball DO PCP - General inventory technician 03/20/18 08/02/19 Davy Proctor PA-C [address] [place] [id number] PCP - Assigned PCP 03/12/18 04/08/18 Paola Martell, SENIOR FUND ACCOUNTANT [address] [place] [address] PCP - Assigned PCP 11/28/16 03/11/18 Paola Martell, SENIOR FUND ACCOUNTANT [place] [address] [place] [address] PCP - Assigned PCP 04/09/18 06/13/18 [place] [address] [place] [address] PCP - General Family Practice 08/03/19 05/22/23 System, Provider Not In PCP - General Clinic 06/27/23 Paola Martell SENIOR FUND ACCOUNTANT [address] [place] [address] Assigned PCP 04/09/18 06/24/18 Davy Proctor PA-C [address] [place] [address] [phone] Assigned PCP 02/26/18 02/17/19 [place] [address] [place], [place] [id number] Assigned PCP 02/18/19 08/02/20 [place] [address] [place], [place] [id number] Assigned PCP 08/03/20 09/13/20 [place] [address] [place], [place] [id number] Assigned PCP 09/14/20 05/07/22 Tamara Ly Personal Advocate & Liaison (PAL) Family Medicine 09/24/20 Tamara Ly Personal Advocate & Liaison (PAL) Family Medicine 12/04/20 Vince Orourke MD [address] [place], [place] [id number] Assigned OBGYN Provider 07/05/21 08/29/21 Jessica Goldberg MD [address] [place], [place] [id number] Assigned OBGYN Provider 08/30/21 10/30/21 Jessica Goldberg MD [address] [place], [place] [id number] Assigned OBGYN Provider 11/07/21 02/18/23 Vince Orourke MD [address] [place], [place] [id number] Assigned OBGYN Provider 10/31/21 11/06/21 [place] [address] [place], [place] [id number] Assigned PCP 05/08/22 06/04/22 [place] [address] [place], [place] [phone] Assigned PCP 06/05/22 07/09/22 Stephanie Porras PA-C [address] [facility] [address] [place] [address] Assigned PCP 07/10/22 03/02/24 [facility] [address] [place] [address] Assigned PCP 03/03/24 documented as of this encounter
[2024-05-21 15:51] LABS: Basophils Absolute Auto 0.05 K/uL (0.00-0.30); Basophils Percent Auto 0.8 % (0.0-3.0); Eosinophils Absolute Auto 0.09 K/uL (0.00-0.50); Eosinophils Percent Auto 1.5 % (0.0-7.0); Hematocrit 41.1 % (33.0-51.0); Hemoglobin* 13.5 gm/dL (12.0-16.0); Immature Granulocytes Abs Auto 0.01 K/uL (0.00-0.30); Immature Granulocytes Pct Auto 0.2 %; Lymphocytes Absolute Auto 1.81 K/uL (0.90-2.90); Lymphocytes Percent Auto 29.9 % (20-44); Mean Corpuscular HGB Conc 33 gm/dL (32-36); Mean Corpuscular Hemoglobin 33 pg (26-34); Mean Corpuscular Volume 101 fL (80-100); Monocytes Percent Auto 7.8 % (0.0-11.0); Neutrophils Absolute Auto 3.63 K/uL (1.7-7.0); Neutrophils Percent Auto 59.8 % (42.0-72.0); Platelet Count* 188 K/uL (140-440); RDW Coefficient of Variation % 12.5 % (11.5-15.5); Red Blood Count 4.07 m/uL (4.00-5.20); Slide Review Reflex No; White Blood Count* 6.06 K/uL (4.50-11.00)
[2024-05-21 16:10] LABS: Chloride* 109 mmol/L (96-114); Sodium* 144 mmol/L (135-149)
[2024-05-21 16:11] LABS: Potassium* 4.3 mmol/L (3.6-5.1)
[2024-05-21 16:13] LABS: Creatinine* 0.5 mg/dL (0.5-1.5); Est. Creatinine Clearance* 135.61; Estimated Glomerular Filt Rate 125 ml/min
[2024-05-21 16:14] LABS: Anion Gap 11 mEq/L (7-15); Blood Urea Nitrogen* 7 mg/dL (5-24); Calcium* 8.5 mg/dL (8.4-10.6); Carbon Dioxide* 24 mmol/L (20-32); Glucose* 96 mg/dL (60-115)
[2024-05-21] MEDS: dexAMETHasone 10 MG/ML inj PO (16:26)
== END 2024-05-21 16:30 | disposition home or self-care (01) ==
PROVIDERS: Emergency Provider Emergency Medicine Emergency Medical Services
DX: R07.9 Chest pain, unspecified (principal)
CPT/HCPCS: 36415; 76604; 76705; 80048; 84484; 85025; 93005; 93308; 99284; 99285; J1100